=== PATIENT | male | born 1945 | race Caucasian/White ===

== ENCOUNTER 2017-01-30 12:11 | Emergency (ER) | payer OTHER ==
[~2017-01-30] VITALS: Ht 175.3 cm; Wt 104.7 kg
[~2017-01-30 12:11] MED LIST: ACET-1256 PO; ALLO100T PO; ALPR0.25 PO; ANT25 PO; CINN1CAP2 PO; CYCL10TA6 PO; DICL1GEL12 TD; DICY10CA55 PO; DIPH25CA37 PO; FLUT0.0529 NAE; FURO40TA3 PO; GUAI1TAB55 PO; LIDO2GEL9 TD; MAGIC1 PO; MERC50TA9 PO; MESA1.2T PO; METR500T PO; MISC1CAP60 PO; MULT-506 PO; ONDA4TAB7 SL; OXYC7.5T65 PO; PANT40TA PO; PRED10TA PO; PROM50TA3 PO; RMCI INJ; TRAM-10 PO
[2017-01-30 12:13] VITALS: TEMP 36.7; Ht 175.3 cm; Wt 104.7 kg
[2017-01-30] MEDS ORDERED: ASCA500 PO (12:33)
[2017-01-30] MEDS ORDERED: MECL1TAB42 PO (12:35)
[2017-01-30] MEDS ORDERED: FLUT0.15 NAE (12:35)
[2017-01-30] MEDS ORDERED: DIPH1TAB PO (12:35)
[2017-01-30] MEDS ORDERED: ONDA4TAB10 SL (12:35)
--- NOTE | 2017-01-30 14:09 | DIAGNOSTIC IMAGING REPORT ---
RIGHT LOWER EXTREMITY VENOUS DOPPLER HISTORY: Right leg pain and swelling. COMPARISON STUDY: Venous Doppler 02/13/2014. FINDINGS: There is normal compressibility, flow, and augmentation within the right lower extremity deep venous system. IMPRESSION: No DVT within the right lower extremity Electronically signed by: Gómez Hyde M.D. 01/30/2017 2:08 PM Dictated Date/Time: 01/30/2017 2:08 PM
--- NOTE | 2017-01-30 14:25 | EMERGENCY ROOM VISIT NOTE ---
ED Visit Note First contact with patient: 12:49 CHIEF COMPLAINT: Right lower extremity pain HISTORY OF PRESENT ILLNESS: This 71-year-old male patient presents to the emergency department complaining of right lower extremity pain 3 days. Patient denies injury. He does report strong family history of DVT and other clots. Patient does not report personal history of clotting disorders. Patient is scheduled to have surgery next Thursday, a left knee replacement, and wanted to ensure he does not currently have a clot. The patient reports tenderness over the anterior, medial tibia and states the pain is worse on palpation and while he walks. Patient reports minimal swelling, however denies redness. The patient denies dyspnea, chest pain, pain higher up in the leg, difficulty with ambulation, decreased range of motion. The patient has not taken any medications for his pain. REVIEW OF SYSTEMS: A 10-system review of systems was performed with positives and pertinent negatives listed in the history of present illness. All other systems were reviewed and are negative. ALLERGIES: Amoxicillin, cefazolin, doxycycline, penicillin, sulfa MEDICATIONS: See list. I have personally reviewed the patient's medications with him. PMH: Crohn's disease, anxiety, osteoarthritis SOCIAL HISTORY: Patient lives locally with a friend. He denies alcohol, tobacco , drug use. PHYSICAL EXAM: VITALS: Vitals are noted on the nurse's note and reviewed by myself. Vital signs stable. GENERAL: 71-year-old male, in no acute distress, nondiaphoretic, well-developed well-nourished. NECK: No lymphadenopathy or thyromegaly. HEART: Regular rate and rhythm. No murmurs, gallops, or rubs. LUNGS: Clear and equal bilaterally to auscultation. No adventitious lung sounds noted. MUSCULOSKELETAL: The knee and ankle are normal to inspection, no swelling or tenderness of either. There is mild swelling and point tenderness over the medial aspect of the distal tibia. The skin is intact. There is no bruising noted. There is no crepitus or deformity noted. Strength 5/5 in bilateral lower extremities. Dorsal pedal pulse +3 bilaterally. SKIN: [place], warm, dry. No diaphoresis or cyanosis noted. No abnormal bruising or skin tears. RADIOLOGY STUDIES: US RLE: FINDINGS: There is normal compressibility, flow, and augmentation within the right lower extremity deep venous system. IMPRESSION: No DVT within the right lower extremity X-Ray Tibia/Fibula: FINDINGS: Alignment of the total right knee arthroplasty is anatomic. There is no periprosthetic fracture or lucency. No fracture or suspicious lesion is identified within the right tibia or fibula. There is no soft tissue gas. There is extensive vascular calcification. There is moderate posterior calcaneal spurring. IMPRESSION: 1. No fracture of the right tibia or fibula. 2. Status post total right knee arthroplasty. No periprosthetic fracture or lucency. EMERGENCY DEPARTMENT COURSE: Patient was seen and evaluated as above. A venous Doppler scan of the right lower extremity was performed and reviewed by radiologist. Results were negative. I discussed with the patient the options to further evaluate the extremity with an x-ray, and patient refuses at this time. The patient was then evaluated by Dr. Sorto, and agrees to having an x- ray performed prior to discharge. X-ray results were reviewed by myself and radiologist and are as outlined previously. The patient was discharged home in good condition. DIFFERENTIAL DIAGNOSIS: Contusion, DVT, stress fracture, malignancy, sprain, soft tissue injury, and others. DIAGNOSIS: Right lower leg pain DISCHARGE INSTRUCTIONS & TREATMENT: You were seen in the emergency department today for right lower extremity pain. We have ruled out a DVT or blood clot in your leg with an ultrasound. We have ruled out a DVT or blood clot in your leg with an ultrasound. We have also ruled out fracture or metastasis of the lower leg with an X-ray. I suspect the pain is due to a contusion of the lower leg. You may continue taking your regularly prescribed pain medication You may use ice and/or heat, 20 minutes on, 20 minutes off, with a barrier between the hot or cold pack and your skin. Please follow up with your primary care provider and/or orthopedic surgeon in 2- 3 days for further evaluation and management of the pain. Return to the emergency department if you experience increased leg swelling, redness, pain, dyspnea, chest pain, dizziness, weakness, or other associated symptoms. Problem List Medical Problems: (1) Diabetes mellitus type 2 Status: Chronic (2) Gastroesophageal reflux disease Status: Chronic (3) Vertigo Status: Chronic Current/Historical Medications Scheduled Acetaminophen (Tylenol), 500-1,000 MG PO Q4HR PRN Alprazolam (Xanax), 0.25 MG PO UD Ascorbic Acid (Vitamin C), 1 TAB PO BID Cinnamon (Cinnamon), 500 MG PO DAILY Dicyclomine Hcl (Bentyl), 10 MG PO BID Fluticasone Propionate (Nasal) (Flonase Allergy Relief), 2 SPRAYS TAWNYA DAILY Furosemide (Lasix), 40 MG PO DAILY Infliximab (Remicade), 1 DOSE INJ UD Mesalamine (Lialda), 2.4 GM PO BID Metronidazole (Flagyl), 500 MG PO TID Misc Natural Products ([place]), 1 CAP PO DAILY Multivitamin (Multivitamin), 1 TAB PO DAILY Pantoprazole (Protonix), 40 MG PO DAILY Scheduled PRN Cyclobenzaprine Hcl (Flexeril), 10 MG PO TID PRN for MUSCLE SPASMS Diclofenac Sodium (Topical) (Voltaren 1% Top Gel), 1 TD DAILY PRN for Pain Diphenhy/Alum/Mag/Sucralfa (Magic Swizzle - Diphenhy/Alum/Mag/Sucralfa), 1 TSP PO QID PRN for MOUTH ULCERS Diphenhydramine Hcl (Benadryl Allergy), 25 MG PO TID PRN for RASH Guaifenesin Ext Rel (Mucinex Ext Rel), 600 MG PO Q12 PRN for CONGESTION Lidocaine Hcl (Lidocaine Hcl Jelly), 1 APPLN TD TID PRN for FISSURES Meclizine Hcl (Meclizine Hcl), 25 MG PO Q6 PRN for Nausea Ondasetron Odt (Zofran Odt), 4 MG SL BID PRN for Nausea Oxycodone/Acetaminophen 7.5MG/325MG (Percocet 7.5MG/325MG), 1 TAB PO Q8 PRN for Pain Promethazine Hcl (Phenergan), 50 MG PO Q4 PRN for Nausea or Vomiting Tramadol (Ultram), 50 MG PO Q8H PRN for Pain Allergies Coded Allergies: Amoxicillin (Verified Allergy, Intermediate, Swelling to legs and inflammation, 09/19/15) Cefazolin (Verified Allergy, Intermediate, rash, 09/19/15) Doxycycline (Verified Allergy, Intermediate, RASH, 09/19/15) Penicillins (Verified Allergy, Intermediate, rash, 09/19/15) Sulfa Antibiotics (Verified Allergy, Unknown, ., 09/19/15) Vital Signs Date Time Temp Pulse Resp B/P (MAP) Pulse Ox O2 Delivery O2 Flow Rate FiO2 01/30/17 12:13 36.7 77 16 138/68 95 Room Air Departure Information Impression Primary Impression: Leg pain, right Dispostion Home / Self-Care Condition GOOD Referrals Rodolfo Whyte D.O. (PCP) Patient Instructions My [facility] Additional Instructions You were seen in the emergency department today for right lower extremity pain. We have ruled out a DVT or blood clot in your leg with an ultrasound. We have also ruled out fracture or metastasis of the lower leg with an X-ray. I suspect the pain is due to a contusion of the lower leg. You may continue taking your regularly prescribed pain medication You may use ice and/or heat, 20 minutes on, 20 minutes off, with a barrier between the hot or cold pack and your skin. Please follow up with your primary care provider and/or orthopedic surgeon in 2- 3 days for further evaluation and management of the pain. Return to the emergency department if you experience increased leg swelling, redness, pain, dyspnea, chest pain, dizziness, weakness, or other associated symptoms.
--- NOTE | 2017-01-30 14:42 | EMERGENCY ROOM VISIT NOTE ---
ED Visit Note First contact with patient: 12:49 I did evaluate and examine this patient myself. I did guide management for the patient. I agree with the APC's assessment as discussed. Please see the APC's dictation for further details. I did independently review the x-rays and Doppler ultrasound of lower extremity. He does not have any DVT. Distal pulses are intact. There is no acute fracture. He was advised follow closely with his doctor.
--- NOTE | 2017-01-30 15:10 | DIAGNOSTIC IMAGING REPORT ---
RIGHT TIBIA/FIBULA 2 VIEWS ROUTINE CLINICAL HISTORY: Right lower extremity pain. COMPARISON: None FINDINGS: Alignment of the total right knee arthroplasty is anatomic. There is no periprosthetic fracture or lucency. No fracture or suspicious lesion is identified within the right tibia or fibula. There is no soft tissue gas. There is extensive vascular calcification. There is moderate posterior calcaneal spurring. IMPRESSION: 1. No fracture of the right tibia or fibula. 2. Status post total right knee arthroplasty. No periprosthetic fracture or lucency. Electronically signed by: Jose Guadalupe Basurto M.D. 01/30/2017 3:08 PM Dictated Date/Time: 01/30/2017 3:07 PM
[2017-01-30 15:45] VITALS: BP 145/76; PULSE 80; O2SAT 97
== END 2017-01-30 15:45 | disposition home or self-care (01) ==
LOC: C.EDB 12:13 → C.EDD 15:45
DX: M79.604 Pain in right leg (principal); K50.90 Crohn's disease, unspecified, without complications; F41.9 Anxiety disorder, unspecified; M19.90 Unspecified osteoarthritis, unspecified site; E11.9 Type 2 diabetes mellitus without complications; K21.9 Gastro-esophageal reflux disease without esophagitis; R42 Dizziness and giddiness; Z79.899 Other long term (current) drug therapy

== ENCOUNTER 2017-11-10 17:16 | Emergency (ER) | payer OTHER ==
[~2017-11-10] VITALS: Ht 177.8 cm; Wt 119.3 kg
[~2017-11-10 17:16] MED LIST changes: -ALLO100T PO; -ANT25 PO; +ASCA500 PO; -CYCL10TA6 PO; -DICY10CA55 PO; +DIPH1TAB87 PO; -DIPH25CA37 PO; -FLUT0.0529 NAE; +FLUT0.15 NAE; -FURO40TA3 PO; -GUAI1TAB55 PO; +MECL1TAB42 PO; -MERC50TA9 PO; -MESA1.2T PO; +ONDA4TAB10 SL; -ONDA4TAB7 SL; -OXYC7.5T65 PO; -PANT40TA PO; -PRED10TA PO; -PROM50TA3 PO; -RMCI INJ; -TRAM-10 PO
[2017-11-10 17:18] VITALS: TEMP 37.1; Ht 177.8 cm; Wt 119.3 kg
[2017-11-10] MEDS ORDERED: TRAM-10 PO (18:00)
[2017-11-10] MEDS ORDERED: MESA1.2T PO (18:00)
[2017-11-10] MEDS ORDERED: PROM50TA3 PO (18:00)
[2017-11-10] MEDS ORDERED: OXYC7.5T65 PO (18:00)
[2017-11-10] MEDS ORDERED: GUAI1TAB55 PO (18:00)
[2017-11-10] MEDS ORDERED: PANT40TA PO (18:00)
[2017-11-10] MEDS ORDERED: RMCI INJ (18:00)
[2017-11-10] MEDS ORDERED: CYCL10TA6 PO (18:00)
[2017-11-10] MEDS ORDERED: FURO40TA3 PO (18:00)
[2017-11-10] MEDS ORDERED: DICY10CA55 PO (18:00)
[2017-11-10 18:36] LABS: BASO % 0.1 %; BASO ABS # 0.01 K/uL (0-0.2); EOS ABS # 0.39 K/uL (0-0.5); HEMATOCRIT 38.4 % (42-52); HEMOGLOBIN 13.6 g/dL (14.0-18.0); IG# 0.03 K/uL (0.00-0.02); LYMPH ABS # 0.78 K/uL (1.2-3.4); MEAN CELL VOLUME 86.9 fL (80-100); MEAN CORPUSCULAR HEMOGLOBIN 30.8 pg (25-34); MEAN CORPUSCULAR HGB CONC 35.4 g/dl (32-36); MEAN PLATELET VOLUME 9.1 fL (7.4-10.4); MONO % 5.9 %; MONO ABS # 0.46 K/uL (0.11-0.59); NEUT % 78.6 %; NEUT ABS # 6.13 K/uL (1.4-6.5); PLATELET COUNT 227 K/uL (130-400); RED CELL DISTRIBUTION WIDTH CV 14.6 % (11.5-14.5); RED CELL DISTRIBUTION WIDTH SD 46.2 fL (36.4-46.3)
[2017-11-10 18:48] LABS: INR 0.9 (0.9-1.1); PTT PATIENT 24.7 SECONDS (21.0-31.0)
[2017-11-10 18:51] LABS: CREATININE 0.9 mg/dl (0.60-1.40); POTASSIUM 3.7 mmol/L (3.5-5.1)
--- NOTE | 2017-11-10 19:42 | DIAGNOSTIC IMAGING REPORT ---
R VENOUS DOPPLER UPR EXT UNIL HISTORY: 72 years-old Male right arm swelling eval for dvt acute right arm swelling with concern for DVT COMPARISON: None available TECHNIQUE: Multiple real-time sonographic images of the right upper extremity deep venous structures were obtained assessing grayscale appearance, color and spectral flow FINDINGS: There is normal flow, phasicity, and compressibility of the right upper extremity deep venous structures. Mild subcutaneous edema is noted about the forearm. IMPRESSION: No sonographic evidence of deep venous thrombosis. The above report was generated using voice recognition software. It may contain grammatical, syntax or spelling errors. Electronically signed by: Apolinar Alvarado M.D. 11/10/2017 7:41 PM Dictated Date/Time: 11/10/2017 7:40 PM
[2017-11-10] MEDS ORDERED: LEVO-366 PO (19:52)
[2017-11-10] MEDS ORDERED: LEVOFLOXACIN 250 MG TAB PO ONE (20:00)
[2017-11-10 20:11] VITALS: BP 139/70; PULSE 72; O2SAT 95
[2017-11-10] MEDS ORDERED: PSEU30TA3 PO (20:54)
[2017-11-10] MEDS ORDERED: OXYC20TA50 PO (20:54)
[2017-11-10] MEDS ORDERED: MRC50 PO (20:54)
--- NOTE | 2017-11-10 22:36 | EMERGENCY ROOM VISIT NOTE ---
History Report prepared by Mat: Jordin Mcclelland Under the Supervision of: Dr. Kamlesh Sorto M.D. First contact with patient: 18:20 Chief Complaint: SWELLING TO EXTREMITY Stated Complaint: SWELLING IN RT ARM History of Present Illness The patient is a 72 year old male who presents to the Emergency Room with complaints of worsening redness and swelling to his right upper extremity. The patient noted that the redness has been present for the past 3 days. The redness started at the wrist and began to spread up towards the arm. He denies any pain in the extremity. He also denies any chest pain, fevers, or shortness of breath. He has no personal history of clots, but does have a family history. The patient has a history of cellulitis and Crohn's. He is on Remicade. Source of History: patient Onset: 3 days Position: arm (right) Quality: other (Redness and swelling) Timing: worsening Associated Symptoms: No fevers, No chest pain, No SOB Review of Systems See HPI for pertinent positives & negatives. A total of 10 systems reviewed and were otherwise negative. Past Medical & Surgical Medical Problems: (1) Diabetes mellitus type 2 (2) Gastroesophageal reflux disease (3) Vertigo Family History No pertinent family history Social History Smoking Status: Former Smoker Drug Use: none Marital Status: Housing Status: lives alone Occupation Status: retired Current/Historical Medications Scheduled Dicyclomine Hcl (Bentyl), 10 MG PO BID Fluticasone Propionate (Nasal) (Flonase Allergy Relief), 2 SPRAYS TAWNYA DAILY Furosemide (Lasix), 40 MG PO DAILY Infliximab (Remicade), 1 DOSE INJ UD Levofloxacin (Levaquin), 500 MG PO DAILY Mercaptopurine (Mercaptopurine), 12.5 MG PO DAILY Mesalamine (Lialda), 2.4 GM PO BID Oxycodone Hcl (Oxycontin), 20 MG PO Q12 Pantoprazole (Protonix), 40 MG PO DAILY Scheduled PRN Cyclobenzaprine Hcl (Flexeril), 10 MG PO TID PRN for MUSCLE SPASMS Diphenhydramine Hcl (Benadryl Allergy), 25 MG PO TID PRN for RASH Guaifenesin Ext Rel (Mucinex Ext Rel), 600 MG PO Q12 PRN for CONGESTION Lidocaine Hcl (Lidocaine Hcl Jelly), 1 APPLN TD PRN PRN for FISSURES Meclizine Hcl (Meclizine Hcl), 25 MG PO Q6 PRN for Nausea Ondasetron Odt (Zofran Odt), 4 MG SL BID PRN for Nausea Oxycodone/Acetaminophen 7.5MG/325MG (Percocet 7.5MG/325MG), 1 TAB PO Q8 PRN for Pain Promethazine Hcl (Phenergan), 50 MG PO Q4 PRN for Nausea or Vomiting Pseudoephedrine Hcl (Sudafed Nasal Decongestan), 1 TAB PO DAILY PRN for CONGESTION Tramadol (Ultram), 50 MG PO Q8H PRN for Pain Allergies Coded Allergies: Amoxicillin (Verified Allergy, Intermediate, Swelling to legs and inflammation, 09/19/15) Cefazolin (Verified Allergy, Intermediate, rash, 09/19/15) Clindamycin (Verified Allergy, Intermediate, Rash, 11/10/17) Doxycycline (Verified Allergy, Intermediate, RASH, 09/19/15) Penicillins (Verified Allergy, Intermediate, rash, 09/19/15) Sulfa Antibiotics (Verified Allergy, Unknown, ., 09/19/15) Physical Exam Vital Signs Date Time Temp Pulse Resp B/P (MAP) Pulse Ox O2 Delivery O2 Flow Rate FiO2 11/10/17 20:11 72 18 139/70 95 11/10/17 18:50 81 18 131/65 94 Room Air 11/10/17 17:18 37.1 82 20 131/70 96 Room Air Physical Exam Constitutional: Vital signs reviewed. Eyes: Pupils are equal round reactive to light. Conjunctiva are noninjected. ENT: Pharynx is clear without erythema or exudate. Mucous membranes are moist. Neck supple without meningeal signs. Respiratory: Clear to auscultation bilaterally. Breath sounds are equal bilaterally. Cardiovascular: Regular rate and rhythm. No rubs or gallops. GI: Soft, nondistended and nontender. Bowel sounds are present. Musculoskeletal: There is erythema and increased warmth to the volar aspect of the right forearm, from the proximal wrist to 2/3 up the forearm. Normal distal pulses. No axillary lymphadenopathy, no significant tenderness. No lower extremity tenderness. No wrist or elbow tenderness. Integumentary: No cyanosis. Neurological: The patient is awake and alert. No focal deficits. Psychiatric: Normal affect. Medical Decision & Procedures ER Provider Diagnostic Interpretation: Radiology results as stated below per my review and the radiologist's interpretation: R VENOUS DOPPLER UPR EXT UNIL HISTORY: 72 years-old Male right arm swelling eval for dvt acute right arm swelling with concern for DVT COMPARISON: None available TECHNIQUE: Multiple real-time sonographic images of the right upper extremity deep venous structures were obtained assessing grayscale appearance, color and spectral flow FINDINGS: There is normal flow, phasicity, and compressibility of the right upper extremity deep venous structures. Mild subcutaneous edema is noted about the forearm. IMPRESSION: No sonographic evidence of deep venous thrombosis. The above report was generated using voice recognition software. It may contain grammatical, syntax or spelling errors. Electronically signed by: Apolinar Alvarado M.D. 11/10/2017 7:41 PM Dictated Date/Time: 11/10/2017 7:40 PM Laboratory Results 11/10/17 18:20 Red Blood Count 4.42, Mean Corpuscular Volume 86.9, Mean Corpuscular Hemoglobin 30.8, Mean Corpuscular Hemoglobin Concent 35.4, Mean Platelet Volume 9.1, Neutrophils (%) (Auto) 78.6, Lymphocytes (%) (Auto) 10.0, Monocytes (%) (Auto) 5.9, Eosinophils (%) (Auto) 5.0, Basophils (%) (Auto) 0.1, Neutrophils # (Auto) 6.13, Lymphocytes # (Auto) 0.78, Monocytes # (Auto) 0.46, Eosinophils # (Auto) 0.39, Basophils # (Auto) 0.01 11/10/17 18:20 Test 11/10/17 18:20 White Blood Count 7.80 K/uL (4.8-10.8) Red Blood Count 4.42 M/uL (4.7-6.1) Hemoglobin 13.6 g/dL (14.0-18.0) Hematocrit 38.4 % (42-52) Mean Corpuscular Volume 86.9 fL (80-100) Mean Corpuscular Hemoglobin 30.8 pg (25-34) Mean Corpuscular Hemoglobin Concent 35.4 g/dl (32-36) Platelet Count 227 K/uL (130-400) Mean Platelet Volume 9.1 fL (7.4-10.4) Neutrophils (%) (Auto) 78.6 % Lymphocytes (%) (Auto) 10.0 % Monocytes (%) (Auto) 5.9 % Eosinophils (%) (Auto) 5.0 % Basophils (%) (Auto) 0.1 % Neutrophils # (Auto) 6.13 K/uL (1.4-6.5) Lymphocytes # (Auto) 0.78 K/uL (1.2-3.4) Monocytes # (Auto) 0.46 K/uL (0.11-0.59) Eosinophils # (Auto) 0.39 K/uL (0-0.5) Basophils # (Auto) 0.01 K/uL (0-0.2) RDW Standard Deviation 46.2 fL (36.4-46.3) RDW Coefficient of Variation 14.6 % (11.5-14.5) Immature Granulocyte % (Auto) 0.4 % Immature Granulocyte # (Auto) 0.03 K/uL (0.00-0.02) Prothrombin Time 9.9 SECONDS (9.0-12.0) Prothromb Time International Ratio 0.9 (0.9-1.1) Activated Partial Thromboplast Time 24.7 SECONDS (21.0-31.0) Partial Thromboplastin Ratio 1.0 Anion Gap 5.0 mmol/L (3-11) Est Creatinine Clear Calc Drug Dose 96.0 ml/min Estimated GFR () 98.5 Estimated GFR (Non- 85.0 BUN/Creatinine Ratio 21.9 (10-20) Calcium Level 10.0 mg/dl (8.5-10.1) Laboratory results as reviewed by me. Medications Administered Medications (Trade) Dose Ordered Sig/Trina Route Start Time Stop Time Status Last Admin Dose Admin Levofloxacin (Levaquin Tab) 500 mg NOW ONCE PO 11/10/17 20:00 11/10/17 20:01 DC 11/10/17 20:07 500 MG ECG Per My Interpretation Indication: other (Right Arm Pain) Rate (beats per minute): 85 Rhythm: normal sinus Findings: other (No JOAQUÍN, No PVCs) ED Course 1821: The patient was evaluated in room A11A. A complete history and physical exam was performed. 1999: Ordered Levofloxacin 500 mg PO. 2007: I discussed britney's findings with him. He verbalized agreement of the treatment plan. The patient was discharged home. Medical Decision This is a 72-year-old male who presents with right arm redness and swelling. Differential diagnosis includes cellulitis, superficial thrombophlebitis, DVT, lymphangitis. I did perform a limited focused review of portions of the patient 's old chart on the electronic medical record. I did evaluate the patient as noted above. Patient appears to have a cellulitis to his right arm. He has no joint involvement. He has no signs of lymphangitis. EKG was performed by the nurse. Per my interpretation there is no evidence of acute ischemia. IV access was established. The patient was placed on a continuous bus driver/monitor. I did order and review the patient's blood work as noted in the electronic medical record. His white blood cell count is not elevated. I did order an ultrasound of the right upper extremity. I did review the images myself as well as the radiology report as described above. There is no evidence of DVT. I did discuss the test results with the patient. I did talk to the pharmacist to reviewed his multiple allergies and recommended Levaquin for treatment of his cellulitis. I did discuss risks and benefits of Levaquin. He was discharged with a prescription for Levaquin for 6 days and given his first dose here. He was advised to follow-up with his doctor. Medication Reconcilliation Current Medication List: was personally reviewed by me Blood Pressure Screening Patient's blood pressure: Normal blood pressure Impression Primary Impression: Right arm cellulitis Scribe Attestation The scribe's documentation has been prepared under my direct and personally reviewed by me in its entirety. I confirm that the note above accurately reflects all work, treatment, procedures, and medical decision making performed by me. Departure Information Dispostion Home / Self-Care Prescriptions Levofloxacin (Levaquin) 500 Mg Tab 500 MG PO DAILY for 6 Days, #6 TAB Prov: Kamlesh Sorto M.D. 11/10/17 Referrals Rodolfo Whyte D.O. (PCP) Forms HOME CARE DOCUMENTATION FORM, IMPORTANT VISIT INFORMATION, WORK / SCHOOL INSTRUCTIONS Patient Instructions My [facility] Additional Instructions You have been examined and treated today on an emergency basis only. This is not a substitute for, or an effort to provide, complete comprehensive medical care. It is impossible to recognize and treat all injuries or illnesses in a single emergency department visit. It is therefore important that you follow up closely with your physician. Call as soon as possible for an appointment. Return for worsening symptoms or if you develop fever, vomiting, chest pain, shortness of breath or any other concerning symptoms.
== END 2017-11-10 20:11 | disposition home or self-care (01) ==
LOC: C.EDB 17:17 → C.EDA 20:11
DX: L03.113 Cellulitis of right upper limb (principal); E11.9 Type 2 diabetes mellitus without complications; K21.9 Gastro-esophageal reflux disease without esophagitis; Z79.899 Other long term (current) drug therapy; Z79.52 Long term (current) use of systemic steroids; Z88.0 Allergy status to penicillin; Z88.1 Allergy status to other antibiotic agents; Z88.2 Allergy status to sulfonamides; Z83.2 Family history of diseases of the blood and blood-forming organs and certain disorders involving the immune mechanism

== ENCOUNTER 2020-03-09 13:50 | Observation (INO) ==
[2020-03-09] MEDS ORDERED: SODIUM CHLORIDE 0.9% 1000ML 1,000 ML IV SCH (14:15)
--- NOTE | 2020-03-09 14:31 | Emergency Department Note ---
Impression & Plan Obstruction of esophagus ED Provider Note Provider: Maikel Johnson MD DATE OF SERVICE: 03/09/2020 CHIEF COMPLAINT: Difficulty swallowing HISTORY OF PRESENT ILLNESS: Patient is a 75-year-old gentleman with a history of diabetes, Crohn's presenting today due to due to difficulty swallowing. Patient unfortunately has been diagnosed with an esophageal mass undergoing currently chemotherapy over the past week and with is a developed significant nausea. Had more difficulty swallowing and today is unable to swallow water or his secretions and is been throwing up. Tried some Zofran with limited success but later some Compazine at home under the tongue which did improve his symptoms. Given this call his doctors referred here for further care. He reports that he is not having significant pain or fever. Denies shortness of breath. Patient states his nausea is now improved. Chronic bowel issues with the Crohn's disease. Had a prior esophageal stent last year done at [facility] with Dr. Stafford. This fractured earlier this year and had to be removed. PET scan last in January. Evidently his primary doctor's office did discuss with his oncologist and plan. The patient states he has a bad experiences here and will he like the stent replaced would prefer done at [facility] or [place]. Denies feeling significantly thirsty at this point. Patient does present here today w ith his friend who is his medical POA. REVIEW OF SYSTEMS: A total of 10 review of systems was obtained and negative except as stated above in the HPI. PAST MEDICAL HISTORY: As noted above MEDICATIONS: Reviewed Family history: Diabetes SOCIAL HISTORY: Former smoker, PHYSICAL EXAM: GENERAL: alert and oriented in no acute distress sitting on stretcher Head: normocephalic and atraumatic EYES: No injection, discharge or icterus. ENT: Mucous membranes pink and moist. LUNGS: Airway patent. No retractions. Breath sounds clear with good air entry bilaterally. HEART: Regular rate and rhythm. Upper chest wall port in place. ABDOMEN: Soft and non-tender, without guarding or rebound. SKIN: Acyanotic, warm, dry, without rashes NEUROLOGICAL: No focal deficits. No aphasia. No facial droop or slurred speech. Ambulatory. EK bpm sinus bradycardia. No PVCs or PACs. No acute ST segment elevation or depression. Patient's hypertension was referred to the [facility] HOSPITAL COURSE: 1405 Patient was first seen and H&P performed. 1450 updated by GI that they were planning to take the patient here and that he should be admitted. 1455 evaluated the patient bedside who is resting comfortably in bed and agreeable to plan for stenting here admission at this time. Patient's laboratory studies and imaging reviewed. Differential includes obstruction, mesenteric ischemia, aortic pathology, inflammatory bowel disease, PUD, pancreatitis, biliary pathology, hernia, volvulus, constipation, obstruction, cardiac disease, PE as well as other pathologies. IMPRESSION/MEDICAL DECISION MAKING: Patient presents with sounds like worsening esophageal cancer now basically with obstructive symptoms. Unsure if he is truly entirely obstructed or extremely close. Did have the gastroenterology nurse practitioner who is available in the emergency department, and see the patient as well. Basic labs EKG and chest x- ray obtained. I doubt this is cardiac or pulmonary in nature. Likely this seems like worsening of his underlying esophageal cancer now causing obstruction. He is agreeable for esophageal stenting if required. Gastroenterology will discuss and present options to the patient. Given some IV fluid here for hydration in the meantime maintained n.p.o. GI evaluated and felt comfortable taking the patient here and the patient was agreeable with this plan for esophageal stenting. Patient should be monitored afterwards and will be admitted. Hospitalist contacted. DIAGNOSIS: Esophageal obstruction DISPOSITION: Hospitalist contacted Patient was agreeable with this plan. Past Med/Surg History Medical History (Updated 03/09/20 @ 16:26 by Loreto Chavez PA-C) Arthritis stable Crohn disease (06/01/14) stable Diabetes mellitus type 2 in nonobese (Inactive 09/09/11) Esophageal cancer + esophageal stent, plan for future chemo GERD (gastroesophageal reflux disease) controlled Gout Migraine hx Obesity Obstruction of esophagus (Acute) Port-A-Cath in place (05/09/19) Insertion of A-Port Dr. Jorge 05/09/19 Sleep apnea BIPAP Surgical History History of colonoscopy History of esophagogastroduodenoscopy (EGD) History of tonsillectomy History of total knee replacement bilateral S/P dilatation of esophageal stricture + stent Family History Mother Diabetes Father Heart disease FHx: lung cancer Social History Smoking Status: Never smoker Second Hand Exposure: No; Hx Alcohol Use: No (hx - no ETOH x 20 years) Hx Substance Use: No Preferred Language: Yoruba Communication Ability: Effective Evs Attendant Required: No Beliefs That Will Affect Care: None marital status: / Current Living Situation Comment: friendDorina current occupational status: retired Feels Safe at Home: Yes Allergies Allergies Allergy/AdvReac Type Severity Reaction Status Date / Time amoxicillin Allergy Intermediate Leg Verified 03/09/20 14:48 swelling/inflammation cefazolin Allergy Intermediate rash Verified 03/09/20 14:48 clindamycin Allergy Intermediate rash Verified 03/09/20 14:48 doxycycline Allergy Intermediate rash Verified 03/09/20 14:48 Sulfa (Sulfonamide Allergy Unknown Unknown Verified 03/09/20 14:48 Antibiotics) Home Meds Home Medications Medication Instructions Recorded Confirmed cyclobenzaprine 10 mg tablet 10 mg PO TID PRN 05/02/19 03/09/20 dicyclomine 10 mg capsule 10 mg PO BID 05/02/19 03/09/20 diphenhydramine HCl 25 mg tablet 25 mg PO UD PRN 05/02/19 03/09/20 fluticasone propionate 50 2 sprays INTNAS DAILY PRN 05/02/19 03/09/20 mcg/actuation nasal spray,suspension guaifenesin 600 mg tablet, 600 mg PO Q12H PRN 05/02/19 03/09/20 extended release 12 hr lidocaine HCl 2 % mucosal jelly 1 appln TOP TID PRN 05/02/19 03/09/20 pantoprazole 40 mg tablet,delayed 40 mg PO QAM 05/02/19 03/09/20 release promethazine 50 mg tablet 50 mg PO Q4H PRN tab 05/02/19 03/09/20 pseudoephedrine HCl 30 mg tablet 30 mg PO Q6H PRN 05/02/19 03/09/20 tramadol 50 mg tablet 50 mg PO Q8H PRN 05/02/19 03/09/20 allopurinol 100 mg tablet 100 mg PO BID 05/03/19 03/09/20 ascorbic acid (vitamin C) 100 mg 100 mg PO DAILY 05/03/19 03/09/20 tablet betamethasone dipropionate 0.05 % 1 appln TOP DAILY 05/03/19 03/09/20 topical ointment cholecalciferol (vitamin D3) 75 3,000 units PO DAILY 05/03/19 03/09/20 mcg (3,000 unit) tablet echinacea 400 mg capsule 400 mg PO DAILY 05/03/19 03/09/20 saw palmetto 160 mg capsule 160 mg PO BID 05/03/19 03/09/20 mesalamine 2.4 g PO BID 05/04/19 03/09/20 baclofen 5 mg PO TID 03/09/20 03/09/20 docusate sodium 200 mg PO BID 03/09/20 03/09/20 meclizine 25 mg PO QID PRN 03/09/20 03/09/20 ondansetron HCl 8 mg PO TID 03/09/20 03/09/20 prochlorperazine maleate 10 mg PO Q6H 03/09/20 03/09/20 Results & Data (ED) Vital Signs Vital Signs - 24 hr 03/09/20 13:53 03/09/20 14:41 03/09/20 14:48 Temperature 36.7 C Temperature Source Oral Pulse Rate 63 49 L 45 L Pulse Rate from SpO2 Sensor 49 L 47 L Respiratory Rate 20 16 12 Blood Pressure 111/66 108/63 Blood Pressure Mean 81 68 Blood Pressure Position Sitting Pulse Oximetry 98 99 99 Oxygen Delivery Method Room Air Sepsis Recent Fever Within 48 Hours No Sepsis New/Unexplained Change in Mental Status No Sepsis Action Taken by Nursing No Action Required 03/09/20 14:50 03/09/20 15:01 03/09/20 15:10 Temperature Temperature Source Pulse Rate 48 L 49 L 47 L Pulse Rate from SpO2 Sensor 49 L 49 L 46 L Respiratory Rate 14 12 Blood Pressure 131/46 L Blood Pressure Mean 58 Blood Pressure Position Pulse Oximetry 100 98 98 Oxygen Delivery Method Sepsis Recent Fever Within 48 Hours Sepsis New/Unexplained Change in Mental Status Sepsis Action Taken by Nursing Laboratory Data Result diagrams: 03/09/20 14:30 03/09/20 14:30 Lab Results 03/09/20 03/09/20 03/09/20 Range/Units 14:30 14:30 14:30 WBC 6.13 (4.8-10.8) K/uL RBC 3.57 L (4.7-6.1) M/uL Hgb 11.1 L (14.0-18.0) g/dL Hct 33.0 L (42-52) % MCV 92.4 (80-100) fL MCH 31.1 (25-34) pg MCHC 33.6 (32-36) g/dL RDW Std Deviation 49.2 H (36.4-46.3) fL RDW Coeff of Davide 14.5 (11.5-14.5) % Plt Count 177 (130-400) K/uL MPV 8.4 (7.4-10.4) fL Immature Gran % (Auto) 0.2 % Neut % (Auto) 78.4 % Lymph % (Auto) 15.5 % [place] % (Auto) 4.7 % Eos % (Auto) 0.7 % Baso % (Auto) 0.5 % Neut # (Auto) 4.81 (1.4-6.5) K/uL Lymph # (Auto) 0.95 L (1.2-3.4) K/uL [place] # (Auto) 0.29 (0.11-0.59) K/uL Eos # (Auto) 0.04 (0-0.5) K/uL Baso # (Auto) 0.03 (0-0.2) K/uL Immature Gran # (Auto) 0.01 (0.00-0.02) K/uL PT 10.6 (9.0-12.0) Seconds INR 1.0 (0.9-1.1) Sodium 142 (136-145) mmol/L Potassium 3.8 (3.5-5.1) mmol/L Chloride 108 H (98-107) mmol/L Carbon Dioxide 29 (21-32) mmol/L Anion Gap 5.0 (3-11) BUN 17 (7-18) mg/dl Creatinine 0.74 (0.6-1.4) mg/dl Est Cr Clr Drug Dosing Not Reportable Est GFR ( Amer) 104.6 Est GFR (Non-Af Amer) 90.2 BUN/Creatinine Ratio 22.7 H (10-20) Glucose 90 (70-99) mg/dl Calcium 10.0 (8.5-10.1) mg/dl Magnesium 2.3 (1.8-2.4) mg/dl Total Bilirubin 0.7 (0.2-1) mg/dl AST 17 (15-37) U/L ALT 16 (12-78) U/L Alkaline Phosphatase 104 (45-117) U/L Total Protein 6.8 (6.4-8.2) gm/dl Albumin 3.2 L (3.4-5.0) gm/dl Globulin 3.6 (2.5-4.0) gm/dl Albumin/Globulin Ratio 0.9 (0.9-2) Administered Medications Discontinued Medications Sodium Chloride (Nss 1000ml) 1,000 mls @ 999 mls/hr IV .Q1H1M KAYDEN Stop: 03/09/20 15:15 Last Infusion: 03/09/20 15:51 Dose: 0 mls/hr Documented by: [id number] Admin: 03/09/20 14:43 Dose: 999 mls/hr Documented by: [id number] Discharge Plan Visit Data *Final* Discharge Date/Time: 03/09/20 16:37 Chief Complaint: Throat Pain Stated Complaint: CHEMO PT, ESOPHAGEAL BLOCKAGE ED Provider: Maikel Johnson Discharge Problem: Obstruction of esophagus Patient Disposition: Admitted As Inpatient Condition: Good Discharge Instructions Interventions: ED Discharge Assessment Last Done: 03/09/20 16:37
[2020-03-09 14:42] LABS: Basophils # (auto) 0.03 K/uL (0-0.2); Basophils % (auto) 0.5 %; Eosinophils # (auto) 0.04 K/uL (0-0.5); Eosinophils % (auto) 0.7 %; Hemoglobin 11.1 g/dL (14.0-18.0); Immature Granulocytes # (auto) 0.01 K/uL (0.00-0.02); Immature Granulocytes % (auto) 0.2 %; Lymphocytes # (auto) 0.95 K/uL (1.2-3.4); Lymphocytes % (auto) 15.5 %; Mean Corpuscular Hemoglobin 31.1 pg (25-34); Mean Corpuscular Hgb Conc 33.6 g/dL (32-36); Mean Corpuscular Volume 92.4 fL (80-100); Mean Platelet Volume 8.4 fL (7.4-10.4); Monocytes # (auto) 0.29 K/uL (0.11-0.59); Monocytes % (auto) 4.7 %; Neutrophils # (auto) 4.81 K/uL (1.4-6.5); Neutrophils % (auto) 78.4 %; Platelet Count 177 K/uL (130-400); RDW Coefficient of Variation 14.5 % (11.5-14.5); RDW Standard Deviation 49.2 fL (36.4-46.3); Red Blood Count 3.57 M/uL (4.7-6.1); White Blood Count 6.13 K/uL (4.8-10.8)
[2020-03-09 14:58] LABS: Prothrombin Time 10.6 Seconds (9.0-12.0)
--- NOTE | 2020-03-09 14:59 | XRay Report ---
SINGLE VIEW CHEST CLINICAL HISTORY: Dysphagia. Esophageal mass. FINDINGS: An AP, portable, upright chest radiograph is compared to study dated 05/09/2019 and correlat ed with chest CT dated 01/23/2020. The examination is degraded by portable technique and patient rotat ion. A left subclavian central venous infusion port is unchanged in position. The heart is enlarged n oting atherosclerotic calcification of the thoracic aorta. The pulmonary vasculature is noncongested. Chronic interstitial thickening is similar to previous. There is mild bibasilar scarring/atelectasis . No airspace consolidation or pleural effusion is identified. No pneumothorax is seen. The skeletal structures are osteopenic. The bony thorax is grossly intact. IMPRESSION: Cardiomegaly with no acute cardiopulmonary abnormality. ACT 112: Negative or not required by law. Electronically signed by: Paul Daley M.D. 03/09/2020 2:57 PM
[2020-03-09 15:01] LABS: Alanine Aminotransferase 16 U/L (12-78); Albumin Level 3.2 gm/dl (3.4-5.0); Aspartate Aminotransferase 17 U/L (15-37); BUN Creatinine Ratio 22.7 (10-20); Blood Urea Nitrogen 17 mg/dl (7-18); Carbon Dioxide 29 mmol/L (21-32); Chloride 108 mmol/L (98-107); Est GFR (African American) 104.6; Est GFR (Non-African American) 90.2; Glucose 90 mg/dl (70-99); Magnesium 2.3 mg/dl (1.8-2.4); Potassium 3.8 mmol/L (3.5-5.1); Sodium 142 mmol/L (136-145)
[2020-03-09 15:03] LABS: Albumin Globulin Ratio 0.9 (0.9-2); Alkaline Phosphatase 104 U/L (45-117); Bilirubin,Total 0.7 mg/dl (0.2-1); Globulin 3.6 gm/dl (2.5-4.0); Total Protein 6.8 gm/dl (6.4-8.2)
[2020-03-09] MEDS ORDERED: ONDANSETRON INJ 2 MG/ML 2 ML VIAL IV PRN ×2 (15:47→18:25)
--- NOTE | 2020-03-09 16:16 | Anesthesiology Consultation ---
Date of Service March 09, 2020 Assessment & Plan (1) Encounter for pre-operative examination: Chart Review Chart Review: Acceptable Risk for Surgery and Patient NOT seen in Pre Admission Testing Consults Requested none History Surgery Operation Date: 03/09/20 15:10 Proposed Procedures p Esophagogastroduodenoscopy with Fluoro Dr Perez - Elsie Perez MD Height/Weight Weight: 70 kg Allergies Allergy/AdvReac Type Severity Reaction Status Date / Time amoxicillin Allergy Intermediate Leg Verified 03/09/20 14:48 swelling/inflammation cefazolin Allergy Intermediate rash Verified 03/09/20 14:48 clindamycin Allergy Intermediate rash Verified 03/09/20 14:48 doxycycline Allergy Intermediate rash Verified 03/09/20 14:48 Sulfa (Sulfonamide Allergy Unknown Unknown Verified 03/09/20 14:48 Antibiotics) Medications Home Medications Medication Instructions Recorded Confirmed Last Taken cyclobenzaprine 10 mg tablet 10 mg PO TID PRN 05/02/19 03/09/20 2 Weeks Ago ~04/25/19 dicyclomine 10 mg capsule 10 mg PO BID 05/02/19 03/09/20 05/08/19 17:30 diphenhydramine HCl 25 mg tablet 25 mg PO UD PRN 05/02/19 03/09/20 1 Month Ago ~04/09/19 fluticasone propionate 50 2 sprays INTNAS DAILY PRN 05/02/19 03/09/20 2 Days Ago mcg/actuation nasal ~05/07/19 spray,suspension guaifenesin 600 mg tablet, 600 mg PO Q12H PRN 05/02/19 03/09/20 2 Months Ago extended release 12 hr ~03/09/19 lidocaine HCl 2 % mucosal jelly 1 appln TOP TID PRN 05/02/19 03/09/20 Unknown pantoprazole 40 mg tablet,delayed 40 mg PO QAM 05/02/19 03/09/20 05/08/19 07:30 release promethazine 50 mg tablet 50 mg PO Q4H PRN tab 05/02/19 03/09/20 2 Months Ago ~03/09/19 pseudoephedrine HCl 30 mg tablet 30 mg PO Q6H PRN 05/02/19 03/09/20 05/08/19 23:00 tramadol 50 mg tablet 50 mg PO Q8H PRN 05/02/19 03/09/20 1 Month Ago ~04/09/19 allopurinol 100 mg tablet 100 mg PO BID 05/03/19 03/09/20 05/08/19 17:30 ascorbic acid (vitamin C) 100 mg 100 mg PO DAILY 05/03/19 03/09/20 05/08/19 08:30 tablet betamethasone dipropionate 0.05 % 1 appln TOP DAILY 05/03/19 03/09/20 2 Days Ago topical ointment ~05/07/19 cholecalciferol (vitamin D3) 75 3,000 units PO DAILY 05/03/19 03/09/20 05/08/19 08:30 mcg (3,000 unit) tablet echinacea 400 mg capsule 400 mg PO DAILY 05/03/19 03/09/20 05/08/19 08:30 saw palmetto 160 mg capsule 160 mg PO BID 05/03/19 03/09/20 05/08/19 07:30 mesalamine 2.4 g PO BID 05/04/19 03/09/20 Unknown baclofen 5 mg PO TID 03/09/20 03/09/20 03/09/20 docusate sodium 200 mg PO BID 03/09/20 03/09/20 03/09/20 meclizine 25 mg PO QID PRN 03/09/20 03/09/20 Unknown ondansetron HCl 8 mg PO TID 03/09/20 03/09/20 03/09/20 prochlorperazine maleate 10 mg PO Q6H 03/09/20 03/09/20 03/09/20 Past Medical History Medical History (Updated 03/09/20 @ 16:26 by Loreto Chavez PA-C) Arthritis stable Crohn disease (06/01/14) stable Diabetes mellitus type 2 in nonobese (Inactive 09/09/11) Esophageal cancer + esophageal stent, plan for future chemo GERD (gastroesophageal reflux disease) controlled Gout Migraine hx Obesity Obstruction of esophagus (Acute) Port-A-Cath in place (05/09/19) Insertion of A-Port Dr. Jorge 05/09/19 Sleep apnea BIPAP Past Family History Family History Mother Diabetes Father Heart disease FHx: lung cancer Past Surgical History Surgical History History of colonoscopy History of esophagogastroduodenoscopy (EGD) History of tonsillectomy History of total knee replacement bilateral S/P dilatation of esophageal stricture + stent Social History Smoking Status: Never smoker tobacco type: cigarettes Hx Alcohol Use: No (hx - no ETOH x 20 years) Alcohol type: beer Hx Substance Use: No substance use type: does not use Physical Exam Vital Signs Last Vital Signs Temp 36.3 C L 03/09/20 17:33 Pulse 50 L 03/09/20 17:33 Resp 16 03/09/20 17:33 BP 104/55 L 03/09/20 17:33 Pulse Ox 100 03/09/20 17:33 Testing Laboratory Results 03/09/20 14:30 03/09/20 14:30 PT 10.6 Seconds (9.0-12.0) 03/09/20 14:30 INR 1.0 (0.9-1.1) 03/09/20 14:30 Electrocardiogram Date: 03/09/20 Findings: + SB @ (51) Chest X-Ray Date: 03/09/20 SINGLE VIEW CHEST CLINICAL HISTORY: Dysphagia. Esophageal mass. FINDINGS: An AP, portable, upright chest radiograph is compared to study dated 05/09/2019 and correlated with chest CT dated 01/23/2020. The examination is degraded by portable technique and patient rotation. A left subclavian central venous infusion port is unchanged in position. The heart is enlarged noting atherosclerotic calcification of the thoracic aorta. The pulmonary vasculature is noncongested. Chronic interstitial thickening is similar to previous. There is mild bibasilar scarring/atelectasis. No airspace consolidation or pleural effusion is identified. No pneumothorax is seen. The skeletal structures are osteopenic. The bony thorax is grossly intact. Other Testing CT chest 01/23/2020: CT OF THE CHEST WITH IV CONTRAST CLINICAL HISTORY: METASTATIC ESOPHAGEAL CA COMPARISON STUDY: 10/26/2019 TECHNIQUE: Following the IV administration of 93 mL of Optiray-320, CT of the thorax was performed from the thoracic inlet to the lung bases. Images are reviewed in the axial, sagittal, and coronal planes. IV contrast was administered without complication. A dose lowering technique was utilized adhering to the principles of ALARA. CT DOSE: FINDINGS: Thyroid: There is a 1 cm right lobe thyroid nodule. Thoracic aorta: The thoracic aorta is normal in course and caliber, noting standard 3-vessel arch anatomy. No aneurysm or dissection is seen. Pulmonary vasculature: The pulmonary trunk is normal in caliber. There are no central filling defects identified to suggest pulmonary embolus. Note that this examination was not protocoled for the evaluation of pulmonary emboli. HEART: There is a small pericardial effusion. There are coronary artery calcifications present. Lungs and pleural spaces: Since the prior study, the patient has developed interstitial and nodular right lung opacities in a distribution favoring an infectious process. 3 month follow up suggested. Mediastinum: There is no pathologic mediastinal adenopathy by size criteria Mavis: There are borderline enlarged left hilar lymph nodes Axilla: There is no evidence of pathologic axillary lymphadenopathy Upper abdomen: There is an enlarged right-sided retrocrural lymph node measuring 18 x 11 mm. There has been interval removal of the distal esophageal stent. There is masslike thickening of the distal esophagus extending to the level of the esophagogastric junction. Skeletal structures: There are no lytic or blastic osseous lesions. IMPRESSION: 1. Distal esophageal mass with secondary luminal narrowing 2. Enlarging right retrocrural lymph node suspicious for metastatic disease 3. Interval development of interstitial and nodular right lung opacities in a distribution favoring an infectious process. 3 month follow up suggested
--- NOTE | 2020-03-09 16:17 | History & Physical Report ---
Date of Service March 09, 2020 Assessment & Plan (1) Obstruction of esophagus: (2) Esophageal cancer: This is a 75-year-old male with PMH of esophageal cancer, Crohn's disease, GERD, CRESENCIO on BiPAP and other medical problems listed below who presents from home with worsening dysphasia in setting of esophageal cancer with obstruction. -History of esophageal cancer undergoing chemotherapy treatment with worsening dysphagia, history of failed esophageal stent -Evaluated by GI, who feel that cancer tumor is likely partially obstructing the esophagus, causing solids dysphasia and mild liquid dysphagia -Plan for EGD later this evening with esophageal stent. Will keep strictly NPO for now -Antiemetics, pain control, gentle IV fluids with 1/2 NSS + D5W (3) Crohn disease: Holding mesalamine while NPO (4) Obstructive sleep apnea syndrome: Bipap HS DVT Ppx: Dewey rosado Code status: FULL PCP: Pato Dispo: Admitted to [facility]. Plan to return home once medically stable. Patient seen in collaboration with Dr. Hoyos. Please see addendum. History of Present Illness Chief Complaint: Dysphasia Primary Care Provider: Rodolfo Whyte, This is a 75-year-old male with PMH of esophageal cancer, Crohn's disease, GERD, CRESENCIO on BiPAP and other medical problems listed below who presents from home with worsening dysphagia . 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 Chemo course includes completing FOLFOX then 5FU and completed his second treatment of FOLFIRI earlier today. Had an esophageal stent in March 2019 that tore and was then removed at [facility] in January 2020. Then began to have difficulty swallowing first with soft foods, then with liquid and swallowing pills. Denies any nausea or abdominal pain but states that feeling of obstruction is uncomfortable and always there. Does have episodes of dry heaving intermittently. Can drink liquids but has lost a significant amount of weight in the past year-approximately 100 pounds. Denies fever, chills, headache, lightheadedness, visual changes, sore throat, chest pain, p alpitations, shortness of breath, abdominal pain, dysuria, constipation or diarrhea. Allergies Allergy/AdvReac Type Severity Reaction Status Date / Time amoxicillin Allergy Intermediate Leg Verified 03/09/20 14:48 swelling/inflammation cefazolin Allergy Intermediate rash Verified 03/09/20 14:48 clindamycin Allergy Intermediate rash Verified 03/09/20 14:48 doxycycline Allergy Intermediate rash Verified 03/09/20 14:48 Sulfa (Sulfonamide Allergy Unknown Unknown Verified 03/09/20 14:48 Antibiotics) Home Medications Home Medications Medication Instructions Recorded Confirmed Type cyclobenzaprine 10 mg tablet 10 mg PO TID PRN 05/02/19 03/09/20 History dicyclomine 10 mg capsule 10 mg PO BID 05/02/19 03/09/20 History diphenhydramine HCl 25 mg tablet 25 mg PO UD PRN 05/02/19 03/09/20 History fluticasone propionate 50 2 sprays INTNAS DAILY PRN 05/02/19 03/09/20 History mcg/actuation nasal spray,suspension guaifenesin 600 mg tablet, 600 mg PO Q12H PRN 05/02/19 03/09/20 History extended release 12 hr lidocaine HCl 2 % mucosal jelly 1 appln TOP TID PRN 05/02/19 03/09/20 History pantoprazole 40 mg tablet,delayed 40 mg PO QAM 05/02/19 03/09/20 History release promethazine 50 mg tablet 50 mg PO Q4H PRN tab 05/02/19 03/09/20 History pseudoephedrine HCl 30 mg tablet 30 mg PO Q6H PRN 05/02/19 03/09/20 History tramadol 50 mg tablet 50 mg PO Q8H PRN 05/02/19 03/09/20 History allopurinol 100 mg tablet 100 mg PO BID 05/03/19 03/09/20 History ascorbic acid (vitamin C) 100 mg 100 mg PO DAILY 05/03/19 03/09/20 History tablet betamethasone dipropionate 0.05 % 1 appln TOP DAILY 05/03/19 03/09/20 History topical ointment cholecalciferol (vitamin D3) 75 3,000 units PO DAILY 05/03/19 03/09/20 History mcg (3,000 unit) tablet echinacea 400 mg capsule 400 mg PO DAILY 05/03/19 03/09/20 History saw palmetto 160 mg capsule 160 mg PO BID 05/03/19 03/09/20 History mesalamine 2.4 g PO BID 05/04/19 03/09/20 History baclofen 5 mg PO TID 03/09/20 03/09/20 History docusate sodium 200 mg PO BID 03/09/20 03/09/20 History meclizine 25 mg PO QID PRN 03/09/20 03/09/20 History ondansetron HCl 8 mg PO TID 03/09/20 03/09/20 History prochlorperazine maleate 10 mg PO Q6H 03/09/20 03/09/20 History Past Med/Surg History Medical History (Updated 03/09/20 @ 16:26 by Loreto Chavze PA-C) Arthritis stable Crohn disease (06/01/14) stable Diabetes mellitus type 2 in nonobese (Inactive 09/09/11) Esophageal cancer + esophageal stent, plan for future chemo GERD (gastroesophageal reflux disease) controlled Gout Migraine hx Obesity Obstruction of esophagus (Acute) Port-A-Cath in place (05/09/19) Insertion of A-Port Dr. Jorge 05/09/19 Sleep apnea BIPAP Surgical History History of colonoscopy History of esophagogastroduodenoscopy (EGD) History of tonsillectomy History of total knee replacement bilateral S/P dilatation of esophageal stricture + stent Family History Mother Diabetes Father Heart disease FHx: lung cancer Social History Smoking Status: Never smoker Second Hand Exposure: No; Hx Alcohol Use: No (hx - no ETOH x 20 years) Hx Substance Use: No Preferred Language: Ukrainian Communication Ability: Effective Order Puller Required: No Beliefs That Will Affect Care: None marital status: / Current Living Situation Comment: friendDorina current occupational status: retired Feels Safe at Home: Yes Review of Systems Review of Systems: At least ten systems reviewed and negative except as noted in the HPI. Physical Exam Physical Exam: General Appearance: WD/WN, vitals as above, appears chronically ill, sitting up in bed, pleasant, conversing easily Head: normocephalic, atraumatic Eyes: normal inspection, PERRL, conjunctivae normal, anicteric sclerae ENT: external ear and nose normal, oropharynx normal, no abnormalities visualized Neck: trachea midline, no thyromegaly normal visual inspection Respiratory: normal respiratory effort, lungs clear to auscultation, no wheeze, rales, rhonchi Cardiovascular: regular rate, rhythm, no murmur, normal peripheral pulses. Vessels: no JVD Chest: normal inspection of chest Abdomen/GI: normal bowel sounds, soft, nontender, no hepatosplenomegaly Extremities/Musculoskeletal: no cyanosis or clubbing, extremities motor strength 5/5 Neurologic: PERRL, EOMI, accommodation nl, no face palsy, no dysarthria, CN's II-XI intact bilaterally and moves all extremities Psychiatric: A+Ox3, euthymic affect Skin: no rashes, normal color, warm/dry Results & Data Results & Data ([facility]) Vital Signs (Past 12 Hours) Vital Signs Temp Pulse Resp BP Pulse Ox 03/09/20 15:10 47 L 12 98 03/09/20 15:01 49 L 131/46 L 98 03/09/20 14:50 48 L 14 100 03/09/20 14:48 45 L 12 99 03/09/20 14:41 49 L 16 108/63 99 03/09/20 13:53 36.7 C 63 20 111/66 98 Laboratory Results Short CBC 03/09/20 03/09/20 03/09/20 Range/Units 14:30 14:30 14:30 WBC 6.13 (4.8-10.8) K/uL RBC 3.57 L (4.7-6.1) M/uL Hgb 11.1 L (14.0-18.0) g/dL Hct 33.0 L (42-52) % MCV 92.4 (80-100) fL MCH 31.1 (25-34) pg MCHC 33.6 (32-36) g/dL RDW Std Deviation 49.2 H (36.4-46.3) fL RDW Coeff of Davide 14.5 (11.5-14.5) % Plt Count 177 (130-400) K/uL MPV 8.4 (7.4-10.4) fL Immature Gran % (Auto) 0.2 % Neut % (Auto) 78.4 % Lymph % (Auto) 15.5 % Wilkinson % (Auto) 4.7 % Eos % (Auto) 0.7 % Baso % (Auto) 0.5 % Neut # (Auto) 4.81 (1.4-6.5) K/uL Lymph # (Auto) 0.95 L (1.2-3.4) K/uL Wilkinson # (Auto) 0.29 (0.11-0.59) K/uL Eos # (Auto) 0.04 (0-0.5) K/uL Baso # (Auto) 0.03 (0-0.2) K/uL Immature Gran # (Auto) 0.01 (0.00-0.02) K/uL PT 10.6 (9.0-12.0) Seconds INR 1.0 (0.9-1.1) Sodium 142 (136-145) mmol/L Potassium 3.8 (3.5-5.1) mmol/L Chloride 108 H (98-107) mmol/L Carbon Dioxide 29 (21-32) mmol/L Anion Gap 5.0 (3-11) BUN 17 (7-18) mg/dl Creatinine 0.74 (0.6-1.4) mg/dl Est Cr Clr Drug Dosing Not Reportable Est GFR ( Amer) 104.6 Est GFR (Non-Af Amer) 90.2 BUN/Creatinine Ratio 22.7 H (10-20) Glucose 90 (70-99) mg/dl Calcium 10.0 (8.5-10.1) mg/dl Magnesium 2.3 (1.8-2.4) mg/dl Total Bilirubin 0.7 (0.2-1) mg/dl AST 17 (15-37) U/L ALT 16 (12-78) U/L Alkaline Phosphatase 104 (45-117) U/L Total Protein 6.8 (6.4-8.2) gm/dl Albumin 3.2 L (3.4-5.0) gm/dl Globulin 3.6 (2.5-4.0) gm/dl Albumin/Globulin Ratio 0.9 (0.9-2) BMP 03/09/20 14:30 Sodium 142 Potassium 3.8 Chloride 108 H Carbon Dioxide 29 BUN 17 Creatinine 0.74 Glucose 90 Calcium 10.0 Liver Function 03/09/20 Range/Units 14:30 Total Bilirubin 0.7 (0.2-1) mg/dl AST 17 (15-37) U/L ALT 16 (12-78) U/L Alkaline Phosphatase 104 (45-117) U/L Albumin 3.2 L (3.4-5.0) gm/dl Diagnostic Findings CXR: IMPRESSION: Cardiomegaly with no acute cardiopulmonary abnormality. Code Status & VTE Plan VTE Prophylaxis Plan VTE Prophylaxis will be ordered: Yes Supervising Physician Co-Signing Physician Notes Attending addendum patient seen and examined, care coordinated with Loreto Chavez PA-C This is a 75-year-old male with history of esophageal cancer stage IV, on chemo treatment,(follows with hematology oncology at [facility], and which [facility] oncology locally) had esophageal stent placed in March [address] [facility] [address] Rivera Carrizales GI, Stent lost its integrity/collapse was removed January this year at [facility] . Repeat stent was not placed, as [facility] thought patient had adequate patency of the esophageal lumen. Past several weeks patient continued to experience swallowing difficulty, food getting stuck on the back of throat, Downgraded to soft diet, now only able to have liquid. 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 including meds History of Crohn's disease: Denies of any abdominal pain, no GI bleed or loose stool Hold oral medication for n.p.o. status CODE STATUS: Full code discussed with patient DVT prophylaxis: SCD and teds, patient is encouraged to ambulate moderate to high risk for DVT given advanced carcinoma, Dermatological anticoagulation avoided as patient needs EGD procedure/esophageal stent Please refer to further documentation by Loreto Scott, PA-C for discussion of chronic medical issues Tran Hoyos MD
--- NOTE | 2020-03-09 16:39 | Electrocardiogram Report ---
Test Reason : Blood Pressure : / mmHG Vent. Rate : 051 BPM Atrial Rate : 108 BPM P-R Int : 000 ms QRS Dur : 092 ms QT Int : 420 ms P-R-T Axes : 005 -16 044 degrees QTc Int : 387 ms Sinus rhythm Low voltage QRS Borderline ECG When compared with ECG of 04-MAY-2019 14:49, T wave inversion no longer evident in Inferior leads Nonspecific T wave abnormality no longer evident in Lateral leads Confirmed by Alen Holland ([id number]) on 03/09/2020 4:39:19 PM Referred By: Confirmed By:Rikki Holland
[2020-03-09] MEDS ORDERED: PROMETHAZINE HCL 6.25 MG in SODIUM CHLORIDE 0.9% 50 ML IV PRN (17:12)
[2020-03-09] MEDS ORDERED: ACETAMINOPHEN 1000 MG/100 ML IV IV PRN (17:12)
[2020-03-09] MEDS ORDERED: MoRPHine SULFATE 2 MG/ML CARP IV PRN (17:12)
[2020-03-09] MEDS ORDERED: MIDAZOLAM HCL 1 MG/ML 2ML VIAL ONE (17:23)
[2020-03-09] MEDS ORDERED: fentaNYL citrate 100 MCG/2 ML VIAL ONE (17:23)
[2020-03-09] MEDS ORDERED: SUCCINYLCHOLINE CHLORIDE 20 MG/ML 10 ML VIAL IV ONE (17:23)
[2020-03-09] MEDS ORDERED: PROPOFOL IV EMULSION 10 MG/ML 20 ML VIAL IV ONE (17:23)
--- NOTE | 2020-03-09 17:50 | History & Physical Report ---
Date of Service March 09, 2020 Assessment & Plan (1) Obstruction of esophagus: Patient agreed and consented, risk and benefit discussed (2) Esophageal cancer: History of Present Illness Primary Care Provider: Rodolfo Whyte DO Dysphagia, Esophageal cancer, needs stent placement Allergies Allergy/AdvReac Type Severity Reaction Status Date / Time amoxicillin Allergy Intermediate Leg Verified 03/09/20 14:48 swelling/inflammation cefazolin Allergy Intermediate rash Verified 03/09/20 14:48 clindamycin Allergy Intermediate rash Verified 03/09/20 14:48 doxycycline Allergy Intermediate rash Verified 03/09/20 14:48 Sulfa (Sulfonamide Allergy Unknown Unknown Verified 03/09/20 14:48 Antibiotics) Home Medications Home Medications Medication Instructions Recorded Confirmed Type cyclobenzaprine 10 mg tablet 10 mg PO TID PRN 05/02/19 03/09/20 History dicyclomine 10 mg capsule 10 mg PO BID 05/02/19 03/09/20 History diphenhydramine HCl 25 mg tablet 25 mg PO UD PRN 05/02/19 03/09/20 History fluticasone propionate 50 2 sprays INTNAS DAILY PRN 05/02/19 03/09/20 History mcg/actuation nasal spray,suspension guaifenesin 600 mg tablet, 600 mg PO Q12H PRN 05/02/19 03/09/20 History extended release 12 hr lidocaine HCl 2 % mucosal jelly 1 appln TOP TID PRN 05/02/19 03/09/20 History pantoprazole 40 mg tablet,delayed 40 mg PO QAM 05/02/19 03/09/20 History release promethazine 50 mg tablet 50 mg PO Q4H PRN tab 05/02/19 03/09/20 History pseudoephedrine HCl 30 mg tablet 30 mg PO Q6H PRN 05/02/19 03/09/20 History tramadol 50 mg tablet 50 mg PO Q8H PRN 05/02/19 03/09/20 History allopurinol 100 mg tablet 100 mg PO BID 05/03/19 03/09/20 History ascorbic acid (vitamin C) 100 mg 100 mg PO DAILY 05/03/19 03/09/20 History tablet betamethasone dipropionate 0.05 % 1 appln TOP DAILY 05/03/19 03/09/20 History topical ointment cholecalciferol (vitamin D3) 75 3,000 units PO DAILY 05/03/19 03/09/20 History mcg (3,000 unit) tablet echinacea 400 mg capsule 400 mg PO DAILY 05/03/19 03/09/20 History saw palmetto 160 mg capsule 160 mg PO BID 05/03/19 03/09/20 History mesalamine 2.4 g PO BID 05/04/19 03/09/20 History baclofen 5 mg PO TID 03/09/20 03/09/20 History docusate sodium 200 mg PO BID 03/09/20 03/09/20 History meclizine 25 mg PO QID PRN 03/09/20 03/09/20 History ondansetron HCl 8 mg PO TID 03/09/20 03/09/20 History prochlorperazine maleate 10 mg PO Q6H 03/09/20 03/09/20 History Past Med/Surg History Medical History (Updated 03/09/20 @ 16:26 by Loreto Chavez PA-C) Arthritis stable Crohn disease (06/01/14) stable Diabetes mellitus type 2 in nonobese (Inactive 09/09/11) Esophageal cancer + esophageal stent, plan for future chemo GERD (gastroesophageal reflux disease) controlled Gout Migraine hx Obesity Obstruction of esophagus (Acute) Port-A-Cath in place (05/09/19) Insertion of A-Port Dr. Jorge 05/09/19 Sleep apnea BIPAP Surgical History History of colonoscopy History of esophagogastroduodenoscopy (EGD) History of tonsillectomy History of total knee replacement bilateral S/P dilatation of esophageal stricture + stent Family History Mother Diabetes Father Heart disease FHx: lung cancer Social History Smoking Status: Never smoker Second Hand Exposure: No; Hx Alcohol Use: No (hx - no ETOH x 20 years) Hx Substance Use: No Preferred Language: Yi Communication Ability: Effective Cvt Rn Required: No Beliefs That Will Affect Care: None marital status: / Current Living Situation Comment: friend, Dorina current occupational status: retired Feels Safe at Home: Yes Review of Systems All systems reviewed & are unremarkable except as noted in HPI & below Physical Exam Constitutional: comfortable; no acute distress Respiratory: normal respiratory effort, lungs clear to auscultation Cardiovascular: RRR, no murmur, no edema Gastrointestinal (Abdomen): normal bowel sounds, soft, nontender, no hepatosplenomegaly Results & Data Vital Signs (Past 12 Hours) Vital Signs Temp Pulse Pulse Resp BP BP Pulse Ox 03/09/20 17:33 36.3 C L 50 L 16 104/55 L 100 03/09/20 15:10 47 L 12 98 03/09/20 15:01 49 L 131/46 L 98 03/09/20 14:50 48 L 14 100 03/09/20 14:48 45 L 12 99 03/09/20 14:41 49 L 16 108/63 99 03/09/20 13:53 36.7 C 63 20 111/66 98 Code Status & VTE Plan VTE Prophylaxis Plan VTE Prophylaxis will be ordered: Yes
[2020-03-09] MEDS ORDERED: IOVERSOL 50ml IV ONE (17:53)
[2020-03-09] MEDS ORDERED: fentaNYL citrate 100 MCG/2 ML VIAL IV PRN (18:25)
[2020-03-09] MEDS ORDERED: ePHEDrine sulfate 50 MG/ML AMP IV PRN (18:25)
[2020-03-09] MEDS ORDERED: ATROPINE SULFATE 0.1 MG/ML 10ML SYR IV PRN (18:25)
[2020-03-09] MEDS ORDERED: ePHEDrine sulfate 50 MG/ML SYR ONE (18:35)
[2020-03-09] MEDS ORDERED: ONDANSETRON INJ 2 MG/ML 2 ML VIAL ONE (18:35)
--- NOTE | 2020-03-09 18:40 | Operative Report ---
Post Operative Report Pre & Post Diagnosis Operation Date: 03/09/20 15:10 <No data on this case meets the specified criteria> I identified the patient and participated in the time-out.: Yes Procedure Operation Date: 03/09/20 15:10 <No data on this case meets the specified criteria> Surgeon Elsie Perez MD Manager Jay Sanchez Estimated Blood Loss 0 Findings See Below (Esophageal obstruction due to malignancy, stent placed) Specimens None Description of Procedure EGD I attest to the content of the Intraoperative Record and any orders documented therein. Any exceptions are noted below.
--- NOTE | 2020-03-09 18:51 | GI REPORT ---
Patient Name: Naseem Moran Procedure Date: 03/09/2020 5:41 PM Date of : 1945 Admit Type: Inpatient Age: 75 Gender: Male Attending MD: Jay Sanchez MD Procedure: Upper GI endoscopy Providers: Elsie Perez MD, Jay Sanchez MD Referring MD: Marga Richard Pa-c Indications: Stent insertion Medicines: See the Anesthesia note for documentation of the administered medications Complications: No immediate complications. Estimated Blood Loss: Estimated blood loss: none. Procedure: Pre-Anesthesia Assessment: - ASA Grade Assessment: III - A patient with severe systemic disease. After obtaining informed consent, the endoscope was passed under direct vision. Throughout the procedure, the patient's blood pressure, pulse, and oxygen saturations were monitored continuously. The Scope was introduced through the mouth, and advanced to the second part of duodenum. The Endoscope was introduced through the mouth, and advanced to the second part of duodenum. The upper GI endoscopy was accomplished without difficulty. The patient tolerated the procedure well. Findings: There was food and deibris in the esophageal lumen. There was an obstructing mass from 35 to 40 cm. The GE junction was at 40 cm. The cardia was not involved by tumor. The stomach was normal. The duodenum was normal. The proximal and distal edges of the tumor were marked with external fluoroscopic markers. A Savary wire was placed into the stomach under direct visualization and tthe scope was withdrawn. A 10 cm partially uncovered Evolution stent was advanced over the wire underfluroscopic guidance and aligned with fluoroscopic markers. The stent was deployed under fluoroscopic and direct visualization. The stent appeared well positioned after deployment. Impression: Obstructing distal esophageal cancer. 10 cm partially uncovered Evolution stent deployed. Recommendation: - Discharge patient to floor. - Clear liquids today, then advance to full liquids tomorrow as tolerated. - CXR in 2 days. Dai Parham MD 03/09/2020 6:50:42 PM This report has been signed electronically. Elsie Perez MD Note Initiated On: 03/09/2020 5:41 PM Number of Addenda: 0 I attest to the content of the Intraoperative Record and orders documented therein, exceptions below {[id number]}
[2020-03-09] MEDS: D5W AND NSS 1,000 ML IV SCH (20:17)
--- NOTE | 2020-03-09 20:23 | Anesthesiology Progress Note ---
Date of Service March 09, 2020 Anesthesia Post Procedure Vital Signs Vital Signs: Temp Pulse Pulse Pulse Resp BP BP 03/09/20 19:50 49 L 15 03/09/20 19:40 36.3 C L 62 17 03/09/20 19:30 67 20 03/09/20 19:20 50 L 18 03/09/20 19:16 36.1 C L 50 L 16 03/09/20 17:33 36.3 C L 50 L 16 104/55 L 03/09/20 16:00 36.4 C L 60 18 116/68 03/09/20 15:10 47 L 12 03/09/20 15:01 49 L 131/46 L 03/09/20 14:50 48 L 14 03/09/20 14:48 45 L 12 03/09/20 14:41 49 L 16 108/63 03/09/20 13:53 36.7 C 63 20 111/66 BP Pulse Ox 03/09/20 19:50 113/62 100 03/09/20 19:40 133/70 100 03/09/20 19:30 130/69 100 03/09/20 19:20 141/65 H 100 03/09/20 19:16 125/62 100 03/09/20 17:33 100 03/09/20 16:00 100 03/09/20 15:10 98 03/09/20 15:01 98 03/09/20 14:50 100 03/09/20 14:48 99 03/09/20 14:41 99 03/09/20 13:53 98 Transfer of Care Handoff Completed per policy Notes Mental Status: alert / awake / arousable and participated in evaluation Patient Amnestic to Procedure: Yes Nausea / Vomiting: adequately controlled Pain: adequately controlled Airway Patency, RR, SpO2: stable & adequate BP & HR: stable & adequate Hydration State: stable & adequate Anesthetic Complications: no major complications apparent and Pt Satisfied with anesthetic care
[2020-03-10] MEDS ORDERED: HEPARIN 100 UNIT/ML 5ML FLUSH FLUSH PRN (01:53)
[2020-03-10] MEDS: D5W AND NSS 1,000 ML IV SCH (05:24)
[2020-03-10 06:23] LABS: Hematocrit (blood only) 31.5 % (42-52); Mean Corpuscular Hemoglobin 29.9 pg (25-34); Mean Corpuscular Hgb Conc 31.7 g/dL (32-36); Mean Platelet Volume 8.8 fL (7.4-10.4); Platelet Count 164 K/uL (130-400); RDW Coefficient of Variation 14.5 % (11.5-14.5); RDW Standard Deviation 49.4 fL (36.4-46.3); Red Blood Count 3.35 M/uL (4.7-6.1); White Blood Count 5.14 K/uL (4.8-10.8)
[2020-03-10 06:50] LABS: BUN Creatinine Ratio 22.2 (10-20); Calcium 9.3 mg/dl (8.5-10.1); Creatinine Clr Calc Pharmacy 97.8 ml/min; Est GFR (African American) 113.2; Est GFR (Non-African American) 97.7; Potassium 3.7 mmol/L (3.5-5.1)
--- NOTE | 2020-03-10 09:55 | XRay Report ---
XR chest 2V PA/lateral CLINICAL HISTORY: check esophageal stent COMPARISON STUDY: No previous studies for comparison. FINDINGS: Esophageal stent in good position. The lungs are clear. There is a central catheter in supe rior vena cava. IMPRESSION: 1. No acute process the chest. 2. Lungs are clear. 3. Esophageal stent appearing to be in good position ACT 112: Negative or not required by law. The above report was generated using voice recognition software. It may contain grammatical, syntax or spelling errors. Electronically signed by: Aditya Camacho M.D. 03/10/2020 9:54 AM
--- NOTE | 2020-03-10 11:20 | Gastroenterology Progress Note ---
Date of Service March 10, 2020 Assessment & Plan Admission and Anticipated Discharge Date Admission Date: March 09, 2020 Subjective Pt without complaints. CXR shows stent in place A/p: Advance diet to full liquids. OK for d/c home today. Results & Data ([facility]) Vital Signs (Past 12 Hours) Vital Signs Temp Pulse Resp BP BP Pulse Ox Pulse Ox 03/10/20 07:56 36.9 C 63 17 108/59 L 92 03/10/20 03:44 36.8 C 58 L 16 112/61 99/41 L 97 03/10/20 00:54 97 03/10/20 00:49 36.8 C 64 15 135/69 98
--- NOTE | 2020-03-10 13:18 | Discharge Summary ---
Date of Service March 10, 2020 Admission HPI Per Admitting Provider This is a 75-year-old male with PMH of esophageal cancer, Crohn's disease, GERD, CRESENCIO on BiPAP and other medical problems listed below who presents from home with worsening dysphagia . 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 Chemo course includes completing FOLFOX then 5FU and completed his second treatment of FOLFIRI earlier today. Had an esophageal stent in March 2019 that tore and was then removed at [facility] in January 2020. Then began to have difficulty swallowing first with soft foods, then with liquid and swallowing pi lls. Denies any nausea or abdominal pain but states that feeling of obstruction is uncomfortable and always there. Does have episodes of dry heaving intermittently. Can drink liquids but has lost a significant amount of weight in the past year-approximately 100 pounds. Denies fever, chills, headache, lightheadedness, visual changes, sore throat, chest pain, palpitations, shortness of breath, abdominal pain, dysuria, constipation or diarrhea. Admission Exam Per Admitting Provider General Appearance: WD/WN, vitals as above, appears chronically ill, sitting up in bed, pleasant, conversing easily Head: normocephalic, atraumatic Eyes: normal inspection, PERRL, conjunctivae normal, anicteric sclerae ENT: external ear and nose normal, oropharynx normal, no abnormalities visualized Neck: trachea midline, no thyromegaly normal visual inspection Respiratory: normal respiratory effort, lungs clear to auscultation, no wheeze, rales, rhonchi Cardiovascular: regular rate, rhythm, no murmur, normal peripheral pulses. Vessels: no JVD Chest: normal inspection of chest Abdomen/GI: normal bowel sounds, soft, nontender, no hepatosplenomegaly Extremities/Musculoskeletal: no cyanosis or clubbing, extremities motor strength 5/5 Neurologic: PERRL, EOMI, accommodation nl, no face palsy, no dysarthria, CN's II-XI intact bilaterally and moves all extremities Psychiatric: A+Ox3, euthymic affect Skin: no rashes, normal color, warm/dry Principal Diagnosis Progressive dysphagia secondary to Obstructing esophageal cancer S/P 10cm partially uncovered evolution stent Discharge Exam Constitutional + ill appearing (chronic); no acute distress Eyes PERRL, conjunctivae normal, anicteric sclerae ENMT external ear and nose normal, oropharynx normal Respiratory normal respiratory effort, lungs clear to auscultation Cardiovascular RRR, no murmur, no edema Gastrointestinal (Abdomen) normal bowel sounds, soft, nontender, no hepatosplenomegaly Musculoskeletal no cyanosis or clubbing, extremities motor strength 5/5 Neurologic PERRL, EOMI, accommodation nl, no face palsy, no dysarthria Psychiatric A+Ox3, euthymic affect Discharge Data Allergies Allergy/AdvReac Type Severity Reaction Status Date / Time amoxicillin Allergy Intermediate Leg Verified 03/09/20 14:48 swelling/inflammation cefazolin Allergy Intermediate rash Verified 03/09/20 14:48 clindamycin Allergy Intermediate rash Verified 03/09/20 14:48 doxycycline Allergy Intermediate rash Verified 03/09/20 14:48 Sulfa (Sulfonamide Allergy Unknown Unknown Verified 03/09/20 14:48 Antibiotics) Consultations 03/09/20 15:23 ED Decision to Admit Stat 03/09/20 15:47 Consult Gastroenterology Routine 03/09/20 15:50 Consult Case Management - Discharge Planning Routine Procedures Performed Operation Date: 03/09/20 15:10 Actual Procedures p Esophagogastroduodenoscopy with Stent Placement - Irphan E Gaslightwala Findings: There was food and deibris in the esophageal lumen. There was an obstructing mass from 35 to 40 cm. The GE junction was at 40 cm. The cardia was not involved by tumor. The stomach was normal. The duodenum was normal. The proximal and distal edges of the tumor were marked with external fluoroscopic markers. A Savary wire was placed into the stomach under direct visualization and tthe scope was withdrawn. A 10 cm partially uncovered Evolution stent was advanced over the wire underfluroscopic guidance and aligned with fluoroscopic markers. The stent was deployed under fluoroscopic and direct visualization. The stent appeared well positioned after deployment. Impression: Obstructing distal esophageal cancer. 10 cm partially uncovered Evolution stent deployed. Recommendation: - Discharge patient to floor. - Clear liquids today, then advance to full liquids tomorrow as tolerated. Ordered Studies 03/09/20 15:00 FL esophageal dilatation Routine FL fluoroscopy <1hr Routine Hospital Course (1) Obstruction of esophagus: (2) Esophageal cancer: 75-year-old male with PMH of esophageal cancer, Crohn's disease, GERD, CRESENCIO on BiPAP and other medical problems listed below who presents from home with progressively worsening dysphagia in setting of esophageal cancer with obstruction. History of esophageal cancer undergoing chemotherapy treatment with worsening dysphagia, history of failed esophageal stent Was evaluated by GI Had EGD which showed obstructing mass in lower esophagus. 10cm partially uncovered stent was deployed. Patient tolerating liquid diet this AM Reports no nausea, vomiting, abdominal pain this morning. Discharge home on pureed diet. Patient needs to follow up with Gastroenterology and oncology. Patient has lost over 20kg since the beginning of the year. Weight was 91kg on 08/15/19, 79kg in 10/26/19 and 70kg during this admission. Weight loss likely due to malignancy and poor intake due to dysphagia. Discuss with Oncologist/dredge captain about options such as J-tube etc for enteral feeding. (3) Crohn disease: Continue mesalamine (4) Obstructive sleep apnea syndrome: Bipap HS Patient was only in the hospital for one midnight, does not meet inpatient criteria per CMS guideline and should be observation. A code 44 was done. Total Time Total Time Spent Total Time Spent (In Minutes): 35 Total Time Includes: Examination of the Patient, Discharge Planning, Medication Reconciliation and Communication With Other Providers Discharge Plan Discharge Items Patient Disposition: Home - Home Health Services Reason For Visit: UNABLE TO SWALLOW, ESOPHAGEAL CA Discharge Diagnosis: Progressive dysphagia due to Obstructing distal esophageal cancer S/P Stent placement Condition on Discharge: Good Activity: Resume your previous activity Non-emergency contact: Primary Care Provider, Janitorial Cleaner and Oncologist Call non-emergency contact if: you have any medication questions and your symptoms worsen Follow-up/Referrals: Earl Lopez DO [Physician] - Jay Sanchez [Physician] - Rodolfo Whyte DO [Primary Care Provider] - Diet: Regular Diet Texture: Pureed (blended smooth) Addtl Attending Provider Instructions: Mr Moran. You came to the hospital for worsening difficulty swallowing. You were evaluated by Janitorial Cleaner. You had endoscopy (EGD) which showed obstructing esophageal cancer and had a stent placed. Please only take pureed diet as discussed. You can discuss further with your Primary doctor, oncologist and dredge captain about possibility of GI access options like J tube if needed to aid with nutritional status. Please follow up with the Janitorial Cleaner, Oncologist and primary doctor. It was a pleasure taking care of you. Pending Studies at Discharge: No Stand-Alone Forms: My [facility], Smoking Cessation Medications and DC Order Prescriptions: Continued cyclobenzaprine 10 mg tablet 10 mg PO TID PRN (Reason: muscle spasm) RF: 0 dicyclomine 10 mg capsule 10 mg PO BID RF: 0 diphenhydramine HCl [Benadryl Allergy] 25 mg tablet 25 mg PO UD PRN (Reason: ALLERGIES) RF: 0 fluticasone propionate [Flonase Allergy Relief] 50 mcg/actuation spray,suspension 2 sprays INTNAS DAILY PRN (Reason: Nasal Congestion) RF: 0 guaifenesin [Mucinex] 600 mg tablet extended release 12hr 600 mg PO Q12H PRN (Reason: Congestion) RF: 0 lidocaine HCl 2 % jelly 1 appln TOP TID PRN (Reason: fissure) RF: 0 pantoprazole [Protonix] 40 mg tablet,delayed release (DR/EC) 40 mg PO QAM RF: 0 promethazine 50 mg tablet 50 mg PO Q4H PRN (Reason: nausea and vomiting) RF: 0 pseudoephedrine HCl 30 mg tablet 30 mg PO Q6H PRN (Reason: Congestion) RF: 0 tramadol 50 mg tablet 50 mg PO Q8H PRN (Reason: Pain) RF: 0 ascorbic acid (vitamin C) 100 mg tablet 100 mg PO DAILY RF: 0 allopurinol 100 mg tablet 100 mg PO BID RF: 0 betamethasone dipropionate 0.05 % ointment 1 appln TOP DAILY RF: 0 saw palmetto 160 mg capsule 160 mg PO BID RF: 0 echinacea 400 mg capsule 400 mg PO DAILY RF: 0 cholecalciferol (vitamin D3) 3,000 unit tablet 3,000 units PO DAILY RF: 0 mesalamine 1.2 gram Tablet,Delayed Release (Dr/Ec) 2.4 g PO BID RF: 0 ondansetron HCl 8 mg tablet 8 mg PO TID RF: 0 prochlorperazine maleate 10 mg tablet 10 mg PO Q6H RF: 0 baclofen 10 mg tablet 5 mg PO TID RF: 0 docusate sodium 100 mg Capsule 200 mg PO BID RF: 0 meclizine 25 mg Tablet 25 mg PO QID PRN (Reason: Dizziness) RF: 0 Discharge Orders: Discharge Order (Routine); Ordered 08/08/20 Ordered By: Vanita Estrella/Other Patient Handouts: DVT Post Op Prevention Admission Data Admit Date/Time: 03/09/20 15:48 Attending Provider: Vanita Feliz I. Admit Provider: Tran Hoyos Primary Care Provider: Rodolfo Whyte Other Providers: Tran Hoyos ; Daria Whitlock ; Janessa Bone ; Jenny Valdes ; Jessika Yin ; Michele Knight ; Paula Staffrod ; Jay Sanchez ; Blessing Coleman ; Javon Barros ; Rohith Saleh ; Nubia Quick ; Hallie Santamaria ; Renetta Jean ; Lety Georges ; Elsie Perez ; [facility] Other Interventions: Discharge Summary Assessment (RN) Last Done: 03/10/20 13:38 DC Date/Time DO NOT enter until pt leaves facility: 03/10/20 14:39
== END 2020-03-10 14:39 | disposition home health service (06) ==
LOC: ED 13:50 → SUATTDRO 15:48 → 3W 15:48 → INTOOBSV 15:48 → 3W 16:37

== ENCOUNTER 2020-09-13 16:52 | Inpatient (IN) ==
[2020-09-13] MEDS ORDERED: SODIUM CHLORIDE 0.9% 1000ML 1,000 ML IV SCH ×2 (17:45→23:15)
[2020-09-13 17:50] LABS: Basophils # (auto) 0.01 K/uL (0-0.2); Basophils % (auto) 0.2 %; Hematocrit (blood only) 28.3 % (42-52); Hemoglobin 9.1 g/dL (14.0-18.0); Lymphocytes # (auto) 0.48 K/uL (1.2-3.4); Lymphocytes % (auto) 7.7 %; Mean Corpuscular Hemoglobin 26.7 pg (25-34); Mean Corpuscular Hgb Conc 32.2 g/dL (32-36); Mean Platelet Volume 8.4 fL (7.4-10.4); Monocytes # (auto) 0.45 K/uL (0.11-0.59); Monocytes % (auto) 7.2 %; Neutrophils % (auto) 84.9 %; Platelet Count 221 K/uL (130-400); RDW Coefficient of Variation 14.7 % (11.5-14.5); RDW Standard Deviation 45.1 fL (36.4-46.3); Red Blood Count 3.41 M/uL (4.7-6.1); White Blood Count 6.24 K/uL (4.8-10.8)
[2020-09-13 18:02] LABS: INR 1.1 (0.9-1.1); Partial Thromboplastin Time 26.5 Seconds (21.0-31.0); Prothrombin Time 10.8 Seconds (9.0-12.0)
[2020-09-13 18:06] LABS: BUN Creatinine Ratio 26.5 (10-20); Blood Urea Nitrogen 16 mg/dl (7-18); Calcium 10.1 mg/dl (8.5-10.1); Carbon Dioxide 28 mmol/L (21-32); Chloride 97 mmol/L (98-107); Est GFR (Non-African American) 98.4; Glucose 106 mg/dl (70-99); Magnesium 1.9 mg/dl (1.8-2.4); Sodium 132 mmol/L (136-145)
[2020-09-13 18:07] LABS: Alanine Aminotransferase 10 U/L (12-78); Albumin Level 2.8 gm/dl (3.4-5.0); Aspartate Aminotransferase 9 U/L (15-37)
[2020-09-13 18:12] LABS: Albumin Globulin Ratio 0.7 (0.9-2); Alkaline Phosphatase 101 U/L (45-117); Bilirubin,Total 0.3 mg/dl (0.2-1); Total Protein 6.8 gm/dl (6.4-8.2); Troponin I < 0.015 ng/ml (0-0.045)
[2020-09-13] MEDS ORDERED: ACETAMINOPHEN 1,000 MG/100 ML VIAL IV STA (18:18)
--- NOTE | 2020-09-13 18:28 | XRay Report ---
SINGLE VIEW CHEST CLINICAL HISTORY: Sepsis. Esophageal cancer. FINDINGS: 2 AP, portable, upright chest radiographs are compared to study dated 03/10/2020 and correlat ed with chest CT dated 05/14/2020. The examination is degraded by portable technique and patient rota tion. A left subclavian central venous infusion port is unchanged in position. Esophageal stent is in place. The heart is enlarged noting atherosclerotic calcification of the thoracic aorta. The pulmona ry vasculature is noncongested. Chronic interstitial thickening is similar to previous. There is no a irspace consolidation or large pleural effusion. No pneumothorax is seen. The skeletal structures are osteopenic. The bony thorax is grossly intact. Degenerative change is noted in the shoulders and tho racic spine. IMPRESSION: 1. Cardiomegaly with no acute cardiopulmonary abnormality. 2. An esophageal stent is in place. ACT 112: Negative or not required by law. Electronically signed by: Paul Daley M.D. 09/13/2020 6:27 PM
--- NOTE | 2020-09-13 19:07 | Emergency Department Note ---
History of Present Illness General Chief complaint: Weakness Stated complaint: WEAKNESS Time Seen by Provider: 09/13/20 17:38 History of Present Illness Provider complaint: Weakness Onset (ago): day(s) 1 Maximum Pain Intensity: 0 Associated symptoms: + fever/chills and + weakness; no chest pain, no cough, no headaches, no nausea/vomiting and no shortness of breath 75-year-old male with history of stage IV esophageal cancer on chemotherapy presents emergency department for weakness. is at bedside and is answering for the patient. reports that the patient has been increasingly weak over the last 24 hours. She states today he was having difficulty walking and then had an episode of urinary incontinence. No hematuria. Patient denies any recent falls. Patient denies any back pain currently. Patient denies any chest pain, difficulty breathing, coughing up blood, nausea vomiting or diarrhea. No melena or hematochezia. Patient's stated that they did not know he had a fever today until he arrived in the emergency department. Home Medications Medication Instructions Recorded Confirmed Type cyclobenzaprine 10 mg tablet 10 mg PO TID PRN 05/02/19 09/13/20 History dicyclomine 10 mg capsule 10 mg PO BID 05/02/19 09/13/20 History fluticasone propionate 50 2 sprays INTNAS DAILY PRN 05/02/19 09/13/20 History mcg/actuation nasal spray,suspension guaifenesin 600 mg tablet, 600 mg PO Q12H PRN 05/02/19 09/13/20 History extended release 12 hr pantoprazole 40 mg tablet,delayed 40 mg PO QAM 05/02/19 09/13/20 History release pseudoephedrine HCl 30 mg tablet 30 mg PO Q6H PRN 05/02/19 09/13/20 History tramadol 50 mg tablet 50 mg PO Q8H PRN 05/02/19 09/13/20 History ascorbic acid (vitamin C) 100 mg 100 mg PO DAILY 05/03/19 09/13/20 History tablet cholecalciferol (vitamin D3) 75 3,000 units PO DAILY 05/03/19 09/13/20 History mcg (3,000 unit) tablet echinacea 400 mg capsule 400 mg PO DAILY 05/03/19 09/13/20 History saw palmetto 160 mg capsule 160 mg PO BID 05/03/19 09/13/20 History mesalamine 2.4 g PO BID 05/04/19 09/13/20 History meclizine 25 mg PO QID PRN 03/09/20 09/13/20 History prochlorperazine maleate 10 mg PO Q6H 03/09/20 09/13/20 History cetirizine 10 mg PO DAILY 09/13/20 09/13/20 History multivitamin with minerals 1 tab PO DAILY 09/13/20 09/13/20 History [Multiple Vitamin-Minerals] ondansetron 4 - 8 mg PO Q6H PRN 09/13/20 09/13/20 History promethazine 25 mg PO Q6H PRN 09/13/20 09/13/20 History sodium chloride [Saline Nasal] 1 spray INTRANASAL BID PRN 09/13/20 09/13/20 History triamcinolone acetonide 1 applic TOPICAL BID 09/13/20 09/13/20 History Allergies Allergy/AdvReac Type Severity Reaction Status Date / Time amoxicillin Allergy Intermediate Leg Verified 03/09/20 14:48 swelling/inflammation cefazolin Allergy Intermediate rash Verified 09/13/20 21:37 clindamycin Allergy Intermediate rash Verified 09/13/20 21:37 doxycycline Allergy Intermediate rash Verified 09/13/20 21:37 Sulfa (Sulfonamide Allergy Unknown Unknown Verified 09/13/20 21:37 Antibiotics) Past Med/Surg History Medical History Arthritis stable Crohn disease (06/01/14) stable 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 Jorge 05/09/19 Sleep apnea BIPAP Surgical History History of colonoscopy History of esophagogastroduodenoscopy (EGD) History of tonsillectomy History of total knee replacement bilateral S/P dilatation of esophageal stricture + stent Family History Mother Diabetes Father Heart disease FHx: lung cancer Social History Smoking Status: Former smoker Second Hand Exposure: No; Hx Alcohol Use: No Hx Substance Use: No Preferred Language: Chadian Communication Ability: Effective Note Taker Required: No Beliefs That Will Affect Care: None marital status: / Current Living Situation: Significant Other Current Living Situation Comment: friendDorina current occupational status: retired Feels Safe at Home: Yes Assistive Devices: Cane Review of Systems A total of 10 systems reviewed and were otherwise negative Physical Exam Vital Signs Vital Signs - 24 hr 09/13/20 16:44 09/13/20 17:03 09/13/20 17:30 Temperature 38 C H Temperature Source Oral Pulse Rate 83 79 83 Pulse Rate from SpO2 Sensor 78 83 Pulse Rhythm Regular Pulse Strength Normal Respiratory Rate 25 H 17 20 Respiratory Effort / Characteristics Non-Labored Spontaneous Respiratory Depth Normal Respiratory Pattern Regular Blood Pressure 117/54 L 117/54 L 100/57 L Blood Pressure Mean 75 75 71 Blood Pressure Position Lying Pulse Oximetry 96 97 97 Oxygen Delivery Method Room Air Sepsis Recent Fever Within 48 Hours Yes Sepsis New/Unexplained Change in Mental Status N/A Sepsis Action Taken by Nursing No Action Required 09/13/20 18:30 09/13/20 19:00 09/13/20 19:15 Temperature 38.6 C H Temperature Source Pulse Rate 85 75 Pulse Rate from SpO2 Sensor 78 75 Pulse Rhythm Pulse Strength Respiratory Rate 22 Respiratory Effort / Characteristics Respiratory Depth Respiratory Pattern Blood Pressure 116/64 125/58 L Blood Pressure Mean 81 80 Blood Pressure Position Pulse Oximetry 98 98 Oxygen Delivery Method Sepsis Recent Fever Within 48 Hours Sepsis New/Unexplained Change in Mental Status Sepsis Action Taken by Nursing 09/13/20 19:30 09/13/20 20:07 09/13/20 20:30 Temperature 37.3 C Temperature Source Pulse Rate 78 78 79 Pulse Rate from SpO2 Sensor Pulse Rhythm Pulse Strength Respiratory Rate 18 20 16 Respiratory Effort / Characteristics Respiratory Depth Respiratory Pattern Blood Pressure 118/55 L 97/53 L 94/50 L Blood Pressure Mean 76 67 64 Blood Pressure Position Pulse Oximetry 96 97 97 Oxygen Delivery Method Sepsis Recent Fever Within 48 Hours Sepsis New/Unexplained Change in Mental Status Sepsis Action Taken by Nursing 09/13/20 22:18 09/13/20 22:30 Temperature Temperature Source Pulse Rate 88 76 Pulse Rate from SpO2 Sensor Pulse Rhythm Pulse Strength Respiratory Rate 16 20 Respiratory Effort / Characteristics Respiratory Depth Respiratory Pattern Blood Pressure 114/54 L 94/56 L Blood Pressure Mean 74 68 Blood Pressure Position Pulse Oximetry 96 97 Oxygen Delivery Method Sepsis Recent Fever Within 48 Hours Sepsis New/Unexplained Change in Mental Status Sepsis Action Taken by Nursing Physical Exam GENERAL: Patient is ill-appearing. HENT: Exam performed. - Head: Normocephalic and atraumatic. - Right Ear: External ear normal. No mastoid tenderness. - Left Ear: External ear normal. No mastoid tenderness. - Mouth/Throat: The oropharynx is clear and moist. No trismus in the jaw. No dental abscesses or uvula swelling. No oropharyngeal exudate or tonsillar abscesses. EYES: Conjunctivae and EOM are normal. Pupils are equal, round, and reactive to light. Right eye exhibits no discharge. Left eye exhibits no discharge. No scleral icterus. NECK: Normal range of motion. Neck supple. No JVD present. No spinous process tenderness present. No carotid bruit present. No rigidity. No tracheal deviation and normal range of motion present. No Brudzinski's sign and no Kernig's sign noted. CV: Normal rate, regular rhythm, normal heart sounds and intact distal pulses. There is no peripheral edema. Palpable radial pulses bue. PULM/CHEST: Effort normal and breath sounds normal. No respiratory distress. No stridor. He has no wheezes. He has no rales. - Chest Wall: Mediport in place. ABD: The abdomen is soft. Bowel sounds are normal. He has no distension. No mass is present. There is no tenderness. There is no rebound, no guarding, no Tan's sign and no tenderness at McBurney's point. Rovsig negative. MUSC/SKEL: Normal range of motion. There is no peripheral edema, tenderness or deformity. No C, T, or L-spine tenderness. LYMPH: No cervical adenopathy. NEURO: He is alert and oriented to person, place, and time. He has normal strength. No cranial nerve deficit or sensory deficit. Coordination and gait normal. GCS eye subscore is 4. GCS verbal subscore is 5. GCS motor subscore is 6. Cerebellar tests wnl. SKIN: Skin is warm and dry. He is not diaphoretic. PSYCH: He has a normal mood and affect. Behavior is normal. Judgment and thought content normal. Course Course 173: The patient was evaluated in room B9. A complete history and physical exam was performed. Cardiac monitoring: An order was placed for continuous cardiac monitoring. The monitor shows a rate of 80 with sinus rhythm Patient was seen in full airborne precautions. Patient was seen in N95's, gloves, gowns, face shield by myself and staff. Sepsis protocols were initiated. 2318: Vital signs stable. Labs are within normal limits. No leukocytosis. No neutropenia. Lactic acid within normal limits. Urinalysis Covid influenza and RSV negative. CT of the head and chest x-ray within normal limits. Patient was treated with vancomycin as there was concern for epidural abscess given the patient's reported urinary incontinence, weakness, and fever. MRI of the spine shows no epidural abscess in the thoracic or lumbar spine. MRI does show an enlarging 1.7 cm lesion on the L4 vertebral body which may represent a progressing osseous metastasis, there is no paraspinal or epidural extension. There is no epidural abscess in the MRI of the L-spine and there is no significant cord compression. [facility], Dr. Crenshaw notified. Administered Medications Sodium Chloride (Nss 1000ml) 1,000 mls @ 125 mls/hr IV .Q8H KAYDEN Stop: 10/13/20 17:44 Last Admin: 09/13/20 19:17 Dose: 125 mls/hr Documented by: [id number] Vancomycin HCl 1,250 mg/ (Sodium Chloride) 525 mls @ 200 mls/hr IV NOW ONE Stop: 09/13/20 23:22 Last Admin: 09/13/20 22:19 Dose: 200 mls/hr Documented by: [id number] Discontinued Medications Gadobutrol (Gadobutrol 65ml Vial) 6.3 ml IV ONCE ONE Stop: 09/13/20 21:56 Last Admin: 09/13/20 21:56 Dose: 6.3 ml Documented by: [id number] Acetaminophen (Ofirmev) 1,000 mg in 100 mls @ 400 mls/hr IV NOW STA Stop: 09/13/20 18:32 Last Infusion: 09/13/20 19:32 Dose: 0 mls/hr Documented by: [id number] Admin: 09/13/20 19:17 Dose: 400 mls/hr Documented by: [id number] Ondansetron HCl (Ondansetron Inj 2 Mg/Ml 2 Ml Vial) Confirm Administered Dose 4 mg .ROUTE .STK-MED ONE Stop: 09/13/20 22:16 Last Admin: 09/13/20 22:18 Dose: Not Given Documented by: [id number] Ondansetron HCl (Ondansetron Inj 2 Mg/Ml 2 Ml Vial) 4 mg IV NOW STA Stop: 09/13/20 22:18 Last Admin: 09/13/20 22:18 Dose: 4 mg Documented by: [id number] Medical Decision Making Laboratory Data Result diagrams: 09/13/20 17:36 09/13/20 17:36 Lab Results 09/13/20 09/13/20 09/13/20 Range/Units 17:31 17:36 17:36 WBC 6.24 (4.8-10.8) K/uL RBC 3.41 L (4.7-6.1) M/uL Hgb 9.1 L (14.0-18.0) g/dL Hct 28.3 L (42-52) % MCV 83.0 (80-100) fL MCH 26.7 (25-34) pg MCHC 32.2 (32-36) g/dL RDW Std Deviation 45.1 (36.4-46.3) fL RDW Coeff of Davide 14.7 H (11.5-14.5) % Plt Count 221 (130-400) K/uL MPV 8.4 (7.4-10.4) fL Immature Gran % (Auto) 0.0 % Neut % (Auto) 84.9 % Lymph % (Auto) 7.7 % Evans % (Auto) 7.2 % Eos % (Auto) 0.0 % Baso % (Auto) 0.2 % Neut # (Auto) 5.30 (1.4-6.5) K/uL Lymph # (Auto) 0.48 L (1.2-3.4) K/uL Evans # (Auto) 0.45 (0.11-0.59) K/uL Eos # (Auto) 0.00 (0-0.5) K/uL Baso # (Auto) 0.01 (0-0.2) K/uL Immature Gran # (Auto) 0.00 (0.00-0.02) K/uL PT 10.8 (9.0-12.0) Seconds INR 1.1 (0.9-1.1) APTT 26.5 (21.0-31.0) Seconds PTT Ratio 1.0 Sodium (136-145) mmol/L Potassium (3.5-5.1) mmol/L Chloride (98-107) mmol/L Carbon Dioxide (21-32) mmol/L Anion Gap (3-11) BUN (7-18) mg/dl Creatinine (0.6-1.4) mg/dl Est Cr Clr Drug Dosing ml/min Est GFR ( Amer) Est GFR (Non-Af Amer) BUN/Creatinine Ratio (10-20) Glucose (70-99) mg/dl Lactate (0.4-2.0) mmol/L Calcium (8.5-10.1) mg/dl Magnesium (1.8-2.4) mg/dl Total Bilirubin (0.2-1) mg/dl AST (15-37) U/L ALT (12-78) U/L Alkaline Phosphatase (45-117) U/L Troponin I (0-0.045) ng/ml Total Protein (6.4-8.2) gm/dl Albumin (3.4-5.0) gm/dl Globulin (2.5-4.0) gm/dl Albumin/Globulin Ratio (0.9-2) Procalcitonin (0-0.5) ng/ml Urine Color Urine Appearance (Clear) Urine pH (4.5-7.5) Ur Specific Jewett (1.000-1.030) Urine Protein (Negative) Urine Glucose (UA) (Negative) Urine Ketones (Negative) Urine Blood (Negative) Urine Nitrite (Negative) Urine Bilirubin (Negative) Urine Urobilinogen (Negative) Ur Leukocyte Esterase (Negative) Urine WBC (Auto) (0-5) /hpf Urine RBC (Auto) (0-4) /hpf U Hyaline Cast (Auto) (0-5) /lpf U Epithel Cells (Auto) (0-5) /lpf Urine Bacteria (Auto) (Negative) Urine Crystals Calcium Oxalate Crystal (None Prsent) COVID-19 Eval Order SARS-CoV-2 (PCR) (Negative) Influenza Type A (PCR) (Neg) Influenza Type B (PCR) (Neg) RSV (RT-PCR) (Neg) Blood Type A Positive Antibody Screen NEGATIVE 09/13/20 09/13/20 09/13/20 Range/Units 17:36 17:36 17:39 WBC (4.8-10.8) K/uL RBC (4.7-6.1) M/uL Hgb (14.0-18.0) g/dL Hct (42-52) % MCV (80-100) fL MCH (25-34) pg MCHC (32-36) g/dL RDW Std Deviation (36.4-46.3) fL RDW Coeff of Davide (11.5-14.5) % Plt Count (130-400) K/uL MPV (7.4-10.4) fL Immature Gran % (Auto) % Neut % (Auto) % Lymph % (Auto) % Evans % (Auto) % Eos % (Auto) % Baso % (Auto) % Neut # (Auto) (1.4-6.5) K/uL Lymph # (Auto) (1.2-3.4) K/uL Evans # (Auto) (0.11-0.59) K/uL Eos # (Auto) (0-0.5) K/uL Baso # (Auto) (0-0.2) K/uL Immature Gran # (Auto) (0.00-0.02) K/uL PT (9.0-12.0) Seconds INR (0.9-1.1) APTT (21.0-31.0) Seconds PTT Ratio Sodium 132 L (136-145) mmol/L Potassium 4.0 (3.5-5.1) mmol/L Chloride 97 L (98-107) mmol/L Carbon Dioxide 28 (21-32) mmol/L Anion Gap 7.0 (3-11) BUN 16 (7-18) mg/dl Creatinine 0.60 (0.6-1.4) mg/dl Est Cr Clr Drug Dosing 96.0 ml/min Est GFR ( Amer) 114.0 Est GFR (Non-Af Amer) 98.4 BUN/Creatinine Ratio 26.5 H (10-20) Glucose 106 H (70-99) mg/dl Lactate 0.5 (0.4-2.0) mmol/L Calcium 10.1 (8.5-10.1) mg/dl Magnesium 1.9 (1.8-2.4) mg/dl Total Bilirubin 0.3 (0.2-1) mg/dl AST 9 L (15-37) U/L ALT 10 L (12-78) U/L Alkaline Phosphatase 101 (45-117) U/L Troponin I < 0.015 (0-0.045) ng/ml Total Protein 6.8 (6.4-8.2) gm/dl Albumin 2.8 L (3.4-5.0) gm/dl Globulin 4.0 (2.5-4.0) gm/dl Albumin/Globulin Ratio 0.7 L (0.9-2) Procalcitonin 0.06 (0-0.5) ng/ml Urine Color Urine Appearance (Clear) Urine pH (4.5-7.5) Ur Specific Jewett (1.000-1.030) Urine Protein (Negative) Urine Glucose (UA) (Negative) Urine Ketones (Negative) Urine Blood (Negative) Urine Nitrite (Negative) Urine Bilirubin (Negative) Urine Urobilinogen (Negative) Ur Leukocyte Esterase (Negative) Urine WBC (Auto) (0-5) /hpf Urine RBC (Auto) (0-4) /hpf U Hyaline Cast (Auto) (0-5) /lpf U Epithel Cells (Auto) (0-5) /lpf Urine Bacteria (Auto) (Negative) Urine Crystals Calcium Oxalate Crystal (None Prsent) COVID-19 Eval Order SARS-CoV-2 (PCR) (Negative) Influenza Type A (PCR) (Neg) Influenza Type B (PCR) (Neg) RSV (RT-PCR) (Neg) Blood Type Antibody Screen 09/13/20 09/13/20 09/13/20 Range/Units 18:10 18:10 19:20 WBC (4.8-10.8) K/uL RBC (4.7-6.1) M/uL Hgb (14.0-18.0) g/dL Hct (42-52) % MCV (80-100) fL MCH (25-34) pg MCHC (32-36) g/dL RDW Std Deviation (36.4-46.3) fL RDW Coeff of Davide (11.5-14.5) % Plt Count (130-400) K/uL MPV (7.4-10.4) fL Immature Gran % (Auto) % Neut % (Auto) % Lymph % (Auto) % Evans % (Auto) % Eos % (Auto) % Baso % (Auto) % Neut # (Auto) (1.4-6.5) K/uL Lymph # (Auto) (1.2-3.4) K/uL Evans # (Auto) (0.11-0.59) K/uL Eos # (Auto) (0-0.5) K/uL Baso # (Auto) (0-0.2) K/uL Immature Gran # (Auto) (0.00-0.02) K/uL PT (9.0-12.0) Seconds INR (0.9-1.1) APTT (21.0-31.0) Seconds PTT Ratio Sodium (136-145) mmol/L Potassium (3.5-5.1) mmol/L Chloride (98-107) mmol/L Carbon Dioxide (21-32) mmol/L Anion Gap (3-11) BUN (7-18) mg/dl Creatinine (0.6-1.4) mg/dl Est Cr Clr Drug Dosing ml/min Est GFR ( Amer) Est GFR (Non-Af Amer) BUN/Creatinine Ratio (10-20) Glucose (70-99) mg/dl Lactate (0.4-2.0) mmol/L Calcium (8.5-10.1) mg/dl Magnesium (1.8-2.4) mg/dl Total Bilirubin (0.2-1) mg/dl AST (15-37) U/L ALT (12-78) U/L Alkaline Phosphatase (45-117) U/L Troponin I (0-0.045) ng/ml Total Protein (6.4-8.2) gm/dl Albumin (3.4-5.0) gm/dl Globulin (2.5-4.0) gm/dl Albumin/Globulin Ratio (0.9-2) Procalcitonin (0-0.5) ng/ml Urine Color Dark Yellow Urine Appearance Clear (Clear) Urine pH 5.0 (4.5-7.5) Ur Specific Jewett 1.033 H (1.000-1.030) Urine Protein Trace H (Negative) Urine Glucose (UA) Negative (Negative) Urine Ketones Trace H (Negative) Urine Blood Negative (Negative) Urine Nitrite Negative (Negative) Urine Bilirubin 1+ H (Negative) Urine Urobilinogen Negative (Negative) Ur Leukocyte Esterase Negative (Negative) Urine WBC (Auto) 1-5 (0-5) /hpf Urine RBC (Auto) 0-4 (0-4) /hpf U Hyaline Cast (Auto) 1-5 (0-5) /lpf U Epithel Cells (Auto) 10-20 H (0-5) /lpf Urine Bacteria (Auto) Negative (Negative) Urine Crystals Not Reportable Calcium Oxalate Crystal Present A (None Prsent) COVID-19 Eval Order [facility]Rsv at [facility] SARS-CoV-2 (PCR) NEGATIVE (Negative) Influenza Type A (PCR) Negative (Neg) Influenza Type B (PCR) Negative (Neg) RSV (RT-PCR) Negative (Neg) Blood Type Antibody Screen Imaging Data Radiologist's Impression: Preliminary Findings Only See Final Report For Complete Findings MRI T SPINE : Motion artifact degrades study quality. Multilevel degenerative changes with generalized kyphosis. No definite osseous metastasis No significant spinal cord compression. No abnormal cord signal or enhancement. No epidural abscess identified. No paraspinal mass. Radiologist: Jerzy Kasper M.D. Study ready at 22:25 and initial results transmitted at 22:48 Preliminary Findings Only See Final Report For Complete Findings MRI L SPINE : Study quality degraded by patient motion artifact. No acute compression fracture. Slightly enlarging 1.7 cm enhancing lesion in the L4 vertebral body which is now T1 hypointense and may represent a progressing osseous metastasis. No paraspinal or epidural extension. Multilevel degenerative changes with multilevel posterior disc bulges, as before. The conus terminates at T12. No abnormal cord signal or enhancement. No significant cord compression. Persistent moderate L2-3, severe L3-4 and moderate L4-5 central canal stenosis. Mild bilateral L2-3 and L3-4 neural foraminal narrowing. No evidence for epidural abscess. Right renal cyst. Radiologist: Jerzy Kasper M.D. Study ready at 22:37 and initial results transmitted at 23:06 CT SCAN OF THE BRAIN WITHOUT IV CONTRAST CLINICAL HISTORY: Fever. Fatigue. Esophageal cancer. COMPARISON STUDY: No priors. TECHNIQUE: Unenhanced axial CT scan of the brain is performed from the vertex to the skull base. A dose lowering technique was utilized adhering to the principles of ALARA. CT DOSE: 729.78 mGycm FINDINGS: Brain parenchyma: There are age-related involutional changes noting mild subcortical and periventricular microangiopathic change. There is no hemorrhage, mass effect, or evidence of acute territorial ischemia by CT criteria. Page- white matter differentiation is preserved. No extra-axial fluid collection is seen. Ventricles, sulci, cisterns: Prominent secondary to involutional change. Intracranial vasculature: There is atherosclerotic calcification of the cavernous carotid and vertebral arteries. Calvarium: Unremarkable. Sinuses and mastoids: The visualized paranasal sinuses are clear. The mastoid air cells are well pneumatized. Orbits: The bony orbits are grossly intact. IMPRESSION: There is no hemorrhage, mass effect, or evidence of acute territorial ischemia by CT criteria. ACT 112: Negative or not required by law. Electronically signed by: Paul Daley M.D. 09/13/2020 8:05 PM Dictated: 09/13/202002 Transcribed: 09/13/202002 SINGLE VIEW CHEST CLINICAL HISTORY: Sepsis. Esophageal cancer. FINDINGS: 2 AP, portable, upright chest radiographs are compared to study dated 03/10/2020 and correlated with chest CT dated 05/14/2020. The examination is degraded by portable technique and patient rotation. A left subclavian central venous infusion port is unchanged in position. Esophageal stent is in place. The heart is enlarged noting atherosclerotic calcification of the thoracic aorta. The pulmonary vasculature is noncongested. Chronic interstitial thickening is similar to previous. There is no airspace consolidation or large pleural effusion. No pneumothorax is seen. The skeletal structures are osteopenic. The bony thorax is grossly intact. Degenerative change is noted in the shoulders and thoracic spine. IMPRESSION: 1. Cardiomegaly with no acute cardiopulmonary abnormality. 2. An esophageal stent is in place. ACT 112: Negative or not required by law. Electronically signed by: Paul Daley M.D. 09/13/2020 6:27 PM Dictated: 09/13/201823 Transcribed: 09/13/201823 ECG Data Indication: + weakness Rate (beats per minute): 78 Rhythm: + normal sinus ECG Intervals/blocks: + Normal QRS, + Normal MD and + Normal QT-c ECG ST segments: + Normal ST segments [facility] Narrative 1738: The patient was evaluated in room B9. A complete history and physical exam was performed. Cardiac monitoring: An order was placed for continuous cardiac monitoring. The monitor shows a rate of 80 with sinus rhythm Patient was seen in full airborne precautions. Patient was seen in N95's, gloves, gowns, face shield by myself and staff. Sepsis protocols were initiated. 2318: Vital signs stable. Labs are within normal limits. No leukocytosis. No neutropenia. Lactic acid within normal limits. Urinalysis Covid influenza and RSV negative. CT of the head and chest x-ray within normal limits. Patient was treated with vancomycin as there was concern for epidural abscess given the patient's reported urinary incontinence, weakness, and fever. MRI of the spine shows no epidural abscess in the thoracic or lumbar spine. MRI does show an enlarging 1.7 cm lesion on the L4 vertebral body which may represent a progressing osseous metastasis, there is no paraspinal or epidural extension. There is no epidural abscess in the MRI of the L-spine and there is no signif icant cord compression. Patient will be admitted to the [facility] hospitalist service, Dr. Crenshaw notified. Impression & Plan Fever, Esophageal cancer Discharge Plan Visit Data Chief Complaint: Weakness Stated Complaint: WEAKNESS ED Provider: Mathew Chacon Discharge Problem: Fever, Esophageal cancer Patient Disposition: Being Evaluated by Hospitalist Forms Stand Alone Forms: [facility] Prescriptions Prescriptions: No Action cyclobenzaprine 10 mg tablet 10 mg PO TID PRN (Reason: muscle spasm) RF: 0 dicyclomine 10 mg capsule 10 mg PO BID RF: 0 fluticasone propionate [Flonase Allergy Relief] 50 mcg/actuation spray,suspension 2 sprays INTNAS DAILY PRN (Reason: Nasal Congestion) RF: 0 guaifenesin [Mucinex] 600 mg tablet extended release 12hr 600 mg PO Q12H PRN (Reason: Congestion) RF: 0 pantoprazole [Protonix] 40 mg tablet,delayed release (DR/EC) 40 mg PO QAM RF: 0 pseudoephedrine HCl 30 mg tablet 30 mg PO Q6H PRN (Reason: Congestion) RF: 0 tramadol 50 mg tablet 50 mg PO Q8H PRN (Reason: Pain) RF: 0 ascorbic acid (vitamin C) 100 mg tablet 100 mg PO DAILY RF: 0 saw palmetto 160 mg capsule 160 mg PO BID RF: 0 echinacea 400 mg capsule 400 mg PO DAILY RF: 0 cholecalciferol (vitamin D3) 3,000 unit tablet 3,000 units PO DAILY RF: 0 mesalamine 1.2 gram Tablet,Delayed Release (Dr/Ec) 2.4 g PO BID RF: 0 prochlorperazine maleate 10 mg tablet 10 mg PO Q6H RF: 0 meclizine 25 mg Tablet 25 mg PO QID PRN (Reason: Dizziness) RF: 0 triamcinolone acetonide 0.1 % Cream 1 applic TOPICAL BID RF: 0 cetirizine 10 mg Capsule 10 mg PO DAILY RF: 0 sodium chloride [Saline Nasal] 0.65 % Aerosol,Manquin 1 spray INTRANASAL BID PRN (Reason: Congestion) RF: 0 ondansetron 4 mg Tablet,Disintegrating 4 - 8 mg PO Q6H PRN (Reason: Nausea) RF: 0 multivitamin with minerals [Multiple Vitamin-Minerals] Tablet 1 tab PO DAILY RF: 0 promethazine 25 mg Tablet 25 mg PO Q6H PRN (Reason: Nausea) RF: 0 Referrals Referrals: Rodolfo Whyte DO [Primary Care Provider] - Discharge Problem: Fever Qualifiers: Fever type: unspecified Qualified Code(s): R50.9 - Fever, unspecified Esophageal cancer Qualifiers: Malignant neoplasm of esophagus location: unspecified location Qualified Code(s): C15.9 - Malignant neoplasm of esophagus, unspecified
[2020-09-13 19:36] LABS: Appearance Urine Clear (Clear); Bacteria Urine Automated Negative (Negative); Blood Urine Negative (Negative); Color Urine Dark Yellow; Glucose Urine UA Negative (Negative); Ketones Urine Trace (Negative); Leukocyte Esterase Urine Negative (Negative); Nitrite Urine Negative (Negative); Protein Urine Trace (Negative); RBC Urine Automated 0-4 /hpf (0-4); Specific Gravity Urine 1.033 (1.000-1.030); Urobilinogen Urine Negative (Negative)
[2020-09-13 19:53] LABS: Influenza A virus by PCR Negative (Neg); Influenza B virus by PCR Negative (Neg); RSV by PCR Negative (Neg); SARS CoV2 RNA(COVID-19) InHosp NEGATIVE (Negative)
--- NOTE | 2020-09-13 20:06 | CT Scan Report ---
CT SCAN OF THE BRAIN WITHOUT IV CONTRAST CLINICAL HISTORY: Fever. Fatigue. Esophageal cancer. COMPARISON STUDY: No priors. TECHNIQUE: Unenhanced axial CT scan of the brain is performed from the vertex to the skull base. A do se lowering technique was utilized adhering to the principles of ALARA. CT DOSE: 729.78 mGycm FINDINGS: Brain parenchyma: There are age-related involutional changes noting mild subcortical and periventric ular microangiopathic change. There is no hemorrhage, mass effect, or evidence of acute territorial i schemia by CT criteria. Page-white matter differentiation is preserved. No extra-axial fluid collecti on is seen. Ventricles, sulci, cisterns: Prominent secondary to involutional change. Intracranial vasculature: There is atherosclerotic calcification of the cavernous carotid and vertebr al arteries. Calvarium: Unremarkable. Sinuses and mastoids: The visualized paranasal sinuses are clear. The mastoid air cells are well pneu matized. Orbits: The bony orbits are grossly intact. IMPRESSION: There is no hemorrhage, mass effect, or evidence of acute territorial ischemia by CT niurka wilson. ACT 112: Negative or not required by law. Electronically signed by: Paul Daley M.D. 09/13/2020 8:05 PM
[2020-09-13 20:17] LABS: Bilirubin Urine 1+ (Negative)
[2020-09-13 20:27] LABS: Calcium Oxalate Crystals Urine Present (None Prsent)
[2020-09-13] MEDS ORDERED: VANCOMYCIN CONSULT ACTIVE PRN (20:45)
[2020-09-13] MEDS ORDERED: VANCOMYCIN HCL 1,250 MG in SODIUM CHLORIDE 0.9% 500 ML IV ONE (20:45)
[2020-09-13] MEDS ORDERED: GADOBUTROL 65ML VIAL IV ONE (21:55)
[2020-09-13] MEDS ORDERED: ONDANSETRON INJ 2 MG/ML 2 ML VIAL ONE (22:15)
[2020-09-13] MEDS ORDERED: ONDANSETRON INJ 2 MG/ML 2 ML VIAL IV STA (22:17)
[2020-09-14 00:12] LABS: Thyroid Stimulating Hormone 0.721 uIu/ml (0.300-4.500)
--- NOTE | 2020-09-14 01:10 | History & Physical Report ---
Date of Service September 14, 2020 Assessment & Plan (1) Fever: Secondary to hypovolemia, mild clinical dehydration Rule out sepsis, immunocompromised patient stage IV esophageal cancer status post stent placement ongoing chemotherapy, progressive disease Hyponatremia secondary to clinical dehydration Abnormal finding on MRI L-spine initial read Possible progressive bony mets. Indeterminate lucent lesion L2 vertebral body concerning for metastatic focus on CT study July 2019. IBD, stable on regimen prediabetes as per records, hemoglobin A1c of 5.4 from 2020 chronic anemia, hemoglobin at baseline past tobacco abuse OBS Medical telemetry given borderline BP at the ER Cultures. Hold off on antibiotics until definite focus found. IVF, careful correction of sodium Follow official lumbar spine MRI read. (Patient requests for official findings to be communicated to patient's oncologist at [facility] (Dr. Martin Pineda, contact #[phone]) PT OT eval DVT prophylaxis. Lovenox subcu Full code Patient requesting updates for providers. Ms. Dorina Moran, contact #[phone]. Text document was generated using [employer] voice recognition software. It may contain grammatical or spelling errors. Kindly contact undersigned for clarification of any documentation item in question. History of Present Illness Chief Complaint: Fever, weakness Primary Care Provider: Rodolfo Whyte DO History obtained from patient, family, and records. Medical history significant for stage IV esophageal cancer status post stent placement ongoing chemotherapy, IBD, hyperlipidemia, prediabetes as per records, gout, chronic anemia (baseline hemoglobin 8-9), CRESENCIO on BiPAP, past tobacco abuse. Last confinement March 2020 for progressive dysphagia secondary to obstructing esophageal cancer status post stent placement. Increased dysphagia noted last month. PET scan showed mild increase in size and FDG avidity of primary distal esophageal mass. Mildly dilated fluid-filled esophagus. Patient underwent urgent EGD at [facility] 2 weeks ago. Esophageal stent was noted to have tumor ingrowth and extension of the stent. Subsequent restenting done. Yesterday patient noted to be increasingly weak as per . Both legs weak without unusual back pain. No leg numbness as per patient. One episode of urinary incontinence. No unusual headache symptoms. Usual loose stools from Crohn's as per . Low-grade fever at home. No cough. Patient somewhat more confused as per . Patient brought to the ER for evaluation. Given IV vancomycin and IVF for possible infection. Patient currently back to baseline as per . 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 Allergies Allergy/AdvReac Type Severity Reaction Status Date / Time amoxicillin Allergy Intermediate Leg Verified 03/09/20 14:48 swelling/inflammation cefazolin Allergy Intermediate rash Verified 09/13/20 21:37 clindamycin Allergy Intermediate rash Verified 09/13/20 21:37 doxycycline Allergy Intermediate rash Verified 09/13/20 21:37 Sulfa (Sulfonamide Allergy Unknown Unknown Verified 09/13/20 21:37 Antibiotics) Home Medications Medication Instructions Recorded Confirmed Type cyclobenzaprine 10 mg tablet 10 mg PO TID PRN 05/02/19 09/13/20 History dicyclomine 10 mg capsule 10 mg PO BID 05/02/19 09/13/20 History fluticasone propionate 50 2 sprays INTNAS DAILY PRN 05/02/19 09/13/20 History mcg/actuation nasal spray,suspension guaifenesin 600 mg tablet, 600 mg PO Q12H PRN 05/02/19 09/13/20 History extended release 12 hr pantoprazole 40 mg tablet,delayed 40 mg PO QAM 05/02/19 09/13/20 History release pseudoephedrine HCl 30 mg tablet 30 mg PO Q6H PRN 05/02/19 09/13/20 History tramadol 50 mg tablet 50 mg PO Q8H PRN 05/02/19 09/13/20 History ascorbic acid (vitamin C) 100 mg 100 mg PO DAILY 05/03/19 09/13/20 History tablet cholecalciferol (vitamin D3) 75 3,000 units PO DAILY 05/03/19 09/13/20 History mcg (3,000 unit) tablet echinacea 400 mg capsule 400 mg PO DAILY 05/03/19 09/13/20 History saw palmetto 160 mg capsule 160 mg PO BID 05/03/19 09/13/20 History mesalamine 2.4 g PO BID 05/04/19 09/13/20 History meclizine 25 mg PO QID PRN 03/09/20 09/13/20 History prochlorperazine maleate 10 mg PO Q6H 03/09/20 09/13/20 History cetirizine 10 mg PO DAILY 09/13/20 09/13/20 History multivitamin with minerals 1 tab PO DAILY 09/13/20 09/13/20 History [Multiple Vitamin-Minerals] ondansetron 4 - 8 mg PO Q6H PRN 09/13/20 09/13/20 History promethazine 25 mg PO Q6H PRN 09/13/20 09/13/20 History sodium chloride [Saline Nasal] 1 spray INTRANASAL BID PRN 09/13/20 09/13/20 History triamcinolone acetonide 1 applic TOPICAL BID 09/13/20 09/13/20 History Past Med/Surg History Medical History Arthritis stable Crohn disease (06/01/14) stable 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 Jorge 05/09/19 Sleep apnea BIPAP Surgical History History of colonoscopy History of esophagogastroduodenoscopy (EGD) History of tonsillectomy History of total knee replacement bilateral S/P dilatation of esophageal stricture + stent Family History Mother Diabetes Father Heart disease FHx: lung cancer Social History Smoking Status: Former smoker Second Hand Exposure: No; Do You Dip or Chew Tobacco: No; Tobacco Cessation Education Requested by Patient: No Hx Alcohol Use: No Hx Substance Use: No Preferred Language: Maori Communication Ability: Effective Vibrator Equipment Tester Required: No Beliefs That Will Affect Care: None marital status: / Current Living Situation: Other Current Living Situation Comment: Lives in a home with lady friend x 21 yrs current occupational status: retired Other Information That Helps Us Care for You: No Feels Safe at Home: Yes Safety Concerns: Feels Safe At This Time Assistive Devices: Cane, Denture - Upper, Glasses and Walker Review of Systems Review of Systems: As per HPI, all 10 systems reviewed, all other ROS negative Physical Exam Physical Exam: GENERAL: Comfortable, pleasant, chronically ill, no respiratory distress SKIN: Pallor, warm HEENT: Pale palpebral conjunctivae, no ptosis, dry buccal mucosa NECK : Supple, no tenderness CHEST : Decreased breath sounds, no tenderness HEART : RRR, no obvious murmurs ABDOMEN: Some distention, nontender EXTREMITIES : No LE swelling/tenderness, no other conspicuous deformities noted NEUROLOGIC : Coherent, no facial asymmetry, MMTS BLE 4/5, gait and stance not assessed, no other gross focality Results & Data Results & Data ([facility]) Vital Signs (Past 12 Hours) Vital Signs Temp Pulse Resp BP Pulse Ox 09/14/20 01:00 66 18 127/57 L 100 09/14/20 00:30 61 22 122/60 100 09/14/20 00:00 67 18 114/58 L 98 09/13/20 23:30 68 18 106/57 L 97 09/13/20 23:09 67 18 96/49 L 100 09/13/20 22:30 76 20 94/56 L 97 09/13/20 22:18 88 16 114/54 L 96 09/13/20 20:30 79 16 94/50 L 97 09/13/20 20:07 37.3 C 78 20 97/53 L 97 09/13/20 19:30 78 18 118/55 L 96 09/13/20 19:15 38.6 C H 09/13/20 19:00 75 125/58 L 98 09/13/20 18:30 85 22 116/64 98 09/13/20 17:30 83 20 100/57 L 97 09/13/20 17:03 79 17 117/54 L 97 09/13/20 16:44 38 C H 83 25 H 117/54 L 96 Laboratory Results Laboratory Results WBC 6.24 K/uL (4.8-10.8) 09/13/20 17:36 RBC 3.41 M/uL (4.7-6.1) L 09/13/20 17:36 Hgb 9.1 g/dL (14.0-18.0) L 09/13/20 17:36 Hct 28.3 % (42-52) L 09/13/20 17:36 MCV 83.0 fL (80-100) 09/13/20 17:36 MCH 26.7 pg (25-34) 09/13/20 17:36 MCHC 32.2 g/dL (32-36) 09/13/20 17:36 RDW Std Deviation 45.1 fL (36.4-46.3) 09/13/20 17:36 RDW Coeff of Davide 14.7 % (11.5-14.5) H 09/13/20 17:36 Plt Count 221 K/uL (130-400) 09/13/20 17:36 MPV 8.4 fL (7.4-10.4) 09/13/20 17:36 Immature Gran % (Auto) 0.0 % 09/13/20 17:36 Neut % (Auto) 84.9 % 09/13/20 17:36 Lymph % (Auto) 7.7 % 09/13/20 17:36 [place] % (Auto) 7.2 % 09/13/20 17:36 Eos % (Auto) 0.0 % 09/13/20 17:36 Baso % (Auto) 0.2 % 09/13/20 17:36 Neut # (Auto) 5.30 K/uL (1.4-6.5) 09/13/20 17:36 Lymph # (Auto) 0.48 K/uL (1.2-3.4) L 09/13/20 17:36 [place] # (Auto) 0.45 K/uL (0.11-0.59) 09/13/20 17:36 Eos # (Auto) 0.00 K/uL (0-0.5) 09/13/20 17:36 Baso # (Auto) 0.01 K/uL (0-0.2) 09/13/20 17:36 Immature Gran # (Auto) 0.00 K/uL (0.00-0.02) 09/13/20 17:36 PT 10.8 Seconds (9.0-12.0) 09/13/20 17:36 INR 1.1 (0.9-1.1) 09/13/20 17:36 APTT 26.5 Seconds (21.0-31.0) 09/13/20 17:36 PTT Ratio 1.0 09/13/20 17:36 Sodium 135 mmol/L (136-145) L 09/13/20 23:39 Potassium 4.0 mmol/L (3.5-5.1) 09/13/20 17:36 Chloride 97 mmol/L (98-107) L 09/13/20 17:36 Carbon Dioxide 28 mmol/L (21-32) 09/13/20 17:36 Anion Gap 7.0 (3-11) 09/13/20 17:36 BUN 16 mg/dl (7-18) 09/13/20 17:36 Creatinine 0.60 mg/dl (0.6-1.4) 09/13/20 17:36 Est Cr Clr Drug Dosing 96.0 ml/min 09/13/20 17:36 Est GFR ( Amer) 114.0 09/13/20 17:36 Est GFR (Non-Af Amer) 98.4 09/13/20 17:36 BUN/Creatinine Ratio 26.5 (10-20) H 09/13/20 17:36 Glucose 106 mg/dl (70-99) H 09/13/20 17:36 Osmolality 273 mOsm/kg (280-300) L 09/13/20 17:36 Lactate 0.5 mmol/L (0.4-2.0) 09/13/20 17:39 Calcium 10.1 mg/dl (8.5-10.1) 09/13/20 17:36 Magnesium 1.9 mg/dl (1.8-2.4) 09/13/20 17:36 Total Bilirubin 0.3 mg/dl (0.2-1) 09/13/20 17:36 AST 9 U/L (15-37) L 09/13/20 17:36 ALT 10 U/L (12-78) L 09/13/20 17:36 Alkaline Phosphatase 101 U/L (45-117) 09/13/20 17:36 Troponin I < 0.015 ng/ml (0-0.045) 09/13/20 17:36 Total Protein 6.8 gm/dl (6.4-8.2) 09/13/20 17:36 Albumin 2.8 gm/dl (3.4-5.0) L 09/13/20 17:36 Globulin 4.0 gm/dl (2.5-4.0) 09/13/20 17:36 Albumin/Globulin Ratio 0.7 (0.9-2) L 09/13/20 17:36 Procalcitonin 0.06 ng/ml (0-0.5) 09/13/20 17:36 TSH 0.721 uIu/ml (0.300-4.500) 09/13/20 17:36 Urine Color Dark Yellow 09/13/20 19:20 Urine Appearance Clear (Clear) 09/13/20 19:20 Urine pH 5.0 (4.5-7.5) 09/13/20 19:20 Ur Specific [place] 1.033 (1.000-1.030) H 09/13/20 19:20 Urine Protein Trace (Negative) H 09/13/20 19:20 Urine Glucose (UA) Negative (Negative) 09/13/20 19:20 Urine Ketones Trace (Negative) H 09/13/20 19:20 Urine Blood Negative (Negative) 09/13/20 19:20 Urine Nitrite Negative (Negative) 09/13/20 19:20 Urine Bilirubin 1+ (Negative) H 09/13/20 19:20 Urine Urobilinogen Negative (Negative) 09/13/20 19:20 Ur Leukocyte Esterase Negative (Negative) 09/13/20 19:20 Urine WBC (Auto) 1-5 /hpf (0-5) 09/13/20 19:20 Urine RBC (Auto) 0-4 /hpf (0-4) 09/13/20 19:20 U Hyaline Cast (Auto) 1-5 /lpf (0-5) 09/13/20 19:20 U Epithel Cells (Auto) 10-20 /lpf (0-5) H 09/13/20 19:20 Urine Bacteria (Auto) Negative (Negative) 09/13/20 19:20 Urine Crystals Not Reportable 09/13/20 19:20 Calcium Oxalate Crystal Present (None Prsent) A 09/13/20 19:20 COVID-19 Eval Order [facility]FluRsv at [facility] 09/13/20 18:10 SARS-CoV-2 (PCR) NEGATIVE (Negative) 09/13/20 18:10 Influenza Type A (PCR) Negative (Neg) 09/13/20 18:10 Influenza Type B (PCR) Negative (Neg) 09/13/20 18:10 RSV (RT-PCR) Negative (Neg) 09/13/20 18:10 Blood Type A Positive 09/13/20 17:31 Antibody Screen NEGATIVE 09/13/20 17:[address] head: There is no hemorrhage, mass effect, or evidence of acute territorial ischemia by CT criteria. MRI T-spine initial read: Kyphosis, no definite osseous metastasis. No significant spinal cord compression. No epidural abscess identified. No paraspinal mass. MRI L spine initial read: No acute compression fracture. Slightly enlarging 1.7 cm mass lesion L4 vertebral body which is new. T1 hypointense and may represent progressive Yamileth metastasis. No paraspinal or epidural extension. Multilevel degenerative changes with multilevel posterior disc bulges as before. Conus terminating at T12. No abnormal cord signal or enhancement. No significant cord compression. Moderate L2-L3, severe L3-L4, moderate L4-L5 central canal stenosis. Mild bilateral L2-L3 and L3-L4 neuroforaminal narrowing. No evidence epidural abscess. Right renal cyst. Chest x-ray : 1. Cardiomegaly with no acute cardiopulmonary abnormality. 2. An esophageal stent is in place. EKG as per my interpretation : Rate 80, NSR, normal axis, no ischemia, PACs
[2020-09-14] MEDS ORDERED: FLUTICASONE PROPIONATE NA SPR 16 GM BTL PRN (02:28)
[2020-09-14] MEDS ORDERED: ACETAMINOPHEN 325 MG TAB PO PRN (02:28)
[2020-09-14] MEDS ORDERED: traMADol HCL 50 MG TABLET PO PRN (02:28)
[2020-09-14] MEDS ORDERED: PROMETHAZINE HCL 6.25 MG in SODIUM CHLORIDE 0.9% 50 ML IV PRN (02:28)
[2020-09-14] MEDS ORDERED: MAGNESIUM SULFATE / D5W 1 GM/100 ML BAG IV ONE (03:00)
[2020-09-14 05:59] LABS: Basophils # (auto) 0.02 K/uL (0-0.2); Basophils % (auto) 0.4 %; Eosinophils # (auto) 0.02 K/uL (0-0.5); Eosinophils % (auto) 0.4 %; Hematocrit (blood only) 26.2 % (42-52); Hemoglobin 8.4 g/dL (14.0-18.0); Lymphocytes # (auto) 0.57 K/uL (1.2-3.4); Lymphocytes % (auto) 10.2 %; Mean Corpuscular Hemoglobin 26.8 pg (25-34); Mean Corpuscular Hgb Conc 32.1 g/dL (32-36); Mean Corpuscular Volume 83.4 fL (80-100); Monocytes # (auto) 0.42 K/uL (0.11-0.59); Monocytes % (auto) 7.5 %; Neutrophils # (auto) 4.54 K/uL (1.4-6.5); Neutrophils % (auto) 81.5 %; Platelet Count 192 K/uL (130-400); RDW Coefficient of Variation 14.8 % (11.5-14.5); RDW Standard Deviation 45.3 fL (36.4-46.3); Red Blood Count 3.14 M/uL (4.7-6.1); White Blood Count 5.57 K/uL (4.8-10.8)
[2020-09-14 06:27] LABS: BUN Creatinine Ratio 22.7 (10-20); Calcium 9.8 mg/dl (8.5-10.1); Creatinine Clr Calc Pharmacy 90.1 ml/min; Est GFR (African American) 109.6; Est GFR (Non-African American) 94.6; Potassium 3.7 mmol/L (3.5-5.1)
[2020-09-14] MEDS ORDERED: NSS + 20MEQ KCL 20 MEQ/1,000 ML BAG IV ONE (07:11)
--- NOTE | 2020-09-14 08:16 | Magnetic Resonance Report ---
MRI OF THE THORACIC SPINE WITH AND WITHOUT CONTRAST CLINICAL HISTORY: Fever. Stage IV esophageal cancer. Evaluate for abscess or metastatic disease. COMPARISON: PET/CT August 06, 2020. TECHNIQUE: Utilizing a 1.5 Niki magnet and dedicated coil, multiplanar, multiecho imaging of the th oracic spine was performed before and after the intravenous administration of 6.3 cc. FINDINGS: Exaggerated kyphosis of the thoracic spine is noted. No thoracic spine fracture is noted. N o epidural fluid collection is identified. There is no evidence for discitis or osteomyelitis within the thoracic spine. Vertebral body heights are maintained. No enhancement is identified within the th oracic canal on the postcontrast images although exam is compromised by motion artifact. Note is made of an indeterminate 8 mm T1 hypointense, T2 hyperintense lesion within the T1 vertebral body. A 9 mm T2 hyperintense lesion within the T7 vertebral body is slightly hypointense on the T1-weighted seque nce. This enhances. This probably reflects a hemangioma but is also indeterminate. Slight prominence of the central canal the thoracic cord is noted. Otherwise, thoracic cord signal is normal. Thoracic cord caliber is normal. No disc herniation is present. Central canal and neural foramen are patent. D istal esophageal stent is better depicted on prior PET/CT. Minimal right lung airspace opacity is sub optimally assessed by MRI. IMPRESSION: 1. No epidural abscess. No evidence for discitis or osteomyelitis within the thoracic spine. 2. No thoracic spine fracture. Patent central canal and neural foramen. Exaggerated kyphosis of the t horacic spine. 3. A few small indeterminate lesions within the thoracic spine, including an 8 mm T1 lesion. This may reflect an atypical hemangioma however metastatic disease is within the differential. This can be as sessed on follow-up MRI or PET/CT. This finding will be called/faxed to the ordering provider at time of dictation. ACT 112: Negative or not required by law. Electronically signed by: Jose Guadalupe Basurto M.D. 09/14/2020 8:15 AM
[2020-09-14] MEDS: CEROVITE ADV FORMULA TAB PO SCH (08:18)
[2020-09-14] MEDS: ENOXAPARIN INJ 30 MG/0.3 ML SYR SQ SCH (08:18)
[2020-09-14] MEDS: PANTOprazole 40 MG TAB PO SCH (08:19)
[2020-09-14] MEDS: CETIRIZINE HCL 10 MG TABLET PO SCH (08:19)
[2020-09-14] MEDS ORDERED: NON-FORMULARY MEDICATION (Ascorbic Acid (Vitamin C) 100 mg tablet) PO SCH (09:00)
--- NOTE | 2020-09-14 09:46 | Magnetic Resonance Report ---
MRI OF THE LUMBAR SPINE COMBO CLINICAL HISTORY: Fever. Esophageal cancer. COMPARISON STUDY: MRI of the lumbar spine dated 08/15/2019. Abdominal CT dated 05/14/2020. PET/CT date d 08/06/2020. TECHNIQUE: MRI of the lumbar spine is performed utilizing various T1 and T2-weighted sequences in the axial and sagittal planes. Contrast-enhanced sequences are acquired following the IV administration of 6.3 cc of Gadavist. The examination is mildly degraded by motion artifact. FINDINGS: Lumbar spine: Marrow signal intensity is heterogeneous. Vertebral body height is maintained throughou t the lumbar spine. There is minimal anterolisthesis at L3-L4 and L4-L5. Alignment is otherwise prese rved. The transverse and spinous processes appear intact. There is no evidence of spondylolysis. Ante rior and lateral marginal osteophytes are seen throughout. A 1.8 cm lesion is again seen in the body of L4. This likely represents an atypical hemangioma and is unchanged from 08/15/2019. No destructive bony lesion is clearly identified. Chronic degenerative endplate change is seen at L2-L3 and L3-L4. N o significant endplate edema is identified. Intervertebral discs: Degenerative disc desiccation and loss of height is seen throughout the lumbar spine. Loss of height is moderate at all levels. Spinal cord and central canal: The visualized spinal cord is normal in morphology and signal intensit y. The conus medullaris terminates at the T12-L1 interspace. The nerve roots of the cauda equina are normal in morphology. No abnormal postcontrast enhancement is identified. There is no evidence of epi dural fluid collection. L1-L2: Unremarkable. L2-L3: There is a posterior disc osteophyte complex. In conjunction with hypertrophy of the ligamentu m flavum there is mild to moderate acquired compromise of the central canal at this level. The minimu m AP diameter measures 7 mm. There is left greater than right subarticular stenosis with probable imp ingement on the exiting left L2 nerve root. This also abuts the transiting nerve roots. In conjunctio n with facet arthropathy there is moderate left and mild right neural foraminal stenosis. L3-L4: There is broad-based posterior disc bulge. In conjunction with hypertrophy of the ligamentum f lavum there is moderate to severe central canal stenosis at this level with a minimum AP diameter of 4 mm. There is bilateral subarticular stenosis with probable impingement on the exiting bilateral L3 nerve roots. In conjunction with facet arthropathy there is moderate to severe bilateral neural elif inal stenosis. L4-L5: There is broad-based posterior disc bulge. In conjunction with hypertrophy of the ligamentum f lavum there is at least mild compromise of the central canal. The minimum AP diameter measures 9 mm. There is significant transverse narrowing of the central canal. There is bilateral subarticular steno sis, with probable impingement on the exiting bilateral L4 nerve roots. In conjunction with facet art hropathy there is moderate bilateral neural foraminal stenosis. L5-S1: The central canal is clear. Minimal disc bulge causes bilateral subarticular stenosis. This ma y impinge on the exiting bilateral L5 nerve roots. In conjunction with facet arthropathy there is mil d right and mild to moderate left neural foraminal stenosis. Sacrum: The visualized sacrum is normal in morphology and signal intensity. Soft tissues: There is mild edema within the paraspinous musculature bilaterally. This is greatest fr om L3 to L5. No organized/peripherally enhancing fluid collection is identified. The iliopsoas muscul ature is normal. The retroperitoneal structures are grossly unremarkable but incompletely evaluated. IMPRESSION: 1. Multilevel lumbosacral spondylosis as above with multilevel acquired compromise of the central can al. See discussion for detailed level by level analysis. 2. There is no definite evidence of osseous metastatic disease. A lesion within the body of L4 is unc hanged and may represent an atypical hemangioma. 3. There is no evidence of epidural fluid collection. 4. There is nonspecific edema within the paraspinous musculature. Clinical correlation will be requir ed. Dictated: 09/14/2020 9:14 AM Transcribed: 09/14/2020 9:43 AM Ignacia [id number] [email or web address] Electronically signed by: Paul Daley M.D. 09/14/2020 9:45 AM
[2020-09-14] MEDS ORDERED: AZTREONAM CONSULT ACTIVE PRN (16:14)
[2020-09-14 16:24] LABS: Calcium 9.9 mg/dl (8.5-10.1); Creatinine Clr Calc Pharmacy 114.4 ml/min; Est GFR (African American) 120.9; Est GFR (Non-African American) 104.3; Potassium 4.1 mmol/L (3.5-5.1)
[2020-09-14] MEDS: AZTREONAM 2,000 MG in DEXTROSE 5% 100 ML IV SCH (16:42)
--- NOTE | 2020-09-14 17:30 | Hospitalist Progress Note ---
Date of Service September 14, 2020 Assessment & Plan (1) Fever: Secondary to hypovolemia, mild clinical dehydration -- afebrile now continue gentle IV hydration Rule out sepsis, immunocompromised patient -- no clear focus of infection at this time CXR clear UA unrevealing - blood cultures pending nasal MRSA pending - Aztreonam day 1 started Altered Mental Status episode - no acute process resolved check ammonia level stage IV esophageal cancer status post stent placement ongoing chemotherapy, progressive disease - scheduled for chemo on Thursday no problems with swallowing start easy to chew diet Hyponatremia secondary to clinical dehydration - improving gentle IV NSS Thoracic and Lumbar spine mets - no focal deficits IBD, stable on regimen prediabetes as per records, hemoglobin A1c of 5.4 from 2019 chronic anemia, hemoglobin at baseline past tobacco abuse plan of care discussed with patient and his over the phone in detail all questions answered they are understanding, agreeable, comfortable with the plan of care PT OT eval DVT prophylaxis. Lovenox subcu Full code Admission and Anticipated Discharge Date Admission Date: September 14, 2020 Subjective ff up for fever, weakness, confusion seen resting in chair, comfortable very pleasant, oriented x 3 states he feels fine overall denies headache, dizziness, chest pain, dyspnea, abdominal pain, problems with BM or urination has chronic cough, with white sputum intermittent mild pain states he feels weak all over, but improving no focal neuro deficits denies other symptoms Review of Systems Review of Systems: All systems reviewed & are unremarkable except as noted in Subjective Physical Exam Physical Exam: General- oriented x 3, not in distress, speaks in sentences with no effort or accessory muscle use somewhat weak, under nourished Head- atraumatic Eyes- PERRL, EOMI, anicteric ENT- oropharynx clear Neck- supple, no JVD, no adenopathy, no thyromegaly; carotids +2/2, no bruits appreciated Lungs- clear to auscultation bilaterally, no rales/wheezes Heart- normal rate, regular rhythm; no murmur, no gallop, no rub appreciated Abdomen- normal bowel sounds, nondistended, soft, nontender, no masses or hepatosplenomegaly Extremities- no pretibial edema, no calf tenderness; peripheral pulses intact Neuro- alert, oriented x 3; CN 2-12 grossly intact; motor 5/5 bilaterally;sensation 100% on all extremities; no other gross focal neurologic deficits Skin- warm & dry Results & Data Results & Data ([facility]) Vital Signs (Past 12 Hours) Vital Signs Temp Pulse Pulse Pulse Resp BP Pulse Ox 09/14/20 15:47 36.9 C 58 L 16 132/80 99 09/14/20 15:00 66 09/14/20 08:00 65 09/14/20 07:52 36.8 C 74 18 130/52 L 96 Laboratory Results Laboratory Results - last 24 hr 09/13/20 09/13/20 09/13/20 17:31 17:36 17:36 WBC 6.24 RBC 3.41 L Hgb 9.1 L Hct 28.3 L MCV 83.0 MCH 26.7 MCHC 32.2 RDW Std Deviation 45.1 RDW Coeff of Davide 14.7 H Plt Count 221 MPV 8.4 Immature Gran % (Auto) 0.0 Neut % (Auto) 84.9 Lymph % (Auto) 7.7 [place] % (Auto) 7.2 Eos % (Auto) 0.0 Baso % (Auto) 0.2 Neut # (Auto) 5.30 Lymph # (Auto) 0.48 L [place] # (Auto) 0.45 Eos # (Auto) 0.00 Baso # (Auto) 0.01 Immature Gran # (Auto) 0.00 PT 10.8 INR 1.1 APTT 26.5 PTT Ratio 1.0 Sodium Potassium Chloride Carbon Dioxide Anion Gap BUN Creatinine Est Cr Clr Drug Dosing Est GFR ( Amer) Est GFR (Non-Af Amer) BUN/Creatinine Ratio Glucose Osmolality Lactate Calcium Magnesium Total Bilirubin AST ALT Alkaline Phosphatase Troponin I Total Protein Albumin Globulin Albumin/Globulin Ratio Procalcitonin TSH Urine Color Urine Appearance Urine pH Ur Specific [place] Urine Protein Urine Glucose (UA) Urine Ketones Urine Blood Urine Nitrite Urine Bilirubin Urine Urobilinogen Ur Leukocyte Esterase Urine WBC (Auto) Urine RBC (Auto) U Hyaline Cast (Auto) U Epithel Cells (Auto) Urine Bacteria (Auto) Urine Crystals Calcium Oxalate Crystal Nasal Screen MRSA (PCR) COVID-19 Eval Order SARS-CoV-2 (PCR) Influenza Type A (PCR) Influenza Type B (PCR) RSV (RT-PCR) Blood Type A Positive Antibody Screen NEGATIVE 09/13/20 09/13/20 09/13/20 17:36 17:36 17:36 WBC RBC Hgb Hct MCV MCH MCHC RDW Std Deviation RDW Coeff of Davide Plt Count MPV Immature Gran % (Auto) Neut % (Auto) Lymph % (Auto) [place] % (Auto) Eos % (Auto) Baso % (Auto) Neut # (Auto) Lymph # (Auto) [place] # (Auto) Eos # (Auto) Baso # (Auto) Immature Gran # (Auto) PT INR APTT PTT Ratio Sodium 132 L Potassium 4.0 Chloride 97 L Carbon Dioxide 28 Anion Gap 7.0 BUN 16 Creatinine 0.60 Est Cr Clr Drug Dosing 96.0 Est GFR ( Amer) 114.0 Est GFR (Non-Af Amer) 98.4 BUN/Creatinine Ratio 26.5 H Glucose 106 H Osmolality 273 L Lactate Calcium 10.1 Magnesium 1.9 Total Bilirubin 0.3 AST 9 L ALT 10 L Alkaline Phosphatase 101 Troponin I < 0.015 Total Protein 6.8 Albumin 2.8 L Globulin 4.0 Albumin/Globulin Ratio 0.7 L Procalcitonin 0.06 TSH 0.721 Urine Color Urine Appearance Urine pH Ur Specific [place] Urine Protein Urine Glucose (UA) Urine Ketones Urine Blood Urine Nitrite Urine Bilirubin Urine Urobilinogen Ur Leukocyte Esterase Urine WBC (Auto) Urine RBC (Auto) U Hyaline Cast (Auto) U Epithel Cells (Auto) Urine Bacteria (Auto) Urine Crystals Calcium Oxalate Crystal Nasal Screen MRSA (PCR) COVID-19 Eval Order SARS-CoV-2 (PCR) Influenza Type A (PCR) Influenza Type B (PCR) RSV (RT-PCR) Blood Type Antibody Screen 09/13/20 09/13/20 09/13/20 17:39 18:10 18:10 WBC RBC Hgb Hct MCV MCH MCHC RDW Std Deviation RDW Coeff of Davide Plt Count MPV Immature Gran % (Auto) Neut % (Auto) Lymph % (Auto) [place] % (Auto) Eos % (Auto) Baso % (Auto) Neut # (Auto) Lymph # (Auto) [place] # (Auto) Eos # (Auto) Baso # (Auto) Immature Gran # (Auto) PT INR APTT PTT Ratio Sodium Potassium Chloride Carbon Dioxide Anion Gap BUN Creatinine Est Cr Clr Drug Dosing Est GFR ( Amer) Est GFR (Non-Af Amer) BUN/Creatinine Ratio Glucose Osmolality Lactate 0.5 Calcium Magnesium Total Bilirubin AST ALT Alkaline Phosphatase Troponin I Total Protein Albumin Globulin Albumin/Globulin Ratio Procalcitonin TSH Urine Color Urine Appearance Urine pH Ur Specific [place] Urine Protein Urine Glucose (UA) Urine Ketones Urine Blood Urine Nitrite Urine Bilirubin Urine Urobilinogen Ur Leukocyte Esterase Urine WBC (Auto) Urine RBC (Auto) U Hyaline Cast (Auto) U Epithel Cells (Auto) Urine Bacteria (Auto) Urine Crystals Calcium Oxalate Crystal Nasal Screen MRSA (PCR) COVID-19 Eval Order CovFluRsv at [facility] SARS-CoV-2 (PCR) NEGATIVE Influenza Type A (PCR) Negative Influenza Type B (PCR) Negative RSV (RT-PCR) Negative Blood Type Antibody Screen 09/13/20 09/13/20 09/14/20 19:20 23:39 05:42 WBC 5.57 RBC 3.14 L Hgb 8.4 L Hct 26.2 L MCV 83.4 MCH 26.8 MCHC 32.1 RDW Std Deviation 45.3 RDW Coeff of Davide 14.8 H Plt Count 192 MPV 8.0 Immature Gran % (Auto) 0.0 Neut % (Auto) 81.5 Lymph % (Auto) 10.2 [place] % (Auto) 7.5 Eos % (Auto) 0.4 Baso % (Auto) 0.4 Neut # (Auto) 4.54 Lymph # (Auto) 0.57 L [place] # (Auto) 0.42 Eos # (Auto) 0.02 Baso # (Auto) 0.02 Immature Gran # (Auto) 0.00 PT INR APTT PTT Ratio Sodium 135 L Potassium Chloride Carbon Dioxide Anion Gap BUN Creatinine Est Cr Clr Drug Dosing Est GFR ( Amer) Est GFR (Non-Af Amer) BUN/Creatinine Ratio Glucose Osmolality Lactate Calcium Magnesium Total Bilirubin AST ALT Alkaline Phosphatase Troponin I Total Protein Albumin Globulin Albumin/Globulin Ratio Procalcitonin TSH Urine Color Dark Yellow Urine Appearance Clear Urine pH 5.0 Ur Specific [place] 1.033 H Urine Protein Trace H Urine Glucose (UA) Negative Urine Ketones Trace H Urine Blood Negative Urine Nitrite Negative Urine Bilirubin 1+ H Urine Urobilinogen Negative Ur Leukocyte Esterase Negative Urine WBC (Auto) 1-5 Urine RBC (Auto) 0-4 U Hyaline Cast (Auto) 1-5 U Epithel Cells (Auto) 10-20 H Urine Bacteria (Auto) Negative Urine Crystals Not Reportable Calcium Oxalate Crystal Present A Nasal Screen MRSA (PCR) COVID-19 Eval Order SARS-CoV-2 (PCR) Influenza Type A (PCR) Influenza Type B (PCR) RSV (RT-PCR) Blood Type Antibody Screen 09/14/20 09/14/20 09/14/20 05:42 13:26 16:02 WBC RBC Hgb Hct MCV MCH MCHC RDW Std Deviation RDW Coeff of Davide Plt Count MPV Immature Gran % (Auto) Neut % (Auto) Lymph % (Auto) [place] % (Auto) Eos % (Auto) Baso % (Auto) Neut # (Auto) Lymph # (Auto) [place] # (Auto) Eos # (Auto) Baso # (Auto) Immature Gran # (Auto) PT INR APTT PTT Ratio Sodium 134 L 134 L Potassium 3.7 4.1 Chloride 99 101 Carbon Dioxide 30 29 Anion Gap 5.0 4.0 BUN 15 13 Creatinine 0.66 0.52 L Est Cr Clr Drug Dosing 90.1 114.4 Est GFR ( Amer) 109.6 120.9 Est GFR (Non-Af Amer) 94.6 104.3 BUN/Creatinine Ratio 22.7 H 24.0 H Glucose 104 H 106 H Osmolality Lactate Calcium 9.8 9.9 Magnesium Total Bilirubin AST ALT Alkaline Phosphatase Troponin I Total Protein Albumin Globulin Albumin/Globulin Ratio Procalcitonin TSH Urine Color Urine Appearance Urine pH Ur Specific [place] Urine Protein Urine Glucose (UA) Urine Ketones Urine Blood Urine Nitrite Urine Bilirubin Urine Urobilinogen Ur Leukocyte Esterase Urine WBC (Auto) Urine RBC (Auto) U Hyaline Cast (Auto) U Epithel Cells (Auto) Urine Bacteria (Auto) Urine Crystals Calcium Oxalate Crystal Nasal Screen MRSA (PCR) Negative COVID-19 Eval Order SARS-CoV-2 (PCR) Influenza Type A (PCR) Influenza Type B (PCR) RSV (RT-PCR) Blood Type Antibody Screen
--- NOTE | 2020-09-14 17:58 | Electrocardiogram Report ---
Test Reason : Blood Pressure : / mmHG Vent. Rate : 078 BPM Atrial Rate : 078 BPM P-R Int : 172 ms QRS Dur : 088 ms QT Int : 350 ms P-R-T Axes : 075 -09 039 degrees QTc Int : 399 ms Sinus rhythm with Premature atrial complexes Otherwise normal ECG When compared with ECG of 09-MAR-2020 14:22, Previous ECG has undetermined rhythm, needs review Confirmed by Javon Mercedes ([id number]) on 09/14/2020 5:57:56 PM Referred By: REFERRED SELF Confirmed By:Javon Mercedes
[2020-09-15] MEDS: AZTREONAM 2,000 MG in DEXTROSE 5% 100 ML IV SCH ×3 (00:38→16:15)
[2020-09-15] MEDS: HEPARIN 100 UNIT/ML 5ML FLUSH FLUSH PRN ×3 (06:26→11:07)
[2020-09-15 06:43] LABS: Basophils # (auto) 0.01 K/uL (0-0.2); Basophils % (auto) 0.2 %; Eosinophils # (auto) 0.07 K/uL (0-0.5); Eosinophils % (auto) 1.2 %; Hematocrit (blood only) 29.2 % (42-52); Hemoglobin 9.5 g/dL (14.0-18.0); Lymphocytes % (auto) 12.2 %; Mean Corpuscular Hemoglobin 26.8 pg (25-34); Mean Corpuscular Hgb Conc 32.5 g/dL (32-36); Mean Corpuscular Volume 82.3 fL (80-100); Mean Platelet Volume 8.2 fL (7.4-10.4); Monocytes # (auto) 0.36 K/uL (0.11-0.59); Monocytes % (auto) 6.3 %; Neutrophils # (auto) 4.61 K/uL (1.4-6.5); Neutrophils % (auto) 80.1 %; Platelet Count 231 K/uL (130-400); RDW Coefficient of Variation 14.5 % (11.5-14.5); RDW Standard Deviation 44.1 fL (36.4-46.3); Red Blood Count 3.55 M/uL (4.7-6.1); White Blood Count 5.75 K/uL (4.8-10.8)
[2020-09-15 07:03] LABS: Ferritin 103.4 ng/ml (8-388)
[2020-09-15 07:55] LABS: Folate (Folic Acid) > 20.00 ng/ml (>5.38); Vitamin B12 > 2000 pg/ml (193-986)
[2020-09-15] MEDS: ENOXAPARIN INJ 30 MG/0.3 ML SYR SQ SCH (08:36)
[2020-09-15] MEDS: CEROVITE ADV FORMULA TAB PO SCH (08:37)
[2020-09-15] MEDS: CETIRIZINE HCL 10 MG TABLET PO SCH (08:37)
[2020-09-15] MEDS: PANTOprazole 40 MG TAB PO SCH (08:37)
[2020-09-15 08:56] LABS: BUN Creatinine Ratio 15.6 (10-20); Calcium 10.3 mg/dl (8.5-10.1); Creatinine Clr Calc Pharmacy 108.3 ml/min; Est GFR (Non-African American) 103.5; Potassium 3.6 mmol/L (3.5-5.1)
[2020-09-15] MEDS ORDERED: IRON SUCROSE 150 MG in 0.9 % SODIUM CHLORIDE 100 ML IV ONE (09:00)
--- NOTE | 2020-09-15 13:58 | CT Scan Report ---
CT SCAN OF THE BRAIN WITHOUT IV CONTRAST CLINICAL HISTORY: Lethargy. COMPARISON STUDY: CT of the brain dated 09/13/2020. TECHNIQUE: Unenhanced axial CT scan of the brain is performed from the vertex to the skull base. A do se lowering technique was utilized adhering to the principles of ALARA. CT DOSE: 614.27 mGy.cm FINDINGS: Brain parenchyma: There are age-related involutional changes noting mild subcortical and periventric ular microangiopathic change. There is no hemorrhage, mass effect, or evidence of acute territorial i schemia by CT criteria. Page-white matter differentiation is preserved. No extra-axial fluid collecti on is seen. Ventricles, sulci, cisterns: Prominent secondary to involutional change. Intracranial vasculature: There is atherosclerotic calcification of the cavernous carotid and vertebr al arteries. Calvarium: Unremarkable. Sinuses and mastoids: The paranasal sinuses are clear. The mastoid air cells are well pneumatized. Orbits: The bony orbits are grossly intact. IMPRESSION: There is no hemorrhage, mass effect, or evidence of acute territorial ischemia by CT crit katie. ACT 112: Negative or not required by law. Electronically signed by: Paul Daley M.D. 09/15/2020 1:56 PM
[2020-09-15 14:09] LABS: Base Excess ABG 3.9 mEq/L (-9-1.8); HCO3 ABG 28 mmol/L (19-24); Oxygen Saturation ABG 96.9 % (90-95); PCO2 ABG 40 mmHg (35-46); PO2 ABG 85 mmHg (80-95); pH ABG 7.46 (7.35-7.45)
[2020-09-15 14:13] LABS: Allen Test Pos (Pos)
[2020-09-15] MEDS: D5NSS + 20MEQ KCL 20 MEQ/1,000 ML BAG IV SCH (14:21)
--- NOTE | 2020-09-15 18:43 | Hospitalist Progress Note ---
Date of Service September 15, 2020 Assessment & Plan (1) Fever: Secondary to hypovolemia, mild clinical dehydration -- afebrile now continue gentle IV hydration Rule out sepsis, immunocompromised patient -- no clear focus of infection at this time CXR clear UA unrevealing - blood cultures pending nasal MRSA negative - Aztreonam day 2 Altered Mental Status episode - repeat CT head: no acute process ammonia low - ABG noted provided Bipap- MS improving monitor stage IV esophageal cancer status post stent placement ongoing chemotherapy, progressive disease - scheduled for chemo on Thursday: not recommended no problems with swallowing start easy to chew diet Hyponatremia secondary to clinical dehydration - improving gentle IV NSS Thoracic and Lumbar spine mets - no focal deficits IBD, stable on regimen prediabetes as per records, hemoglobin A1c of 5.4 from 2019 chronic anemia, hemoglobin at baseline past tobacco abuse plan of care discussed withhis and sister over the phone in detail all questions answered they are understanding, agreeable, comfortable with the plan of care PT OT eval DVT prophylaxis. Lovenox subcu Full code Admission and Anticipated Discharge Date Admission Date: September 14, 2020 Subjective ff up for weakness, fever etc noted to be more lethargic today poor appetite seen sitting up but sleeping easily awakened, smiling but confused, drifts back to sleep denies any symptoms placed on Bipap re-assessed more awake, can answer more questions appropriately Review of Systems Review of Systems: All systems reviewed & are unremarkable except as noted in Subjective Physical Exam Physical Exam: General- oriented x 1, not in distress, speaks in sentences with no effort or accessory muscle use weak Eyes- anicteric Neck- no JVD Lungs- clear breath sounds bilaterally, no rales/wheezes Heart- normal rate, regular rhythm; no murmurs Abdomen- normal bowel sounds, nondistended, soft, nontender Extremities- no pretibial edema, no calf tenderness Neuro- alert, oriented x 3; no gross focal neurologic deficits Skin- warm & dry Results & Data Results & Data ([facility]) Vital Signs (Past 12 Hours) Vital Signs Temp Pulse Pulse Resp BP Pulse Ox 09/15/20 15:29 76 24 98 09/15/20 15:28 37.0 C 87 18 117/60 96 09/15/20 15:00 90 09/15/20 11:10 36.6 C 78 20 143/63 H 96 09/15/20 10:45 36.4 C L 74 18 144/64 H 98 09/15/20 10:23 36.6 C 72 20 130/62 97 09/15/20 08:00 69 09/15/20 07:27 36.8 C 67 18 137/74 96 Laboratory Results Laboratory Results - last 24 hr 09/15/20 09/15/20 09/15/20 06:29 06:29 06:30 WBC 5.75 RBC 3.55 L Hgb 9.5 L Hct 29.2 L MCV 82.3 MCH 26.8 MCHC 32.5 RDW Std Deviation 44.1 RDW Coeff of Davide 14.5 Plt Count 231 MPV 8.2 Immature Gran % (Auto) 0.0 Neut % (Auto) 80.1 Lymph % (Auto) 12.2 [place] % (Auto) 6.3 Eos % (Auto) 1.2 Baso % (Auto) 0.2 Neut # (Auto) 4.61 Lymph # (Auto) 0.70 L [place] # (Auto) 0.36 Eos # (Auto) 0.07 Baso # (Auto) 0.01 Immature Gran # (Auto) 0.00 ABG pH ABG pCO2 ABG pO2 ABG HCO3 ABG O2 Saturation ABG Base Excess Wally Test Barometric Pressure Oxygen Given Sodium Potassium Chloride Carbon Dioxide Anion Gap BUN Creatinine Est Cr Clr Drug Dosing Est GFR ( Amer) Est GFR (Non-Af Amer) BUN/Creatinine Ratio Glucose POC Glucose Calcium Iron 15 L TIBC 231 L Transferrin 172 L Ferritin 103.4 Ammonia 10.2 L Albumin Vitamin B12 Folate 09/15/20 09/15/20 09/15/20 06:30 08:23 08:23 WBC RBC Hgb Hct MCV MCH MCHC RDW Std Deviation RDW Coeff of Davide Plt Count MPV Immature Gran % (Auto) Neut % (Auto) Lymph % (Auto) [place] % (Auto) Eos % (Auto) Baso % (Auto) Neut # (Auto) Lymph # (Auto) [place] # (Auto) Eos # (Auto) Baso # (Auto) Immature Gran # (Auto) ABG pH ABG pCO2 ABG pO2 ABG HCO3 ABG O2 Saturation ABG Base Excess Wally Test Barometric Pressure Oxygen Given Sodium 133 L Potassium 3.6 Chloride 99 Carbon Dioxide 29 Anion Gap 6.0 BUN 8 D Creatinine 0.53 L Est Cr Clr Drug Dosing 108.3 Est GFR ( Amer) 120.0 Est GFR (Non-Af Amer) 103.5 BUN/Creatinine Ratio 15.6 Glucose 105 H POC Glucose Calcium 10.3 H Iron TIBC Transferrin Ferritin Ammonia Albumin 2.8 L Vitamin B12 > 2000 H Folate > 20.00 09/15/20 09/15/20 13:22 14:01 WBC RBC Hgb Hct MCV MCH MCHC RDW Std Deviation RDW Coeff of Davide Plt Count MPV Immature Gran % (Auto) Neut % (Auto) Lymph % (Auto) [place] % (Auto) Eos % (Auto) Baso % (Auto) Neut # (Auto) Lymph # (Auto) [place] # (Auto) Eos # (Auto) Baso # (Auto) Immature Gran # (Auto) ABG pH 7.46 H ABG pCO2 40 ABG pO2 85 ABG HCO3 28 H ABG O2 Saturation 96.9 H ABG Base Excess 3.9 H Wally Test Pos Barometric Pressure 736.1 Oxygen Given ROOM AIR Sodium Potassium Chloride Carbon Dioxide Anion Gap BUN Creatinine Est Cr Clr Drug Dosing Est GFR ( Amer) Est GFR (Non-Af Amer) BUN/Creatinine Ratio Glucose POC Glucose 106 H Calcium Iron TIBC Transferrin Ferritin Ammonia Albumin Vitamin B12 Folate
[2020-09-16] MEDS: AZTREONAM 2,000 MG in DEXTROSE 5% 100 ML IV SCH ×3 (00:23→17:05)
[2020-09-16] MEDS: D5NSS + 20MEQ KCL 20 MEQ/1,000 ML BAG IV SCH ×3 (01:31→21:27)
[2020-09-16 06:14] LABS: Basophils # (auto) 0.01 K/uL (0-0.2); Basophils % (auto) 0.2 %; Eosinophils # (auto) 0.06 K/uL (0-0.5); Eosinophils % (auto) 0.9 %; Hemoglobin 8.8 g/dL (14.0-18.0); Immature Granulocytes # (auto) 0.01 K/uL (0.00-0.02); Immature Granulocytes % (auto) 0.2 %; Lymphocytes # (auto) 0.44 K/uL (1.2-3.4); Lymphocytes % (auto) 6.8 %; Mean Corpuscular Hemoglobin 26.3 pg (25-34); Mean Corpuscular Hgb Conc 31.4 g/dL (32-36); Mean Corpuscular Volume 83.6 fL (80-100); Mean Platelet Volume 8.6 fL (7.4-10.4); Monocytes # (auto) 0.39 K/uL (0.11-0.59); Neutrophils # (auto) 5.59 K/uL (1.4-6.5); Neutrophils % (auto) 85.9 %; Platelet Count 233 K/uL (130-400); RDW Coefficient of Variation 14.9 % (11.5-14.5); RDW Standard Deviation 46.1 fL (36.4-46.3); Red Blood Count 3.35 M/uL (4.7-6.1)
[2020-09-16 06:45] LABS: BUN Creatinine Ratio 21.1 (10-20); Calcium 9.7 mg/dl (8.5-10.1); Creatinine Clr Calc Pharmacy 130.5 ml/min; Est GFR (African American) 129.5; Est GFR (Non-African American) 111.7; Potassium 3.7 mmol/L (3.5-5.1)
[2020-09-16] MEDS: FERROUS SULFATE 325 MG TAB PO SCH ×2 (08:49→17:05)
[2020-09-16] MEDS: PANTOprazole 40 MG TAB PO SCH (08:49)
[2020-09-16] MEDS: ENOXAPARIN INJ 30 MG/0.3 ML SYR SQ SCH (08:49)
[2020-09-16] MEDS: CEROVITE ADV FORMULA TAB PO SCH (08:49)
[2020-09-16] MEDS ORDERED: MAGNESIUM HYDROXIDE SUSP 30 ML UDC PO PRN (16:52)
--- NOTE | 2020-09-16 16:53 | Hospitalist Progress Note ---
Date of Service September 16, 2020 Assessment & Plan (1) Fever: Secondary to hypovolemia, mild clinical dehydration --Remains afebrile continue gentle IV D5 NSS Rule out sepsis, immunocompromised patient -- no clear focus of infection at this time Procalcitonin level normal CXR clear UA unrevealing - blood cultures negative so far nasal MRSA negative - Aztreonam day 3 DC antibiotics tomorrow if patient remains afebrile and no clear cause of infection found Altered Mental Status episode - repeat CT head: no acute process ammonia low - ABG noted provided Bipap -Mental status much better, awake, oriented x2 Answers questions appropriately Poor oral intake Protein calorie malnutrition -Likely secondary to underlying esophageal cancer -Crm Specialist consulted, boost ordered stage IV esophageal cancer status post stent placement ongoing chemotherapy, progressive disease - scheduled for chemo on Thursday: not recommended in light of weakness no problems with swallowing Placed on easy to chew diet -Consult oncology service Hyponatremia secondary to clinical dehydration - improving gentle IV D5 NSS Thoracic and Lumbar spine mets - no focal deficits IBD, stable on regimen prediabetes as per records, hemoglobin A1c of 5.4 from 2019 chronic anemia, hemoglobin at baseline -Iron level low IV 150 mg 1 dose given past tobacco abuse plan of care discussed with patient and his over the phone in detail all questions answered they are understanding, agreeable, comfortable with the plan of care PT OT eval: Recommend to return home medically stable DVT prophylaxis. Lovenox subcu Full code Admission and Anticipated Discharge Date Admission Date: September 14, 2020 Subjective Follow-up for fever, weakness, etc. Pain sitting up in bed, awake, alert, oriented x2, answers all questions appropriately In good spirits, smiling, very pleasant States he slept well overnight,, feels improved today Denies headache, dizziness, chest pain, shortness of breath, cough, palpitations, abdominal pain, nausea vomiting No chills Encouraged to eat more and finish nutritional shakes, patient verbalized agreement Denies other symptoms Review of Systems Review of Systems: All systems reviewed & are unremarkable except as noted in Subjective Physical Exam Physical Exam: General- oriented x 2, not in distress, speaks in sentences with no effort or accessory muscle use Under nourished, somewhat weak but improving Eyes- anicteric Neck- no JVD Lungs- clear breath sounds bilaterally, no wheezing, no crackles bilaterally [place] with no signs of infection Heart- normal rate, regular rhythm; no murmurs Abdomen- normal bowel sounds, nondistended, soft, nontender Extremities- no pretibial edema, no calf tenderness Neuro- alert, oriented x 2; no gross focal neurologic deficits Skin- warm & dry Results & Data Results & Data ([facility]) Vital Signs (Past 12 Hours) Vital Signs Temp Pulse Pulse Resp BP BP Pulse Ox 09/16/20 15:15 36.7 C 81 18 138/65 97 09/16/20 15:00 79 09/16/20 11:13 36.7 C 62 20 129/49 L 95 09/16/20 08:00 74 09/16/20 07:27 81 20 130/62 99 Laboratory Results Laboratory Results - last 24 hr 09/16/20 09/16/20 05:48 05:48 WBC 6.50 RBC 3.35 L Hgb 8.8 L Hct 28.0 L MCV 83.6 MCH 26.3 MCHC 31.4 L RDW Std Deviation 46.1 RDW Coeff of Davide 14.9 H Plt Count 233 MPV 8.6 Immature Gran % (Auto) 0.2 Neut % (Auto) 85.9 Lymph % (Auto) 6.8 [place] % (Auto) 6.0 Eos % (Auto) 0.9 Baso % (Auto) 0.2 Neut # (Auto) 5.59 Lymph # (Auto) 0.44 L [place] # (Auto) 0.39 Eos # (Auto) 0.06 Baso # (Auto) 0.01 Immature Gran # (Auto) 0.01 Sodium 135 L Potassium 3.7 Chloride 102 Carbon Dioxide 31 Anion Gap 2.0 L BUN 9 Creatinine 0.44 L Est Cr Clr Drug Dosing 130.5 Est GFR ( Amer) 129.5 Est GFR (Non-Af Amer) 111.7 BUN/Creatinine Ratio 21.1 H Glucose 137 H Calcium 9.7
[2020-09-17] MEDS: AZTREONAM 2,000 MG in DEXTROSE 5% 100 ML IV SCH ×2 (01:22→09:09)
[2020-09-17 06:25] LABS: Basophils # (auto) 0.01 K/uL (0-0.2); Basophils % (auto) 0.2 %; Eosinophils # (auto) 0.18 K/uL (0-0.5); Hemoglobin 8.9 g/dL (14.0-18.0); Immature Granulocytes # (auto) 0.01 K/uL (0.00-0.02); Immature Granulocytes % (auto) 0.2 %; Lymphocytes # (auto) 0.77 K/uL (1.2-3.4); Mean Corpuscular Hemoglobin 26.4 pg (25-34); Mean Corpuscular Hgb Conc 31.8 g/dL (32-36); Mean Corpuscular Volume 83.1 fL (80-100); Mean Platelet Volume 8.3 fL (7.4-10.4); Monocytes # (auto) 0.52 K/uL (0.11-0.59); Monocytes % (auto) 11.5 %; Neutrophils # (auto) 3.05 K/uL (1.4-6.5); Neutrophils % (auto) 67.1 %; Platelet Count 232 K/uL (130-400); RDW Coefficient of Variation 14.9 % (11.5-14.5); RDW Standard Deviation 45.7 fL (36.4-46.3); Red Blood Count 3.37 M/uL (4.7-6.1); White Blood Count 4.54 K/uL (4.8-10.8)
[2020-09-17 06:53] LABS: BUN Creatinine Ratio 13.9 (10-20); Creatinine Clr Calc Pharmacy 147.8 ml/min; Est GFR (African American) 134.7; Est GFR (Non-African American) 116.2; Potassium 3.9 mmol/L (3.5-5.1)
[2020-09-17] MEDS: D5NSS + 20MEQ KCL 20 MEQ/1,000 ML BAG IV SCH (09:04)
[2020-09-17] MEDS: FERROUS SULFATE 325 MG TAB PO SCH ×2 (09:04→16:57)
[2020-09-17] MEDS: CEROVITE ADV FORMULA TAB PO SCH (09:05)
[2020-09-17] MEDS: ENOXAPARIN INJ 30 MG/0.3 ML SYR SQ SCH (09:05)
[2020-09-17] MEDS: PANTOprazole 40 MG TAB PO SCH (09:05)
[2020-09-17] MEDS: MESALAMINE 800 MG TABCR PO SCH ×2 (14:30→21:05)
--- NOTE | 2020-09-17 15:33 | Hospitalist Progress Note ---
Date of Service September 17, 2020 Assessment & Plan (1) Fever: Secondary to hypovolemia, mild clinical dehydration --Remains afebrile continue gentle IV D5 NSS Rule out sepsis, immunocompromised patient -- no focus of infection found Procalcitonin level normal CXR clear UA unrevealing - blood cultures negative nasal MRSA negative - Aztreonam discontinued after 3 days monitor off antibiotics Altered Mental Status episode - repeat CT head: no acute process ammonia low - ABG noted provided Bipap -Mental status much better, awake, oriented x2 Answers questions appropriately Poor oral intake Protein calorie malnutrition -Likely secondary to underlying esophageal cancer -Talent Acquisition Manager consulted, boost ordered stage IV esophageal cancer status post stent placement ongoing chemotherapy, progressive disease - scheduled for chemo on Thursday: not recommended in light of weakness no problems with swallowing Placed on easy to chew diet -Consult oncology service Hyponatremia secondary to clinical dehydration - improving gentle IV D5 NSS Thoracic and Lumbar spine mets - no focal deficits IBD, stable on regimen prediabetes as per records, hemoglobin A1c of 5.4 from 2019 chronic anemia, hemoglobin at baseline -Iron level low IV 150 mg 1 dose given will need PO Fe past tobacco abuse plan of care discussed with patient and his over the phone in detail all questions answered they are understanding, agreeable, comfortable with the plan of care PT OT eval: Recommend to return home medically stable DVT prophylaxis. Lovenox subcu Full code Admission and Anticipated Discharge Date Admission Date: September 14, 2020 Subjective ff up for fever, weakness seen resting in bed, comfortable more awake, brighter oriented x 2 answers all questions appropriately states he feels better today, though still weak appetite is fair no headache, dizziness, chest pain, dyspnea, palpitations, nausea/vomiting no other symptoms Review of Systems Review of Systems: All systems reviewed & are unremarkable except as noted in Subjective Physical Exam Physical Exam: General- oriented x 2, not in distress, speaks in sentences with no effort or accessory muscle use Eyes- anicteric Neck- no JVD Lungs- clear breath sounds bilaterally Heart- normal rate, regular rhythm; no murmurs Abdomen- normal bowel sounds, nondistended, soft, nontender Extremities- no pretibial edema, no calf tenderness Neuro- alert, oriented x 3; no gross focal neurologic deficits Skin- warm & dry Results & Data Results & Data ([facility]) Vital Signs (Past 12 Hours) Vital Signs Temp Pulse Pulse Resp BP BP Pulse Ox 09/17/20 15:00 74 09/17/20 11:42 36.8 C 73 16 125/67 98 09/17/20 07:51 36.8 C 76 16 124/63 96 09/17/20 07:22 80 09/17/20 04:10 36.7 C 73 20 123/61 98 Laboratory Results Laboratory Results - last 24 hr 09/17/20 09/17/20 06:05 06:05 WBC 4.54 L RBC 3.37 L Hgb 8.9 L Hct 28.0 L MCV 83.1 MCH 26.4 MCHC 31.8 L RDW Std Deviation 45.7 RDW Coeff of [place] 14.9 H Plt Count 232 MPV 8.3 Immature Gran % (Auto) 0.2 Neut % (Auto) 67.1 Lymph % (Auto) 17.0 [place] % (Auto) 11.5 Eos % (Auto) 4.0 Baso % (Auto) 0.2 Neut # (Auto) 3.05 Lymph # (Auto) 0.77 L [place] # (Auto) 0.52 Eos # (Auto) 0.18 Baso # (Auto) 0.01 Immature Gran # (Auto) 0.01 Sodium 134 L Potassium 3.9 Chloride 100 Carbon Dioxide 29 Anion Gap 5.0 BUN 6 L Creatinine 0.40 L Est Cr Clr Drug Dosing 147.8 Est GFR ( Amer) 134.7 Est GFR (Non-Af Amer) 116.2 BUN/Creatinine Ratio 13.9 Glucose 121 H Calcium 10.0
--- NOTE | 2020-09-17 16:28 | Consultation ---
Date of Consultation September 17, 2020 Assessment & Plan (1) Esophageal cancer: - Metastatic esophageal cancer - diagnosed in 03/15/19, clinical stage IV (uT3 uN1 cM1) with non-regional eliana metastatic disease, tumor was negative for HER2 over-expression, started FOLFOX 6, Modified on 05/10/2019. Had disease progression in February/2020, started FOLFIRI on 02/22/20. - PET/CT on 08/06/20 showed mixed response to chemotherapy - Discussed the case with Dr. Martin Pineda (cell [phone]) from [facility]. Dr. Pineda recommends to continue on FOLFIRI regimen which has been relatively well tolerated. Repeat imaging in 2 months then if there is clear progression of disease, switch to next line of treatment, RAMUCIRUMAB - Will hold chemotherapy while he is inpatient - Continue supportive care - Discharge home when medically stable - Will continue follow as an patient - Feel free to contact if any questions Present on Admission?: Yes (2) Anemia: - Secondary to chemotherapy and chronic disease - Baseline Hgb 8-9 g/dL - Support with blood product if needed Present on Admission?: Yes History of Present Illness Reason for Consultation: Metastatic esophageal cancer Attending Physician: Todd Cat MD History of Present Illness 75 y/o male with hx of stage IV esophageal cancer status post stent placement ongoing chemotherapy, IBD, hyperlipidemia, prediabetes, gout, chronic anemia (baseline hemoglobin 8-9), CRESENCIO on BiPAP, past tobacco abuse who presented to ED with generalized weakness and fever. Recent PET scan showed mild increase in size and FDG avidity of primary distal esophageal mass. Patient underwent urgent EGD at [facility] 2 weeks ago. Low-grade fever at home. No cough. Patient was treated with empiric Abx. No source of clear infection found. Patient was seen and examined at bedside. Lab data and imaging studies were reviewed. Allergies Allergy/AdvReac Type Severity Reaction Status Date / Time amoxicillin Allergy Intermediate Leg Verified 03/09/20 14:48 swelling/inflammation cefazolin Allergy Intermediate rash Verified 09/13/20 21:37 clindamycin Allergy Intermediate rash Verified 09/13/20 21:37 doxycycline Allergy Intermediate rash Verified 09/13/20 21:37 Sulfa (Sulfonamide Allergy Unknown Unknown Verified 09/13/20 21:37 Antibiotics) Home Medications Medication Instructions Recorded Confirmed Type cyclobenzaprine 10 mg tablet 10 mg PO TID PRN 05/02/19 09/13/20 History dicyclomine 10 mg capsule 10 mg PO BID 05/02/19 09/13/20 History fluticasone propionate 50 2 sprays INTNAS DAILY PRN 05/02/19 09/13/20 History mcg/actuation nasal spray,suspension guaifenesin 600 mg tablet, 600 mg PO Q12H PRN 05/02/19 09/13/20 History extended release 12 hr pantoprazole 40 mg tablet,delayed 40 mg PO QAM 05/02/19 09/13/20 History release pseudoephedrine HCl 30 mg tablet 30 mg PO Q6H PRN 05/02/19 09/13/20 History tramadol 50 mg tablet 50 mg PO Q8H PRN 05/02/19 09/13/20 History ascorbic acid (vitamin C) 100 mg 100 mg PO DAILY 05/03/19 09/13/20 History tablet cholecalciferol (vitamin D3) 75 3,000 units PO DAILY 05/03/19 09/13/20 History mcg (3,000 unit) tablet echinacea 400 mg capsule 400 mg PO DAILY 05/03/19 09/13/20 History saw palmetto 160 mg capsule 160 mg PO BID 05/03/19 09/13/20 History mesalamine 2.4 g PO BID 05/04/19 09/13/20 History meclizine 25 mg PO QID PRN 03/09/20 09/13/20 History prochlorperazine maleate 10 mg PO Q6H 03/09/20 09/13/20 History cetirizine 10 mg PO DAILY 09/13/20 09/13/20 History multivitamin with minerals 1 tab PO DAILY 09/13/20 09/13/20 History [Multiple Vitamin-Minerals] ondansetron 4 - 8 mg PO Q6H PRN 09/13/20 09/13/20 History promethazine 25 mg PO Q6H PRN 09/13/20 09/13/20 History sodium chloride [Saline Nasal] 1 spray INTRANASAL BID PRN 09/13/20 09/13/20 History triamcinolone acetonide 1 applic TOPICAL BID 09/13/20 09/13/20 History Patient History Medical History Arthritis stable Crohn disease (06/01/14) stable 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 Jorge 05/09/19 Sleep apnea BIPAP Surgical History History of colonoscopy History of esophagogastroduodenoscopy (EGD) History of tonsillectomy History of total knee replacement bilateral S/P dilatation of esophageal stricture + stent Family History Mother Diabetes Father Heart disease FHx: lung cancer Social History Smoking Status: Former smoker Second Hand Exposure: No; Hx Alcohol Use: No Hx Substance Use: No Preferred Language: Romanian Communication Ability: Effective Drama Therapist Required: No Beliefs That Will Affect Care: None marital status: / Current Living Situation: Other Current Living Situation Comment: Lives in a home with lady friend x 21 yrs current occupational status: retired Feels Safe at Home: Yes Assistive Devices: BiPap Review of Systems Review of Systems: Constitutional: Negative for weight loss, night sweats. LOW GRADE FEVER, GENERALIZED WEAKNESS Eyes: Negative for event change of vision ENT: Negative for epistaxis, nasal discharge, sore throat, or deafness Cardiovascular: Negative for anginal type chest pain, palpitations, dizziness, diaphoresis Respiratory: Negative for new shortness of breath, hemoptysis, or purulent cough Gastrointestinal: Negative for diarrhea, hematemesis, melena, nausea, vomiting. DYSPHAGIA Integumentary (skin): Negative for rash or jaundice discoloration Genitourinary: Negative for urinary frequency, hematuria, or dysuria Neurological: Negative for weakness, seizure activity, headache, or dizziness. CONFUSION Lymphatic/Hematologic: Negative for petechiae, bleeding or new adenopathy Musculoskeletal: Negative for new joint or back pain Allergic/Immunologic: Negative for unusual rash or pruritus Physical Exam Physical Exam: Constitutional: Vitals are stable Eyes: Eyes are GABRIELLA EOMI without conjunctival erythema or icterus. ENT: External examination was negative for masses. Neck: Negative for masses or palpable thyromegaly. Respiratory: Lung sounds were generally clear bilaterally. Cardiovascular: Heart was RRR without significant murmur, gallops or rubs. Gastrointestinal: The abdomen was soft with normal bowel sounds. Lymphatic system: There was no palpable peripheral lymphadenopathy. Musculoskeletal System: The musculoskeletal system seemed concordant with age. Skin: The skin was negative for jaundice. Neurologic Exam: The exam was negative for any focal findings. Extremities: Negative for edema or erythema Results & Data ([facility]) Vital Signs (Past 12 Hours) Vital Signs Temp Pulse Pulse Resp BP Pulse Ox 09/17/20 16:20 36.8 C 80 98 H 135/68 98 09/17/20 15:00 74 09/17/20 11:42 36.8 C 73 16 125/67 98 09/17/20 07:51 36.8 C 76 16 124/63 96 09/17/20 07:22 80 Laboratory Results Laboratory Results - last 24 hr 09/17/20 09/17/20 06:05 06:05 WBC 4.54 L RBC 3.37 L Hgb 8.9 L Hct 28.0 L MCV 83.1 MCH 26.4 MCHC 31.8 L RDW Std Deviation 45.7 RDW Coeff of Davide 14.9 H Plt Count 232 MPV 8.3 Immature Gran % (Auto) 0.2 Neut % (Auto) 67.1 Lymph % (Auto) 17.0 Wells % (Auto) 11.5 Eos % (Auto) 4.0 Baso % (Auto) 0.2 Neut # (Auto) 3.05 Lymph # (Auto) 0.77 L Wells # (Auto) 0.52 Eos # (Auto) 0.18 Baso # (Auto) 0.01 Immature Gran # (Auto) 0.01 Sodium 134 L Potassium 3.9 Chloride 100 Carbon Dioxide 29 Anion Gap 5.0 BUN 6 L Creatinine 0.40 L Est Cr Clr Drug Dosing 147.8 Est GFR ( Amer) 134.7 Est GFR (Non-Af Amer) 116.2 BUN/Creatinine Ratio 13.9 Glucose 121 H Calcium 10.[address] head: There is no hemorrhage, mass effect, or evidence of acute territorial ischemia by CT criteria. MRI T-spine initial read: Kyphosis, no definite osseous metastasis. No significant spinal cord compression. No epidural abscess identified. No paraspinal mass. MRI L spine initial read: No acute compression fracture. Slightly enlarging 1.7 cm mass lesion L4 vertebral body which is new. T1 hypointense and may represent progressive Yamileth metastasis. No paraspinal or epidural extension. Multilevel degenerative changes with multilevel posterior disc bulges as before. Conus terminating at T12. No abnormal cord signal or enhancement. No significant cord compression. Moderate L2-L3, severe L3-L4, moderate L4-L5 central canal stenosis. Mild bilateral L2-L3 and L3-L4 neuroforaminal narrowing. No evidence epidural abscess. Right renal cyst. Chest x-ray : 1. Cardiomegaly with no acute cardiopulmonary abnormality. 2. An esophageal stent is in place. EKG as per my interpretation : Rate 80, NSR, normal axis, no ischemia, PACs (1) Esophageal cancer Malignant neoplasm of esophagus location: unspecified location Qualified Code(s): C15.9 - Malignant neoplasm of esophagus, unspecified
[2020-09-18] MEDS: D5NSS + 20MEQ KCL 20 MEQ/1,000 ML BAG IV SCH ×2 (00:26→13:54)
[2020-09-18 05:30] LABS: Basophils # (auto) 0.02 K/uL (0-0.2); Basophils % (auto) 0.7 %; Eosinophils # (auto) 0.17 K/uL (0-0.5); Eosinophils % (auto) 5.7 %; Hematocrit (blood only) 25.6 % (42-52); Immature Granulocytes # (auto) 0.02 K/uL (0.00-0.02); Immature Granulocytes % (auto) 0.7 %; Lymphocytes # (auto) 0.52 K/uL (1.2-3.4); Lymphocytes % (auto) 17.6 %; Mean Corpuscular Hemoglobin 26.4 pg (25-34); Mean Corpuscular Hgb Conc 31.3 g/dL (32-36); Mean Corpuscular Volume 84.5 fL (80-100); Mean Platelet Volume 8.3 fL (7.4-10.4); Monocytes # (auto) 0.48 K/uL (0.11-0.59); Monocytes % (auto) 16.2 %; Neutrophils # (auto) 1.75 K/uL (1.4-6.5); Neutrophils % (auto) 59.1 %; Platelet Count 256 K/uL (130-400); Red Blood Count 3.03 M/uL (4.7-6.1); White Blood Count 2.96 K/uL (4.8-10.8)
[2020-09-18 05:55] LABS: BUN Creatinine Ratio 16.5 (10-20); Calcium 9.7 mg/dl (8.5-10.1); Creatinine Clr Calc Pharmacy 151.6 ml/min; Est GFR (African American) 136.1; Est GFR (Non-African American) 117.4; Potassium 3.9 mmol/L (3.5-5.1)
[2020-09-18] MEDS: CEROVITE ADV FORMULA TAB PO SCH (08:51)
[2020-09-18] MEDS: MESALAMINE 800 MG TABCR PO SCH ×3 (08:51→20:06)
[2020-09-18] MEDS: FERROUS SULFATE 325 MG TAB PO SCH ×2 (08:51→16:13)
[2020-09-18] MEDS: PANTOprazole 40 MG TAB PO SCH (08:51)
[2020-09-18] MEDS: ENOXAPARIN INJ 30 MG/0.3 ML SYR SQ SCH (08:52)
--- NOTE | 2020-09-18 21:08 | Hospitalist Progress Note ---
Date of Service September 18, 2020 Assessment & Plan (1) Fever: Secondary to hypovolemia, mild clinical dehydration --Remains afebrile given IV D5 NSS Rule out sepsis, immunocompromised patient -- no focus of infection found Procalcitonin level normal CXR clear UA unrevealing - blood cultures negative nasal MRSA negative - Aztreonam discontinued after 3 days monitor off antibiotics Altered Mental Status episode - repeat CT head: no acute process ammonia low - ABG noted provided Bipap -Mental status much better, awake, oriented x2 Answers questions appropriately Poor oral intake Protein calorie malnutrition -Likely secondary to underlying esophageal cancer -Baseball Coach consulted, boost TID ordered stage IV esophageal cancer status post stent placement ongoing chemotherapy, progressive disease - scheduled for chemo on Thursday: not recommended in light of weakness no problems with swallowing Placed on easy to chew diet -Positive new thoracic and lumbar spine mets -Consult oncology service: Recommend to hold off on chemotherapy at this point Hyponatremia secondary to clinical dehydration - improving given gentle IV D5 NSS Thoracic and Lumbar spine mets - no focal deficits IBD, stable on regimen prediabetes as per records, hemoglobin A1c of 5.4 from 2019 chronic anemia, hemoglobin at baseline -Iron level low IV 150 mg 1 dose given FESo4 twice daily -Monitor CBC as outpatient past tobacco abuse plan of care discussed with patient and his over the phone, siblings at the bedside in detail all questions answered they are understanding, agreeable, comfortable with the plan of care PT OT eval: Recommending rehab, but patient and family would like to go home with home health services DVT prophylaxis. Lovenox subcu Full code Disposition DC home with home health services tomorrow Admission and Anticipated Discharge Date Admission Date: September 14, 2020 Subjective Follow-up for fever and weakness Seen resting in bed, comfortable, not in distress, in good spirits, awake and alert, answers all questions appropriately Patient symptoms at the bedside visiting Patient states he feels improved again compared to yesterday Denies headache, dizziness, chest pain, shortness of breath, cough, abdominal pain, nausea vomiting, problems with urination or bowel movement No other symptoms Review of Systems Review of Systems: All systems reviewed & are unremarkable except as noted in Subjective Physical Exam Physical Exam: General- oriented x 3, not in distress, speaks in sentences with no effort or accessory muscle use Eyes- anicteric Neck- no JVD Lungs- clear breath sounds bilaterally, no rales/wheezes Heart- normal rate, regular rhythm; no murmurs Abdomen- normal bowel sounds, nondistended, soft, nontender Extremities- no pretibial edema, no calf tenderness Neuro- alert, oriented x 3; no gross focal neurologic deficits Skin- warm & dry Results & Data Results & Data ([facility]) Vital Signs (Past 12 Hours) Vital Signs Temp Pulse Pulse Resp BP BP Pulse Ox 09/18/20 20:18 36.7 C 69 20 113/61 97 09/18/20 16:06 36.7 C 74 18 126/67 98 09/18/20 14:32 82 09/18/20 11:42 36.7 C 80 18 95/54 L 96
[2020-09-19 05:52] LABS: Basophils # (auto) 0.01 K/uL (0-0.2); Basophils % (auto) 0.4 %; Eosinophils # (auto) 0.19 K/uL (0-0.5); Hematocrit (blood only) 26.3 % (42-52); Hemoglobin 8.3 g/dL (14.0-18.0); Immature Granulocytes # (auto) 0.01 K/uL (0.00-0.02); Immature Granulocytes % (auto) 0.4 %; Lymphocytes # (auto) 0.54 K/uL (1.2-3.4); Lymphocytes % (auto) 19.9 %; Mean Corpuscular Hemoglobin 26.4 pg (25-34); Mean Corpuscular Hgb Conc 31.6 g/dL (32-36); Mean Corpuscular Volume 83.8 fL (80-100); Mean Platelet Volume 8.5 fL (7.4-10.4); Monocytes % (auto) 22.1 %; Neutrophils # (auto) 1.36 K/uL (1.4-6.5); Neutrophils % (auto) 50.2 %; Platelet Count 294 K/uL (130-400); RDW Coefficient of Variation 15.1 % (11.5-14.5); RDW Standard Deviation 46.6 fL (36.4-46.3); Red Blood Count 3.14 M/uL (4.7-6.1); White Blood Count 2.71 K/uL (4.8-10.8)
[2020-09-19 06:22] LABS: BUN Creatinine Ratio 15.9 (10-20); Calcium 9.9 mg/dl (8.5-10.1); Est GFR (African American) 137.5; Est GFR (Non-African American) 118.7; Potassium 3.7 mmol/L (3.5-5.1)
[2020-09-19] MEDS: MESALAMINE 800 MG TABCR PO SCH ×3 (07:57→20:56)
[2020-09-19] MEDS: PANTOprazole 40 MG TAB PO SCH (07:57)
[2020-09-19] MEDS: FERROUS SULFATE 325 MG TAB PO SCH ×2 (07:57→16:27)
[2020-09-19] MEDS: D5NSS + 20MEQ KCL 20 MEQ/1,000 ML BAG IV SCH (07:57)
[2020-09-19] MEDS: ENOXAPARIN INJ 30 MG/0.3 ML SYR SQ SCH (07:58)
[2020-09-19] MEDS: CEROVITE ADV FORMULA TAB PO SCH (07:58)
--- NOTE | 2020-09-19 11:53 | Communication Note ---
Date of Service: September 19, 2020 received update from Case management Pt did very poorly with Physical therapy Max assist to sit up at edge of bed, with 1 person assist was able to stand for 1-2 sec before sitting down on bed due to profound weakness not safe to be discharged home Spoke with Pt's ITALO Cam over phone : aware of pt's decline , very tearful she spoke with pt's Hematology /Oncologist -feels that pt will benefit with inpatient short term rehab in order to get the strength for next chemo understands the poor intermediate project manager prognosis willing to have a consult with Palliative- care team -to address goals of care does not want to proceed directly to hospice -as it will not allow pt to receive any more chemo tx Palliative care consulted , pt remains full code , will defer to Palliative care team to complete POLST form pt will need referral for rehab CM updated Tran Hoyos MD
--- NOTE | 2020-09-19 17:51 | Hospitalist Progress Note ---
Date of Service September 19, 2020 Assessment & Plan (1) Fever: Secondary to hypovolemia, mild clinical dehydration -- no focus of infection found Procalcitonin level normal CXR clear UA unrevealing - blood cultures negative nasal MRSA negative - Aztreonam discontinued after 3 days Altered Mental Status episode metabolic encephalopathy due to dehydration , poor PO intake , dysphagia CT head: no acute process ammonia low -Mental status much better, awake, oriented x2 Answers questions appropriately Poor oral intake Protein calorie malnutrition -Likely secondary to underlying esophageal cancer -Acid Correction Hand consulted, boost TID ordered stage IV esophageal cancer status post stent placement ongoing chemotherapy, progressive disease - scheduled for chemo on Thursday: not recommended in light of weakness no problems with swallowing Placed on easy to chew diet -Positive new thoracic and lumbar spine mets -Consultedoncology service: Recommend to hold off on chemotherapy at this point Hyponatremia secondary to clinical dehydration - improving given gentle IV D5 NSS Thoracic and Lumbar spine mets - no focal deficits IBD, stable on regimen prediabetes as per records, hemoglobin A1c of 5.4 from 2019 chronic anemia, hemoglobin at baseline given IV venofer FESo4 twice daily -Monitor CBC as outpatient past tobacco abuse DVT prophylaxis. Lovenox subcu Admission and Anticipated Discharge Date Admission Date: September 14, 2020 Subjective Follow up visit for esophageal Ca : pt is awake and alert , comfortable tolerating soft diet no chocking episode no cough or fever or chills Review of Systems Review of Systems: All systems reviewed & are unremarkable except as noted in Subjective Physical Exam Constitutional: WD/WN, vitals as above + ill appearing and + thin Eyes: + anicteric sclerae ENMT: external ear and nose normal, oropharynx normal Neck: trachea midline, no thyromegaly Respiratory: no cough Auscultation: + diminished lung sounds Cardiovascular: RRR, no murmur, no edema Gastrointestinal (Abdomen): Percussion/Palpation: abdomen soft; abdomen nontender Skin: no rashes, warm and dry Neurologic: PERRL, EOMI, accommodation nl, no face palsy, no dysarthria Psychiatric: Orientation: alert, oriented to person and oriented to place Affect: + flat affect Results & Data Results & Data ([facility]) Vital Signs (Past 12 Hours) Vital Signs Temp Pulse Pulse Pulse Resp BP Pulse Ox 09/19/20 17:37 83 09/19/20 15:53 36.8 C 76 22 115/62 99 09/19/20 11:13 36.7 C 90 18 130/73 97 09/19/20 07:30 66 09/19/20 07:27 36.6 C 66 18 127/64 99
[2020-09-19] MEDS ORDERED: Nursing to Pharmacy Communication SCH (21:15)
[2020-09-20] MEDS: D5NSS + 20MEQ KCL 20 MEQ/1,000 ML BAG IV SCH ×2 (00:40→17:06)
[2020-09-20 06:16] LABS: Basophils # (auto) 0.02 K/uL (0-0.2); Basophils % (auto) 0.6 %; Eosinophils # (auto) 0.21 K/uL (0-0.5); Eosinophils % (auto) 6.7 %; Hematocrit (blood only) 25.7 % (42-52); Immature Granulocytes # (auto) 0.01 K/uL (0.00-0.02); Immature Granulocytes % (auto) 0.3 %; Lymphocytes # (auto) 0.57 K/uL (1.2-3.4); Lymphocytes % (auto) 18.3 %; Mean Corpuscular Hgb Conc 31.1 g/dL (32-36); Mean Corpuscular Volume 83.4 fL (80-100); Mean Platelet Volume 8.3 fL (7.4-10.4); Monocytes # (auto) 0.71 K/uL (0.11-0.59); Monocytes % (auto) 22.8 %; Neutrophils % (auto) 51.3 %; Platelet Count 268 K/uL (130-400); RDW Coefficient of Variation 15.1 % (11.5-14.5); RDW Standard Deviation 46.1 fL (36.4-46.3); Red Blood Count 3.08 M/uL (4.7-6.1); White Blood Count 3.12 K/uL (4.8-10.8)
[2020-09-20 06:43] LABS: BUN Creatinine Ratio 13.7 (10-20); Calcium 10.2 mg/dl (8.5-10.1); Creatinine Clr Calc Pharmacy 121.8 ml/min; Est GFR (African American) 123.9; Est GFR (Non-African American) 106.9
[2020-09-20] MEDS: CEROVITE ADV FORMULA TAB PO SCH (09:05)
[2020-09-20] MEDS: ENOXAPARIN INJ 30 MG/0.3 ML SYR SQ SCH (09:05)
[2020-09-20] MEDS: FERROUS SULFATE 325 MG TAB PO SCH ×2 (09:05→16:19)
[2020-09-20] MEDS: PANTOprazole 40 MG TAB PO SCH (09:05)
[2020-09-20] MEDS: MESALAMINE 800 MG TABCR PO SCH ×3 (09:05→21:09)
--- NOTE | 2020-09-20 10:59 | Palliative Care Consultation ---
Date of Consultation September 20, 2020 Assessment & Plan (1) Palliative care encounter: Naseem is a 75 year old male who presented to the [facility] with increasing weakness. 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 Samm mccollum in [place] and additional oversight by Dr. Pineda at the [facility]. Additional PMH includes: IBD (Crohn's Disease), HLD, chronic anemia, CRESENCIO (wears BiPAP at HS), and GERD. His most recent PET scan showed a mild enlargement of his esophageal mass. Since his admission, he was started on some IV antibiotics and per his significant other, Dorina, he has returned back to his baseline. Palliative Care was consulted to discuss goals of care, code status and complete a POLST form. I met with Naseem who was sitting in his bedside chair. He was awake, alert and oriented to person, place and able to answer some simple questions, but, unfortunately, was unable to answer questions regarding his disease process for me. He was able to follow commands including squeezing my hands and lifting his hands. When asked about his cancer, he just laughed and didn't directly answer any care related questions. Per discussion with nursing his mental status fluctuates. I called his significant other, Dorina ([phone]). They have been together for 20 years, but not officially . She is his legal POA that was established in 2019 and she was able to email me a copy of his POA which I forwarded on the case management director and unit leader for reference. We discussed his code satus and she agreed he would not benefit from CPR or a ventilator in the event of cardiac or respiratory arrest, DNR changed in the computer to reflect our conversation. She stated that she would like to review the plan of care with Dr. Miriam tan after he received some of the most recent diagnostic imaging prior to making big decisions about Hospice. We talked about SNF services at [facility] and empowered her that she can shift gears to a more comfort focused approach at any time. She was clear that when he is discharged, she would not want him to return to the hospital and ultimately, he would want to return home to pass away. 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 Pineda. Discussion with case management indicated that he will likely be able to transfer to [facility] tomorrow 09/21/2020. Suggested a Hospice list be sent to Dorina for reference, who did agree to receive the information. The above was discussed with the hospitalist. Palliative care will follow as necessary. Thanks for involving us in his care. (2) Esophageal cancer: Stage IV. Followed by Dr. Martin Pineda with the [facility]; but locally sees Dr. Quijano. Per discussion with , Dr. Pineda wants to review most recent MRI and CT scan that was done here. These results have been faxed to him today. Per , her most recent conversation with Dr. Pineda over email this morning indicated to transition to SNF and possibly trial a different antineoplastic agent or transition to Hospice based on progression and results. Recent PET shows increase in tumor size. Malignant neoplasm of esophagus location: unspecified location Qualified Code(s): C15.9 - Malignant neoplasm of esophagus, unspecified (3) Constipation: No complaints of this today. (4) Weakness: Progressive weakness noted. Was sitting in his bedside chair today. Per review of PT notes, needs assistance to get to the edge of the bed. Re quiring 1 assist to stand, but only able to stand for 1-2 seconds. Plan for [facility] with SNF and likely a transition to Hospice if no improvements. History of Present Illness Reason for Consultation: Goals of care Requesting Physician: Dr. Hoyos Attending Physician: Tran Hoyos MD History of Present Illness Naseem is a 75 year old male who presented to the [facility] with increasing weakness. 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 Quijano here in [place] and additional oversight by Dr. Pineda at the [facility]. Additional PMH includes: IBD (Crohn's Disease), HLD, chronic anemia, CRESENCIO (wears BiPAP at HS), and GERD. His most recent PET scan showed a mild enlargement of his esophageal mass. Since his admission, he was started on some IV antibiotics and per his significant other, Dorina, he has returned back to his baseline. Palliative Care was consulted to discuss goals of care, code status and complete a POLST form. Please see A/P for further details. Thank you kindly for involving palliative care with this unfortunate individual. Allergies Allergy/AdvReac Type Severity Reaction Status Date / Time amoxicillin Allergy Intermediate Leg Verified 03/09/20 14:48 swelling/inflammation cefazolin Allergy Intermediate rash Verified 09/13/20 21:37 clindamycin Allergy Intermediate rash Verified 09/13/20 21:37 doxycycline Allergy Intermediate rash Verified 09/13/20 21:37 Sulfa (Sulfonamide Allergy Unknown Unknown Verified 09/13/20 21:37 Antibiotics) Home Medications Medication Instructions Recorded Confirmed Type cyclobenzaprine 10 mg tablet 10 mg PO TID PRN 05/02/19 09/13/20 History dicyclomine 10 mg capsule 10 mg PO BID 05/02/19 09/13/20 History fluticasone propionate 50 2 sprays INTNAS DAILY PRN 05/02/19 09/13/20 History mcg/actuation nasal spray,suspension guaifenesin 600 mg tablet, 600 mg PO Q12H PRN 05/02/19 09/13/20 History extended release 12 hr pantoprazole 40 mg tablet,delayed 40 mg PO QAM 05/02/19 09/13/20 History release pseudoephedrine HCl 30 mg tablet 30 mg PO Q6H PRN 05/02/19 09/13/20 History tramadol 50 mg tablet 50 mg PO Q8H PRN 05/02/19 09/13/20 History ascorbic acid (vitamin C) 100 mg 100 mg PO DAILY 05/03/19 09/13/20 History tablet cholecalciferol (vitamin D3) 75 3,000 units PO DAILY 05/03/19 09/13/20 History mcg (3,000 unit) tablet echinacea 400 mg capsule 400 mg PO DAILY 05/03/19 09/13/20 History saw palmetto 160 mg capsule 160 mg PO BID 05/03/19 09/13/20 History mesalamine 2.4 g PO BID 05/04/19 09/13/20 History meclizine 25 mg PO QID PRN 03/09/20 09/13/20 History prochlorperazine maleate 10 mg PO Q6H 03/09/20 09/13/20 History cetirizine 10 mg PO DAILY 09/13/20 09/13/20 History multivitamin with minerals 1 tab PO DAILY 09/13/20 09/13/20 History [Multiple Vitamin-Minerals] ondansetron 4 - 8 mg PO Q6H PRN 09/13/20 09/13/20 History promethazine 25 mg PO Q6H PRN 09/13/20 09/13/20 History sodium chloride [Saline Nasal] 1 spray INTRANASAL BID PRN 09/13/20 09/13/20 History triamcinolone acetonide 1 applic TOPICAL BID 09/13/20 09/13/20 History ferrous sulfate 325 mg PO BIDM #60 tab 09/18/20 Rx Patient History Medical History (Updated 09/20/20 @ 10:59 by HELEN Heredia) Arthritis stable Crohn disease (06/01/14) stable Diabetes mellitus type 2 in nonobese (09/09/11) Esophageal cancer + esophageal stent, plan for future chemo GERD (gastroesophageal reflux disease) controlled Gout Migraine hx Obesity Obstruction of esophagus Palliative care encounter Port-A-Cath in place (05/09/19) Insertion of A-Port Dr. Jorge 05/09/19 Sleep apnea BIPAP Weakness Surgical History History of colonoscopy History of esophagogastroduodenoscopy (EGD) History of tonsillectomy History of total knee replacement bilateral S/P dilatation of esophageal stricture + stent Family History Mother Diabetes Father Heart disease FHx: lung cancer Social History Smoking Status: Former smoker Second Hand Exposure: No; Hx Alcohol Use: No Hx Substance Use: No Preferred Language: Hebrew Communication Ability: Effective Remote Coders Required: No Beliefs That Will Affect Care: None marital status: / Current Living Situation: Other Current Living Situation Comment: Lives in a home with lady friend x 21 yrs current occupational status: retired Feels Safe at Home: Yes Assistive Devices: CPAP and Walker Review of Systems Review of Systems: Remus System Assessment Scale Pain: 0/3 Tiredness: 0/3 Lack of Appetite: 1/3 Shortness of Breath: 0/3 Anxiety: 0/3 Palliative Performance Scale: 30% Physical Exam Constitutional: + ill appearing, + cachectic and comfortable Neck: trachea midline, no thyromegaly Respiratory: normal respiratory effort, lungs clear to auscultation normal respiratory effort Auscultation: + diminished lung sounds Cardiovascular: Rate/Rhythm: regular rate and regular rhythm Heart Sounds: normal S1 and normal S2 Extremities: normal capillary refill; no edema Gastrointestinal (Abdomen): normal bowel sounds, soft, nontender, no hepatosplenomegaly Skin: + ecchymosis and + pallor Psychiatric: Orientation: alert, oriented to person, oriented to place and cooperative Insight: + limited insight Judgement: + limited judgement Results & Data ([facility]) Vital Signs (Past 12 Hours) Vital Signs Temp Pulse Pulse Resp BP BP Pulse Ox 09/20/20 07:45 37.1 C 74 20 119/64 98 09/20/20 04:00 37.1 C 77 20 120/66 95 09/19/20 23:10 37.2 C 81 18 110/62 97 PG Care Time/CCT Total # of Minutes Spent Total Time Spent with Patient: Total time spent is greater than 50% in coordination of care (as documented) at patient's floor/unit and/or counseling patient: Total time spent 100 minutes with > 50% of that time spent assessing the patient, discussing goals of care with this significant other over the phone, completing a POLST form and collaborating with IDT Coding Level of Care Code 88568 Inpt Consult Level 4 Diagnoses Palliative care encounter Z51.5 Esophageal cancer C15.9 Malignant neoplasm of esophagus location: unspecified location Constipation K59.00 Weakness R53.1 Time Spent (min) 100
--- NOTE | 2020-09-20 19:07 | Hospitalist Progress Note ---
Date of Service September 20, 2020 Assessment & Plan (1) Fever: Secondary to hypovolemia, mild clinical dehydration -- no focus of infection found Procalcitonin level normal CXR clear UA unrevealing - blood cultures negative nasal MRSA negative - Aztreonam discontinued after 3 days Altered Mental Status episode metabolic encephalopathy due to dehydration , poor PO intake , dysphagia CT head: no acute process ammonia low -Mental status much better, awake, oriented x2 Answers questions appropriately Poor oral intake Protein calorie malnutrition -Likely secondary to underlying esophageal cancer -Beauty Counselor consulted, boost TID ordered stage IV esophageal cancer status post stent placement ongoing chemotherapy, progressive disease - scheduled for chemo on Thursday: not recommended in light of weakness no problems with swallowing Placed on easy to chew diet -Positive new thoracic and lumbar spine mets -follows with Heme /onc over all prognosis poor , palliative care consulted appreciate input Hyponatremia secondary to clinical dehydration - improved Thoracic and Lumbar spine mets - no focal deficits IBD, stable on regimen prediabetes as per records, hemoglobin A1c of 5.4 from 2019 chronic anemia, hemoglobin at baseline given IV venofer FESo4 twice daily -Monitor CBC as outpatient past tobacco abuse CODE status : DNR/DNI DVT prophylaxis. Lovenox subcu Disposition: transfer to [facility] for skilled rehab tomorrow 09/21/20 Admission and Anticipated Discharge Date Admission Date: September 14, 2020 Subjective Follow up visit for esophageal Ca : doing well , offers no new complain no cough or fever or chills tolerating diet Review of Systems Review of Systems: All systems reviewed & are unremarkable except as noted in Subjective Physical Exam Constitutional: WD/WN, vitals as above + ill appearing and + thin Eyes: + anicteric sclerae ENMT: external ear and nose normal, oropharynx normal Neck: trachea midline, no thyromegaly Respiratory: no cough Auscultation: + diminished lung sounds Cardiovascular: RRR, no murmur, no edema Gastrointestinal (Abdomen): Percussion/Palpation: abdomen soft; abdomen nontender Skin: no rashes, warm and dry Neurologic: PERRL, EOMI, accommodation nl, no face palsy, no dysarthria Psychiatric: Orientation: alert, oriented to person and oriented to place Affect: + flat affect Results & Data Results & Data ([facility]) Vital Signs (Past 12 Hours) Vital Signs Temp Pulse Pulse Resp BP BP Pulse Ox 09/20/20 16:00 79 09/20/20 15:08 36.4 C L 77 20 103/61 97 09/20/20 11:49 107/54 L 09/20/20 11:16 36.9 C 72 20 88/50 L 97 09/20/20 08:00 81 09/20/20 07:45 37.1 C 74 20 119/64 98
[2020-09-20] MEDS ORDERED: PSEUDOEPHEDRINE HCL 30 MG TAB PO PRN (23:17)
[2020-09-20] MEDS ORDERED: SODIUM CHLORIDE 0.65% NA SOLN 45 ML (OCEAN) PRN (23:17)
[2020-09-20] MEDS ORDERED: PROCHLORPERAZINE MALEATE 10 MG TAB PO PRN (23:17)
[2020-09-20] MEDS ORDERED: PROMETHAZINE HCL 25 MG TAB PO PRN (23:17)
[2020-09-20] MEDS ORDERED: guaiFENesin 600 MG TABCR PO PRN (23:17)
[2020-09-20] MEDS ORDERED: CYCLOBENZAPRINE HCL 10 MG TAB PO PRN (23:27)
[2020-09-20] MEDS ORDERED: ONDANSETRON 4 MG OD TAB PO PRN (23:32)
[2020-09-20] MEDS ORDERED: MECLIZINE HCL 25 MG TAB PO PRN (23:32)
[2020-09-21 06:15] LABS: BUN Creatinine Ratio 15.7 (10-20); Calcium 10.9 mg/dl (8.5-10.1); Creatinine Clr Calc Pharmacy 119.3 ml/min; Est GFR (African American) 122.9; Potassium 3.8 mmol/L (3.5-5.1)
[2020-09-21] MEDS: FERROUS SULFATE 325 MG TAB PO SCH (08:00)
[2020-09-21] MEDS: MESALAMINE 800 MG TABCR PO SCH (08:00)
[2020-09-21] MEDS: CEROVITE ADV FORMULA TAB PO SCH (08:00)
[2020-09-21] MEDS: PANTOprazole 40 MG TAB PO SCH (08:00)
[2020-09-21] MEDS: ENOXAPARIN INJ 30 MG/0.3 ML SYR SQ SCH (08:01)
[2020-09-21] MEDS ORDERED: DICYCLOMINE HCL 10 MG CAP PO SCH (09:00)
[2020-09-21] MEDS ORDERED: CHOLECALCIFEROL 1,000 UNITS 25 MCG TAB PO SCH (09:00)
[2020-09-21] MEDS ORDERED: TRIAMCINOLONE ACET 0.1% CR 15 GM TUBE TOP SCH (09:00)
[2020-09-21] MEDS ORDERED: HEPARIN 100 UNIT/ML 5ML FLUSH FLUSH PRN (09:13)
--- NOTE | 2020-09-21 11:28 | Discharge Summary ---
Date of Service September 21, 2020 Admission HPI Per Admitting Provider History obtained from patient, family, and records. Medical history significant for stage IV esophageal cancer status post stent placement ongoing chemotherapy, IBD, hyperlipidemia, prediabetes as per records, gout, chronic anemia (baseline hemoglobin 8-9), CRESENCIO on BiPAP, past tobacco abuse. Last confinement March 2020 for progressive dysphagia secondary to obstructing esophageal cancer status post stent placement. Increased dysphagia noted last month. PET scan showed mild increase in size and FDG avidity of primary distal esophageal mass. Mildly dilated fluid-filled esophagus. Patient underwent urgent EGD at [facility] 2 weeks ago. Esophageal stent was noted to have tumor ingrowth and extension of the stent. Subsequent restenting done. Yesterday patient noted to be increasingly weak as per . Both legs weak without unusual back pain. No leg numbness as per patient. One episode of urinary incontinence. No unusual headache symptoms. Usual loose stools from Crohn's as per . Low-grade fever at home. No cough. Patient somewhat more confused as per . Patient brought to the ER for evaluation. Given IV vancomycin and IVF for possible infection. Patient currently back to baseline as per . 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 Principal Diagnosis Esophageal Cancer Dysphagia , dehydration , Hypotension Febrile episode Discharge Exam Constitutional WD/WN, vitals as above + ill appearing and + thin Eyes + anicteric sclerae ENMT external ear and nose normal, oropharynx normal Neck trachea midline, no thyromegaly Respiratory no cough Auscultation: + diminished lung sounds Cardiovascular RRR, no murmur, no edema Gastrointestinal (Abdomen) Percussion/Palpation: abdomen soft; abdomen nontender Skin no rashes, warm and dry Neurologic PERRL, EOMI, accommodation nl, no face palsy, no dysarthria Psychiatric Orientation: alert, oriented to person and oriented to place Affect: + flat affect Discharge Data Allergies Allergy/AdvReac Type Severity Reaction Status Date / Time amoxicillin Allergy Intermediate Leg Verified 03/09/20 14:48 swelling/inflammation cefazolin Allergy Intermediate rash Verified 09/13/20 21:37 clindamycin Allergy Intermediate rash Verified 09/13/20 21:37 doxycycline Allergy Intermediate rash Verified 09/13/20 21:37 Sulfa (Sulfonamide Allergy Unknown Unknown Verified 09/13/20 21:37 Antibiotics) Consultations 09/14/20 02:28 Consult Case Management - Discharge Planning Routine 09/16/20 16:58 Consult Oncology Routine 09/19/20 12:30 Consult Palliative Care Routine Ordered Studies 09/13/20 18:04 MR lumbar spine wo/w con Stat MR thoracic spine wo/w con Stat 09/13/20 18:05 CT head/brain wo con Stat 09/15/20 13:19 CT head/brain wo con Stat Hospital Course (1) Fever: Secondary to hypovolemia, mild clinical dehydration -- no focus of infection found Procalcitonin level normal CXR clear UA unrevealing - blood cultures negative nasal MRSA negative - Aztreonam discontinued after 3 days Altered Mental Status episode metabolic encephalopathy due to dehydration , poor PO intake , dysphagia CT head: no acute process ammonia low -Mental status much better, awake, oriented x2 Answers questions appropriately Poor oral intake Protein calorie malnutrition -Likely secondary to underlying esophageal cancer -[employer]erra[employer] Worker Apprentice consulted, boost TID ordered stage IV esophageal cancer status post stent placement ongoing chemotherapy, progressive disease - scheduled for chemo on Thursday: not recommended in light of weakness no problems with swallowing Placed on easy to chew diet -Positive new thoracic and lumbar spine mets -follows with Heme /onc over all prognosis poor , palliative care consulted appreciate input Hyponatremia secondary to clinical dehydration - improved Thoracic and Lumbar spine mets - no focal deficits IBD, stable on regimen prediabetes as per records, hemoglobin A1c of 5.4 from 2020 chronic anemia, hemoglobin at baseline given IV venofer FESo4 twice daily -Monitor CBC as outpatient past tobacco abuse CODE status : DNR/DNI DVT prophylaxis. Lovenox subcu Disposition: transfer to [facility] for skilled rehab today 09/21/20 Total Time Total Time Spent Total Time Spent (In Minutes): 35 mins Total Time Includes: Discharge Planning and Medication Reconciliation Discharge Plan Discharge Items Patient Disposition: Transfer Long Term Fac Reason For Visit: TRANSIENT HYPOTENSION, WEAKNESS Discharge Diagnosis: Esophageal Cancer Dysphagia , dehydration , Hypotension Febrile episode Activity: Resume your previous activity Non-emergency contact: Primary Care Provider Call non-emergency contact if: you have any medication questions, your symptoms worsen, your pain is not controlled, your pain is worsening, your pain is unusual for you, your pain is concerning for you, you have a fever and your temperature is above 101 Follow-up/Referrals: Rodolfo Whyte DO [Primary Care Provider] - 09/25/20 3:00 pm (Date & Time 09/25/2020 3:00 PM Provider Rodolfo Whyte DO Department General Internal Medicine [facility] ) Diet: Regular Diet Texture: Pureed (blended smooth) Addtl Attending Provider Instructions: Start ferrous sulfate twice a day for iron deficiency anemia. Take a stool softener daily to prevent constipation. Drink plenty of fluids. Drink boost nutritional supplement 3 times a day. Continue physical and occupational therapy at rehab Follow Up with oncologist as scheduled. Pending Studies at Discharge: Yes Studies:: Repeat CBC on follow-up with primary care physician next week Stand-Alone Forms: My [employer] Program, Smoking Cessation Skilled Items Patient informed of condition?: Yes DNR: Yes Discharge Level of Care: Skilled Communicable Disease: No Discharge Prognosis: Other Lines: None Urinary Catheter: No Medications and DC Order Prescriptions: New ferrous sulfate 325 mg (65 mg iron) Tablet,Delayed Release (Dr/Ec) 325 mg PO BIDM Qty: 60 RF: 0 Boost Breeze Nutritional 0.04-1.05 gram-kcal/mL liquid 1 ea PO TIDWMEAL Qty: 90 RF: 0 Continued dicyclomine 10 mg capsule 10 mg PO BID RF: 0 fluticasone propionate [Flonase Allergy Relief] 50 mcg/actuation spray,suspension 2 sprays INTNAS DAILY PRN (Reason: Nasal Congestion) RF: 0 guaifenesin [Mucinex] 600 mg tablet extended release 12hr 600 mg PO Q12H PRN (Reason: Congestion) RF: 0 pantoprazole [Protonix] 40 mg tablet,delayed release (DR/EC) 40 mg PO QAM RF: 0 ascorbic acid (vitamin C) 100 mg tablet 100 mg PO DAILY RF: 0 saw palmetto 160 mg capsule 160 mg PO BID RF: 0 echinacea 400 mg capsule 400 mg PO DAILY RF: 0 cholecalciferol (vitamin D3) 3,000 unit tablet 3,000 units PO DAILY RF: 0 mesalamine 1.2 gram Tablet,Delayed Release (Dr/Ec) 2.4 g PO BID RF: 0 prochlorperazine maleate 10 mg tablet 10 mg PO Q6H RF: 0 meclizine 25 mg Tablet 25 mg PO QID PRN (Reason: Dizziness) RF: 0 triamcinolone acetonide 0.1 % Cream 1 applic TOPICAL BID RF: 0 sodium chloride [Saline Nasal] 0.65 % Aerosol,[place] 1 spray INTRANASAL BID PRN (Reason: Congestion) RF: 0 ondansetron 4 mg Tablet,Disintegrating 4 - 8 mg PO Q6H PRN (Reason: Nausea) RF: 0 multivitamin with minerals [Multiple Vitamin-Minerals] Tablet 1 tab PO DAILY RF: 0 promethazine 25 mg Tablet 25 mg PO Q6H PRN (Reason: Nausea) RF: 0 tramadol 50 mg tablet 50 mg PO Q8H PRN (Reason: Pain) Qty: 90 RF: 0 Discontinued cyclobenzaprine 10 mg tablet 10 mg PO TID PRN (Reason: muscle spasm) RF: 0 pseudoephedrine HCl 30 mg tablet 30 mg PO Q6H PRN (Reason: Congestion) RF: 0 cetirizine 10 mg Capsule 10 mg PO DAILY RF: 0 Discharge Orders: Discharge Order (Routine); Ordered 09/21/20 Ordered By: Tran Hoyos Admission Data Admit Date/Time: 09/14/20 17:40 Attending Provider: Tran Hoyos Admit Provider: Tran Hoyos Primary Care Provider: Rodolfo Whyte Other Providers: Dilan Campoverde ; Todd Cat ; Alexys [facility] ; Earl Lopez V. ; Tracie Weiss Other Interventions: Discharge Summary Assessment (RN) Last Done: 09/21/20 10:32
== END 2020-09-21 14:04 | DRG 640 ==
LOC: ED 16:52 → 2N 16:52 → SUATTDRO 09-14 17:40

== ENCOUNTER 2020-10-25 15:13 | Observation (INO) ==
[2020-10-25] MEDS ORDERED: ONDANSETRON INJ 2 MG/ML 2 ML VIAL IV STA (15:30)
[2020-10-25] MEDS ORDERED: SODIUM CHLORIDE 0.9% 1000ML 1,000 ML IV ONE (15:43)
[2020-10-25 16:10] LABS: Basophils # (auto) 0.03 K/uL (0-0.2); Basophils % (auto) 0.3 %; Eosinophils # (auto) 0.09 K/uL (0-0.5); Eosinophils % (auto) 0.9 %; Hemoglobin 9.2 g/dL (14.0-18.0); Immature Granulocytes # (auto) 0.01 K/uL (0.00-0.02); Immature Granulocytes % (auto) 0.1 %; Lymphocytes # (auto) 1.02 K/uL (1.2-3.4); Lymphocytes % (auto) 10.3 %; Mean Corpuscular Hemoglobin 26.3 pg (25-34); Mean Corpuscular Hgb Conc 31.7 g/dL (32-36); Mean Corpuscular Volume 82.9 fL (80-100); Mean Platelet Volume 8.1 fL (7.4-10.4); Monocytes # (auto) 0.58 K/uL (0.11-0.59); Monocytes % (auto) 5.9 %; Neutrophils # (auto) 8.16 K/uL (1.4-6.5); Neutrophils % (auto) 82.5 %; Platelet Count 303 K/uL (130-400); RDW Coefficient of Variation 17.1 % (11.5-14.5); RDW Standard Deviation 52.5 fL (36.4-46.3); White Blood Count 9.89 K/uL (4.8-10.8)
--- NOTE | 2020-10-25 16:20 | Emergency Department Note ---
Impression & Plan Esophageal mass, Vomiting ED Provider Note NAME: BRENT LE AGE: 75 SEX: M : 1945 ARRIVES VIA: Walk-In INFORMANT: Patient, the patient significant other ED PROVIDER(S): Javon Aviles DO CHIEF COMPLAINT: Vomiting HPI: The patient is a 75-year-old male who presented to the emergency department for an evaluation of nausea vomiting. The patient has a history of esophageal cancer. The patient has a history of an esophageal stent. He has been noted to have a few days of vomiting. He is also noted to have loose bowel movements over the last few days. He has no fever or cough. He denies having any chest pain or difficulty breathing. He has noticed some discomfort in his epigastric region of his abdomen. The patient has had similar symptoms in the past. He called his primary care physician and was referred to the emergency department for the possibility of bowel obstruction. The patient denies having any rectal bleeding. ROS: See above HPI for pertinent positives & negatives. A total of 10 systems reviewed and were otherwise negative. PAST MEDICAL HISTORY: See Below PAST SURGICAL HISTORY: See Below FAMILY HISTORY: See Below SOCIAL HISTORY: See Below HOME MEDICATIONS: See Below ALLERGIES: See Below VITALS: See Below PHYSICAL EXAMINATION: GENERAL: Patient is awake alert in no acute distress patient is resting comfortably and showing no signs of anxiety EYES: The conjunctivae are clear. The pupils are round and reactive. EARS, NOSE, MOUTH AND THROAT: The nose is without any evidence of any deformity. Mucous membranes are moist. Tongue is midline. NECK: The neck is nontender and supple. RESPIRATORY: Normal respiratory effort is noted there is no evidence of wheezing rhonchi or rales CARDIOVASCULAR: Regular rate and rhythm noted there no murmurs rubs or gallops normal S1 normal S2. GASTROINTESTINAL: The abdomen is soft and nondistended. There is diffuse tenderness to palpation but no guarding rigidity. MUSCULOSKELETAL/EXTREMITIES: There is no evidence of gross deformity full range of motion is noted in the hips and shoulders. SKIN: Lower extremity edema was noted. NEUROLOGIC: Patient is awake alert and oriented x3. MEDICAL DECISION MAKING: The patient is a 75-year-old male who presented to the emergency department for an evaluation of difficulty swallowing and nausea and vomiting. Initially it was felt the patient was suffering from a bowel obstruction. His abdominal exam did not appear to be consistent with obstruction but he does have a history of esophageal cancer with esophageal stenting. He was treated with IV fluids and IV antiemetics in the emergency department. He was reevaluated multiple times. On subsequent reevaluation he was feeling significantly improved. CT the abdomen was obtained but only partially imaged the esophageal stent. A CT of the chest was obtained which did appear to be consistent with partial obstruction of the esophagus because of the recurrence of the mass as well as obstruction of the stent. The patient has had a similar episode in the past and needed to be restented. I discussed the patient's findings with the on-call record maker. I do recommend that the patient be kept as an inpatient for further IV hydration and then followed by evaluation for upper endoscopy and possible further stenting tomorrow. The patient was agreeable with this plan. Triage Nursing notes reviewed. Prior medical records reviewed Vital Signs: reviewed and remarkable for tachycardia. Differential diagnosis: Gastroenteritis, food borne illness, infections, appendicitis, diverticulitis, inflammatory bowel disease, obstruction, GI bleed, biliary pathology, volvulus, as well as other pathologies. ER treatment provided: See below Diagnostics interpreted by me: ECG: EKG was obtained in the emergency department. My interpretation is normal sinus rhythm at 65 bpm. There was no ectopy. There was no acute ST segment abnormalities noted. This was compared to a tracing from September 132020. No significant changes were noted. Cardiac Monitoring: An order was placed for continuous cardiac monitoring. The monitor shows a rate of 85 bpm with sinus rhythm. Laboratory studies: As stated above and show below. Imaging studies: See below Consultation(s): 1356: I discussed this case with Dr. Butterfield who is on-call for gastroenterology. He does recommend that the patient stay in the hospital for IV fluids. He should be n.p.o. after midnight tonight with likely a procedure tomorrow to reevaluate the stent and possible an upper endoscopy. 1809: I discussed this case with Liss who is on for the [facility] hospitalist group. Past Med/Surg History Medical History Arthritis stable Crohn disease (06/01/14) stable Diabetes mellitus type 2 in nonobese (09/09/11) Esophageal cancer + esophageal stent, plan for future chemo GERD (gastroesophageal reflux disease) controlled Gout Migraine hx Obesity Obstruction of esophagus Palliative care encounter Port-A-Cath in place (05/09/19) Insertion of A-Port Dr. Jorge 05/09/19 Sleep apnea BIPAP Weakness Surgical History History of colonoscopy History of esophagogastroduodenoscopy (EGD) History of tonsillectomy History of total knee replacement bilateral S/P dilatation of esophageal stricture + stent Family History Mother Diabetes Father Heart disease FHx: lung cancer Social History Smoking Status: Former smoker Tobacco Type: Cigarettes Second Hand Exposure: No; Hx Alcohol Use: No Hx Substance Use: No Preferred Language: Thai Communication Ability: Effective Public Health Aide Required: No Beliefs That Will Affect Care: None marital status: / Current Living Situation: Other Current Living Situation Comment: Lives in a home with lady friend x 21 yrs current occupational status: retired Feels Safe at Home: Yes Assistive Devices: CPAP and Walker Allergies Allergies Allergy/AdvReac Type Severity Reaction Status Date / Time amoxicillin Allergy Intermediate Leg Verified 03/09/20 14:48 swelling/inflammation cefazolin Allergy Intermediate rash Verified 09/13/20 21:37 clindamycin Allergy Intermediate rash Verified 09/13/20 21:37 doxycycline Allergy Intermediate rash Verified 09/13/20 21:37 Sulfa (Sulfonamide Allergy Unknown Unknown Verified 09/13/20 21:37 Antibiotics) Home Meds Home Medications Medication Instructions Recorded Confirmed dicyclomine 10 mg capsule 10 mg PO BID 05/02/19 09/13/20 fluticasone propionate 50 2 sprays INTNAS DAILY PRN 05/02/19 09/13/20 mcg/actuation nasal spray,suspension guaifenesin 600 mg tablet, 600 mg PO Q12H PRN 05/02/19 09/13/20 extended release 12 hr pantoprazole 40 mg tablet,delayed 40 mg PO QAM 05/02/19 09/13/20 release ascorbic acid (vitamin C) 100 mg 100 mg PO DAILY 05/03/19 09/13/20 tablet cholecalciferol (vitamin D3) 75 3,000 units PO DAILY 05/03/19 09/13/20 mcg (3,000 unit) tablet echinacea 400 mg capsule 400 mg PO DAILY 05/03/19 09/13/20 saw palmetto 160 mg capsule 160 mg PO BID 05/03/19 09/13/20 mesalamine 2.4 g PO BID 05/04/19 09/13/20 meclizine 25 mg PO QID PRN 03/09/20 09/13/20 prochlorperazine maleate 10 mg PO Q6H 03/09/20 09/13/20 multivitamin with minerals 1 tab PO DAILY 09/13/20 09/13/20 [Multiple Vitamin-Minerals] ondansetron 4 - 8 mg PO Q6H PRN 09/13/20 09/13/20 promethazine 25 mg PO Q6H PRN 09/13/20 09/13/20 sodium chloride [Saline Nasal] 1 spray INTRANASAL BID PRN 09/13/20 09/13/20 triamcinolone acetonide 1 applic TOPICAL BID 09/13/20 09/13/20 Previous Rx's Medication Instructions Recorded ferrous sulfate 325 mg PO BIDM #60 tab 09/18/20 food supplemt, lactose-reduced 1 ea PO TIDWMEAL #90 btl 09/21/20 [Boost Breeze Nutritional] tramadol 50 mg PO Q8H PRN #90 tab 09/21/20 Results & Data (ED) Vital Signs Vital Signs - 24 hr 10/25/20 15:17 10/25/20 17:03 Temperature 36.2 C L Temperature Source Temporal Artery Scan Pulse Rate 114 H Respiratory Rate 20 Respiratory Effort / Characteristics Non-Labored Respiratory Depth Normal Blood Pressure 110/62 Blood Pressure Mean 78 Pulse Oximetry 98 Oxygen Delivery Method Room Air Room Air Sepsis Recent Fever Within 48 Hours No Sepsis New/Unexplained Change in Mental Status N/A Sepsis Action Taken by Nursing No Action Required Home Medications Current Medication List: was personally reviewed by me Laboratory Data Attestation: I reviewed the patient's lab results. Result diagrams: 10/25/20 16:00 10/25/20 16:00 Lab Results 10/25/20 10/25/20 10/25/20 Range/Units 16:00 16:00 16:00 WBC 9.89 (4.8-10.8) K/uL RBC 3.50 L (4.7-6.1) M/uL Hgb 9.2 L (14.0-18.0) g/dL POC Hgb (14.0-18.0) g/dl Hct 29.0 L (42-52) % POC Hct (42-52) % MCV 82.9 (80-100) fL MCH 26.3 (25-34) pg MCHC 31.7 L (32-36) g/dL RDW Std Deviation 52.5 H (36.4-46.3) fL RDW Coeff of Davide 17.1 H (11.5-14.5) % Plt Count 303 (130-400) K/uL MPV 8.1 (7.4-10.4) fL Immature Gran % (Auto) 0.1 % Neut % (Auto) 82.5 % Lymph % (Auto) 10.3 % [place] % (Auto) 5.9 % Eos % (Auto) 0.9 % Baso % (Auto) 0.3 % Neut # (Auto) 8.16 H (1.4-6.5) K/uL Lymph # (Auto) 1.02 L (1.2-3.4) K/uL [place] # (Auto) 0.58 (0.11-0.59) K/uL Eos # (Auto) 0.09 (0-0.5) K/uL Baso # (Auto) 0.03 (0-0.2) K/uL Immature Gran # (Auto) 0.01 (0.00-0.02) K/uL PT 10.1 (9.0-12.0) Seconds INR 1.0 (0.9-1.1) APTT 27.6 (21.0-31.0) Seconds PTT Ratio 1.0 POC Sodium (135-144) mmol/L Sodium 135 L (136-145) mmol/L POC Potassium (3.3-5.0) mmol/L Potassium 3.7 (3.5-5.1) mmol/L POC Chloride (101-112) mmol/L Chloride 103 (98-107) mmol/L Carbon Dioxide 30 (21-32) mmol/L POC Total CO2 (24-31) mmol/L Anion Gap 2.0 L (3-11) POC Anion Gap (16-25) mmol/L POC BUN (7-18) mg/dl BUN 13 (7-18) mg/dl Creatinine 0.56 L (0.6-1.4) mg/dl POC Creatinine (0.6-1.3) mg/dl Est Cr Clr Drug Dosing Not Reportable Est GFR ( Amer) 117.3 Est GFR (Non-Af Amer) 101.2 BUN/Creatinine Ratio 22.3 H (10-20) Glucose 102 H (70-99) mg/dl POC Glucose (other) (70-99) mg/dl Calcium 10.0 (8.5-10.1) mg/dl POC Ioniz Calcium Pierce (1.12-1.32) mmol/l Total Bilirubin 0.4 (0.2-1) mg/dl AST 11 L (15-37) U/L ALT 11 L (12-78) U/L Alkaline Phosphatase 111 (45-117) U/L Troponin I < 0.015 (0-0.045) ng/ml Total Protein 6.7 (6.4-8.2) gm/dl Albumin 2.5 L (3.4-5.0) gm/dl Globulin 4.2 H (2.5-4.0) gm/dl Albumin/Globulin Ratio 0.6 L (0.9-2) Lipase 62 L (73-393) U/L COVID-19 Eval Order 10/25/20 10/25/20 Range/Units 16:12 17:56 WBC (4.8-10.8) K/uL RBC (4.7-6.1) M/uL Hgb (14.0-18.0) g/dL POC Hgb 9.5 L (14.0-18.0) g/dl Hct (42-52) % POC Hct 28 L (42-52) % MCV (80-100) fL MCH (25-34) pg MCHC (32-36) g/dL RDW Std Deviation (36.4-46.3) fL RDW Coeff of Davide (11.5-14.5) % Plt Count (130-400) K/uL MPV (7.4-10.4) fL Immature Gran % (Auto) % Neut % (Auto) % Lymph % (Auto) % [place] % (Auto) % Eos % (Auto) % Baso % (Auto) % Neut # (Auto) (1.4-6.5) K/uL Lymph # (Auto) (1.2-3.4) K/uL [place] # (Auto) (0.11-0.59) K/uL Eos # (Auto) (0-0.5) K/uL Baso # (Auto) (0-0.2) K/uL Immature Gran # (Auto) (0.00-0.02) K/uL PT (9.0-12.0) Seconds INR (0.9-1.1) APTT (21.0-31.0) Seconds PTT Ratio POC Sodium 134 L (135-144) mmol/L Sodium (136-145) mmol/L POC Potassium 3.6 (3.3-5.0) mmol/L Potassium (3.5-5.1) mmol/L POC Chloride 97 L (101-112) mmol/L Chloride (98-107) mmol/L Carbon Dioxide (21-32) mmol/L POC Total CO2 29 (24-31) mmol/L Anion Gap (3-11) POC Anion Gap 13.0 L (16-25) mmol/L POC BUN 9 (7-18) mg/dl BUN (7-18) mg/dl Creatinine (0.6-1.4) mg/dl POC Creatinine 0.7 (0.6-1.3) mg/dl Est Cr Clr Drug Dosing Est GFR ( Amer) Est GFR (Non-Af Amer) BUN/Creatinine Ratio (10-20) Glucose (70-99) mg/dl POC Glucose (other) 104 H (70-99) mg/dl Calcium (8.5-10.1) mg/dl POC Ioniz Calcium Pierce 1.48 H (1.12-1.32) mmol/l Total Bilirubin (0.2-1) mg/dl AST (15-37) U/L ALT (12-78) U/L Alkaline Phosphatase (45-117) U/L Troponin I (0-0.045) ng/ml Total Protein (6.4-8.2) gm/dl Albumin (3.4-5.0) gm/dl Globulin (2.5-4.0) gm/dl Albumin/Globulin Ratio (0.9-2) Lipase (73-393) U/L COVID-19 Eval Order [facility]Rsv at [facility] Administered Medications Discontinued Medications Sodium Chloride (Nss 1000ml) 1,000 mls @ 999 mls/hr IV .Q1H1M ONE Stop: 10/25/20 16:43 Last Infusion: 10/25/20 17:00 Dose: 0 mls/hr Documented by: [id number] Admin: 10/25/20 15:59 Dose: 999 mls/hr Documented by: [id number] Promethazine HCl (Phenergan) 12.5 mg in 50.5 mls @ 202 mls/hr IV NOW STA Stop: 10/25/20 16:57 Last Infusion: 10/25/20 17:16 Dose: 0 mls/hr Documented by: [id number] Admin: 10/25/20 17:01 Dose: 202 mls/hr Documented by: [id number] Ioversol (Ioversol 100ml) 93 ml IV ONCE ONE Stop: 10/25/20 16:42 Last Admin: 10/25/20 16:42 Dose: 93 ml Documented by: [id number] Ondansetron HCl (Ondansetron Inj 2 Mg/Ml 2 Ml Vial) 4 mg IV NOW STA Stop: 10/25/20 15:31 Last Admin: 10/25/20 15:59 Dose: 4 mg Documented by: [id number] Imaging Data Radiologist's Impression: Patient: BRENT LE V Admit Date: 10/25/20 MR#: [id number] Address1: [address] [place] [address] Acct ID:[id number] Address2: [facility] [address] Date: 1945 [facility] Zip: [place] [id number] Age: 75 Location: ED Sex: M Room/Bed: Att Phy: Diagnosis: ABD PAIN, VOMITING, DIARRHEA Emily Phy: Rodolfo Whyte DO Service Date: 10/25/20 Fam Phy: Interpreting Phy: Jose Guadalupe Basurto MD Admit Phy: Ordering Phy: Javon Aviles DO cc: ~ CT OF THE ABDOMEN AND PELVIS WITH CONTRAST CLINICAL HISTORY: Vomiting. Esophageal cancer. COMPARISON STUDY: CT of the abdomen and pelvis May 14, 2020. PET/CT August 06, 2020. TECHNIQUE: Following IV administration of 93 mL of Optiray-320, axial images of the abdomen and pelvis were obtained from the lung bases to the proximal femurs. Images were reviewed in the axial, sagittal, and coronal planes. IV contrast was administered without complication. Automated exposure control was utilized for the study. A dose lowering technique was utilized adhering to the principles of ALARA. CT DOSE: 485.68 mGy.cm FINDINGS: Distal esophageal stent is noted. The distal aspect is within the stomach. Proximal aspect is not imaged on this abdominal CT. Note is again made of a distal esophageal mass, incompletely imaged on this exam. This has increased in size since PET/CT of August 06, 2020. A right periaortic lymph node is similar to prior PET/CT. Visualized portions of the stent are nearly completely opacified. This increases prior PET/CT. There is no evidence for a bowel obstruction. Interval development of marked rectal wall thickening is noted. There is mild adjacent infiltration. There is mild bladder wall thickening. No hepatic lesions are identified. The spleen, adrenal glands, kidneys and pancreas are unremarkable. Abdominal aorta is ectatic. There is a gallstone within the gallbladder. There is mild gallbladder wall thickening. The gallbladder is not distended. No acute fracture or suspicious lesion is identified within visualized skeletal structures. There is no hydronephrosis. A cyst within the upper pole the left kidney is noted. IMPRESSION: 1. Increase in size of the distal esophageal mass since PET/CT of August 06, 2020. The mass and esophageal stent are partially imaged on this exam. Visualized portions of stent nearly completely opacified. This could reflect fluid however an occluded stent could appear similar. A chest CT with oral contrast immediately to the scan could be obtained to evaluate for patency. 2. No change in a mildly enlarged right paraaortic lymph node. 3. Interval development of marked rectal wall thickening. This favors proctitis. Mild adjacent infiltration. 4. Bladder wall thickening which could be correlated with urinalysis. 5. No large or small bowel obstruction. 6. Cholelithiasis. Mild gallbladder wall thickening. Acute cholecystitis considered unlikely given lack of gallbladder distention. ACT 112: Negative or not required by law. Electronically signed by: Jose Guadalupe Basurto M.D. 10/25/2020 5:11 PM Dictated: 10/25/201657 Transcribed: 10/25/201657 Patient: BRENT LE V Admit Date: 10/25/20 MR#: [id number] Address1: [address] [place], [place] [address]t ID:[id number] Address2: [place] [address] Date: 1945 [facility] Zip: [place] [id number] Age: 75 Location: ED Sex: M Room/Bed: Att Phy: Diagnosis: ABD PAIN, VOMITING, DIARRHEA Emily Phy: Rodolfo Whyte DO Service Date: 10/25/20 Fam Phy: Interpreting Phy: Jose Guadalupe Basurto MD Admit Phy: Ordering Phy: Javon Aviles DO cc: ~ XR chest 1V portable CLINICAL HISTORY: Vomiting. COMPARISON STUDY: PET/CT August 06, 2020. FINDINGS: Esophageal stent is noted. A left subclavian Fosbho-h-Kkui is in place. Patient is rotated. Cardiac mediastinal stable. No evidence for pulmonary edema. There is no consolidation. IMPRESSION: 1. No acute cardiopulmonary findings. 2. No change in position of the esophageal stent. ACT 112: Negative or not required by law. Electronically signed by: Jose Guadalupe Basurto M.D. 10/25/2020 5:12 PM Dictated: 10/25/201710 Transcribed: 10/25/201710 Patient: BRENT EL V Admit Date: 10/25/20 MR#: [id number] Address1: [address] [place] [address] KANDICE Acct ID:[id number] Address2: [place] [address] Date: 1945 [facility] Zip: [place] [id number] Age: 75 Location: ED Sex: M Room/Bed: Att Phy: Diagnosis: ABD PAIN, VOMITING, DIARRHEA Emily Phy: Rodolfo Whyte DO Service Date: 10/25/20 Fam Phy: Interpreting Phy: Jose Guadalupe Basurto MD Admit Phy: Ordering Phy: Javon Aviles DO cc: ~ CT OF THE CHEST WITHOUT IV CONTRAST CLINICAL HISTORY: Esophageal stent. COMPARISON STUDY: Chest CT May 14, 2020. PET/CT August 06, 2020 CT DOSE: 527.92 mGy.cm TECHNIQUE: Axial images of the chest were obtained without IV contrast. Images were reviewed in the axial, sagittal, and coronal planes. IV contrast was not administered for this examination. Automated exposure control was utilized for the study. A dose lowering technique was utilized adhering to the principles of ALARA. Oral contrast was administered prior to ECT. FINDINGS: A left subclavian Wteeay-m-Zpys is in place. Mild cardiomegaly is noted. A small pericardial effusion is similar to chest CT of August 06, 2020. A mildly enlarged right paraaortic lymph node is similar to prior PET/CT. The distal esophageal mass has likely increased in size since prior PET/CT. Oral contrast within the stomach is noted. Therefore, the esophageal stent is patent. There is a small amount of gas between the stent and the adjacent esophagus. There is no pneumomediastinum. No additional enlarged thoracic lymph nodes are p resent. There is no pneumothorax or pleural effusion. Minimal tree-in-bud right lung nodules are noted. There is no confluent consolidation. No suspicious osseous lesions are noted. There is contrast within the collecting systems from recent contrast-enhanced CT. IMPRESSION: 1. Oral contrast within the stomach. Therefore, the esophageal stent is patent. 2. Increase in size of the distal esophageal mass since PET/CT of August 06, 2020. No change in position of the stent. Small amount of gas between the proximal aspect of the stent and the esophagus. No pneumomediastinum. 3. Minimal right lung tree-in-bud nodules which are likely infectious or inflammatory. 4. No change in a mildly enlarged right paraaortic lymph node. 5. No change in a small pericardial effusion. ACT 112: Negative or not required by law. Electronically signed by: Jose Guadalupe Basurto M.D. 10/25/2020 5:56 PM Dictated: 10/25/201747 Transcribed: 10/25/201747 Discharge Plan Visit Data Chief Complaint: GI Assessment Stated Complaint: ABD PAIN, VOMITING, DIARRHEA ED Provider: Javon Aviles Discharge Problem: Esophageal mass, Vomiting Patient Disposition: Being Evaluated by Hospitalist Condition: Good Forms Stand Alone Forms: My [facility] [employer]([place]) Prescriptions Prescriptions: No Action dicyclomine 10 mg capsule 10 mg PO BID RF: 0 fluticasone propionate [Flonase Allergy Relief] 50 mcg/actuation spray,suspension 2 sprays INTNAS DAILY PRN (Reason: Nasal Congestion) RF: 0 guaifenesin [Mucinex] 600 mg tablet extended release 12hr 600 mg PO Q12H PRN (Reason: Congestion) RF: 0 pantoprazole [Protonix] 40 mg tablet,delayed release (DR/EC) 40 mg PO QAM RF: 0 ascorbic acid (vitamin C) 100 mg tablet 100 mg PO DAILY RF: 0 saw palmetto 160 mg capsule 160 mg PO BID RF: 0 echinacea 400 mg capsule 400 mg PO DAILY RF: 0 cholecalciferol (vitamin D3) 3,000 unit tablet 3,000 units PO DAILY RF: 0 mesalamine 1.2 gram Tablet,Delayed Release (Dr/Ec) 2.4 g PO BID RF: 0 prochlorperazine maleate 10 mg tablet 10 mg PO Q6H RF: 0 meclizine 25 mg Tablet 25 mg PO QID PRN (Reason: Dizziness) RF: 0 triamcinolone acetonide 0.1 % Cream 1 applic TOPICAL BID RF: 0 sodium chloride [Saline Nasal] 0.65 % Aerosol,[place] 1 spray INTRANASAL BID PRN (Reason: Congestion) RF: 0 ondansetron 4 mg Tablet,Disintegrating 4 - 8 mg PO Q6H PRN (Reason: Nausea) RF: 0 multivitamin with minerals [Multiple Vitamin-Minerals] Tablet 1 tab PO DAILY RF: 0 promethazine 25 mg Tablet 25 mg PO Q6H PRN (Reason: Nausea) RF: 0 ferrous sulfate 325 mg (65 mg iron) Tablet,Delayed Release (Dr/Ec) 325 mg PO BIDM Qty: 60 RF: 0 Boost Breeze Nutritional 0.04-1.05 gram-kcal/mL liquid 1 ea PO TIDWMEAL Qty: 90 RF: 0 tramadol 50 mg tablet 50 mg PO Q8H PRN (Reason: Pain) Qty: 90 RF: 0 Referrals Referrals: Rodolfo Whyte DO [Primary Care Provider] - Discharge Problem: Vomiting Qualifiers: Vomiting type: unspecified Vomiting Intractability: non-intractable Nausea presence: with nausea Qualified Code(s): R11.2 - Nausea with vomiting, unspecified
[2020-10-25 16:25] LABS: Partial Thromboplastin Time 27.6 Seconds (21.0-31.0); Prothrombin Time 10.1 Seconds (9.0-12.0)
[2020-10-25 16:25] LABS: iSTAT Creatinine 0.7 mg/dl (0.6-1.3); iSTAT Hemoglobin 9.5 g/dl (14.0-18.0); iSTAT Ionized Calcium 1.48 mmol/l (1.12-1.32); iSTAT Potassium 3.6 mmol/L (3.3-5.0)
[2020-10-25 16:29] LABS: Alanine Aminotransferase 11 U/L (12-78); Albumin Level 2.5 gm/dl (3.4-5.0); Aspartate Aminotransferase 11 U/L (15-37); BUN Creatinine Ratio 22.3 (10-20); Blood Urea Nitrogen 13 mg/dl (7-18); Carbon Dioxide 30 mmol/L (21-32); Chloride 103 mmol/L (98-107); Est GFR (African American) 117.3; Est GFR (Non-African American) 101.2; Glucose 102 mg/dl (70-99); Lipase 62 U/L (73-393); Potassium 3.7 mmol/L (3.5-5.1); Sodium 135 mmol/L (136-145)
[2020-10-25 16:35] LABS: Albumin Globulin Ratio 0.6 (0.9-2); Alkaline Phosphatase 111 U/L (45-117); Bilirubin,Total 0.4 mg/dl (0.2-1); Globulin 4.2 gm/dl (2.5-4.0); Total Protein 6.7 gm/dl (6.4-8.2); Troponin I < 0.015 ng/ml (0-0.045)
[2020-10-25] MEDS ORDERED: OPTIRAY 320 100ml IV ONE (16:41)
[2020-10-25] MEDS ORDERED: PROMETHAZINE 12.5 MG/50.5 ML BAG IV STA (16:43)
--- NOTE | 2020-10-25 16:48 | Electrocardiogram Report ---
Test Reason : Blood Pressure : / mmHG Vent. Rate : 065 BPM Atrial Rate : 065 BPM P-R Int : 174 ms QRS Dur : 084 ms QT Int : 380 ms P-R-T Axes : 052 -21 023 degrees QTc Int : 395 ms Poor data quality, interpretation may be adversely affected Normal sinus rhythm with sinus arrhythmia Low voltage QRS Borderline ECG When compared with ECG of 13-SEP-2020 17:09, Premature atrial complexes are no longer Present Confirmed by Alen Holland ([id number]) on 10/25/2020 4:48:03 PM Referred By: Rodolfo Whyte Confirmed By:Rikki Holland
--- NOTE | 2020-10-25 17:12 | CT Scan Report ---
CT OF THE ABDOMEN AND PELVIS WITH CONTRAST CLINICAL HISTORY: Vomiting. Esophageal cancer. COMPARISON STUDY: CT of the abdomen and pelvis May 14, 2020. PET/CT August 06, 2020. TECHNIQUE: Following IV administration of 93 mL of Optiray-320, axial images of the abdomen and pelvi s were obtained from the lung bases to the proximal femurs. Images were reviewed in the axial, sagitt al, and coronal planes. IV contrast was administered without complication. Automated exposure contro l was utilized for the study. A dose lowering technique was utilized adhering to the principles of A TEVIN. CT DOSE: 485.68 mGy.cm FINDINGS: Distal esophageal stent is noted. The distal aspect is within the stomach. Proximal aspect is not imaged on this abdominal CT. Note is again made of a distal esophageal mass, incompletely imag ed on this exam. This has increased in size since PET/CT of August 06, 2020. A right periaortic lymph node is similar to prior PET/CT. Visualized portions of the stent are nearly completely opacified. T his increases prior PET/CT. There is no evidence for a bowel obstruction. Interval development of mar ked rectal wall thickening is noted. There is mild adjacent infiltration. There is mild bladder wall thickening. No hepatic lesions are identified. The spleen, adrenal glands, kidneys and pancreas are u nremarkable. Abdominal aorta is ectatic. There is a gallstone within the gallbladder. There is mild g allbladder wall thickening. The gallbladder is not distended. No acute fracture or suspicious lesion is identified within visualized skeletal structures. There is no hydronephrosis. A cyst within the up per pole the left kidney is noted. IMPRESSION: 1. Increase in size of the distal esophageal mass since PET/CT of August 06, 2020. The mass and esoph ageal stent are partially imaged on this exam. Visualized portions of stent nearly completely opacifi ed. This could reflect fluid however an occluded stent could appear similar. A chest CT with oral con trast immediately to the scan could be obtained to evaluate for patency. 2. No change in a mildly enlarged right paraaortic lymph node. 3. Interval development of marked rectal wall thickening. This favors proctitis. Mild adjacent infilt ration. 4. Bladder wall thickening which could be correlated with urinalysis. 5. No large or small bowel obstruction. 6. Cholelithiasis. Mild gallbladder wall thickening. Acute cholecystitis considered unlikely given la ck of gallbladder distention. ACT 112: Negative or not required by law. Electronically signed by: Jose Guadalupe Basurto M.D. 10/25/2020 5:11 PM
--- NOTE | 2020-10-25 17:14 | XRay Report ---
XR chest 1V portable CLINICAL HISTORY: Vomiting. COMPARISON STUDY: PET/CT August 06, 2020. FINDINGS: Esophageal stent is noted. A left subclavian [id number] is in place. Patient is rotated. Cardiac mediastinal stable. No evidence for pulmonary edema. There is no consolidation. IMPRESSION: 1. No acute cardiopulmonary findings. 2. No change in position of the esophageal stent. ACT 112: Negative or not required by law. Electronically signed by: Jose Guadalupe Basurto M.D. 10/25/2020 5:12 PM
--- NOTE | 2020-10-25 17:57 | CT Scan Report ---
CT OF THE CHEST WITHOUT IV CONTRAST CLINICAL HISTORY: Esophageal stent. COMPARISON STUDY: Chest CT May 14, 2020. PET/CT August 06, 2020 CT DOSE: 527.92 mGy.cm TECHNIQUE: Axial images of the chest were obtained without IV contrast. Images were reviewed in the axial, sagittal, and coronal planes. IV contrast was not administered for this examination. Automat ed exposure control was utilized for the study. A dose lowering technique was utilized adhering to t he principles of ALARA. Oral contrast was administered prior to ECT. FINDINGS: A left subclavian [id number]-f-[id number] is in place. Mild cardiomegaly is noted. A small pericardi al effusion is similar to chest CT of August 06, 2020. A mildly enlarged right paraaortic lymph node is similar to prior PET/CT. The distal esophageal mass has likely increased in size since prior PET/C T. Oral contrast within the stomach is noted. Therefore, the esophageal stent is patent. There is a s mall amount of gas between the stent and the adjacent esophagus. There is no pneumomediastinum. No ad ditional enlarged thoracic lymph nodes are present. There is no pneumothorax or pleural effusion. Min imal tree-in-bud right lung nodules are noted. There is no confluent consolidation. No suspicious oss eous lesions are noted. There is contrast within the collecting systems from recent contrast-enhanced CT. IMPRESSION: 1. Oral contrast within the stomach. Therefore, the esophageal stent is patent. 2. Increase in size of the distal esophageal mass since PET/CT of August 06, 2020. No change in posit ion of the stent. Small amount of gas between the proximal aspect of the stent and the esophagus. No pneumomediastinum. 3. Minimal right lung tree-in-bud nodules which are likely infectious or inflammatory. 4. No change in a mildly enlarged right paraaortic lymph node. 5. No change in a small pericardial effusion. ACT 112: Negative or not required by law. Electronically signed by: Jose Guadalupe Basurto M.D. 10/25/2020 5:56 PM
--- NOTE | 2020-10-25 18:28 | History & Physical Report ---
Date of Service October 25, 2020 Assessment & Plan (1) Esophageal cancer: (2) Esophageal mass: - Admit to med surg - Gi consulted, Dr. Butterfield ammunition officer currently, plan to allow clear liquid diet tonight, NPO after midnight, and plan for EGD with stent placement tomorrow with Dr. Stafford -Stage IV esophageal cancer with bony mets diagnosed in 2019 s/p stent placement, ongoing chemotherapy with FOLFIRI currently on hold (last round was in Aug 2020) - Pt follows with oncology at [facility] and [facility] - was supposed to have follow up appt at cancer center tomorrow - I have notified their provider that he is admitted. - Antiemetics - Pain medication prn (3) Vomiting: - Antiemetics prn - improving (4) Weakness: - Secondary to above - Continue NSS 125 ml/hr x 1 day (5) Crohn disease: - Hx of such- currently loose bowels, hold on stool softeners, miralax, colace, as he had been using these prn in the last few days for constipation issues due to iron supplementation. (6) Obstructive sleep apnea syndrome: - Stable, former tobacco use, 40 year pack history, quit in 2006 - Wears Bipap HS: min EPAP 8, max IPAP 12, PS 0-7 (7) Anemia: - Chronic, hgb 9.2, hct 29 - Was supposed to start outpatient IV iron recently, hold for now with current medical issues, defer to heme/onc as outpatient (8) Dyslipidemia: - Hx of such, not on statin therapy (9) DVT prophylaxis: - kei bravo subq CODE: DNR/DNI Dispo: From home, likely to remain in the hospital x 2 days. History of Present Illness Primary Care Provider: Rodolfo Whyte DO This is a 75-year-old male with PMHx of stage IV esophageal cancer with bony mets diagnosed in 2019, s/p esophageal stent placement, chemotherapy currently on hold, Irritable bowel disease, hyperlipidemia, prediabetes, chronic anemia, gout, CRESENCIO, on BiPAP and remote history of tobacco abuse who presents to the ER with worsening abdominal pain, nausea and vomiting. The most recent esophageal stent was placed on 08/31/[address] Pascal at [facility]. reports that he was previously on FULFIRI chemotherapy but last round was in August, and has been unable to get it due to hospitalization here at [facility] from 09/14/2020 to 09/21/2020 for bilateral leg weakness and confusion. This improved and was then discharged from [facility] for PT/OT. Patient has since been home for 1 week and felt like he was doing well up until today. Overall his p.o. intake has been diminished recently, which he thought was due to constipation. Pt had been using stool softeners to improve this, but now his bowels are now very loose. His was concerned that with diarrhea and poor oral intake dehydration was worsening and that he was becoming weaker. Pt then developed worsening abdominal pain, nausea, and began vomiting today around 11am. PT/OT were at his home for a visit s/p discharge from rehab, and ansley sted he go to the ER. Pt nausea improved with phenergan and zofran in the ER, and is currently getting fluids. He denies abdominal pain at this time and nausea has improved. Allergies Allergy/AdvReac Type Severity Reaction Status Date / Time amoxicillin Allergy Intermediate Leg Verified 10/25/20 19:12 swelling/inflammation cefazolin Allergy Intermediate rash Verified 10/25/20 19:12 clindamycin Allergy Intermediate rash Verified 10/25/20 19:12 doxycycline Allergy Intermediate rash Verified 10/25/20 19:12 Sulfa (Sulfonamide Allergy Unknown Unknown Verified 10/25/20 19:12 Antibiotics) Home Medications Medication Instructions Recorded Confirmed Type mesalamine 2.4 g PO BID 05/04/19 10/25/20 History ondansetron 4 - 8 mg PO Q6H PRN 09/13/20 10/25/20 History promethazine 25 mg PO Q6H PRN 09/13/20 10/25/20 History sodium chloride [Saline Nasal] 1 spray INTRANASAL BID PRN 09/13/20 10/25/20 History tramadol 50 mg PO Q8H PRN #90 tab 09/21/20 10/25/20 Rx pantoprazole 40 mg PO QAM 10/25/20 10/25/20 History Past Med/Surg History Medical History Arthritis stable Crohn disease (06/01/14) stable Diabetes mellitus type 2 in nonobese (09/09/11) Esophageal cancer + esophageal stent, plan for future chemo GERD (gastroesophageal reflux disease) controlled Gout Migraine hx Obesity Obstruction of esophagus Palliative care encounter Port-A-Cath in place (05/09/19) Insertion of A-Port Dr. Jorge 05/09/19 Sleep apnea BIPAP Weakness Surgical History History of colonoscopy History of esophagogastroduodenoscopy (EGD) History of tonsillectomy History of total knee replacement bilateral S/P dilatation of esophageal stricture + stent Family History Mother Diabetes Father Heart disease FHx: lung cancer Social History Smoking Status: Former smoker Tobacco Type: Cigarettes Second Hand Exposure: No; Hx Alcohol Use: No Hx Substance Use: No Preferred Language: Ukrainian Communication Ability: Effective Cloth Tester Quality Required: No Beliefs That Will Affect Care: None marital status: / Current Living Situation: Other Current Living Situation Comment: Lives in a home with lady friend x 21 yrs current occupational status: retired Feels Safe at Home: Yes Assistive Devices: CPAP and Walker Review of Systems Review of Systems: Constitutional: No fever, sweats or chills Eyes: No diplopia, no worsening or blurred vision ENT: normal hearing, no trouble swallowing Respiratory: No cough, sputum, dyspnea at rest or on exertion Cardiovascular: No chest pain, tightness or palpitations Abdomen: As per HPI. Musculoskeletal: No joint pain, calf pain, swelling Neurologic: No weakness, numbness/tingling, or balance problems Psychiatric: No anxiety or depression Skin: No rash or itch Physical Exam Physical Exam: General: awake, alert, no apparent distress, + thin Head: Normocephalic, atraumatic ENT: PERRL, EOMI, no pharyngeal exudate, mucous membranes moist Chest: Clear to auscultation, on room air, no adventitious breath sounds Cardiac: Regular rate and rhythm, no murmur, no JVD, normal peripheral pulses, good capillary refill Abdominal: NABS x 4 quadrants, soft, nondistended, nontender to palpation, no rebound or guarding Extremities: Normal inspection, no peripheral edema or erythema, calfs nontender to palpation Psych: Normal mood and affect Neuro: AAO x 3, strength intact bilaterally and rated 5/5, no motor deficits, speech is clear, no peripheral sensory deficits Results & Data Results & Data ([facility]) Vital Signs (Past 12 Hours) Vital Signs Temp Pulse Resp BP Pulse Ox 10/25/20 15:17 36.2 C L 114 H 20 110/62 98 Code Status & VTE Plan Code Status DNR/DNI - discussed with the patient and his at bedside in detail. Supervising Physician Co-Signing Physician Notes Attending addendum: The patient was seen and examined in emergency room in presence of the He has history of esophageal cancer and status post stent placement with a chemo about 2 months ago He is here for another stent placement tomorrow On examination Lying in bed comfortably Hemodynamically stable Chest-clear to auscultate bilaterally Heart-S1-S2, regular Abdomen-emaciated, bowel sounds present Extremitiesnegative for any edema Admission labs, EKG and imaging studies reviewed Esophageal cancer with prior stent placement and going to have another stent placement tomorrow Agree with assessment and plan as outlined above by Brooke Anglin (1) Esophageal cancer Malignant neoplasm of esophagus location: unspecified location Qualified Code(s): C15.9 - Malignant neoplasm of esophagus, unspecified (2) Vomiting Nausea presence: with nausea Vomiting Intractability: non-intractable Vomiting type: unspecified Qualified Code(s): R11.2 - Nausea with vomiting, unspecified
[2020-10-25 19:00] LABS: Influenza A virus by PCR Negative (Neg); Influenza B virus by PCR Negative (Neg); RSV by PCR Negative (Neg); SARS CoV2 RNA(COVID-19) InHosp NEGATIVE (Negative)
[2020-10-25 19:19] LABS: Appearance Urine Clear (Clear); Bilirubin Urine Negative (Negative); Blood Urine Negative (Negative); Color Urine Yellow; Glucose Urine UA Negative (Negative); Ketones Urine Negative (Negative); Leukocyte Esterase Urine Negative (Negative); Nitrite Urine Negative (Negative); Protein Urine Negative (Negative); Specific Gravity Urine 1.036 (1.000-1.030); Urobilinogen Urine Negative (Negative)
[2020-10-25] MEDS ORDERED: ACETAMINOPHEN 325 MG TAB PO PRN (20:30)
[2020-10-25] MEDS ORDERED: traMADol HCL 50 MG TABLET PO PRN (20:30)
[2020-10-25] MEDS ORDERED: METOCLOPRAMIDE HCL INJ 5 MG/ML 2 ML VIAL IV PRN (20:30)
[2020-10-25] MEDS ORDERED: SODIUM CHLORIDE 0.65% NA SOLN 45 ML (OCEAN) PRN (20:30)
[2020-10-25] MEDS ORDERED: ONDANSETRON INJ 2 MG/ML 2 ML VIAL IV PRN (20:30)
[2020-10-25] MEDS: SODIUM CHLORIDE 0.9% 1000ML 1,000 ML IV SCH (20:44)
[2020-10-25] MEDS ORDERED: FAMOTIDINE 20MG/5ML IV PUSH IV SCH (21:00)
[2020-10-25] MEDS: FAMOTIDINE 20 MG in SYRINGE 3 ML IV SCH (21:15)
[2020-10-25] MEDS ORDERED: HEPARIN 100 UNIT/ML 5ML FLUSH FLUSH PRN (23:26)
[2020-10-26] MEDS: [UNRECOGNIZED DRUG - REMARK] SCH ×3 (00:07→15:51)
[2020-10-26] MEDS: SODIUM CHLORIDE 0.9% 1000ML 1,000 ML IV SCH ×2 (04:51→14:54)
[2020-10-26 06:31] LABS: Hematocrit (blood only) 25.9 % (42-52); Hemoglobin 8.4 g/dL (14.0-18.0); Mean Corpuscular Hemoglobin 26.9 pg (25-34); Mean Corpuscular Hgb Conc 32.4 g/dL (32-36); Mean Platelet Volume 7.8 fL (7.4-10.4); Platelet Count 299 K/uL (130-400); RDW Coefficient of Variation 17.3 % (11.5-14.5); RDW Standard Deviation 52.5 fL (36.4-46.3); Red Blood Count 3.12 M/uL (4.7-6.1)
[2020-10-26 07:00] LABS: Albumin Level 2.1 gm/dl (3.4-5.0); Calcium 9.6 mg/dl (8.5-10.1); Creatinine Clr Calc Pharmacy 100.5 ml/min; Est GFR (Non-African American) 103.5; Potassium 3.5 mmol/L (3.5-5.1)
[2020-10-26 07:03] LABS: Albumin Globulin Ratio 0.6 (0.9-2); Bilirubin,Total 0.6 mg/dl (0.2-1); Globulin 3.7 gm/dl (2.5-4.0); Total Protein 5.8 gm/dl (6.4-8.2)
[2020-10-26] MEDS ORDERED: PANTOprazole 40 MG TAB PO SCH (09:00)
[2020-10-26] MEDS ORDERED: ENOXAPARIN INJ 40 MG/0.4 ML SYR SQ SCH (09:00)
[2020-10-26] MEDS: FAMOTIDINE 20 MG in SYRINGE 3 ML IV SCH (10:05)
--- NOTE | 2020-10-26 11:55 | Gastrointestinal Consultation ---
Date of Consultation October 26, 2020 Assessment & Plan (1) Vomiting: (2) Esophageal mass: (3) Esophageal cancer: This is 75-year-old male with history of esophageal cancer, status post esophageal stenting, most recently in August 2020, presents with worsening nausea vomiting, regurgitation, weakness and feeling like his stent may be occluded, with imaging showing increased in size of his esophageal mass since most recent PET in August. - Keep NPO - Supportive care with IVF - Antiemetics PRN - Analgesia PRN - Daily PPI - Will discuss timing of repeat EGD/stent placement with endoscopist Supervising Physician Co-Signing Physician Notes I saw and evaluated the patient. We are consulted for suspected obstruction of an esophageal stent. The patient had a prior stent placed about 9 months ago and was found to have evidence of tumor ingrowth in the August at which time a new stent was placed through the existing stent. The patient does continue to lose weight and appears to be slowly losing his mabry with esophageal cancer. Physical examination Frail, thin male with cachexia Impression Patient with a suspected occlusion of an existing esophageal stent. This is a very complicated case given his recently placed covered stent. We will interrogate the stent and determine if the existing stent can be removed and perhaps a new stent placed. It is quite possible that the patient may need referral to a tertiary care center subspecialty expertise in treatment and management of advanced esophageal cancer should be be not able to place a new stent today. Alternatives for feeding could certainly include use of a feeding tube although this may be at high risk given the patient's history of inflammatory bowel disease History of Present Illness Reason for Consultation: Esophageal mass, stenting Requesting Physician: Liss Nice PA-C Attending Physician: Yaritza Anglin MD History of Present Illness This is a 75-year-old male with history of esophageal cancer with bony mets s/p several esophageal stent placements, most recently 08/31/2020, also history of Crohn's, chemotherapy currently on hold, chronic anemia, and others, who presented to the ER yesterday with worsening nausea, vomiting, regurgitation, epigastric abdominal discomfort, feels his stent may be blocked. On arrival, labs with chronic stable anemia, electrolytes and renal function, li trinity function unremarkable, INR 1.0. He underwent imaging including CTAP noting increased size of distal esophageal mass since last PET in August 2020, concerning for occluded stent. CT chest noted oral contrast in the stomach, suggesting patent esophageal stent, no pneumomediastinum. He was made NPO at midnight and given antiemetics. Overnight, he has had no further nausea vomiting; does have some ongoing epigastric discomfort. Labs this a.m. are stable. He states that since his most recent stent in August, he has been following a stent diet, however having difficulty with liquids and solid foods over the last few days, with regurgitation. States bowels can alternate between constipation and loose stool, denies any stool overnight. Denies hematemesis, melena or hematochezia, denies diarrhea, fevers or chills, chest pain or shortness of breath, cough, leg edema. VSS. Last EGD 08/31/2020: Pre-existing partially covered esophageal stent with tumor ingrowth and extension above the stent, this was restented with a 12.5 cm wall flex covered stent. Allergies Allergy/AdvReac Type Severity Reaction Status Date / Time amoxicillin Allergy Intermediate Leg Verified 10/25/20 19:12 swelling/inflammation cefazolin Allergy Intermediate rash Verified 10/25/20 19:12 clindamycin Allergy Intermediate rash Verified 10/25/20 19:12 doxycycline Allergy Intermediate rash Verified 10/25/20 19:12 Sulfa (Sulfonamide Allergy Unknown Unknown Verified 10/25/20 19:12 Antibiotics) Home Medications Medication Instructions Recorded Confirmed Type mesalamine 2.4 g PO BID 05/04/19 10/25/20 History ondansetron 4 - 8 mg PO Q6H PRN 09/13/20 10/25/20 History promethazine 25 mg PO Q6H PRN 09/13/20 10/25/20 History sodium chloride [Saline Nasal] 1 spray INTRANASAL BID PRN 09/13/20 10/25/20 History tramadol 50 mg PO Q8H PRN #90 tab 09/21/20 10/25/20 Rx pantoprazole 40 mg PO QAM 10/25/20 10/25/20 History Patient History Medical History Arthritis stable Crohn disease (06/01/14) stable Diabetes mellitus type 2 in nonobese (09/09/11) Esophageal cancer + esophageal stent, plan for future chemo GERD (gastroesophageal reflux disease) controlled Gout Migraine hx Obesity Obstruction of esophagus Palliative care encounter Port-A-Cath in place (05/09/19) Insertion of A-Port Dr. Jorge 05/09/19 Sleep apnea BIPAP Weakness Surgical History History of colonoscopy History of esophagogastroduodenoscopy (EGD) History of tonsillectomy History of total knee replacement bilateral S/P dilatation of esophageal stricture + stent Family History Mother Diabetes Father Heart disease FHx: lung cancer Social History Smoking Status: Former smoker Tobacco Type: Cigarettes Second Hand Exposure: No; Hx Alcohol Use: No Hx Substance Use: No Preferred Language: Venezuelan Communication Ability: Effective Escalator Mechanic Required: No Beliefs That Will Affect Care: None marital status: / Current Living Situation: Spouse Current Living Situation Comment: lives at home with current occupational status: retired Other Information That Helps Us Care for You: No Feels Safe at Home: Yes Safety Concerns: Feels Safe At This Time Assistive Devices: Cane, Denture - Upper and Glasses Review of Systems Review of Systems: All systems reviewed & are unremarkable except as noted in HPI & below Physical Exam Constitutional: + thin; no acute distress Eyes: PERRL, conjunctivae normal, anicteric sclerae Respiratory: normal respiratory effort, lungs clear to auscultation Cardiovascular: Rate/Rhythm: regular rate and regular rhythm Gastrointestinal (Abdomen): Inspection/Auscultation: abdomen normal to inspection and normal bowel sounds; abdomen not distended Percussion/Palpation: abdomen soft; abdomen nontender Skin: no rashes, warm and dry Psychiatric: A+Ox3, euthymic affect Results & Data ([facility]) Vital Signs (Past 12 Hours) Vital Signs Temp Pulse Resp BP Pulse Ox 10/26/20 07:35 36.7 C 66 16 131/64 97 Laboratory Results 10/26/20 10/26/20 10/25/20 Range/Units 06:09 06:09 19:00 WBC 11.50 H (4.8-10.8) K/uL RBC 3.12 L (4.7-6.1) M/uL Hgb 8.4 L (14.0-18.0) g/dL POC Hgb (14.0-18.0) g/dl Hct 25.9 L (42-52) % POC Hct (42-52) % MCV 83.0 (80-100) fL MCH 26.9 (25-34) pg MCHC 32.4 (32-36) g/dL RDW Std Deviation 52.5 H (36.4-46.3) fL RDW Coeff of Davide 17.3 H (11.5-14.5) % Plt Count 299 (130-400) K/uL MPV 7.8 (7.4-10.4) fL Immature Gran % (Auto) % Neut % (Auto) % Lymph % (Auto) % Bell % (Auto) % Eos % (Auto) % Baso % (Auto) % Neut # (Auto) (1.4-6.5) K/uL Lymph # (Auto) (1.2-3.4) K/uL Bell # (Auto) (0.11-0.59) K/uL Eos # (Auto) (0-0.5) K/uL Baso # (Auto) (0-0.2) K/uL Immature Gran # (Auto) (0.00-0.02) K/uL PT (9.0-12.0) Seconds INR (0.9-1.1) APTT (21.0-31.0) Seconds PTT Ratio POC Sodium (135-144) mmol/L Sodium 139 (136-145) mmol/L POC Potassium (3.3-5.0) mmol/L Potassium 3.5 (3.5-5.1) mmol/L POC Chloride (101-112) mmol/L Chloride 108 H (98-107) mmol/L Carbon Dioxide 28 (21-32) mmol/L POC Total CO2 (24-31) mmol/L Anion Gap 3.0 (3-11) POC Anion Gap (16-25) mmol/L POC BUN (7-18) mg/dl BUN 8 D (7-18) mg/dl Creatinine 0.53 L (0.6-1.4) mg/dl POC Creatinine (0.6-1.3) mg/dl Est Cr Clr Drug Dosing 100.5 Est GFR ( Amer) 120.0 Est GFR (Non-Af Amer) 103.5 BUN/Creatinine Ratio 15.0 (10-20) Glucose 83 (70-99) mg/dl POC Glucose (other) (70-99) mg/dl Calcium 9.6 (8.5-10.1) mg/dl POC Ioniz Calcium Pierce (1.12-1.32) mmol/l Total Bilirubin 0.6 (0.2-1) mg/dl AST 8 L (15-37) U/L ALT 8 L (12-78) U/L Alkaline Phosphatase 95 (45-117) U/L Troponin I (0-0.045) ng/ml Total Protein 5.8 L (6.4-8.2) gm/dl Albumin 2.1 L (3.4-5.0) gm/dl Globulin 3.7 (2.5-4.0) gm/dl Albumin/Globulin Ratio 0.6 L (0.9-2) Lipase (73-393) U/L Urine Color Yellow Urine Appearance Clear (Clear) Urine pH 6.0 (4.5-7.5) Ur Specific Mcdaniels 1.036 H (1.000-1.030) Urine Protein Negative (Negative) Urine Glucose (UA) Negative (Negative) Urine Ketones Negative (Negative) Urine Blood Negative (Negative) Urine Nitrite Negative (Negative) Urine Bilirubin Negative (Negative) Urine Urobilinogen Negative (Negative) Ur Leukocyte Esterase Negative (Negative) COVID-19 Eval Order SARS-CoV-2 (PCR) (Negative) Influenza Type A (PCR) (Neg) Influenza Type B (PCR) (Neg) RSV (RT-PCR) (Neg) 10/25/20 10/25/20 10/25/20 Range/Units 17:56 17:56 16:12 WBC (4.8-10.8) K/uL RBC (4.7-6.1) M/uL Hgb (14.0-18.0) g/dL POC Hgb 9.5 L (14.0-18.0) g/dl Hct (42-52) % POC Hct 28 L (42-52) % MCV (80-100) fL MCH (25-34) pg MCHC (32-36) g/dL RDW Std Deviation (36.4-46.3) fL RDW Coeff of Davide (11.5-14.5) % Plt Count (130-400) K/uL MPV (7.4-10.4) fL Immature Gran % (Auto) % Neut % (Auto) % Lymph % (Auto) % Bell % (Auto) % Eos % (Auto) % Baso % (Auto) % Neut # (Auto) (1.4-6.5) K/uL Lymph # (Auto) (1.2-3.4) K/uL Bell # (Auto) (0.11-0.59) K/uL Eos # (Auto) (0-0.5) K/uL Baso # (Auto) (0-0.2) K/uL Immature Gran # (Auto) (0.00-0.02) K/uL PT (9.0-12.0) Seconds INR (0.9-1.1) APTT (21.0-31.0) Seconds PTT Ratio POC Sodium 134 L (135-144) mmol/L Sodium (136-145) mmol/L POC Potassium 3.6 (3.3-5.0) mmol/L Potassium (3.5-5.1) mmol/L POC Chloride 97 L (101-112) mmol/L Chloride (98-107) mmol/L Carbon Dioxide (21-32) mmol/L POC Total CO2 29 (24-31) mmol/L Anion Gap (3-11) POC Anion Gap 13.0 L (16-25) mmol/L POC BUN 9 (7-18) mg/dl BUN (7-18) mg/dl Creatinine (0.6-1.4) mg/dl POC Creatinine 0.7 (0.6-1.3) mg/dl Est Cr Clr Drug Dosing Est GFR ( Amer) Est GFR (Non-Af Amer) BUN/Creatinine Ratio (10-20) Glucose (70-99) mg/dl POC Glucose (other) 104 H (70-99) mg/dl Calcium (8.5-10.1) mg/dl POC Ioniz Calcium Pierce 1.48 H (1.12-1.32) mmol/l Total Bilirubin (0.2-1) mg/dl AST (15-37) U/L ALT (12-78) U/L Alkaline Phosphatase (45-117) U/L Troponin I (0-0.045) ng/ml Total Protein (6.4-8.2) gm/dl Albumin (3.4-5.0) gm/dl Globulin (2.5-4.0) gm/dl Albumin/Globulin Ratio (0.9-2) Lipase (73-393) U/L Urine Color Urine Appearance (Clear) Urine pH (4.5-7.5) Ur Specific Mcdaniels (1.000-1.030) Urine Protein (Negative) Urine Glucose (UA) (Negative) Urine Ketones (Negative) Urine Blood (Negative) Urine Nitrite (Negative) Urine Bilirubin (Negative) Urine Urobilinogen (Negative) Ur Leukocyte Esterase (Negative) COVID-19 Eval Order [facility]FluRsv at [facility] SARS-CoV-2 (PCR) NEGATIVE (Negative) Influenza Type A (PCR) Negative (Neg) Influenza Type B (PCR) Negative (Neg) RSV (RT-PCR) Negative (Neg) 10/25/20 10/25/20 10/25/20 Range/Units 16:00 16:00 16:00 WBC 9.89 (4.8-10.8) K/uL RBC 3.50 L (4.7-6.1) M/uL Hgb 9.2 L (14.0-18.0) g/dL POC Hgb (14.0-18.0) g/dl Hct 29.0 L (42-52) % POC Hct (42-52) % MCV 82.9 (80-100) fL MCH 26.3 (25-34) pg MCHC 31.7 L (32-36) g/dL RDW Std Deviation 52.5 H (36.4-46.3) fL RDW Coeff of Davide 17.1 H (11.5-14.5) % Plt Count 303 (130-400) K/uL MPV 8.1 (7.4-10.4) fL Immature Gran % (Auto) 0.1 % Neut % (Auto) 82.5 % Lymph % (Auto) 10.3 % Bell % (Auto) 5.9 % Eos % (Auto) 0.9 % Baso % (Auto) 0.3 % Neut # (Auto) 8.16 H (1.4-6.5) K/uL Lymph # (Auto) 1.02 L (1.2-3.4) K/uL Bell # (Auto) 0.58 (0.11-0.59) K/uL Eos # (Auto) 0.09 (0-0.5) K/uL Baso # (Auto) 0.03 (0-0.2) K/uL Immature Gran # (Auto) 0.01 (0.00-0.02) K/uL PT 10.1 (9.0-12.0) Seconds INR 1.0 (0.9-1.1) APTT 27.6 (21.0-31.0) Seconds PTT Ratio 1.0 POC Sodium (135-144) mmol/L Sodium 135 L (136-145) mmol/L POC Potassium (3.3-5.0) mmol/L Potassium 3.7 (3.5-5.1) mmol/L POC Chloride (101-112) mmol/L Chloride 103 (98-107) mmol/L Carbon Dioxide 30 (21-32) mmol/L POC Total CO2 (24-31) mmol/L Anion Gap 2.0 L (3-11) POC Anion Gap (16-25) mmol/L POC BUN (7-18) mg/dl BUN 13 (7-18) mg/dl Creatinine 0.56 L (0.6-1.4) mg/dl POC Creatinine (0.6-1.3) mg/dl Est Cr Clr Drug Dosing Not Reportable Est GFR ( Amer) 117.3 Est GFR (Non-Af Amer) 101.2 BUN/Creatinine Ratio 22.3 H (10-20) Glucose 102 H (70-99) mg/dl POC Glucose (other) (70-99) mg/dl Calcium 10.0 (8.5-10.1) mg/dl POC Ioniz Calcium Pierce (1.12-1.32) mmol/l Total Bilirubin 0.4 (0.2-1) mg/dl AST 11 L (15-37) U/L ALT 11 L (12-78) U/L Alkaline Phosphatase 111 (45-117) U/L Troponin I < 0.015 (0-0.045) ng/ml Total Protein 6.7 (6.4-8.2) gm/dl Albumin 2.5 L (3.4-5.0) gm/dl Globulin 4.2 H (2.5-4.0) gm/dl Albumin/Globulin Ratio 0.6 L (0.9-2) Lipase 62 L (73-393) U/L Urine Color Urine Appearance (Clear) Urine pH (4.5-7.5) Ur Specific Mcdaniels (1.000-1.030) Urine Protein (Negative) Urine Glucose (UA) (Negative) Urine Ketones (Negative) Urine Blood (Negative) Urine Nitrite (Negative) Urine Bilirubin (Negative) Urine Urobilinogen (Negative) Ur Leukocyte Esterase (Negative) COVID-19 Eval Order SARS-CoV-2 (PCR) (Negative) Influenza Type A (PCR) (Neg) Influenza Type B (PCR) (Neg) RSV (RT-PCR) (Neg) Diagnostic Findings CTAP' 1. Increase in size of the distal esophageal mass since PET/CT of August 06, 2020. The mass and esophageal stent are partially imaged on this exam. Visualized portions of stent nearly completely opacified. This could reflect fluid however an occluded stent could appear similar. A chest CT with oral contrast immediately to the scan could be obtained to evaluate for patency. 2. No change in a mildly enlarged right paraaortic lymph node. 3. Interval development of marked rectal wall thickening. This favors proctitis. Mild adjacent infiltration. 4. Bladder wall thickening which could be correlated with urinalysis. 5. No large or small bowel obstruction. 6. Cholelithiasis. Mild gallbladder wall thickening. Acute cholecystitis considered unlikely given lack of gallbladder distention. CT chest: FINDINGS: A left subclavian [id number] is in place. Mild cardiomegaly is noted. A small pericardial effusion is similar to chest CT of August 06, 2020. A mildly enlarged right paraaortic lymph node is similar to prior PET/CT. The distal esophageal mass has likely increased in size since prior PET/CT. Oral contrast within the stomach is noted. Therefore, the esophageal stent is patent. There is a small amount of gas between the stent and the adjacent esophagus. There is no pneumomediastinum. No additional enlarged thoracic lymph nodes are present. There is no pneumothorax or pleural effusion. Minimal tree-in-bud right lung nodules are noted. There is no confluent consolidation. No suspicious osseous lesions are noted. There is contrast within the collecting systems from recent contrast-enhanced CT. IMPRESSION: 1. Oral contrast within the stomach. Therefore, the esophageal stent is patent. 2. Increase in size of the distal esophageal mass since PET/CT of August 06, 2020. No change in position of the stent. Small amount of gas between the proximal aspect of the stent and the esophagus. No pneumomediastinum. 3. Minimal right lung tree-in-bud nodules which are likely infectious or inflammatory. 4. No change in a mildly enlarged right paraaortic lymph node. 5. No change in a small pericardial effusion. (1) Esophageal cancer Malignant neoplasm of esophagus location: unspecified location Qualified Code(s): C15.9 - Malignant neoplasm of esophagus, unspecified (2) Vomiting Nausea presence: with nausea Vomiting Intractability: non-intractable Vomiting type: unspecified Qualified Code(s): R11.2 - Nausea with vomiting, unspecified
[2020-10-26] MEDS ORDERED: GLYCOPYRROLATE 0.2 MG/ML VIAL ONE (13:02)
[2020-10-26] MEDS ORDERED: ONDANSETRON INJ 2 MG/ML 2 ML VIAL ONE (13:02)
[2020-10-26] MEDS ORDERED: PROPOFOL IV EMULSION 10 MG/ML 20 ML VIAL IV ONE (13:02)
[2020-10-26] MEDS ORDERED: LIDOCAINE HCL 2% 2 ML VIAL/AMP(20MG/ML) INFIL ONE (13:02)
[2020-10-26] MEDS ORDERED: fentaNYL citrate 100 MCG/2 ML VIAL IV PRN (13:22)
[2020-10-26] MEDS ORDERED: ATROPINE SULFATE 0.1 MG/ML 10ML SYR IV PRN (13:22)
[2020-10-26] MEDS ORDERED: ePHEDrine sulfate 50 MG/ML AMP IV PRN (13:22)
[2020-10-26] MEDS ORDERED: ONDANSETRON INJ 2 MG/ML 2 ML VIAL IV PRN (13:22)
--- NOTE | 2020-10-26 13:22 | Anesthesiology Consultation ---
Date of Service October 26, 2020 Assessment & Plan ASA ASA4 Proposed Anesthesia Anesthesia Type: General Risk / Benefits Reviewed With: PT / POA / Parent / Guardian, Accepts Plan and Informed Consent Obtained History Surgery Operation Date: 10/26/20 10:10 Proposed Procedures p Esophagogastroduodenoscopy - Paula Stafford DO Height/Weight Height: 5 ft 7 in Weight: 59 kg Allergies Allergy/AdvReac Type Severity Reaction Status Date / Time amoxicillin Allergy Intermediate Leg Verified 10/25/20 19:12 swelling/inflammation cefazolin Allergy Intermediate rash Verified 10/25/20 19:12 clindamycin Allergy Intermediate rash Verified 10/25/20 19:12 doxycycline Allergy Intermediate rash Verified 10/25/20 19:12 Sulfa (Sulfonamide Allergy Unknown Unknown Verified 10/25/20 19:12 Antibiotics) Medications Home Medications Medication Instructions Recorded Confirmed Last Taken mesalamine 2.4 g PO BID 05/04/19 10/25/20 10/25/20 ondansetron 4 - 8 mg PO Q6H PRN 09/13/20 10/25/20 Unknown promethazine 25 mg PO Q6H PRN 09/13/20 10/25/20 Unknown sodium chloride [Saline Nasal] 1 spray INTRANASAL BID PRN 09/13/20 10/25/20 Unknown tramadol 50 mg PO Q8H PRN #90 tab 09/21/20 10/25/20 Unknown pantoprazole 40 mg PO QAM 10/25/20 10/25/20 10/25/20 Active Medications Generic Name Dose Route Start Last Admin Trade Name Freq PRN Reason Stop Dose Admin Enoxaparin Sodium 40 mg 10/26/20 09:00 10/26/20 10:01 Enoxaparin Inj 40 Mg/0.4 Ml Syr SQ 11/25/20 08:59 40 mg QAM KAYDEN Administration Sodium Chloride 1,000 mls @ 125 mls/hr 10/25/20 20:30 10/26/20 04:51 Nss 1000ml IV 10/26/20 20:29 125 mls/hr .Q8H KAYDEN Administration Famotidine 20 mg/ Syringe 5 mls @ 2.5 mls/min 10/25/20 21:00 10/26/20 10:05 IV 11/24/20 20:59 2.5 mls/min BID KAYDEN Administration Miscellaneous 1 ea 10/26/20 00:00 10/26/20 10:01 Mesalamine 1.2 Gram Tablet,Delayed Release (/Ec) Order Awaiting Action N/A 11/25/20 00:00 Not Given QS KAYDEN Pantoprazole Sodium 40 mg 10/26/20 09:00 10/26/20 10:00 Pantoprazole 40 Mg Tab PO 11/25/20 08:59 40 mg QAM KAYDEN Administration NPO Date Last Intake of Fluids: 10/25/20 Time Last Intake of Fluids: 15:00 Date Last Intake of Solids: 10/25/20 Time Last Intake of Solids: 12:00 Past Medical History Medical History Arthritis stable Crohn disease (06/01/14) stable Diabetes mellitus type 2 in nonobese (09/09/11) Esophageal cancer + esophageal stent, plan for future chemo GERD (gastroesophageal reflux disease) controlled Gout Migraine hx Obesity Obstruction of esophagus Palliative care encounter Port-A-Cath in place (05/09/19) Insertion of A-Port Dr. Jorge 05/09/19 Sleep apnea BIPAP Weakness Exercise / Class Metabolic Activity II 4-5 Yardwork/Stairs/Walk up hill Past Family History Family History Mother Diabetes Father Heart disease FHx: lung cancer Past Surgical History Surgical History History of colonoscopy History of esophagogastroduodenoscopy (EGD) History of tonsillectomy History of total knee replacement bilateral S/P dilatation of esophageal stricture + stent Past Anesthesia History No Hx of Anesthesia Complications and No Family Hx of Anesthesia Complications History of PONV No Hx of PONV and No Hx of Motion Sickness Social History Smoking Status: Former smoker tobacco type: cigarettes Hx Alcohol Use: No Alcohol type: beer Hx Substance Use: No substance use type: does not use Review of Systems denies fever/cough/ colds/ chest pain/ SOB/ CRESENCIO denies CRESENCIO Physical Exam Vital Signs Last Vital Signs Temp 36.7 C 10/26/20 13:09 Pulse 66 10/26/20 13:09 Resp 18 10/26/20 13:09 BP 106/56 L 10/26/20 13:09 Pulse Ox 97 03/26/21 07:35 ENMT Mouth: + edentulous; no TMJ abnormality and no dentition abnormality Thyromental Distance: > or= 3.5 Finger Breadths Mallampati Class: II Neck neck extension not limited Respiratory normal respiratory effort; no respiratory distress Auscultation: lungs clear to auscultation bilaterally Cardiovascular Rate/Rhythm: regular rate and regular rhythm Neurologic moves all extremities Psychiatric Orientation: alert and oriented x 3 Testing Laboratory Results 10/26/20 06:09 10/26/20 06:09 PT 10.1 Seconds (9.0-12.0) 10/25/20 16:00 INR 1.0 (0.9-1.1) 10/25/20 16:00 APTT 27.6 Seconds (21.0-31.0) 10/25/20 16:00 Urine Color Yellow 10/25/20 19:00 Urine Appearance Clear (Clear) 10/25/20 19:00 Urine pH 6.0 (4.5-7.5) 10/25/20 19:00 Ur Specific [place] 1.036 (1.000-1.030) H 10/25/20 19:00 Urine Protein Negative (Negative) 10/25/20 19:00 Urine Glucose (UA) Negative (Negative) 10/25/20 19:00 Urine Ketones Negative (Negative) 10/25/20 19:00 Urine Nitrite Negative (Negative) 10/25/20 19:00 Ur Leukocyte Esterase Negative (Negative) 10/25/20 19:00
--- NOTE | 2020-10-26 13:23 | Communication Note ---
Date of Service: October 26, 2020 I did attempt to call the patient's house prior to this happening's procedure unfortunately she did not answer the phone number that was given to me.
[2020-10-26] MEDS ORDERED: METOCLOPRAMIDE HCL INJ 5 MG/ML 2 ML VIAL ONE (13:31)
--- NOTE | 2020-10-26 13:57 | Post Operative Brief Note ---
Immediate Post Op Note v1 Date of Surgery October 26, 2020 Pre & Post Diagnosis Operation Date: 10/26/20 10:10 Pre-Op Diagnosis: Dysphagia Post-Op Diagnosis: Patent esophageal stent I identified the patient and participated in the time-out.: Yes Procedure Operation Date: 10/26/20 10:10 Actual Procedures p Esophagogastroduodenoscopy(Not Applicable) - Paula Stafford DO Surgeon Paula Stafford DO Shape Brick Molder none Estimated Blood Loss 0 Findings Consistent with Post-Op Diagnosis
--- NOTE | 2020-10-26 16:01 | GI REPORT ---
Patient Name: Naseem Moran Procedure Date: 10/26/2020 1:34 PM Date of : 1945 Admit Type: Inpatient Age: 75 Gender: Male Attending MD: Paula Stafford DO Procedure: Upper GI endoscopy Providers: Paula Stafford DO Referring MD: Yaritza Anglin, Elsie Perez MD Indications: Dysphagia Medicines: Monitored Anesthesia Care Complications: No immediate complications. Estimated blood loss: Minimal. Estimated Blood Loss: Estimated blood loss was minimal. Procedure: Pre-Anesthesia Assessment: - Prior to the procedure, a History and Physical was performed, and patient medications, allergies and sensitivities were reviewed. The patient's tolerance of previous anesthesia was reviewed. - The risks and benefits of the procedure and the sedation options and risks were discussed with the patient. All questions were answered and informed consent was obtained. - Patient identification and proposed procedure were verified prior to the procedure by the physician, the nurse and the corporate responsibility officer. The procedure was verified in the procedure room. - Pre-procedure physical examination revealed no contraindications to sedation. - ASA Grade Assessment: IV - A patient with severe systemic disease that is a constant threat to life. - After reviewing the risks and benefits, the patient was deemed in satisfactory condition to undergo the procedure. - The anesthesia plan was to use monitored anesthesia care (MAC). - Immediately prior to administration of medications, the patient was re-assessed for adequacy to receive sedatives. - The heart rate, respiratory rate, oxygen saturations, blood pressure, adequacy of pulmonary ventilation, and response to care were monitored throughout the procedure. - The physical status of the patient was re-assessed after the procedure. After obtaining informed consent, the endoscope was passed under direct vision. Throughout the procedure, the patient's blood pressure, pulse, and oxygen saturations were monitored continuously. The Endoscope was introduced through the mouth, and advanced to the third part of duodenum. The upper GI endoscopy was accomplished without difficulty. The patient tolerated the procedure well. Findings: An esophageal stent was found in the middle third of the esophagus extending into the proximal stomach. The stent appeared patent without evidence of tumor ingrowth nor foreign bodies. The gastric body, incisura and gastric antrum were normal. The examined duodenum was normal. Impression: - Pre-existing esophageal stent. The stent is widely patent. - Normal gastric body, incisura and antrum. - Normal examined duodenum. - No specimens collected. Recommendation: - Return patient to [facility] for ongoing care. - Full liquid diet. -Try use of Emend for nausea -Please call with questions or concerns, GI to sign off Paula Stafford D.O. Paula Stafford, 10/26/2020 4:00:24 PM This report has been signed electronically. Note Initiated On: 10/26/2020 1:34 PM Number of Addenda: 0 I attest to the content of the Intraoperative Record and orders documented therein, exceptions below {[id number]}
--- NOTE | 2020-10-26 17:15 | Communication Note ---
Date of Service: October 26, 2020 The patient underwent upper endoscopy this afternoon. The esophageal stent was widely patent. Recommendations Full liquid diet Consider giving the patient a dose of Emend as this might help with his symptoms of nausea Please call with any questions or concerns
--- NOTE | 2020-10-26 18:46 | Hospitalist Progress Note ---
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 (2) Esophageal mass: History of esophageal stenting, most recently in August 2020 and presented with worsening nausea, vomiting and regurgitation NPO after midnight, and plan for EGD with stent placement tomorrow with Dr. Lizette stratton Status post esophagogastro duodenoscopy: The stent noted to be widely patent, normal gastric body, incisura and antrum, normal duodenum Advised to have full liquid diet and GI signed off Patient wants to go home this evening and does not want to stay tonight even though he may have problem starting eating He was advised to continue with full liquid diet and was sent home this evening (3) Vomiting: - Antiemetics prn - improving -No more vomiting and no nausea since admission (4) Weakness: - Secondary to above - Continue NSS 125 ml/hr x 1 day (5) Crohn disease: - Hx of such- currently loose bowels, hold on stool softeners, miralax, colace, as he had been using these prn in the last few days for constipation issues due to iron supplementation. -No symptoms of Crohn's disease (6) Obstructive sleep apnea syndrome: - Stable, former tobacco use, 40 year pack history, quit in 2006 - Wears Bipap HS: min EPAP 8, max IPAP 12, PS 0-7 -Does not have any shortness of breath and her cough (7) Anemia: - Chronic, hgb 9.2, hct 29 - Was supposed to start outpatient IV iron recently, hold for now with current medical issues, defer to heme/onc as outpatient -Hemoglobin stable at 8.4 Severe protein calorie malnutrition BMI is only 20.4 kg/m No dietary advice was given as the patient is leaving this evening (8) Dyslipidemia: - Hx of such, not on statin therapy (9) DVT prophylaxis: - teds, lovenox subq CODE: DNR/DNI Advised to stay for tonight but the patient wanted to go home He has been fed up with the hospital for the last 3 weeks This is discussed with the and she wanted to take him home tonight He is aware about possible problems swallowing and/or nausea, vomiting, regurgitation can happen He was discharged home Admission and Anticipated Discharge Date Admission Date: October 25, 2020 Subjective 10/26/2020 The patient was seen and examined in medical telemetry unit He is status post esophagogastroduodenoscopy He does not have any symptoms following that He is adamant that he will go home this evening, willing to take the risk. Review of Systems Review of Systems: All systems reviewed and are unremarkable except as noted below Physical Exam Physical Exam: Lying in bed comfortably Constitutional: + thin; not ill appearing Eyes: PERRL, conjunctivae normal, anicteric sclerae ENMT: external ear and nose normal, oropharynx normal Neck: trachea midline, no thyromegaly Respiratory: no respiratory distress Auscultation: lungs clear to auscultation bilaterally Cardiovascular: Rate/Rhythm: regular rate and regular rhythm Heart Sounds: no murmur Extremities: no edema Gastrointestinal (Abdomen): Inspection/Auscultation: normal bowel sounds and + scaphoid Percussion/Palpation: abdomen soft; abdomen nontender Musculoskeletal: No acute arthritis in any joint Neurologic: Generally weak and lethargic otherwise alert, awake and oriented x3 Psychiatric: A+Ox3, euthymic affect Lymphatic: no cervical or axillary lymphadenopathy Results & Data Results & Data ([facility]) Vital Signs (Past 12 Hours) Vital Signs Temp Pulse Pulse Resp BP BP Pulse Ox 10/26/20 17:00 36.4 C L 77 20 129/68 100 10/26/20 15:30 36.2 C L 66 16 118/74 100 10/26/20 15:05 36.4 C L 61 16 114/71 100 10/26/20 15:00 36.4 C L 77 20 129/68 100 10/26/20 14:45 36.6 C 72 16 121/63 99 10/26/20 14:35 37.3 C 67 17 111/53 L 97 10/26/20 14:25 37.3 C 72 18 106/57 L 98 10/26/20 14:15 79 20 110/58 L 100 10/26/20 14:05 81 16 105/57 L 100 10/26/20 14:00 36.6 C 70 16 123/68 98 10/26/20 13:58 36.7 C 92 H 17 107/57 L 100 10/26/20 13:09 36.7 C 66 18 106/56 L 10/26/20 07:35 36.7 C 66 16 131/64 97 Laboratory Results Short CBC 10/26/20 Range/Units 06:09 WBC 11.50 H (4.8-10.8) K/uL Hgb 8.4 L (14.0-18.0) g/dL Hct 25.9 L (42-52) % Plt Count 299 (130-400) K/uL BMP 10/26/20 06:09 Sodium 139 Potassium 3.5 Chloride 108 H Carbon Dioxide 28 BUN 8 D Creatinine 0.53 L Glucose 83 Calcium 9.6 Liver Function 10/26/20 Range/Units 06:09 Total Bilirubin 0.6 (0.2-1) mg/dl AST 8 L (15-37) U/L ALT 8 L (12-78) U/L Alkaline Phosphatase 95 (45-117) U/L Albumin 2.1 L (3.4-5.0) gm/dl Urine 10/25/20 Range/Units 19:00 Urine Color Yellow Urine Appearance Clear (Clear) Urine pH 6.0 (4.5-7.5) Ur Specific [place] 1.036 H (1.000-1.030) Urine Protein Negative (Negative) Urine Glucose (UA) Negative (Negative) Medications Administered Current Inpatient Medications Acetaminophen (Acetaminophen 325 Mg Tab) 650 mg PO Q4H PRN PRN Reason: Moderate Pain Stop: 11/24/20 20:29 Enoxaparin Sodium (Enoxaparin Inj 40 Mg/0.4 Ml Syr) 40 mg SQ QAM [facility] Stop: 11/25/20 08:59 Last Admin: 10/26/20 10:01 Dose: 40 mg Documented by: Heparin Sodium (Porcine) (Heparin 100 Unit/Ml 5ml Flush) 5 ml FLUSH PRN PRN PRN Reason: Flush Stop: 11/24/20 23:25 Sodium Chloride (Nss 1000ml) 1,000 mls @ 125 mls/hr IV .Q8H [facility] Stop: 10/26/20 20:29 Last Admin: 10/26/20 14:54 Dose: 125 mls/hr Documented by: Famotidine 20 mg/ Syringe 5 mls @ 2.5 mls/min IV BID [facility] Stop: 11/24/20 20:59 Last Admin: 10/26/20 10:05 Dose: 2.5 mls/min Documented by: Metoclopramide HCl (Metoclopramide Hcl Inj 5 Mg/Ml 2 Ml Vial) 10 mg IV Q6H PRN PRN Reason: Nausea Stop: 11/24/20 20:29 Miscellaneous (Mesalamine 1.2 Gram Tablet,Delayed Release (Dr/Ec) Order Awaiting Action) 1 ea N/A QS [facility] Stop: 11/25/20 00:00 Last Admin: 10/26/20 15:51 Dose: Not Given Documented by: Ondansetron HCl (Ondansetron Inj 2 Mg/Ml 2 Ml Vial) 4 mg IV Q4H PRN PRN Reason: Nausea And Vomiting Stop: 11/24/20 20:29 Ondansetron HCl (Ondansetron Inj 2 Mg/Ml 2 Ml Vial) 4 mg IV ONCE PRN PRN Reason: PACU Use Only-Nausea/Vomiting Stop: 10/26/20 21:22 Pantoprazole Sodium (Pantoprazole 40 Mg Tab) 40 mg PO QAM [facility] Stop: 11/25/20 08:59 Last Admin: 10/26/20 10:00 Dose: 40 mg Documented by: Sodium Chloride (Sodium Chloride 0.65% Na Soln 45 Ml ([place])) 1 sprays NA BID PRN PRN Reason: Congestion Stop: 11/24/20 20:29 Tramadol HCl (Tramadol Hcl 50 Mg Tablet) 50 mg PO Q8H PRN PRN Reason: Pain Stop: 11/24/20 20:29 (1) Esophageal cancer Malignant neoplasm of esophagus location: unspecified location Qualified Code(s): C15.9 - Malignant neoplasm of esophagus, unspecified (2) Vomiting Nausea presence: with nausea Vomiting Intractability: non-intractable Vomiting type: unspecified Qualified Code(s): R11.2 - Nausea with vomiting, unspecified
--- NOTE | 2020-10-26 19:56 | Communication Note ---
Date of Service: October 26, 2020 CODE 44 By CMS guidelines, a determination that the admission or continued stay is not medically necessary has been made by a member of the Utilization Review committee and a physician for this hospital stay. Therefore, a Code 44 will be completed and the inpatient admission will be changed to outpatient. Magalie Alexis DO [employer] faculty member.
--- NOTE | 2020-10-27 11:34 | Discharge Summary ---
Date of Service October 27, 2020 Admission HPI Per Admitting Provider This is a 75-year-old male with PMHx of stage IV esophageal cancer with bony mets diagnosed in 2019, s/p esophageal stent placement, chemotherapy currently on hold, Irritable bowel disease, hyperlipidemia, prediabetes, chronic anemia, gout, CRESENCIO, on BiPAP and remote history of tobacco abuse who presents to the ER with worsening abdominal pain, nausea and vomiting. The most recent esophageal stent was placed on 08/31/[address] Pascal at [facility]. reports that he was previously on FULFIRI chemotherapy but last round was in August, and has been unable to get it due to hospitalization here at [facility] from 09/14/2020 to 09/21/2020 for bilateral leg weakness and confusion. This improved and was then discharged from [facility] for PT/OT. Patient has since been home for 1 week and felt like he was doing well up until today. Overall his p.o. intake has been diminished recently, which he thought was due to constipation. Pt had been using stool softeners to improve this, but now his bowels are now very loose. His was concerned that with diarrhea and poor oral intake dehydration was worsening and that he was becoming weaker. Pt then developed worsening abdominal pain, nausea, and began vomiting today around 11am. PT/OT were at his home for a visit s/p discharge from rehab, and suggested he go to the ER. Pt nausea improved with phenergan and zofran in the ER, and is currently getting fluids. He denies abdominal pain at this time and nausea has improved. Admission Exam Per Admitting Provider Physical Exam: General: awake, alert, no apparent distress, + thin Head: Normocephalic, atraumatic ENT: PERRL, EOMI, no pharyngeal exudate, mucous membranes moist Chest: Clear to auscultation, on room air, no adventitious breath sounds Cardiac: Regular rate and rhythm, no murmur, no JVD, normal peripheral pulses, good capillary refill Abdominal: NABS x 4 quadrants, soft, nondistended, nontender to palpation, no rebound or guarding Extremities: Normal inspection, no peripheral edema or erythema, calfs nontender to palpation Psych: Normal mood and affect Neuro: AAO x 3, strength intact bilaterally and rated 5/5, no motor deficits, speech is clear, no peripheral sensory deficits Principal Diagnosis Esophageal cancer, status post esophagogastroduodenoscopy, previous stent remains patent, Crohn's disease. Struct of sleep apnea Discharge Exam Constitutional + thin; not ill appearing Eyes PERRL, conjunctivae normal, anicteric sclerae ENMT external ear and nose normal, oropharynx normal Neck trachea midline, no thyromegaly Respiratory no respiratory distress Auscultation: lungs clear to auscultation bilaterally Cardiovascular Rate/Rhythm: regular rate and regular rhythm Heart Sounds: no murmur Extremities: no edema Gastrointestinal (Abdomen) Inspection/Auscultation: normal bowel sounds and + scaphoid Percussion/Palpation: abdomen soft; abdomen nontender Psychiatric A+Ox3, euthymic affect Lymphatic no cervical or axillary lymphadenopathy Discharge Data Allergies Allergy/AdvReac Type Severity Reaction Status Date / Time amoxicillin Allergy Intermediate Leg Verified 10/25/20 19:12 swelling/inflammation cefazolin Allergy Intermediate rash Verified 10/25/20 19:12 clindamycin Allergy Intermediate rash Verified 10/25/20 19:12 doxycycline Allergy Intermediate rash Verified 10/25/20 19:12 Sulfa (Sulfonamide Allergy Unknown Unknown Verified 10/25/20 19:12 Antibiotics) Consultations 10/25/20 18:10 ED Decision to Admit Stat 10/25/20 20:30 Consult Gastroenterology Routine Procedures Performed Operation Date: 10/26/20 10:10 Actual Procedures p Esophagogastroduodenoscopy(Not Applicable) - Paula Stafford, DO Ordered Studies 10/25/20 15:44 CT abd pelvis IV con only Stat 10/25/20 17:14 CT chest diagnostic wo con Stat Hospital Course (1) Esophageal cancer: -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 (2) Esophageal mass: History of esophageal stenting, most recently in August 2020 and presented with worsening nausea, vomiting and regurgitation NPO after midnight, and plan for EGD with stent placement tomorrow with Dr. Stafford Status post esophagogastro duodenoscopy: The stent noted to be widely patent, normal gastric body, incisura and antrum, normal duodenum Advised to have full liquid diet and GI signed off Patient wants to go home this evening and does not want to stay tonight even though he may have problem starting eating He was advised to continue with full liquid diet and was sent home this evening (3) Vomiting: - Antiemetics prn - improving -No more vomiting and no nausea since admission (4) Weakness: - Secondary to above - Continue NSS 125 ml/hr x 1 day (5) Crohn disease: - Hx of such- currently loose bowels, hold on stool softeners, miralax, colace, as he had been using these prn in the last few days for constipation issues due to iron supplementation. -No symptoms of Crohn's disease (6) Obstructive sleep apnea syndrome: - Stable, former tobacco use, 40 year pack history, quit in 2006 - Wears Bipap HS: min EPAP 8, max IPAP 12, PS 0-7 -Does not have any shortness of breath and her cough (7) Anemia: - Chronic, hgb 9.2, hct 29 - Was supposed to start outpatient IV iron recently, hold for now with current medical issues, defer to heme/onc as outpatient -Hemoglobin stable at 8.4 Severe protein calorie malnutrition BMI is only 20.4 kg/m No dietary advice was given as the patient is leaving this evening (8) Dyslipidemia: - Hx of such, not on statin therapy (9) DVT prophylaxis: - kei bravo subq CODE: DNR/DNI Advised to stay for tonight but the patient wanted to go home He has been fed up with the hospital for the last 3 weeks This is discussed with the and she wanted to take him home tonight He is aware about possible problems swallowing and/or nausea, vomiting, regurgitation can happen He was discharged home Total Time Total Time Spent Total Time Spent (In Minutes): 35 minutes Total Time Includes: Examination of the Patient, Discharge Planning, Medication Reconciliation and Communication With Other Providers Discharge Plan Discharge Items Patient Disposition: Home - Self-Care Reason For Visit: ESOPHAGEAL MASS, ABD PAIN, N/V Discharge Diagnosis: Esophageal cancer, status post esophagogastroduodenoscopy, previous stent remains patent, Crohn's disease. Struct of sleep apnea Condition on Discharge: Good Activity: Resume your previous activity Non-emergency contact: Primary Care Provider Call non-emergency contact if: you have any medication questions and your symptoms worsen Follow-up/Referrals: Rodolfo Whyte, DO [Primary Care Provider] - (Your doctor's office will call you with an appointment within 7 days) Diet: Full liquid Addtl Attending Provider Instructions: Please take precaution to avoid falls Please take extreme precaution during swallowing Avoid solid foods Pending Studies at Discharge: No Stand-Alone Forms: My [facility], Smoking Cessation Medications and DC Order Prescriptions: Continued mesalamine 1.2 gram Tablet,Delayed Release (Dr/Ec) 2.4 g PO BID RF: 0 sodium chloride [Saline Nasal] 0.65 % Aerosol,[place] 1 spray INTRANASAL BID PRN (Reason: Congestion) RF: 0 ondansetron 4 mg Tablet,Disintegrating 4 - 8 mg PO Q6H PRN (Reason: Nausea) RF: 0 promethazine 25 mg Tablet 25 mg PO Q6H PRN (Reason: Nausea) RF: 0 tramadol 50 mg tablet 50 mg PO Q8H PRN (Reason: Pain) Qty: 90 RF: 0 pantoprazole 40 mg Tablet,Delayed Release (Dr/Ec) 40 mg PO QAM RF: 0 Discharge Orders: Discharge Order (Routine); Ordered 10/26/20 Ordered By: Yaritza Anglin Admission Data Admit Date/Time: 10/25/20 18:32 Attending Provider: Yaritza Anglin Admit Provider: Dilan Campoverde Primary Care Provider: Rodolfo Whyte Other Providers: Dilan Campoverde ; Kaleb Butterfield Other Interventions: Discharge Summary Assessment (RN) Last Done: 10/26/20 19:11
== END 2020-10-26 20:00 | disposition home health service (06) | DRG 374 ==
LOC: ED 15:13 → INTOOBSV 18:32 → SUATTDRO 18:32 → 2W 18:32

== ENCOUNTER 2020-11-20 10:32 | Inpatient (IN) ==
[2020-11-20] MEDS ORDERED: SODIUM CHLORIDE 0.9% 1000ML 2,000 ML IV ONE (11:02)
--- NOTE | 2020-11-20 11:08 | Emergency Department Note ---
Impression & Plan Atrial fibrillation with rapid ventricular response, Breath shortness, Acute hypotension, Acute pericardial effusion, Hypoxia, Esophageal cancer ED Provider Note NAME: BRENT LE AGE: 75 SEX: M : 1945 ARRIVES VIA: Ambulance INFORMANT: Patient ED PROVIDER(S): Martin Rosen DO CHIEF COMPLAINT: shortness of breath HPI: Patient is a 75-year-old male with metastatic esophageal cancer is a DNR/DNI who presents the ER for shortness of breath and feeling his heart race. This started this morning. notes that he has been worsening shortness of breath for some time. He also notes some blurry vision this morning when he woke up as it looked like a jigsaw puzzle that has resolved. He denies any headache or change in vision. No chest pain. Denies any vomiting or dysuria, urgency, or frequency. He has been drinking less. ROS: See above HPI for pertinent positives & negatives. A total of 10 systems reviewed and were otherwise negative. PAST MEDICAL HISTORY:See Below PAST SURGICAL HISTORY:See Below FAMILY HISTORY:See Below SOCIAL HISTORY:See Below HOME MEDICATIONS:See Below ALLERGIES:See Below VITALS:See Below PHYSICAL EXAMINATION: GENERAL: Sitting up in bed, alert, cachectic, ill-appearing EYE EXAM: normal conjunctiva. OROPHARYNX: no exudate, no erythema, lips, buccal mucosa, and tongue normal and mucous membranes are moist NECK: supple, no nuchal rigidity, no adenopathy, non-tender LUNGS: Diminished bilateral. Normal chest wall mechanics HEART: Tachycardic regular rate, S1 normal and S2 normal ABDOMEN: abdomen soft, non-tender, normo-active bowel sounds, no masses, no rebound or guarding. UPPER EXTREMITIES: upper extremities are grossly normal. LOWER EXTREMITIES: No pitting edema. NEURO EXAM: Normal sensorium, cranial nerves II-XII grossly intact, normal speech, no gross weakness of arms, no gross weakness of legs. MEDICAL DECISION MAKING: Patient is a 75-year-old male with metastatic esophageal cancer who is a DNR/DNI the presents the ER for shortness of breath. Upon arrival he is found to be in A. fib with RVR. Heart rate is in the 110s to 130s. Systolic blood pressures were in the 80s. IV was established blood work was obtained. He was hypoxic and placed on 3 L nasal cannula. Labs show a mild leukocytosis 11,000. Mild anemia 10 consistent with previous. INR was unremarkable. He has not missed any doses of Eliquis which was recently started with exception of today. BMP with slightly elevated glucose. Bilirubin LFTs were unremarkable. Troponin was detectable but not quite positive at 0.042. Pro-Bala was negative. Influenza was negative. CT of the head and chest were performed. CT shows no PEs but pericardial effusion was confirmed at bedside on ultrasound by myself. A formal ultrasound was ordered after discussion with Dr. Edgra Cohn who presented at bedside. After prolonged discussion we elected to slow him down and I gave him 2 separate doses of IV Lopressor 2.5 mg apiece. Heart rate did trend down. Blood pressure came up in the low 100s. There is no signs of tamponade on the echo. Patient was updated bedside discussed with hospitalist for further evaluation. Triage Nursing notes reviewed. Limited review of prior medical records performed Vital Signs: reviewed and remarkable for no significant abnormalities Differential diagnosis: Differential diagnoses includes but is not limited to pneumonia, bronchitis, COPD/Asthma exacerbation, pneumothorax, pulmonary embolism, congestive heart failure, acute coronary syndrome ER treatment provided: See below Diagnostics interpreted by me: ECG: A. fib with RVR rate of 147 Normal axis Low voltage PVC QTC 503 Cardiac Monitoring: An order was placed for continuous cardiac monitoring. The monitor shows a rate of 140 with sinus rhythm. Laboratory studies: As stated above and show below. Imaging studies: CTs as discussed above Consultation(s): Discussed with Dr. Edgar Cohn who presented and evaluate the patient at bedside as discussed above Discussed with the hospitalist for further evaluation Procedures: none Critical Care: I have personally spent 55 minutes of critical care time in the direct management of this patient. This includes bedside care, interpretation of diagnostic studies, and testing, discussion with consultants, patient, and family members, and other required patient management activities. This 55 minutes is in excess of all separately billable procedures. Past Med/Surg History Medical History Arthritis stable Crohn disease (06/01/14) stable Diabetes mellitus type 2 in nonobese (09/09/11) Esophageal cancer + esophageal stent, plan for future chemo GERD (gastroesophageal reflux disease) controlled Gout Migraine hx Obesity Obstruction of esophagus Palliative care encounter Port-A-Cath in place (05/09/19) Insertion of A-Port Dr. Jorge 05/09/19 Sleep apnea BIPAP Weakness Surgical History History of colonoscopy History of esophagogastroduodenoscopy (EGD) History of tonsillectomy History of total knee replacement bilateral S/P dilatation of esophageal stricture + stent Family History Mother Diabetes Father Heart disease FHx: lung cancer Social History Smoking Status: Former smoker Tobacco Type: Cigarettes Second Hand Exposure: No; Hx Alcohol Use: No Hx Substance Use: No Preferred Language: Beninese Communication Ability: Effective Associate Director Required: No Beliefs That Will Affect Care: None marital status: Current Living Situation: Spouse Current Living Situation Comment: lives at home with current occupational status: retired Feels Safe at Home: Yes Assistive Devices: Cane, Denture - Upper and Glasses Allergies Allergies Allergy/AdvReac Type Severity Reaction Status Date / Time amoxicillin Allergy Intermediate Leg Verified 11/06/20 16:30 swelling/inflammation cefazolin Allergy Intermediate rash Verified 11/06/20 16:30 clindamycin Allergy Intermediate rash Verified 11/06/20 16:30 doxycycline Allergy Intermediate rash Verified 11/06/20 16:30 Sulfa (Sulfonamide Allergy Unknown Unknown Verified 11/06/20 16:30 Antibiotics) Home Meds Home Medications Medication Instructions Recorded Confirmed mesalamine 2.4 g PO .ON HOLD 05/04/19 11/20/20 ondansetron 4 - 8 mg PO Q6H PRN 09/13/20 11/20/20 pantoprazole 40 mg PO QAM 10/25/20 11/20/20 prochlorperazine maleate 10 mg PO DIRECTED PRN 11/06/20 11/20/20 metoprolol succinate 12.5 mg PO DAILY 11/20/20 11/20/20 promethazine 12.5 mg NE UD PRN 11/20/20 11/20/20 Previous Rx's Medication Instructions Recorded tramadol 50 mg PO Q8H PRN #90 tab 09/21/20 apixaban [Eliquis] 5 mg PO BID #74 ea 11/06/20 Results & Data (ED) Vital Signs Vital Signs - 24 hr 11/20/20 10:26 11/20/20 11:01 11/20/20 11:03 Temperature 36.6 C Temperature Source Oral Pulse Rate 96 H 132 H Pulse Rate [Left Finger] Pulse Rate from SpO2 Sensor 87 Pulse Rhythm Irregular Pulse Strength Normal Respiratory Rate 13 20 Respiratory Effort / Characteristics Non-Labored Spontaneous Respiratory Depth Shallow Respiratory Pattern Regular Blood Pressure 85/50 L 84/32 L Blood Pressure [Right Arm] Blood Pressure Mean 61 49 Blood Pressure Mean [Right Arm] Blood Pressure Position Lying Pulse Oximetry 86 L 100 86 L Oxygen Delivery Method Room Air Nasal Cannula Room Air Nasal Cannula Oxygen Flow Rate 3 0 Sepsis Recent Fever Within 48 Hours No Sepsis New/Unexplained Change in Mental Status N/A Sepsis Action Taken by Nursing No Action Required Oxygen Flow Rate - Titration 3 Pulse Oximetry Post Tiitration 94 11/20/20 11:11 11/20/20 11:30 11/20/20 12:03 Temperature Temperature Source Pulse Rate 84 119 H 120 H Pulse Rate [Left Finger] Pulse Rate from SpO2 Sensor 125 H 105 H 127 H Pulse Rhythm Pulse Strength Respiratory Rate 7 L 14 22 Respiratory Effort / Characteristics Respiratory Depth Respiratory Pattern Blood Pressure 83/48 L 82/58 L 82/56 L Blood Pressure [Right Arm] Blood Pressure Mean 59 66 64 Blood Pressure Mean [Right Arm] Blood Pressure Position Pulse Oximetry 91 100 100 Oxygen Delivery Method Nasal Cannula Nasal Cannula Nasal Cannula Oxygen Flow Rate 3 3 3 Sepsis Recent Fever Within 48 Hours Sepsis New/Unexplained Change in Mental Status Sepsis Action Taken by Nursing Oxygen Flow Rate - Titration Pulse Oximetry Post Tiitration 11/20/20 12:16 11/20/20 12:20 11/20/20 12:58 Temperature Temperature Source Pulse Rate 124 H 129 H 121 H Pulse Rate [Left Finger] Pulse Rate from SpO2 Sensor 113 H 113 H 136 H Pulse Rhythm Pulse Strength Respiratory Rate 4 L 9 L 26 H Respiratory Effort / Characteristics Respiratory Depth Respiratory Pattern Blood Pressure 73/52 L 86/48 L 98/61 L Blood Pressure [Right Arm] Blood Pressure Mean 59 60 73 Blood Pressure Mean [Right Arm] Blood Pressure Position Pulse Oximetry 100 99 87 L Oxygen Delivery Method Nasal Cannula Nasal Cannula Nasal Cannula Oxygen Flow Rate 3 3 3 Sepsis Recent Fever Within 48 Hours Sepsis New/Unexplained Change in Mental Status Sepsis Action Taken by Nursing Oxygen Flow Rate - Titration Pulse Oximetry Post Tiitration 11/20/20 13:00 11/20/20 13:15 11/20/20 13:30 Temperature Temperature Source Pulse Rate 129 H 117 H Pulse Rate [Left Finger] 102 H 110 H Pulse Rate from SpO2 Sensor 116 H 111 H Pulse Rhythm Pulse Strength Respiratory Rate 18 20 12 Respiratory Effort / Characteristics Respiratory Depth Respiratory Pattern Blood Pressure 89/51 L 90/52 L Blood Pressure [Right Arm] 90/52 L 88/51 L Blood Pressure Mean 63 64 Blood Pressure Mean [Right Arm] 64 63 Blood Pressure Position Pulse Oximetry 100 93 97 Oxygen Delivery Method Nasal Cannula Nasal Cannula Room Air Oxygen Flow Rate 3 3 Sepsis Recent Fever Within 48 Hours Sepsis New/Unexplained Change in Mental Status Sepsis Action Taken by Nursing Oxygen Flow Rate - Titration Pulse Oximetry Post Tiitration 11/20/20 13:31 11/20/20 13:45 11/20/20 14:31 Temperature Temperature Source Pulse Rate 113 H 97 H 126 H Pulse Rate [Left Finger] Pulse Rate from SpO2 Sensor 93 H 73 72 Pulse Rhythm Pulse Strength Respiratory Rate Respiratory Effort / Characteristics Respiratory Depth Respiratory Pattern Blood Pressure 88/51 L 89/54 L 79/46 L Blood Pressure [Right Arm] Blood Pressure Mean 63 65 57 Blood Pressure Mean [Right Arm] Blood Pressure Position Pulse Oximetry 94 95 100 Oxygen Delivery Method Nasal Cannula Nasal Cannula Nasal Cannula Oxygen Flow Rate 3 3 3 Sepsis Recent Fever Within 48 Hours Sepsis New/Unexplained Change in Mental Status Sepsis Action Taken by Nursing Oxygen Flow Rate - Titration Pulse Oximetry Post Tiitration 11/20/20 14:35 11/20/20 14:38 Temperature Temperature Source Pulse Rate 120 H 120 H Pulse Rate [Left Finger] Pulse Rate from SpO2 Sensor 122 H 101 H Pulse Rhythm Pulse Strength Respiratory Rate 16 13 Respiratory Effort / Characteristics Respiratory Depth Respiratory Pattern Blood Pressure 79/50 L 89/47 L Blood Pressure [Right Arm] Blood Pressure Mean 59 61 Blood Pressure Mean [Right Arm] Blood Pressure Position Pulse Oximetry 97 100 Oxygen Delivery Method Nasal Cannula Nasal Cannula Oxygen Flow Rate 3 3 Sepsis Recent Fever Within 48 Hours Sepsis New/Unexplained Change in Mental Status Sepsis Action Taken by Nursing Oxygen Flow Rate - Titration Pulse Oximetry Post Tiitration Laboratory Data Result diagrams: 11/20/20 10:55 11/20/20 10:55 Lab Results 11/20/20 11/20/20 11/20/20 Range/Units 10:55 10:55 10:55 WBC 11.38 H (4.8-10.8) K/uL RBC 3.83 L (4.7-6.1) M/uL Hgb 10.8 L (14.0-18.0) g/dL POC Hgb (14.0-18.0) g/dl Hct 32.3 L (42-52) % POC Hct (42-52) % MCV 84.3 (80-100) fL MCH 28.2 (25-34) pg MCHC 33.4 (32-36) g/dL RDW Std Deviation 58.2 H (36.4-46.3) fL RDW Coeff of Davide 19.0 H (11.5-14.5) % Plt Count 304 (130-400) K/uL MPV 8.5 (7.4-10.4) fL Immature Gran % (Auto) 0.2 % Neut % (Auto) 87.5 % Lymph % (Auto) 5.9 % Labette % (Auto) 6.3 % Eos % (Auto) 0.0 % Baso % (Auto) 0.1 % Neut # (Auto) 9.96 H (1.4-6.5) K/uL Lymph # (Auto) 0.67 L (1.2-3.4) K/uL Labette # (Auto) 0.72 H (0.11-0.59) K/uL Eos # (Auto) 0.00 (0-0.5) K/uL Baso # (Auto) 0.01 (0-0.2) K/uL Immature Gran # (Auto) 0.02 (0.00-0.02) K/uL PT (9.0-12.0) Seconds INR (0.9-1.1) APTT (21.0-31.0) Seconds PTT Ratio POC Sodium (135-144) mmol/L Sodium 136 (136-145) mmol/L POC Potassium (3.3-5.0) mmol/L Potassium 3.9 (3.5-5.1) mmol/L POC Chloride (101-112) mmol/L Chloride 103 (98-107) mmol/L Carbon Dioxide 26 (21-32) mmol/L POC Total CO2 (24-31) mmol/L Anion Gap 7.0 (3-11) POC Anion Gap (16-25) mmol/L POC BUN (7-18) mg/dl BUN 24 H (7-18) mg/dl Creatinine 0.64 (0.6-1.4) mg/dl POC Creatinine (0.6-1.3) mg/dl Est Cr Clr Drug Dosing 83.2 ml/min Est GFR ( Amer) 111.0 Est GFR (Non-Af Amer) 95.8 BUN/Creatinine Ratio 38.2 H (10-20) Glucose 130 H (70-99) mg/dl POC Glucose (other) (70-99) mg/dl Lactate (0.4-2.0) mmol/L Calcium 9.7 (8.5-10.1) mg/dl POC Ioniz Calcium Pierce (1.12-1.32) mmol/l Magnesium 2.1 (1.8-2.4) mg/dl Total Bilirubin 0.6 (0.2-1) mg/dl AST 10 L (15-37) U/L ALT 10 L (12-78) U/L Alkaline Phosphatase 83 (45-117) U/L Troponin I 0.042 (0-0.045) ng/ml Total Protein 6.0 L (6.4-8.2) gm/dl Albumin 2.3 L (3.4-5.0) gm/dl Globulin 3.7 (2.5-4.0) gm/dl Albumin/Globulin Ratio 0.6 L (0.9-2) Procalcitonin 0.17 (0-0.5) ng/ml COVID-19 Eval Order SARS-CoV-2 (PCR) (Negative) Influenza Type A (PCR) (Neg) Influenza Type B (PCR) (Neg) RSV (RT-PCR) (Neg) 11/20/20 11/20/20 11/20/20 Range/Units 10:55 11:08 11:23 WBC (4.8-10.8) K/uL RBC (4.7-6.1) M/uL Hgb (14.0-18.0) g/dL POC Hgb 10.9 L (14.0-18.0) g/dl Hct (42-52) % POC Hct 32 L (42-52) % MCV (80-100) fL MCH (25-34) pg MCHC (32-36) g/dL RDW Std Deviation (36.4-46.3) fL RDW Coeff of Davide (11.5-14.5) % Plt Count (130-400) K/uL MPV (7.4-10.4) fL Immature Gran % (Auto) % Neut % (Auto) % Lymph % (Auto) % Labette % (Auto) % Eos % (Auto) % Baso % (Auto) % Neut # (Auto) (1.4-6.5) K/uL Lymph # (Auto) (1.2-3.4) K/uL Labette # (Auto) (0.11-0.59) K/uL Eos # (Auto) (0-0.5) K/uL Baso # (Auto) (0-0.2) K/uL Immature Gran # (Auto) (0.00-0.02) K/uL PT 11.4 (9.0-12.0) Seconds INR 1.1 (0.9-1.1) APTT 34.5 H (21.0-31.0) Seconds PTT Ratio 1.3 POC Sodium 133 L (135-144) mmol/L Sodium (136-145) mmol/L POC Potassium 3.9 (3.3-5.0) mmol/L Potassium (3.5-5.1) mmol/L POC Chloride 97 L (101-112) mmol/L Chloride (98-107) mmol/L Carbon Dioxide (21-32) mmol/L POC Total CO2 26 (24-31) mmol/L Anion Gap (3-11) POC Anion Gap 14.0 L (16-25) mmol/L POC BUN 22 H (7-18) mg/dl BUN (7-18) mg/dl Creatinine (0.6-1.4) mg/dl POC Creatinine 0.7 (0.6-1.3) mg/dl Est Cr Clr Drug Dosing ml/min Est GFR ( Amer) Est GFR (Non-Af Amer) BUN/Creatinine Ratio (10-20) Glucose (70-99) mg/dl POC Glucose (other) 131 H (70-99) mg/dl Lactate (0.4-2.0) mmol/L Calcium (8.5-10.1) mg/dl POC Ioniz Calcium Pierce 1.39 H (1.12-1.32) mmol/l Magnesium (1.8-2.4) mg/dl Total Bilirubin (0.2-1) mg/dl AST (15-37) U/L ALT (12-78) U/L Alkaline Phosphatase (45-117) U/L Troponin I (0-0.045) ng/ml Total Protein (6.4-8.2) gm/dl Albumin (3.4-5.0) gm/dl Globulin (2.5-4.0) gm/dl Albumin/Globulin Ratio (0.9-2) Procalcitonin (0-0.5) ng/ml COVID-[address] CovFluRsv at [facility] SARS-CoV-2 (PCR) (Negative) Influenza Type A (PCR) (Neg) Influenza Type B (PCR) (Neg) RSV (RT-PCR) (Neg) 11/20/20 11/20/20 Range/Units 11:23 11:35 WBC (4.8-10.8) K/uL RBC (4.7-6.1) M/uL Hgb (14.0-18.0) g/dL POC Hgb (14.0-18.0) g/dl Hct (42-52) % POC Hct (42-52) % MCV (80-100) fL MCH (25-34) pg MCHC (32-36) g/dL RDW Std Deviation (36.4-46.3) fL RDW Coeff of Davide (11.5-14.5) % Plt Count (130-400) K/uL MPV (7.4-10.4) fL Immature Gran % (Auto) % Neut % (Auto) % Lymph % (Auto) % Labette % (Auto) % Eos % (Auto) % Baso % (Auto) % Neut # (Auto) (1.4-6.5) K/uL Lymph # (Auto) (1.2-3.4) K/uL Labette # (Auto) (0.11-0.59) K/uL Eos # (Auto) (0-0.5) K/uL Baso # (Auto) (0-0.2) K/uL Immature Gran # (Auto) (0.00-0.02) K/uL PT (9.0-12.0) Seconds INR (0.9-1.1) APTT (21.0-31.0) Seconds PTT Ratio POC Sodium (135-144) mmol/L Sodium (136-145) mmol/L POC Potassium (3.3-5.0) mmol/L Potassium (3.5-5.1) mmol/L POC Chloride (101-112) mmol/L Chloride (98-107) mmol/L Carbon Dioxide (21-32) mmol/L POC Total CO2 (24-31) mmol/L Anion Gap (3-11) POC Anion Gap (16-25) mmol/L POC BUN (7-18) mg/dl BUN (7-18) mg/dl Creatinine (0.6-1.4) mg/dl POC Creatinine (0.6-1.3) mg/dl Est Cr Clr Drug Dosing ml/min Est GFR ( Amer) Est GFR (Non-Af Amer) BUN/Creatinine Ratio (10-20) Glucose (70-99) mg/dl POC Glucose (other) (70-99) mg/dl Lactate 1.8 (0.4-2.0) mmol/L Calcium (8.5-10.1) mg/dl POC Ioniz Calcium Pierce (1.12-1.32) mmol/l Magnesium (1.8-2.4) mg/dl Total Bilirubin (0.2-1) mg/dl AST (15-37) U/L ALT (12-78) U/L Alkaline Phosphatase (45-117) U/L Troponin I (0-0.045) ng/ml Total Protein (6.4-8.2) gm/dl Albumin (3.4-5.0) gm/dl Globulin (2.5-4.0) gm/dl Albumin/Globulin Ratio (0.9-2) Procalcitonin (0-0.5) ng/ml COVID-19 Eval Order SARS-CoV-2 (PCR) NEGATIVE (Negative) Influenza Type A (PCR) Negative (Neg) Influenza Type B (PCR) Negative (Neg) RSV (RT-PCR) Negative (Neg) Administered Medications Discontinued Medications Sodium Chloride (Nss 1000ml) 2,000 mls @ 999 mls/hr IV .Q2H1M ONE Stop: 11/20/20 13:02 Last Infusion: 11/20/20 14:31 Dose: 0 mls/hr Documented by: [id number] Admin: 11/20/20 11:30 Dose: 999 mls/hr Documented by: [id number] Ioversol (Optiray 350 500ml) 120 ml IV ONCE ONE Stop: 11/20/20 11:48 Last Admin: 11/20/20 11:48 Dose: 120 ml Documented by: [id number] Metoprolol Tartrate (Metoprolol Tartrate 1 Mg/Ml Vial) 2.5 mg IV NOW STA Stop: 11/20/20 12:58 Last Admin: 11/20/20 13:10 Dose: 2.5 mg Documented by: [id number] Metoprolol Tartrate (Metoprolol Tartrate 1 Mg/Ml Vial) 2.5 mg IV NOW STA Stop: 11/20/20 13:26 Last Admin: 11/20/20 14:29 Dose: Not Given Documented by: [id number] Imaging Data Radiologist's Impression: Head CT 11/20/20 11:02 CT head/brain wo con CLINICAL HISTORY: blurry vision COMPARISON STUDY: 09/15/2020 TECHNIQUE: Axial CT of the brain is performed from the vertex to the skull base. IV contrast was not administered for this examination. A dose lowering technique was utilized adhering to the principles of ALARA. CT DOSE: FINDINGS: No intra or extra-axial mass lesions are visualized. There is no CT evidence of acute cortical infarction. There is no evidence of midline shift. There is no acute hemorrhage. No calvarial fractures are visualized. There are patchy white matter hypodensities likely on a small vessel basis. There is no evidence of pathologic ventricular dilatation. There is no evidence of acute sinusitis IMPRESSION: No acute intracranial findings ACT 112: Negative or not required by law. Electronically signed by: Eliezer Schmitz M.D. 11/20/2020 11:56 AM Chest X-Ray 11/20/20 11:03 SINGLE VIEW CHEST CLINICAL HISTORY: Sepsis. Esophageal cancer. FINDINGS: An AP, portable, upright chest radiograph is compared to study dated 11/07/2020 and correlated with chest CT dated 10/25/2020. The examination is degraded by portable technique and patient rotation. A left subclavian central venous infusion port is unchanged in position. An esophageal stent is in place. The heart is enlarged noting atherosclerotic calcification of the thoracic aorta. The pulmonary vasculature is noncongested. Chronic interstitial thickening is similar to previous. There is no airspace consolidation or large pleural effusion. No pneumothorax is seen. The skeletal structures are osteopenic. The bony thorax is grossly intact. Degenerative change is noted in the shoulders and thoracic spine. IMPRESSION: 1. Cardiomegaly with no acute cardiopulmonary abnormality. 2. An esophageal stent is in place. ACT 112: Negative or not required by law. Electronically signed by: Paul Daley M.D. 11/20/2020 11:18 AM Chest CTA 11/20/20 11:12 CT ANGIOGRAM OF THE CHEST CLINICAL HISTORY: Shortness of breath. Tachycardia. Possible acute pulmonary embolism. COMPARISON STUDY: Noncontrast CT scan dated 10/25/2020 TECHNIQUE: Following the IV administration of 120 mL of Optiray, CT angiogram of the thorax was performed from the thoracic inlet to the lung bases utilizing the pulmonary embolus protocol. Images are reviewed in the axial, sagittal, and coronal planes. IV contrast was administered without complication. MIP imaging was performed. A dose lowering technique was utilized adhering to the principles of ALARA. CT DOSE: 896.69 mGy.cm FINDINGS: There is a 11 mm right lobe thyroid nodule. No further workup is indicated. There is a stable mildly enlarged right paratracheal lymph node. r there is mild ectasia of descending thoracic aorta which measures 37 mm the level of the main pulmonary artery There were no pulmonary artery filling defects to indicate acute pulmonary embolism. No pleural effusions are visualized. There is no focal pulmonary consolidation. There is a distal esophageal mass. There is an indwelling gastroesophageal stent. There is a persistent [id number] pericardial effusion. IMPRESSION: 1. No evidence of acute pulmonary embolism 2. No evidence of focal pulmonary consolidation 3. Stable borderline enlarged right paratracheal lymph node 4. Persistent distal esophageal mass. Esophageal gastric stent is again visualized 5. Persistent [id number] pericardial effusion ACT 112: Negative or not required by law. Electronically signed by: Eliezer Schmitz M.D. 11/20/2020 12:02 PM Discharge Plan Visit Data Chief Complaint: Cardiac Assessment Stated Complaint: HYPOTENSION ED Provider: Martin Rosen Discharge Problem: Atrial fibrillation with rapid ventricular response, Breath shortness, Acute hypotension, Acute pericardial effusion, Hypoxia, Esophageal cancer Forms Stand Alone Forms: [facility] Prescriptions Prescriptions: No Action mesalamine 1.2 gram Tablet,Delayed Release (Dr/Ec) 2.4 g PO .ON HOLD RF: 0 ondansetron 4 mg Tablet,Disintegrating 4 - 8 mg PO Q6H PRN (Reason: Nausea) RF: 0 tramadol 50 mg tablet 50 mg PO Q8H PRN (Reason: Pain) Qty: 90 RF: 0 pantoprazole 40 mg Tablet,Delayed Release (Dr/Ec) 40 mg PO QAM RF: 0 prochlorperazine maleate 10 mg tablet 10 mg PO DIRECTED PRN (Reason: Nausea) RF: 0 Eliquis 5 mg (74 tabs) tablets,dose pack 5 mg PO BID Qty: 74 RF: 0 promethazine 12.5 mg suppository 12.5 mg NE UD PRN (Reason: Nausea) RF: 0 metoprolol succinate 25 mg tablet extended release 24 hr 12.5 mg PO DAILY RF: 0 Discharge Problem: Esophageal cancer Qualifiers: Malignant neoplasm of esophagus location: unspecified location Qualified Code(s): C15.9 - Malignant neoplasm of esophagus, unspecified
--- NOTE | 2020-11-20 11:19 | XRay Report ---
SINGLE VIEW CHEST CLINICAL HISTORY: Sepsis. Esophageal cancer. FINDINGS: An AP, portable, upright chest radiograph is compared to study dated 11/07/2020 and correlate d with chest CT dated 10/25/2020. The examination is degraded by portable technique and patient rotati on. A left subclavian central venous infusion port is unchanged in position. An esophageal stent is i n place. The heart is enlarged noting atherosclerotic calcification of the thoracic aorta. The pulmon izzy vasculature is noncongested. Chronic interstitial thickening is similar to previous. There is no airspace consolidation or large pleural effusion. No pneumothorax is seen. The skeletal structures ar e osteopenic. The bony thorax is grossly intact. Degenerative change is noted in the shoulders and th oracic spine. IMPRESSION: 1. Cardiomegaly with no acute cardiopulmonary abnormality. 2. An esophageal stent is in place. ACT 112: Negative or not required by law. Electronically signed by: Paul Daley M.D. 11/20/2020 11:18 AM
[2020-11-20 11:20] LABS: iSTAT Creatinine 0.7 mg/dl (0.6-1.3); iSTAT Hemoglobin 10.9 g/dl (14.0-18.0); iSTAT Ionized Calcium 1.39 mmol/l (1.12-1.32); iSTAT Potassium 3.9 mmol/L (3.3-5.0)
[2020-11-20 11:20] LABS: Basophils # (auto) 0.01 K/uL (0-0.2); Basophils % (auto) 0.1 %; Hematocrit (blood only) 32.3 % (42-52); Hemoglobin 10.8 g/dL (14.0-18.0); Immature Granulocytes # (auto) 0.02 K/uL (0.00-0.02); Immature Granulocytes % (auto) 0.2 %; Lymphocytes # (auto) 0.67 K/uL (1.2-3.4); Lymphocytes % (auto) 5.9 %; Mean Corpuscular Hemoglobin 28.2 pg (25-34); Mean Corpuscular Hgb Conc 33.4 g/dL (32-36); Mean Corpuscular Volume 84.3 fL (80-100); Mean Platelet Volume 8.5 fL (7.4-10.4); Monocytes # (auto) 0.72 K/uL (0.11-0.59); Monocytes % (auto) 6.3 %; Neutrophils # (auto) 9.96 K/uL (1.4-6.5); Neutrophils % (auto) 87.5 %; Platelet Count 304 K/uL (130-400); RDW Standard Deviation 58.2 fL (36.4-46.3); Red Blood Count 3.83 M/uL (4.7-6.1); White Blood Count 11.38 K/uL (4.8-10.8)
[2020-11-20 11:30] LABS: INR 1.1 (0.9-1.1); Partial Thromboplastin Ratio 1.3; Partial Thromboplastin Time 34.5 Seconds (21.0-31.0); Prothrombin Time 11.4 Seconds (9.0-12.0)
[2020-11-20 11:36] LABS: Albumin Level 2.3 gm/dl (3.4-5.0); BUN Creatinine Ratio 38.2 (10-20); Calcium 9.7 mg/dl (8.5-10.1); Creatinine Clr Calc Pharmacy 83.2 ml/min; Est GFR (Non-African American) 95.8; Magnesium 2.1 mg/dl (1.8-2.4); Potassium 3.9 mmol/L (3.5-5.1)
[2020-11-20 11:41] LABS: Albumin Globulin Ratio 0.6 (0.9-2); Bilirubin,Total 0.6 mg/dl (0.2-1); Globulin 3.7 gm/dl (2.5-4.0); Troponin I 0.042 ng/ml (0-0.045)
[2020-11-20] MEDS ORDERED: OPTIRAY 350 500ml IV ONE (11:47)
--- NOTE | 2020-11-20 11:58 | CT Scan Report ---
CT head/brain wo con CLINICAL HISTORY: blurry vision COMPARISON STUDY: 09/15/2020 TECHNIQUE: Axial CT of the brain is performed from the vertex to the skull base. IV contrast was not administered for this examination. A dose lowering technique was utilized adhering to the principles of ALARA. CT DOSE: FINDINGS: No intra or extra-axial mass lesions are visualized. There is no CT evidence of acute cortical infarc tion. There is no evidence of midline shift. There is no acute hemorrhage. No calvarial fractures ar e visualized. There are patchy white matter hypodensities likely on a small vessel basis. There is no evidence of pathologic ventricular dilatation. There is no evidence of acute sinusitis IMPRESSION: No acute intracranial findings ACT 112: Negative or not required by law. Electronically signed by: Eliezer Schmitz M.D. 11/20/2020 11:56 AM
--- NOTE | 2020-11-20 12:03 | CT Scan Report ---
CT ANGIOGRAM OF THE CHEST CLINICAL HISTORY: Shortness of breath. Tachycardia. Possible acute pulmonary embolism. COMPARISON STUDY: Noncontrast CT scan dated 10/25/2020 TECHNIQUE: Following the IV administration of 120 mL of Optiray, CT angiogram of the thorax was perfo rmed from the thoracic inlet to the lung bases utilizing the pulmonary embolus protocol. Images are r eviewed in the axial, sagittal, and coronal planes. IV contrast was administered without complication . MIP imaging was performed. A dose lowering technique was utilized adhering to the principles of AL [place]. CT DOSE: 896.69 mGy.cm FINDINGS: There is a 11 mm right lobe thyroid nodule. No further workup is indicated. There is a stable mildly enlarged right paratracheal lymph node. r there is mild ectasia of descending thoracic aorta which measures 37 mm the level of the main pulmo nary artery There were no pulmonary artery filling defects to indicate acute pulmonary embolism. No pleural effusions are visualized. There is no focal pulmonary consolidation. There is a distal esophageal mass. There is an indwelling gastroesophageal stent. There is a persistent quteq-nb-sokxgxmg pericardial effusion. IMPRESSION: 1. No evidence of acute pulmonary embolism 2. No evidence of focal pulmonary consolidation 3. Stable borderline enlarged right paratracheal lymph node 4. Persistent distal esophageal mass. Esophageal gastric stent is again visualized 5. Persistent jhwhh-cy-iizxqevk pericardial effusion ACT 112: Negative or not required by law. Electronically signed by: Eliezer Schmitz M.D. 11/20/2020 12:02 PM
[2020-11-20 12:33] LABS: Influenza A virus by PCR Negative (Neg); Influenza B virus by PCR Negative (Neg); RSV by PCR Negative (Neg); SARS CoV2 RNA(COVID-19) InHosp NEGATIVE (Negative)
[2020-11-20] MEDS ORDERED: METOPROLOL TARTRATE 1 MG/ML VIAL IV STA ×2 (12:57→13:25)
--- NOTE | 2020-11-20 14:10 | History & Physical Report ---
Date of Service November 20, 2020 Assessment & Plan (1) Atrial fibrillation with RVR: -Admit to telemetry -Heart rates are in the 110s, BP = 90/50, discussed with cardiology- Dr. Cohn - Echo reviewed showing moderate-sized pericardial effusion, no echocardiographic indications of cardiac tamponade, mild concentric LVH, no wall motion abnormalities, EF of 55 to 60% -no tamponade, no current indication for cardiac pleurocentesis -initiate amiodarone 250 mg QID now for rate control and continue metoprolol 12.5 mg daily, patient missed morning dose so we will give that now. It is likely that despite cardioversion done on 11/06 and recurrence that this will continue to happen. - Cont eliquis 5 mg BID (2) SOB (shortness of breath): -Patient is short of breath, requiring 2 L with maintain sats, likely multifactorial including A. fib, progressive esophageal cancer with mets (3) Nausea & vomiting: - Continue IV antiemetics with zofran and compazine (4) Esophageal cancer: -Stage IV esophageal cancer with bony mets diagnosed in 2018 s/p stent placement, ongoing chemotherapy with FOLFIRI currently on hold (last round was in Aug 2020) - Pt follows with oncology at [facility] - Antiemetics - Pain medication prn - I discussed with the patient regarding comfort care and quality of life being an option here in the hospital, and some information about hospice/ hospice at home. He and his seemed very open to this as they had attempted to talk with palliative outpaitent earlier this week however his health further worsened and are now here in the hospital. Pt is looking more toward quality of life at this point vs continuing to have further aggressive treatments or procedures to prolong life as it currently is. Pt does not want a feeding tube if it does not improve his quality of life. He is DNR/DNI. - Will consult palliative (5) Crohn disease: - Stable, no current flare ups. Pt dysphagia causing difficulty with po intake, significant weight loss in past year (6) Anemia: - Stable (7) DVT prophylaxis: - Maria E bravo CODE: DNR/DNI Dispo: From home, likely to remain in the hospital x 1-2 days. Palliative and CM to assist with dc planning. History of Present Illness Primary Care Provider: Rodolfo Whyte, DO This is a 75 yo M with PMHx of PMHx of stage IV esophageal cancer with bony mets diagnosed in 2019, s/p esophageal stent placement, chemotherapy currently on hold, Irritable bowel disease, hyperlipidemia, prediabetes, chronic anemia, gout, CRESENCIO, on BiPAP and remote history of tobacco abuse who presents to the ER with worsening fatigue, weakness, and abdominal complaints. His is present with him at bedside. On November 06 the Patient was in the ER where he was found to be in A. fib with RVR and was cardioverted, and was started on Eliquis 5 mg twice daily. Since going home he has felt okay, but feels that he is significantly getting weaker and more fatigued. Today pt is found to be in Afib with RVR with HR in the 110- 120s. He reports no chest pain, palpitations, flutter, pressure. Pt admits to having progressive shortness of breath in the past few days. Currently he is on supplemental oxygen, and does not wear this routinely at baseline. His oral intake has been poor in the last few weeks due to his dysphagia, nausea, and phlegm after attempting to eat. He reports losing a significant amount of the weight within the past year. He is ambulatory and uses a cane for assistance at all times. Denies any recent falls or injuries. There has been some conversation involved GI and the patient regarding feeding tube placement. We discussed that this would serve as a mechanism for getting oral medications into his body and some form of nutrition, however that this will not miraculously improve his quality of life. We discussed further care and what his goals were, and he expresses that he does not wish to any invasive procedures. He is agreeable to speaking with palliative care while admitted. They had an outpatient appointment scheduled today however due to his worsening status brought him to the ER and have not yet touched base with outpatient palliative medicine. We also discussed admission to the hospital and that we would attempt to rate control his heart, administer IV fluids and formulate a plan for being comfortable and going home possibly with hospice. Allergies Allergy/AdvReac Type Severity Reaction Status Date / Time amoxicillin Allergy Intermediate Leg Verified 11/06/20 16:30 swelling/inflammation cefazolin Allergy Intermediate rash Verified 11/06/20 16:30 clindamycin Allergy Intermediate rash Verified 11/06/20 16:30 doxycycline Allergy Intermediate rash Verified 11/06/20 16:30 Sulfa (Sulfonamide Allergy Unknown Unknown Verified 11/06/20 16:30 Antibiotics) Home Medications Medication Instructions Recorded Confirmed Type mesalamine 2.4 g PO .ON HOLD 05/04/19 11/20/20 History ondansetron 4 - 8 mg PO Q6H PRN 09/13/20 11/20/20 History tramadol 50 mg PO Q8H PRN #90 tab 09/21/20 11/20/20 Rx pantoprazole 40 mg PO QAM 10/25/20 11/20/20 History apixaban [Eliquis] 5 mg PO BID #74 ea 11/06/20 11/20/20 Rx prochlorperazine maleate 10 mg PO DIRECTED PRN 11/06/20 11/20/20 History metoprolol succinate 12.5 mg PO DAILY 11/20/20 11/20/20 History promethazine 12.5 mg TN UD PRN 11/20/20 11/20/20 History Past Med/Surg History Medical History Arthritis stable Crohn disease (06/01/14) stable Diabetes mellitus type 2 in nonobese (09/09/11) Esophageal cancer + esophageal stent, plan for future chemo GERD (gastroesophageal reflux disease) controlled Gout Migraine hx Obesity Obstruction of esophagus Palliative care encounter Port-A-Cath in place (05/09/19) Insertion of A-Port Dr. Jorge 05/09/19 Sleep apnea BIPAP Weakness Surgical History History of colonoscopy History of esophagogastroduodenoscopy (EGD) History of tonsillectomy History of total knee replacement bilateral S/P dilatation of esophageal stricture + stent Family History Mother Diabetes Father Heart disease FHx: lung cancer Social History Smoking Status: Former smoker Tobacco Type: Cigarettes Second Hand Exposure: No; Hx Alcohol Use: No Hx Substance Use: No Preferred Language: Marshallese Communication Ability: Effective [employer] Operator Required: No Beliefs That Will Affect Care: None marital status: Current Living Situation: Spouse Current Living Situation Comment: lives at home with current occupational status: retired Feels Safe at Home: Yes Assistive Devices: Cane, Denture - Upper and Glasses Review of Systems Review of Systems: Constitutional: No fever, sweats, + chills, + weakness and fatigue Eyes: No diplopia, no worsening or blurred vision ENT: normal hearing, + dysphagia due to esophageal cancer Respiratory: No cough, sputum, +dyspnea on exertion, no dyspnea at rest, on 2 L currently, does not wear supplemental O2 at baseline Cardiovascular: No chest pain, tightness or palpitations Abdomen: + Mild pain, + nausea, no vomiting, diarrhea or constipation. Last BM was yesterday x2, soft and formed, no blood streaking, no BRPRB, no black tarry stool Musculoskeletal: No joint pain, calf pain, swelling Neurologic: No weakness, numbness/tingling, + uses a cane with ambulation Psychiatric: No anxiety or depression Skin: No rash or itch Physical Exam Physical Exam: General: awake, alert, no apparent distress, + cachectic, + frail, + weak Head: Normocephalic, atraumatic ENT: PERRL, EOMI, no pharyngeal exudate, mucous membranes slightly dry Chest: Clear to auscultation, on 2L via NC with O2 sats 97%, no adventitious breath sounds, Mediport accessed in left chest wall Cardiac: Irregularly irregular, HR in the 110s at bedside, no murmur, no JVD, normal peripheral pulses, good capillary refill Abdominal: Hypoactive x 4 quadrants, cachectic abdomen, soft, nondistended, nont martínez to palpation, no rebound or guarding Extremities: + Thin, + muscle wasting, no peripheral edema or erythema, calfs nontender to palpation Psych: Normal mood and affect Neuro: AAO x 3, strength intact bilaterally and rated 5/5, no motor deficits, speech is clear, no peripheral sensory deficits Results & Data Results & Data ([facility]) Vital Signs (Past 12 Hours) Vital Signs Temp Pulse Pulse Resp BP BP Pulse Ox 11/20/20 13:30 110 H 12 88/51 L 97 11/20/20 13:15 102 H 14 90/52 L 100 11/20/20 12:20 129 H 9 L 86/48 L 99 11/20/20 12:16 124 H 4 L 73/52 L 100 11/20/20 12:03 120 H 22 82/56 L 100 11/20/20 11:30 119 H 14 82/58 L 100 11/20/20 11:11 84 7 L 83/48 L 91 11/20/20 11:03 86 L 11/20/20 11:01 132 H 20 84/32 L 100 11/20/20 10:26 36.6 C 96 H 13 85/50 L 86 L Diagnostic Findings Head CT 11/20/20 11:02 CT head/brain wo con CLINICAL HISTORY: blurry vision COMPARISON STUDY: 09/15/2020 TECHNIQUE: Axial CT of the brain is performed from the vertex to the skull base. IV contrast was not administered for this examination. A dose lowering technique was utilized adhering to the principles of ALARA. CT DOSE: FINDINGS: No intra or extra-axial mass lesions are visualized. There is no CT evidence of acute cortical infarction. There is no evidence of midline shift. There is no acute hemorrhage. No calvarial fractures are visualized. There are patchy white matter hypodensities likely on a small vessel basis. There is no evidence of pathologic ventricular dilatation. There is no evidence of acute sinusitis IMPRESSION: No acute intracranial findings ACT 112: Negative or not required by law. Electronically signed by: Eliezer Schmitz M.D. 11/20/2020 11:56 AM Chest X-Ray 11/20/20 11:03 SINGLE VIEW CHEST CLINICAL HISTORY: Sepsis. Esophageal cancer. FINDINGS: An AP, portable, upright chest radiograph is compared to study dated and correlated with chest CT dated 10/25/2020. The examination is degraded by portable technique and patient rotation. A left subclavian central venous infusion port is unchanged in position. An esophageal stent is in place. The heart is enlarged noting atherosclerotic calcification of the thoracic aorta. The pulmonary vasculature is noncongested. Chronic interstitial thickening is similar to previous. There is no airspace consolidation or large pleural effusion. No pneumothorax is seen. The skeletal structures are osteopenic. The bony thorax is grossly intact. Degenerative change is noted in the shoulders and thoracic spine. IMPRESSION: 1. Cardiomegaly with no acute cardiopulmonary abnormality. 2. An esophageal stent is in place. ACT 112: Negative or not required by law. Electronically signed by: Paul Daley M.D. 11/20/2020 11:18 AM Chest CTA 11/20/20 11:12 CT ANGIOGRAM OF THE CHEST CLINICAL HISTORY: Shortness of breath. Tachycardia. Possible acute pulmonary embolism. COMPARISON STUDY: Noncontrast CT scan dated 10/25/2020 TECHNIQUE: Following the IV administration of 120 mL of Optiray, CT angiogram of the thorax was performed from the thoracic inlet to the lung bases utilizing the pulmonary embolus protocol. Images are reviewed in the axial, sagittal, and coronal planes. IV contrast was administered without complication. MIP imaging was performed. A dose lowering technique was utilized adhering to the principles of ALARA. CT DOSE: 896.69 mGy.cm FINDINGS: There is a 11 mm right lobe thyroid nodule. No further workup is indicated. There is a stable mildly enlarged right paratracheal lymph node. r there is mild ectasia of descending thoracic aorta which measures 37 mm the level of the main pulmonary artery There were no pulmonary artery filling defects to indicate acute pulmonary embolism. No pleural effusions are visualized. There is no focal pulmonary consolidation. There is a distal esophageal mass. There is an indwelling gastroesophageal stent. There is a persistent kzxsu-kl-dtcgralf pericardial effusion. IMPRESSION: 1. No evidence of acute pulmonary embolism 2. No evidence of focal pulmonary consolidation 3. Stable borderline enlarged right paratracheal lymph node 4. Persistent distal esophageal mass. Esophageal gastric stent is again visualized 5. Persistent nshvt-eb-ozewvpvg pericardial effusion ACT 112: Negative or not required by law. Electronically signed by: Eliezer Schmitz M.D. 11/20/2020 12:02 PM ECG Additional Comments: 20-NOV-2020 11:08:02 [facility]-EDSTAT ROUTINE RETRIEVAL Atrial fibrillation with rapid ventricular response with premature ventricular or aberrantly conducted complexes Low voltage QRS Nonspecific T wave abnormality Abnormal ECG When compared with ECG of 07-NOV-2020 12:07, Atrial fibrillation has replaced Sinus rhythm Vent. rate has increased BY 86 BPM 25mm/s 10mm/mV 150Hz 9.0.9 12SL 241 KIM: 11 Unconfirmed Vent. rate 147 BPM TN interval * ms QRS duration 84 ms QT/QTc 322/503 ms Code Status & VTE Plan Code Status DNR/DNI - discussed with pt and at bedside. VTE Prophylaxis Plan VTE Prophylaxis will be ordered: Yes Supervising Physician Co-Signing Physician Notes Attending addendum: The patient was seen and examined in emergency room in presence of the He is a 75-year-old male with significant past medical history including stage IV esophageal cancer with bony mets and is status post esophageal stent placement and ongoing chemotherapy which is on hold now apparently has had cardioversion for A. fib on 06 November and was sent home from the emergency room on Eliquis. He is back today with increasing weakness and tiredness and also noted to have recurrence of A. fib with RVR. He denies any chest pain Heart rate remains around 120s and has been put on oral amiodarone to control the rate He remains very weak and lethargic, minimal shortness of breath at rest but otherwise stable On examination Minimal shortness of breath at rest Cachectic looking Noted to be tachycardic and hypotensive Chest-clear Heart-S1-S2 regular Abdomen-scaphoid, tender in the epigastrium Extremities-no edema [employer]OLT[employer]-alert, awake and oriented x3. Extremely lethargic but can move all extremities Admission labs, EKG and imaging studies reviewed No PE, persistence of small to moderate pericardial effusion without any evidence for tamponade on echo, esophageal stent remains patent Will be admitted to medical telemetry unit on oral amiodarone Prognosis remains extremely poor Palliative care will be consulted for further goal of care and discharge discussed with the patient and the and they are agreeable to it Agree with assessment and plan as outlined above by Brooke DAVIDSON- Dr Raheel Anglin (1) Esophageal cancer Malignant neoplasm of esophagus location: unspecified location Qualified Code(s): C15.9 - Malignant neoplasm of esophagus, unspecified
[2020-11-20] MEDS ORDERED: ACETAMINOPHEN 1000 MG/100 ML IV IV PRN (14:28)
[2020-11-20] MEDS ORDERED: PROCHLORPERAZINE 10 MG in SYRINGE 8 ML IV PRN (14:28)
[2020-11-20] MEDS ORDERED: MoRPHine SULFATE 2 MG/ML CARP IV PRN (14:29)
[2020-11-20] MEDS ORDERED: MoRPHine SULFATE 4 MG/ML 1 ML CARP\\VIAL IV PRN (14:29)
--- NOTE | 2020-11-20 14:53 | Electrocardiogram Report ---
Test Reason : Blood Pressure : / mmHG Vent. Rate : 147 BPM Atrial Rate : 182 BPM P-R Int : 000 ms QRS Dur : 084 ms QT Int : 322 ms P-R-T Axes : 000 -03 -33 degrees QTc Int : 503 ms Atrial fibrillation with rapid ventricular response with premature ventricular or aberrantly conducte d complexes Low voltage QRS Nonspecific T wave abnormality Abnormal ECG When compared with ECG of 07-NOV-2020 12:07, Atrial fibrillation has replaced Sinus rhythm Vent. rate has increased BY 86 BPM Confirmed by Alen Holland ([id number]) on 11/20/2020 2:53:42 PM Referred By: Confirmed By:Rikki Holland
[2020-11-20] MEDS ORDERED: D5W AND 1/2NSS 1,000 ML IV SCH (17:35)
[2020-11-20] MEDS ORDERED: PROMETHAZINE HCL 12.5 MG SUPP PR PRN (17:35)
[2020-11-20] MEDS ORDERED: PROCHLORPERAZINE MALEATE 10 MG TAB PO PRN (17:35)
[2020-11-20] MEDS ORDERED: NON-FORMULARY MEDICATION (Mesalamine 1.2 gram Tablet,Delayed Release (Dr/Ec)) PO SCH (17:35)
[2020-11-20] MEDS ORDERED: traMADol HCL 50 MG TABLET PO PRN (17:35)
[2020-11-20] MEDS ORDERED: ONDANSETRON INJ 2 MG/ML 2 ML VIAL IV PRN (17:35)
[2020-11-20] MEDS ORDERED: SODIUM CHLORIDE 0.9% 500 ML IV SCH (19:45)
[2020-11-20] MEDS ORDERED: NON-FORMULARY MEDICATION (Apixaban [Eliquis] 5 mg (74 tabs) tablets,dose pack) PO SCH (21:00)
[2020-11-20] MEDS: APIXABAN 5 MG TABLET PO SCH (21:37)
[2020-11-20] MEDS: AMIODARONE 200 MG TAB PO SCH (21:37)
[2020-11-20] MEDS: SODIUM CHLORIDE 0.9% 1000ML 1,000 ML IV SCH (22:38)
[2020-11-20] MEDS ORDERED: DIGOXIN 250 MCG in SYRINGE 9 ML IV STA (22:57)
[2020-11-21] MEDS ORDERED: SODIUM CHLORIDE 0.9% 1000ML 1,000 ML IV SCH (00:30)
[2020-11-21] MEDS ORDERED: Nursing to Pharmacy Communication SCH (00:30)
[2020-11-21] MEDS: METOPROLOL SUCC 25MG EXT REL TAB PO SCH ×2 (00:30→07:49)
[2020-11-21] MEDS: AMIODARONE 200 MG TAB PO SCH ×6 (01:09→20:21)
[2020-11-21] MEDS ORDERED: SODIUM CHLORIDE 0.9% 500 ML IV SCH (01:15)
[2020-11-21] MEDS ORDERED: HEPARIN 100 UNIT/ML 5ML FLUSH FLUSH PRN (02:09)
[2020-11-21 06:58] LABS: Hemoglobin 9.7 g/dL (14.0-18.0); Mean Corpuscular Hemoglobin 27.8 pg (25-34); Mean Corpuscular Hgb Conc 32.3 g/dL (32-36); Mean Platelet Volume 8.6 fL (7.4-10.4); Platelet Count 305 K/uL (130-400); RDW Coefficient of Variation 19.6 % (11.5-14.5); RDW Standard Deviation 61.6 fL (36.4-46.3); Red Blood Count 3.49 M/uL (4.7-6.1); White Blood Count 7.82 K/uL (4.8-10.8)
[2020-11-21 07:33] LABS: BUN Creatinine Ratio 51.5 (10-20); Calcium 9.3 mg/dl (8.5-10.1); Creatinine Clr Calc Pharmacy 122.2 ml/min; Est GFR (African American) 130.7; Est GFR (Non-African American) 112.8; Potassium 3.7 mmol/L (3.5-5.1)
[2020-11-21 07:35] LABS: Albumin Globulin Ratio 0.6 (0.9-2); Bilirubin,Total 0.4 mg/dl (0.2-1); Globulin 3.2 gm/dl (2.5-4.0); Total Protein 5.2 gm/dl (6.4-8.2)
[2020-11-21] MEDS: APIXABAN 5 MG TABLET PO SCH ×2 (07:50→20:21)
[2020-11-21] MEDS: PANTOprazole 40 MG TAB PO SCH (07:50)
[2020-11-21 09:43] LABS: Appearance Urine Clear (Clear); Bacteria Urine Automated Negative (Negative); Bilirubin Urine Negative (Negative); Blood Urine Negative (Negative); Color Urine Dark Yellow; Glucose Urine UA Negative (Negative); Ketones Urine 1+ (Negative); Leukocyte Esterase Urine Negative (Negative); Nitrite Urine Negative (Negative); Protein Urine Trace (Negative); Specific Gravity Urine > 1.045 (1.000-1.030); Urobilinogen Urine Negative (Negative)
[2020-11-21] MEDS: SODIUM CHLORIDE 0.9% 1000ML 1,000 ML IV SCH (10:34)
--- NOTE | 2020-11-21 12:28 | Hospitalist Progress Note ---
Date of Service November 21, 2020 Assessment & Plan (1) Atrial fibrillation with RVR: Was tachycardic overnight, however rate is better controlled now. - Echo reviewed showing moderate-sized pericardial effusion, no echocardiographic indications of cardiac tamponade, mild concentric LVH, no wall motion abnormalities, EF of 55 to 60% -no tamponade, no current indication for cardiac pleurocentesis -S/p cardioversion on 11/06 -Continue with metoprolol 12.5 mg daily, amiodarone 250 mg 4 times daily -Continue Eliquis 5 mg twice daily (2) SOB (shortness of breath): Improved, currently patient is on room air., (3) Nausea & vomiting: - Continue IV antiemetics with zofran and compazine (4) Esophageal cancer: -Stage IV esophageal cancer with bony mets diagnosed in 2019 s/p stent placement, ongoing chemotherapy with FOLFIRI currently on hold (last round was in Aug 2020) - Pt follows with oncology at [facility] - Antiemetics - Pain medication prn - He is DNR/DNI. Palliative medicine has been consulted as patient was interested in hospice services. (5) Crohn disease: - Stable, no current flare ups. Pt dysphagia causing difficulty with po intake, significant weight loss in past year (6) Anemia: - Stable (7) DVT prophylaxis: - Maria E bravo CODE: DNR/DNI Admission and Anticipated Discharge Date Admission Date: November 20, 2020 Subjective Patient is sitting comfortably at the edge of the bed. Currently he is awake, alert and oriented x3. Reports that shortness of breath is improved. Denies any chest pain, cough, headache, dizziness, abdominal pain, diarrhea or dysuria. Review of Systems Review of Systems: All systems reviewed & are unremarkable except as noted in HPI & below Physical Exam Physical Exam: General: A&Ox3 HENT: NCAT, MMM, EOMI Eyes: PERRLA Neck: Supple, normal range of motion CVS: normal rate with airegular rhythm Resp: b/l good breath sounds, left-sided chest port in place Abdomen: Soft, ND/NT, +BS Extremities: No c/c/e Neuro: face symmetric, strength grossly equal, no focal deficit Skin: warm and dry, no rashes/lesions/errythema MSK: normal ROM, no joint swelling/erythema Results & Data Results & [facility] ([facility]) Vital Signs (Past 12 Hours) Vital Signs Temp Pulse Pulse Resp BP BP Pulse Ox 11/21/20 11:44 36.3 C L 67 18 142/77 H 99 11/21/20 07:00 36.7 C 88 16 98/57 L 97 11/21/20 03:00 36.4 C L 85 18 106/62 99 11/21/20 01:00 138 H (1) Esophageal cancer Malignant neoplasm of esophagus location: unspecified location Qualified Code(s): C15.9 - Malignant neoplasm of esophagus, unspecified
--- NOTE | 2020-11-21 14:29 | Palliative Care Consultation ---
Date of Consultation November 21, 2020 Assessment & Plan (1) Palliative care encounter: I talked with Naseem about how things have been going for them at home. Prior to this, he had been generally independent for ADLs with some help. He is concerned about being able to get out of bed and get to the bathroom. He reports that he does feel a little better with hydration. We discussed that decreased appetite and po intake is a common problem and that with increase in tumor size and overall weakness, this is concerning for disease progression and is likely to be an ongoing problem. He has considered this. We talked about what was most important to him at this time and he wants to go home. Dorina would very much like to care for him at home but feels that she needs support. We discussed hospice care and benefits included. Their initial response was that he is not ready for hospice care. We discussed hospice does not mean that his dying time is imminent but that focus of care has shifted to comfort and being able to remain at home with maximum support. They are considering this and will talk together this evening. She will be coming in to see him this evening. Palliative care will follow. 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 He had stent placement in August of 2020. He was hospitalized in September with weakness and was seen by palliative care at that time. He and his SO had considered hospice but wanted to discuss with their oncologist at [place]. He returns with progressive weakness and fatigue with dehydration and poor po intake. His SO, Dorina, tells me that she has been trying to get him to eat and drink but he has a very hard time doing it. He confirms decreased appetite and denies pain, nausea or dyspnea. CT of chest done approximately one month ago shows increased size of esophageal tumor. He has been receiving home care with [facility] once a week prior to admission. It has been a stress for Dorina and they are concerned about managing his care if he declines further. Allergies Allergy/AdvReac Type Severity Reaction Status Date / Time amoxicillin Allergy Intermediate Leg Verified 11/06/20 16:30 swelling/inflammation cefazolin Allergy Intermediate rash Verified 11/06/20 16:30 clindamycin Allergy Intermediate rash Verified 11/06/20 16:30 doxycycline Allergy Intermediate rash Verified 11/06/20 16:30 Sulfa (Sulfonamide Allergy Unknown Unknown Verified 11/06/20 16:30 Antibiotics) Home Medications Medication Instructions Recorded Confirmed Type mesalamine 2.4 g PO .ON HOLD 05/04/19 11/20/20 History ondansetron 4 - 8 mg PO Q6H PRN 09/13/20 11/20/20 History tramadol 50 mg PO Q8H PRN #90 tab 09/21/20 11/20/20 Rx pantoprazole 40 mg PO QAM 10/25/20 11/20/20 History apixaban [Eliquis] 5 mg PO BID #74 ea 11/06/20 11/20/20 Rx prochlorperazine maleate 10 mg PO DIRECTED PRN 11/06/20 11/20/20 History metoprolol succinate 12.5 mg PO DAILY 11/20/20 11/20/20 History promethazine 12.5 mg AK UD PRN 11/20/20 11/20/20 History Patient History Medical History Arthritis stable Crohn disease (06/01/14) stable Diabetes mellitus type 2 in nonobese (09/09/11) Esophageal cancer + esophageal stent, plan for future chemo GERD (gastroesophageal reflux disease) controlled Gout Migraine hx Obesity Obstruction of esophagus Palliative care encounter Port-A-Cath in place (05/09/19) Insertion of A-Port Dr. Jorge 05/09/19 Sleep apnea BIPAP Weakness Surgical History History of colonoscopy History of esophagogastroduodenoscopy (EGD) History of tonsillectomy History of total knee replacement bilateral S/P dilatation of esophageal stricture + stent Family History Mother Diabetes Father Heart disease FHx: lung cancer Social History Smoking Status: Former smoker Tobacco Type: Cigarettes Second Hand Exposure: No; Hx Alcohol Use: No Hx Substance Use: No Preferred Language: Slovenian Communication Ability: Effective Director Of It Operations Required: No Beliefs That Will Affect Care: None marital status: Current Living Situation: Spouse Current Living Situation Comment: lives at home with current occupational status: retired Other Information That Helps Us Care for You: No Feels Safe at Home: Yes Safety Concerns: Feels Safe At This Time Assistive Devices: Cane, Denture - Upper, Glasses and Walker Review of Systems Review of Systems: Mobile Symptom Assessment Scale Pain 1/3 Dyspnea 0/3 Anxiety 0/3 Fatigue 2/3 Anorexia 3/3 Nausea 0/3 Drowsiness 1/3 Palliative Performance Score 40% Physical Exam Constitutional: + thin and + frail appearing; no acute distress ENMT: temporal wasting Respiratory: normal respiratory effort; no labored breathing Gastrointestinal (Abdomen): Inspection/Auscultation: abdomen not distended Musculoskeletal: Extremities: + muscle atrophy Neurologic: awake; not confused Results & Data ([facility]) Vital Signs (Past 12 Hours) Vital Signs Temp Pulse Resp BP BP Pulse Ox 11/21/20 11:44 97.3 F L 67 18 142/77 H 99 11/21/20 07:00 98.1 F 88 16 98/57 L 97 11/21/20 03:00 97.5 F L 85 18 106/62 99 PG Care Time/CCT Total # of Minutes Spent Total Time Spent with Patient: Total time spent is greater than 50% in coordination of care (as documented) at patient's floor/unit and/or counseling patient: total time spent 65 minutes with more than 50% of time spent on goals of care, hospice. Coding Level of Care Code 95366 Inpt Consult Level 3 Diagnoses Palliative care encounter Z51.5 Esophageal cancer C15.9 Malignant neoplasm of esophagus location: unspecified location Obstructive sleep apnea syndrome G47.33 Obstruction of esophagus K22.2
[2020-11-21] MEDS ORDERED: VANCOMYCIN HCL 1,000 MG/270 ML BAG IV STA (16:19)
[2020-11-21] MEDS ORDERED: VANCOMYCIN CONSULT ACTIVE PRN (16:19)
[2020-11-21] MEDS ORDERED: VANCOMYCIN HCL 1,250 MG in SODIUM CHLORIDE 0.9% 250 ML IV STA (16:46)
--- NOTE | 2020-11-21 19:48 | Pharmacy Report ---
Pharmacy Abx Initial Consult - Date of Service November 21, 2020 - Pharmacy Dosing Scope Date of Consult: 11/21/20 Consultation requested by: Dr. Mai Pharmacy is consulted to initiate Vancomycin IV dosing therapy, order appropriate labs and adjust drug dose/frequency. - Subjective The patient is a 75 year old M admitted on 11/20/20 14:05. - Objective Height: 5 ft 7 in Weight: 58.2 kg Vital Signs (Past 12hrs): Vital Signs Temp Pulse Pulse Resp BP Pulse Ox 11/21/20 19:17 36.5 C 76 18 129/62 94 11/21/20 18:14 91 H 11/21/20 17:38 88 11/21/20 15:00 36.6 C 69 18 109/64 96 11/21/20 11:44 36.3 C L 67 18 142/77 H 99 Lab Results (24hrs): Laboratory Tests (24 Hours) 11/21/20 11/21/20 05:56 05:56 WBC 7.82 Creatinine 0.43 L Est Cr Clr Drug Dosing 122.2 Micro Results: 11/20/20 11:24 Anaerobic Blood Culture - Pending Blood - Assessment & Plan Assessment * 75 year old M who presented to [facility] for shortness of breath, afib * PMH of stage IV esophageal cancer with bony mets. Last received chemo in August of 2020 * Growing gram positive cocci in 1/4 blood cultures * Palliative care consulted. Patient currently considering being discharged to home with hospice. Plan Vancomycin IV * Estimated PK Parameters: Vd 0.7 L/kg, Chas 0.08 hr-1, t1/2 8 hr * Loading dose: 1250 mg (22 mg/kg) * Maintenance dose: 1000 mg IV (17 mg/kg) every 8 hours * Goal trough level: ~20 mcg/mL * Trough ordered for 11/22 @1730 Pharmacy will continue to follow and will adjust dose/frequency as necessary. Thank you.
[2020-11-21] MEDS ORDERED: SIMETHICONE 80 MG CHEW PO STA (20:25)
[2020-11-21] MEDS ORDERED: APIXABAN 5 MG TABLET PO SCH (21:15)
[2020-11-22] MEDS: SODIUM CHLORIDE 0.9% 1000ML 1,000 ML IV SCH ×2 (00:01→12:47)
[2020-11-22] MEDS: VANCOMYCIN HCL 1,000 MG in SODIUM CHLORIDE 0.9% 250 ML IV SCH ×3 (03:08→17:41)
[2020-11-22 05:58] LABS: Hematocrit (blood only) 27.1 % (42-52); Hemoglobin 8.9 g/dL (14.0-18.0); Mean Corpuscular Hemoglobin 28.3 pg (25-34); Mean Corpuscular Hgb Conc 32.8 g/dL (32-36); Mean Platelet Volume 8.1 fL (7.4-10.4); Platelet Count 246 K/uL (130-400); RDW Coefficient of Variation 19.3 % (11.5-14.5); RDW Standard Deviation 61.7 fL (36.4-46.3); Red Blood Count 3.15 M/uL (4.7-6.1); White Blood Count 7.61 K/uL (4.8-10.8)
[2020-11-22 06:31] LABS: Albumin Globulin Ratio 0.6 (0.9-2); Albumin Level 1.9 gm/dl (3.4-5.0); Bilirubin,Total 0.5 mg/dl (0.2-1); Est GFR (African American) 140.6; Est GFR (Non-African American) 121.3; Globulin 3.2 gm/dl (2.5-4.0); Potassium 3.4 mmol/L (3.5-5.1); Total Protein 5.1 gm/dl (6.4-8.2)
[2020-11-22] MEDS: METOPROLOL SUCC 25MG EXT REL TAB PO SCH (08:18)
[2020-11-22] MEDS: APIXABAN 5 MG TABLET PO SCH ×2 (08:18→20:07)
[2020-11-22] MEDS: PANTOprazole 40 MG TAB PO SCH (08:19)
[2020-11-22] MEDS: AMIODARONE 200 MG TAB PO SCH ×4 (08:19→20:08)
[2020-11-22] MEDS ORDERED: bisacodyL 10 MG SUPP PR STA (12:11)
--- NOTE | 2020-11-22 13:10 | Palliative Care Progress Note ---
Date of Service November 22, 2020 Assessment & Plan (1) Palliative care encounter: I talked with Naseem about his thoughts regarding hospice. He likes the idea of Dorina having support. Dorina tells me that initially he had expressed some concerns about stopping immunotherapy but he recognizes that he has been getting weaker and last CT showed disease progression despite immunotherapy. They are in agreement to proceed with hospice care. Discussed with case management. (2) Constipation: He uses suppository at home. Will order dulcolax suppository (3) Weakness: Admission and Anticipated Discharge Date Admission Date: November 20, 2020 Subjective Had a visit with his last night. He c/o gas pains and constipation today. Denies nausea or shortness of breath. Seems to have some mild confusion at times. Review of Systems Review of Systems: [facility] Symptom Assessment Scale Pain 1/3 Dyspnea 0/3 Anxiety 1/3 Fatigue 2/3 Drowsiness 0/3 Palliative Performance Score 30% Physical Exam Constitutional: + frail appearing; no acute distress ENMT: temporal wasting Respiratory: normal respiratory effort; no labored breathing Gastrointestinal (Abdomen): Inspection/Auscultation: abdomen not distended Musculoskeletal: Extremities: + muscle atrophy Neurologic: awake and + confused (mild) Results & Data ([facility]) Vital Signs (Past 12 Hours) Vital Signs Temp Pulse Pulse Resp BP BP Pulse Ox 11/22/20 11:54 73 11/22/20 11:25 97.9 F 67 19 116/69 99 11/22/20 07:39 97.9 F 71 18 111/62 98 11/22/20 04:14 97.2 F L 78 16 135/71 100 PG Care Time/CCT Total # of Minutes Spent Total Time Spent with Patient: Total time spent is greater than 50% in coordination of care (as documented) at patient's floor/unit and/or counseling patient: Coding Level of Care Code 29900 Subseq Hosp Care Lvl 2 Diagnoses Palliative care encounter Z51.5 Constipation K59.00 Weakness R53.1
--- NOTE | 2020-11-22 14:19 | Hospitalist Progress Note ---
Date of Service November 22, 2020 Assessment & Plan (1) Atrial fibrillation with RVR: Rate is controlled. - Echo reviewed showing moderate-sized pericardial effusion, no echocardiographic indications of cardiac tamponade, mild concentric LVH, no wall motion abnormalities, EF of 55 to 60% -no tamponade, no current indication for cardiac pleurocentesis -S/p cardioversion on 11/06 -Continue with metoprolol 12.5 mg daily, amiodarone 250 mg 4 times daily. On admission, provider discussed with cardiology. Plan is to discharge with amiodarone. Possibly will need 2 weeks of amiodarone 200 mg TID followed by 100- 200 mg daily amiodarone for mantenance. -Continue Eliquis 5 mg twice daily (2) Bacteremia: / bottles positive for Staph species Ryan did have mild leukocysotis on admission, tacycardic and hypotensive. Meet sepsis criteria. Patient is high risk candidate given h/o cancer, malnourished and left chest central line in place. Will continue with vancomycin for now. Highly likely it is contaminant. Will await for final species. Repeat blood culutures today. (3) SOB (shortness of breath): Improved, currently patient is on room air., (4) Nausea & vomiting: - Continue IV antiemetics with zofran and compazine (5) Esophageal cancer: -Stage IV esophageal cancer with bony mets diagnosed in 2019 s/p stent [address] acement, ongoing chemotherapy with FOLFIRI currently on hold (last round was in Aug 2020) - Pt follows with oncology at [facility] and [place] - Antiemetics - Pain medication prn - He is DNR/DNI. Plan is to discharge on hospice services. (6) Crohn disease: - Stable, no current flare ups. Pt dysphagia causing difficulty with po intake, significant weight loss in past year (7) Anemia: - Stable (8) DVT prophylaxis: - Maria E bravo CODE: DNR/DNI Admission and Anticipated Discharge Date Admission Date: November 20, 2020 Subjective Patient is doing okay this morning. Does not have any major complaints. Remains afebrile. Appetite is okay and denies any difficulty swallowing. Denies any chest pain or abdominal pain. Physical Exam Physical Exam: General: A&Ox3 HENT: NCAT, MMM, EOMI Eyes: PERRLA Neck: Supple, normal range of motion CVS: normal rate with airegular rhythm Resp: b/l good breath sounds, left-sided chest port in place Abdomen: Soft, ND/NT, +BS Extremities: No c/c/e Neuro: face symmetric, strength grossly equal, no focal deficit Skin: warm and dry, no rashes/lesions/errythema MSK: normal ROM, no joint swelling/erythema Results & Data Results & Data ([facility]) Vital Signs (Past 12 Hours) Vital Signs Temp Pulse Pulse Resp BP BP Pulse Ox 11/22/20 13:21 36.6 C 67 19 116/69 135/71 99 11/22/20 11:54 73 11/22/20 11:25 36.6 C 67 19 116/69 99 11/22/20 07:39 36.6 C 71 18 111/62 98 11/22/20 04:14 36.2 C L 78 16 135/71 100 (1) Esophageal cancer Malignant neoplasm of esophagus location: unspecified location Qualified Code(s): C15.9 - Malignant neoplasm of esophagus, unspecified
[2020-11-22] MEDS ORDERED: DOCUSATE SODIUM 100 MG CAP PO ONE (16:38)
[2020-11-22] MEDS ORDERED: VANCOMYCIN TROUGH ONE (17:30)
[2020-11-22] MEDS: SENNA 8.6 MG TAB PO SCH (17:39)
[2020-11-23] MEDS: VANCOMYCIN HCL 1,000 MG in SODIUM CHLORIDE 0.9% 250 ML IV SCH ×3 (01:23→17:03)
[2020-11-23 05:49] LABS: Hematocrit (blood only) 27.4 % (42-52); Hemoglobin 8.8 g/dL (14.0-18.0); Mean Corpuscular Hemoglobin 27.6 pg (25-34); Mean Corpuscular Hgb Conc 32.1 g/dL (32-36); Mean Corpuscular Volume 85.9 fL (80-100); Mean Platelet Volume 8.2 fL (7.4-10.4); Platelet Count 242 K/uL (130-400); RDW Coefficient of Variation 19.4 % (11.5-14.5); RDW Standard Deviation 61.6 fL (36.4-46.3); Red Blood Count 3.19 M/uL (4.7-6.1); White Blood Count 6.08 K/uL (4.8-10.8)
[2020-11-23 06:17] LABS: Alanine Aminotransferase 8 U/L (12-78); Albumin Level 1.8 gm/dl (3.4-5.0); Aspartate Aminotransferase 14 U/L (15-37); BUN Creatinine Ratio 55.6 (10-20); Blood Urea Nitrogen 14 mg/dl (7-18); Calcium 9.2 mg/dl (8.5-10.1); Carbon Dioxide 25 mmol/L (21-32); Chloride 110 mmol/L (98-107); Est GFR (African American) > 150.0; Est GFR (Non-African American) 138.7; Glucose 79 mg/dl (70-99); Potassium 3.5 mmol/L (3.5-5.1); Sodium 138 mmol/L (136-145)
[2020-11-23 06:19] LABS: Albumin Globulin Ratio 0.6 (0.9-2); Alkaline Phosphatase 69 U/L (45-117); Bilirubin,Total 0.4 mg/dl (0.2-1); Globulin 3.2 gm/dl (2.5-4.0)
[2020-11-23] MEDS: APIXABAN 5 MG TABLET PO SCH ×2 (09:21→21:28)
[2020-11-23] MEDS: METOPROLOL SUCC 25MG EXT REL TAB PO SCH (09:21)
[2020-11-23] MEDS: AMIODARONE 200 MG TAB PO SCH ×4 (09:21→21:25)
[2020-11-23] MEDS: SENNA 8.6 MG TAB PO SCH (09:22)
[2020-11-23] MEDS: PANTOprazole 40 MG TAB PO SCH (09:22)
--- NOTE | 2020-11-23 09:39 | Pharmacy Report ---
Pharmacy Abx Dose Short Note - Date of Service November 23, 2020 - Assessment & Plan Assessment 75 year old M receiving vancomycin for bacteremia Day # 3 of antimicrobial therapy. Plan Vancomycin * Trough level came back therapeutic last evening at 17.6 mcg/ml (goal 15-20 mcg/ml) * Blood cultures 1/4 with MSSA - patient with multiple drug allergies to PCNs/cephalosporins * Repeat blood cultures pending at this time * Plan to continue same vancomycin dosing of 1 gm iv q 8 hrs Pharmacy will continue to follow and will adjust dose/frequency as necessary. Thank you.
--- NOTE | 2020-11-23 18:22 | Hospitalist Progress Note ---
Date of Service November 23, 2020 Assessment & Plan (1) Atrial fibrillation with RVR: Rate is controlled. - Echo reviewed showing moderate-sized pericardial effusion, no echocardiographic indications of cardiac tamponade, mild concentric LVH, no wall motion abnormalities, EF of 55 to 60% -no tamponade, no current indication for cardiac pleurocentesis -S/p cardioversion on 11/06 -Continue with metoprolol 12.5 mg daily, amiodarone 250 mg 4 times daily. On admission, provider discussed with cardiology. Plan is to discharge with amiodarone. Possibly will need 2 weeks of amiodarone 200 mg TID followed by 100- 200 mg daily amiodarone for mantenance. -Continue Eliquis 5 mg twice daily (2) Bacteremia: / bottles positive for Staph species Ryan did have mild leukocysotis on admission, tacycardic and hypotensive. Meet sepsis criteria. Patient is high risk candidate given h/o cancer, malnourished and left chest central line in place. Will continue with vancomycin for now. Highly likely it is contaminant. Will await for final species. Repeat blood culture pending Spoke to and would like antibiotic to continue if blood cx positive (3) SOB (shortness of breath): clinically stable (4) Nausea & vomiting: Continue IV antiemetics with zofran and compazine Improves (5) Esophageal cancer: -Stage IV esophageal cancer with bony mets diagnosed in 2019 s/p stent placement, ongoing chemotherapy with FOLFIRI currently on hold (last round was in Aug 2020) - Pt follows with oncology at [facility] and [place] - Antiemetics - Pain medication prn - He is DNR/DNI. Plan is to discharge on hospice services. (6) Crohn disease: - Stable, no current flare ups. Pt dysphagia causing difficulty with po intake, significant weight loss in past year (7) Anemia: - Stable (8) DVT prophylaxis: - Maria E bravo CODE: DNR/DNI Disposition Plan to discharge on hospice Admission and Anticipated Discharge Date Admission Date: November 20, 2020 Subjective Pt was seen and examined and examined for follow Lying in bed with no distress Spoke to and provided with update today would like to continue with the abx if blood cx is positive Denies any chest pain, palpitation, dizziness and SOB Review of Systems Review of Systems: All systems reviewed & are unremarkable except as noted in Subjective Physical Exam Physical Exam: General: A&Ox3 HENT: NCAT, MMM, EOMI Eyes: PERRLA Neck: Supple, normal range of motion CVS: normal rate with airegular rhythm Resp: b/l good breath sounds, left-sided chest port in place Abdomen: Soft, ND/NT, +BS Extremities: No c/c/e Neuro: face symmetric, strength grossly equal, no focal deficit Skin: warm and dry, no rashes/lesions/errythema MSK: normal ROM, no joint swelling/erythema Results & Data Results & Data ([facility]) Vital Signs (Past 12 Hours) Vital Signs Temp Pulse Pulse Resp BP BP Pulse Ox 11/23/20 16:00 58 L 11/23/20 15:26 36.5 C 60 16 130/56 L 98 11/23/20 12:03 36.3 C L 58 L 16 121/63 99 11/23/20 08:00 58 L 11/23/20 07:50 36.4 C L 60 16 130/68 99 (1) Esophageal cancer Malignant neoplasm of esophagus location: unspecified location Qualified Code(s): C15.9 - Malignant neoplasm of esophagus, unspecified
[2020-11-24] MEDS: VANCOMYCIN HCL 1,000 MG in SODIUM CHLORIDE 0.9% 250 ML IV SCH ×2 (01:29→09:46)
[2020-11-24 06:54] LABS: Creatinine Clr Calc Pharmacy 211.3 ml/min; Est GFR (African American) > 150.0; Est GFR (Non-African American) 136.6
[2020-11-24] MEDS: PANTOprazole 40 MG TAB PO SCH (08:46)
[2020-11-24] MEDS: SENNA 8.6 MG TAB PO SCH (08:46)
[2020-11-24] MEDS: APIXABAN 5 MG TABLET PO SCH (08:46)
[2020-11-24] MEDS: AMIODARONE 200 MG TAB PO SCH ×2 (08:47→12:40)
[2020-11-24] MEDS: METOPROLOL SUCC 25MG EXT REL TAB PO SCH (08:47)
[2020-11-24] MEDS ORDERED: CEFDINIR 300 MG CAP PO SCH (11:45)
--- NOTE | 2020-11-24 17:08 | Discharge Summary ---
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 His is present with him at bedside. On November 06 the Patient was in the ER where he was found to be in A. fib with RVR and was cardioverted, and was started on Eliquis 5 mg twice daily. Since going home he has felt okay, but feels that he is significantly getting weaker and more fatigued. Today pt is found to be in Afib with RVR with HR in the 110- 120s. He reports no chest pain, palpitations, flutter, pressure. Pt admits to having progressive shortness of breath in the past few days. Currently he is on supplemental oxygen, and does not wear this routinely at baseline. His oral intake has been poor in the last few weeks due to his dysphagia, nausea, and phlegm after attempting to eat. He reports losing a significant amount of the weight within the past year. He is ambulatory and uses a cane for assistance at all times. Denies any recent falls or injuries. There has been some conversation involved GI and the patient regarding feeding tube placement. We discussed that this would serve as a mechanism for getting oral medications into his body and some form of nutrition, however that this will not miraculously improve his quality of life. We discussed further care and what his goals were, and he expresses that he does not wish to any invasive procedures. He is agreeable to speaking with palliative care while admitted. They had an outpatient appointment scheduled today however due to his worsening status brought him to the ER and have not yet touched base with outpatient palliative medicine. We also discussed admission to the hospital and that we would attempt to rate control his heart, administer IV fluids and formulate a plan for being comfortable and going home possibly with hospice. Admission Exam Per Admitting Provider Constitutional: No fever, sweats, + chills, + weakness and fatigue Eyes: No diplopia, no worsening or blurred vision ENT: normal hearing, + dysphagia due to esophageal cancer Respiratory: No cough, sputum, +dyspnea on exertion, no dyspnea at rest, on 2 L currently, does not wear supplemental O2 at baseline Cardiovascular: No chest pain, tightness or palpitations Abdomen: + Mild pain, + nausea, no vomiting, diarrhea or constipation. Last BM was yesterday x2, soft and formed, no blood streaking, no BRPRB, no black tarry stool Musculoskeletal: No joint pain, calf pain, swelling Neurologic: No weakness, numbness/tingling, + uses a cane with ambulation Psychiatric: No anxiety or depression Skin: No rash or itch Principal Diagnosis Atrial fibrillation with RVR: Possible Bacteremia SOB (shortness of breath): Nausea & vomiting: Esophageal cancer: Crohn disease: Anemia: Discharge Exam General: A&Ox3 HENT: NCAT, MMM, EOMI Eyes: PERRLA Neck: Supple, normal range of motion CVS: normal rate with airegular rhythm Resp: b/l good breath sounds, left-sided chest port in place Abdomen: Soft, ND/NT, +BS Extremities: No c/c/e Neuro: face symmetric, strength grossly equal, no focal deficit Skin: warm and dry, no rashes/lesions/errythema MSK: normal ROM, no joint swelling/erythema Discharge Data Allergies Allergy/AdvReac Type Severity Reaction Status Date / Time amoxicillin Allergy Intermediate Leg Verified 11/06/20 16:30 swelling/inflammation cefazolin Allergy Intermediate rash Verified 11/06/20 16:30 clindamycin Allergy Intermediate rash Verified 11/06/20 16:30 doxycycline Allergy Intermediate rash Verified 11/06/20 16:30 Sulfa (Sulfonamide Allergy Unknown Unknown Verified 11/06/20 16:30 Antibiotics) Consultations 11/20/20 12:45 ED Decision to Admit Stat 11/20/20 17:35 Consult Palliative Care Routine Ordered Studies 11/20/20 11:02 CT head/brain wo con Stat 11/20/20 11:12 CT angio chest PE protocol Stat CT ANGIOGRAM OF THE CHEST CLINICAL HISTORY: Shortness of breath. Tachycardia. Possible acute pulmonary embolism. COMPARISON STUDY: Noncontrast CT scan dated 10/25/2020 TECHNIQUE: Following the IV administration of 120 mL of Optiray, CT angiogram of the thorax was performed from the thoracic inlet to the lung bases utilizing the pulmonary embolus protocol. Images are reviewed in the axial, sagittal, and coronal planes. IV contrast was administered without complication. MIP imaging was performed. A dose lowering technique was utilized adhering to the principles of ALARA. CT DOSE: 896.69 mGy.cm FINDINGS: There is a 11 mm right lobe thyroid nodule. No further workup is indicated. There is a stable mildly enlarged right paratracheal lymph node. r there is mild ectasia of descending thoracic aorta which measures 37 mm the level of the main pulmonary artery There were no pulmonary artery filling defects to indicate acute pulmonary embolism. No pleural effusions are visualized. There is no focal pulmonary consolidation. There is a distal esophageal mass. There is an indwelling gastroesophageal stent. There is a persistent [id number] pericardial effusion. IMPRESSION: 1. No evidence of acute pulmonary embolism 2. No evidence of focal pulmonary consolidation 3. Stable borderline enlarged right paratracheal lymph node 4. Persistent distal esophageal mass. Esophageal gastric stent is again visualized 5. Persistent [id number] pericardial effusion ACT 112: Negative or not required by law. Electronically signed by: Eliezer Schmitz M.D. 11/20/2020 12:02 PM Dictated: 11/20/20 1156Transcribed: 11/20/20 1156 SINGLE VIEW CHEST CLINICAL HISTORY: Sepsis. Esophageal cancer. FINDINGS: An AP, portable, upright chest radiograph is compared to study dated 11/07/2020 and correlated with chest CT dated 10/25/2020. The examination is degraded by portable technique and patient rotation. A left subclavian central venous infusion port is unchanged in position. An esophageal stent is in place. The heart is enlarged noting atherosclerotic calcification of the thoracic aorta. The pulmonary vasculature is noncongested. Chronic interstitial thickening is similar to previous. There is no airspace consolidation or large pleural effusion. No pneumothorax is seen. The skeletal structures are osteop enic. The bony thorax is grossly intact. Degenerative change is noted in the shoulders and thoracic spine. IMPRESSION: 1. Cardiomegaly with no acute cardiopulmonary abnormality. 2. An esophageal stent is in place. ACT 112: Negative or not required by law. Electronically signed by: Paul Daley M.D. 11/20/2020 11:18 AM Dictated: 11/20/20 1117Transcribed: 11/20/[address] head/brain wo con CLINICAL HISTORY: blurry vision COMPARISON STUDY: 09/15/2020 TECHNIQUE: Axial CT of the brain is performed from the vertex to the skull base. IV contrast was not administered for this examination. A dose lowering technique was utilized adhering to the principles of ALARA. CT DOSE: FINDINGS: No intra or extra-axial mass lesions are visualized. There is no CT evidence of acute cortical infarction. There is no evidence of midline shift. There is no acute hemorrhage. No calvarial fractures are visualized. There are patchy white matter hypodensities likely on a small vessel basis. There is no evidence of pathologic ventricular dilatation. There is no evidence of acute sinusitis IMPRESSION: No acute intracranial findings ACT 112: Negative or not required by law. Electronically signed by: Eliezer Schmitz M.D. 11/20/2020 11:56 AM Dictated: 11/20/20 1155Transcribed: 11/20/20 115 Hospital Course (1) Atrial fibrillation with RVR: Rate is controlled. - Echo reviewed showing moderate-sized pericardial effusion, no echocardiographic indications of cardiac tamponade, mild concentric LVH, no wall motion abnormalities, EF of 55 to 60% -no tamponade, no current indication for cardiac pleurocentesis -S/p cardioversion on 11/06 -Continue with metoprolol 12.5 mg daily, amiodarone 250 mg 4 times daily. -On admission, provider discussed with cardiology. Plan is to discharge with amiodarone. -Will discharge with amiodarone 200 mg BID followed by 100-200 mg daily amiodarone for maintenance. -Continue Eliquis 5 mg twice daily (2) Bacteremia: / bottles positive for Staph species (MSSA) Paient did have mild leukocysotis on admission, tacycardic and hypotensive. Meet sepsis criteria. Patient is high risk candidate given h/o cancer, malnourished and left chest central line in place. Highly likely it is contaminant. Will await for final species. Repeat blood culture no growth Spoke to and would like antibiotic to continue if blood cx positive Spoke to microbiology and cannot comfirm if blood cx was contaminated would like to continue abx even though pt will transition to hospice Will change IV Vanco to Cefdinir for 10 days First dose give in the hospital and pt develops no rash Rash was informed over the phone if pt develops any rash, to administer Benadryl prn (3) SOB (shortness of breath): clinically stable (4) Nausea & vomiting: Continue IV antiemetics with zofran and compazine Improves (5) Esophageal cancer: -Stage IV esophageal cancer with bony mets diagnosed in 2019 s/p stent placement, ongoing chemotherapy with FOLFIRI currently on hold (last round was in Aug 2020) - Pt follows with oncology at [facility] and [facility] - Antiemetics - Pain medication prn - He is DNR/DNI. Plan is to discharge on hospice services. (6) Crohn disease: - Stable, no current flare ups. Pt dysphagia causing difficulty with po intake, significant weight loss in past year (7) Anemia: - Stable (8) DVT prophylaxis: - Maria E bravo CODE: DNR/DNI Disposition Plan to discharge on hospice Total Time Total Time Spent Total Time Spent (In Minutes): 40 minutes Total Time Includes: Examination of the Patient, Discharge Planning, Medication Reconciliation, Communication With Other Providers and Other Discharge Plan Discharge Items Patient Disposition: Hospice - Home Reason For Visit: AFIB WITH RVR ESOPHAGEAL CANCER Discharge Diagnosis: Atrial fibrillation with RVR: Possible Bacteremia SOB (shortness of breath): Nausea & vomiting: Esophageal cancer: Crohn disease: Anemia: Activity: Resume your previous activity Non-emergency contact: Primary Care Provider Call non-emergency contact if: you have any medication questions Follow-up/Referrals: Rodolfo Whyte DO [Primary Care Provider] - Diet: Heart Healthy Diet Texture: Pureed (blended smooth) Addtl Attending Provider Instructions: Discharge home with hospice Follow up with your your primary care provider to titrate the amiodarone if you decide to continue taking it while on hospice Fall precaution Aspiration precaution Pending Studies at Discharge: No Stand-Alone Forms: My [facility] Medications and DC Order Prescriptions: New amiodarone 200 mg Tablet 200 mg PO BID 30 Days Qty: 60 RF: 0 cefdinir 300 mg Capsule 300 mg PO BID 10 Days Qty: 20 RF: 0 sennosides [Senokot] 8.6 mg Tablet 8.6 mg PO QAM 30 Days Qty: 30 RF: 0 Continued mesalamine 1.2 gram Tablet,Delayed Release (Dr/Ec) 2.4 g PO .ON HOLD RF: 0 ondansetron 4 mg Tablet,Disintegrating 4 - 8 mg PO Q6H PRN (Reason: Nausea) RF: 0 tramadol 50 mg tablet 50 mg PO Q8H PRN (Reason: Pain) Qty: 90 RF: 0 pantoprazole 40 mg Tablet,Delayed Release (Dr/Ec) 40 mg PO QAM RF: 0 prochlorperazine maleate 10 mg tablet 10 mg PO DIRECTED PRN (Reason: Nausea) RF: 0 Eliquis 5 mg (74 tabs) tablets,dose pack 5 mg PO BID Qty: 74 RF: 0 promethazine 12.5 mg suppository 12.5 mg MS UD PRN (Reason: Nausea) RF: 0 metoprolol succinate 25 mg tablet extended release 24 hr 12.5 mg PO DAILY RF: 0 Discharge Orders: Discharge Order (Routine); Ordered 11/24/20 Ordered By: Destiny Bello Admission Data Admit Date/Time: 11/20/20 14:05 Attending Provider: Destiny Bello Admit Provider: Yaritza Anglin Primary Care Provider: Rodolfo Whyte Other Providers: Yaritza Anglin ; Tracie Weiss Other Interventions: Discharge Summary Assessment (RN) Last Done: 11/22/20 13:21
--- NOTE | 2020-11-27 12:22 | Pharmacy Report ---
ED Pharmacist Culture FollowUP - Culture Follow Up Note Date of Service: November 27, 2020 Notes:: Patient growing MSSA in 1/4 blood cultures, repeat 48 hours later were negative. Patient was admitted, administered vancomycin and discharged on PO cefdinir for this.
--- NOTE | 2020-12-05 13:01 | Coding Query ---
SEPSIS Possible Bacteremia is documented beginning on Progress Note 11/22 through Discharge Summary with documentation of, "Meets sepsis criteria". It is not clear if possible bacteremia was with possible Sepsis or not. Please also specify the most likley infectious source, if known, or specify if likely source is unknown. To promote full compliance with coding requirements relating to patient care, physician participation is requested in all cases of green end department supervisor uncertainty. Please assist us with the question(s) below: In responding to this query, please exercise your independent professional judgement. The fact that a question is asked does not imply that any particular answer is desired or expected. We appreciate your clarification on this issue. Throughout the medical record, you have clearly documented a localized infection and your patient has clinical evidence of a generalized sepsis or severe sepsis. The term urosepsis is a nonspecific entity and is coded as an UTI. If the patient has sepsis, severe sepsis, from an urinary source or some other source, please clarify in your response below. The medical record reflects the following clinical findings: (With dates as appropriate) (Body temperature of >38.3 C(101 F) or <36 C(96.8F), pulse >90/minute, respirations >20/minute, WBC count >12,000 or <4,000, altered mental status, significant edema or positive fluid balance, hyperglycemia without diabetes, hypotension, metabolic acidosis (elev. lactate level, anion gap or reduced blood pH), shock, positive blood culture (enter organism) ____ (x)Bacteremia (Nonspecific laboratory finding of bacteria in the blood) Specify Organism (x) Present on Admission () Not present on admission () Unable to clinically determine () Septicemia (Systemic disease associated with the presence of pathogenic microorganisms in the blood): Specify Organism () Present on Admission () Not present on admission () Unable to clinically determine () Sepsis Specify Organism Specify Associated Condition/Diagnosis () Present on Admission () Not present on admission () Unable to clinically determine () Severe Sepsis (Sepsis associated with acute organ dysfunction) Specify Organism Specify Associated Condition/Diagnosis () Present on Admission () Not present on admission () Unable to clinically determine () Septic Shock (Severe sepsis with acute circulatory failure, unexplained by other causes) () Present on Admission () Not present on admission () Unable to clinically determine () Other, patient has: MTDD
--- NOTE | 2020-12-05 13:06 | Coding Query ---
MALNUTRITION To promote full compliance with coding requirements relating to patient care, physician participation is requested in all cases of quenching car operator uncertainty. Please assist us with the question(s) below: Please place an X within the parenthesis (x). If other, please document: ""Patient is high risk candidate given h/o cancer, malnourished and left chest central line in place" is documented in this record. If Malnourished indicates a diagnosis, please specify below, in your clinical opinion regarding Malnourished. ( ) Malnutrition. Please specify further below if possible to provide a more specific diagnosis: ( ) Mild malnutrition ( ) Moderate malnutrition ( ) Severe malnutrition ( ) Protein malnutrition (kwashiorkor) ( ) Severe protein calorie malnutrition ( ) Protein calorie malnutrition, unspecified ( ) Other (please specify): ( ) Other Diagnosis: Please Specify ( x ) Unknown Diagnosis or No Diagnosis Was this diagnosis present on admission? Please place an X within the parenthesis (x). ( ) Present on admission ( ) Not present on admission (x ) Unable to be clinically determined Thank you Swathi LINDSAY
== END 2020-11-24 17:15 | disposition hospice, home (50) | DRG 309 ==
LOC: ED 10:32 → 2N 14:05 → SUATTDRO 14:05 → 2N 16:23